=== PATIENT | female | born 1960 | race Caucasian/White ===

== ENCOUNTER → 2019-07-18 08:07 | Outpatient (CLI) | payer OTHER, SELFPAY ==
--- NOTE | 2019-07-18 08:41 | PET_ITS ---
EXAMINATION: FDG PET-CT - Head to Pelvis INDICATIONS: A 59-year-old female with reported history of carcinoma of the breast presenting for initial staging examination. COMPARISON EXAMINATION: None available INDEX LESION SIZE SUV INTERPRETATION Axial skeletal structures, multifocal 8.6 (max) Fulfills quantitative criteria for viable osseous neoplasm Left breast 23.3-mm (frame 175) 1.2 Presumably site of histologically confirmed primary breast malignancy NON-INDEX LESION SIZE SUV INTERPRETATION Left lower hemipelvis soft tissue nodularity 2.2 (max) Associated fatty hilus. Quantitative criteria for viable neoplasm are not fulfilled TECHNIQUE: Following the intravenous administration of 17.5 mCi of F-18 deoxyglucose, multiplanar image acquisitions of the head, neck, chest, abdomen and pelvis to level of mid thigh, obtained at one hour post radiopharmaceutical administration contemporaneously interpreted with the current CT of the head, neck, chest, abdomen and pelvis, to level of mid thigh, dated 07/18/2019 via coregistration reveals: BLOOD GLUCOSE LEVEL:?? 90 mg/dl?HEIGHT:?66 inches?WEIGHT: 184 lbs. FINDINGS: 1. There is a mild increase in glucose metabolism asymmetrically apparent in the left breast generating a calculated maximal standard uptake value of 1.2. The maximal axial diameter of the corresponding metabolic, morphologic abnormality on review of CT of the chest dated 07/18/2019 is 23.3-mm (transverse). 2. Multiple foci of increased FDG distribution are noted in the axial skeletal structures, too many to individually articulate, to include several cervical and thoracic vertebrae, bilateral ribs, right scapula, the left acetabulum and bilateral posterior ischium, left superior pubic ramus rendering a calculated maximal standard uptake value of 8.6. Mixed sclerotic-lytic changes are noted in multiple analogous locations on review of CT of the neck-pelvis dated 07/18/2019. 3. Facilitated tracer concentration is observed in the left lower anterior hemipelvis, in two separate nodular presentations, generating a calculated maximal standard uptake value of 2.2. Corresponding soft tissue densities demonstrate fatty hilus on review of CT of the pelvis dated 07/18/2019. 4. Normal physiologic distribution of the radiopharmaceutical is apparent in the hepatic (3.0) and splenic parenchyma, both renal units, bladder and visualized intestinal tract. Symmetric glucose metabolism is evident in the occipital, frontal, parietal and temporal lobes of the cerebral cortex, as well as normal visualization of the basal ganglia and cerebellar hemispheres. Diffuse radiopharmaceutical concentration is noted in all four quadrants of the abdomen and pelvis. Pertinent CT findings are as follows: CHEST: There are no parenchymal densities-nodules defined in the right and left hemithorax demonstrating discernible quantitatively significant increased FDG concentration. Bilateral axillary soft tissue with fatty hilus is ametabolic. Mediastinal soft tissue densities reveal no evidence of quantitatively significant-discernible increased FDG uptake. ABDOMEN AND PELVIS: Right-left inguinal soft tissue densities with fatty hilus are ametabolic. SKELETAL: Degenerative changes are noted in the cervical, thoracic and lumbar spine. Mixed sclerotic-lytic change manifest in the axial skeletal structures demonstrate varying degrees of quantitatively significant enhanced glucose metabolism previously described. PET/PET/CT Tumor Base -Thigh Init IMPRESSION: 1. ABNORMAL EXAMINATION INDICATIVE OF MALIGNANT-METASTATIC VIABLE NEOPLASM. 2. Increased radiopharmaceutical concentration multifocally apparent in the axial skeletal structures fulfills quantitative criteria for viable osseous neoplasm. (Marnie et al, Clinical Nuclear Medicine, 29:161, 2004). 3. Facilitated radiopharmaceutical concentration observed in the left breast presumably is outside sales representative of the site of the patient?s histologically confirmed primary breast malignancy. 4. Focal increased tracer uptake noted in the left lower hemipelvis corresponding to soft tissue nodularity with fatty hilus do not fulfill quantitative criteria for viable neoplasm. Electronic Signature Destin Mckeon D.O. Electronically Signed: Destin Mckeon DO at 23:30 EDT Tel , Service support ,
== END ==
PROVIDERS: PCP Family Medicine
DX: C50.912 Malignant neoplasm of unspecified site of left female breast (principal)
CPT/HCPCS: 78815; A9552

== ENCOUNTER → 2019-08-01 09:37 | Outpatient (CLI) | payer OTHER, SELFPAY ==
--- NOTE | 2019-08-01 09:38 | NM_ITS ---
CLINICAL: 59-year-old female with reported history of carcinoma of the breast. WHOLE BODY 99m Tc MDP RADIONUCLIDE BONE SCINTIGRAPHY COMPARISON: FDG PET/CT study dated 07/18/2019 FINDINGS: Following the intravenous administration of 27.8 mCi of 99m Tc MDP, whole body bone images reveal: 1. Increased radiopharmaceutical concentration is identified in the right frontal calvarium, left posterior acetabulum and ischium, left posterior lateral seventh, right posterior lateral eighth-ninth ribs, sixth-seventh and 11th thoracic vertebra, left paramedian mandible. 2. Enhanced tracer concentration is observed in the acromioclavicular compartments of both shoulders bilateral knees, right ankle, forefoot bilaterally, midlower cervical spine, fifth lumbar vertebra. 3. The remaining skeletal structures are scintigraphically unremarkable with normal-appearing renal images and urinary bladder activity identified. NM/Bone Scan Whole Body IMPRESSION: 1. Increased radiopharmaceutical concentration observed in the right frontal calvarium, left hemipelvis, bilateral ribs, thoracic spine and the left mandible is most consistent with skeletal metastatic disease. 2. Degenerative arthritis appears expressed in the bilateral knees, right ankle, right-left forefoot, cervical and lumbar spine. Electronically Signed: Destin Mckeon DO at 23:22 EDT Tel , Service support ,
== END ==
PROVIDERS: PCP Family Medicine; Referring Provider Internal Medicine Medical Oncology; Visit Provider Internal Medicine Medical Oncology
DX: C50.912 Malignant neoplasm of unspecified site of left female breast (principal)
CPT/HCPCS: 78306

== ENCOUNTER → 2019-08-05 09:06 | Outpatient (CLI) | payer OTHER, SELFPAY ==
--- NOTE | 2019-08-05 09:07 | MRI_ITS ---
STUDY: BILATERAL BREAST MR WITHOUT AND WITH CONTRAST REASON FOR EXAM: Female, 59 years old. Newly diagnosed left breast cancer status post biopsy. TECHNIQUE: Multi-sequence multi-echo imaging of both breasts was performed with a dedicated breast coil. T1-weighted and T2-weighted images were performed before the administration of contrast. T1-weighted images were also performed after the administration of 17ml Dotarem iv without complications. COMPARISON: Left breast ultrasound dated June 07, 2019 and left breast ultrasound-guided biopsy images dated June 16, 2019. Left mammogram after clip placement dated June 16, 2019. Radionuclide bone scan performed August 01, 2019 and PET/CT study performed July 18, 2019. FINDINGS: RIGHT BREAST: The breast tissue is fatty with minimal background enhancement. There are no abnormal enhancing masses or areas of non-mass enhancement in the right breast. LEFT BREAST: The breast tissue is fatty with minimal background enhancement. Large area of clumped non-mass enhancement in the upper outer quadrant of the left breast measuring 5.2 cm x 2.3 cm x 5.5 cm. Tissue clip marker within the enhancing mass. Second separate irregular enhancing mass posterior to the clumped nonmass enhancement measuring approximately 1.3 cm in diameter corresponding to the irregular mass seen on the mammogram, compatible with a second primary lesion. Enlarged bilateral axillary lymph nodes, right greater than left. The right axillary lymph nodes may represent contralateral axillary metastases. 12 mm in diameter rounded enhancing lesion in the left sternum compatible with osseous metastasis corresponding to the radionuclide bone scan performed August 01, 2019. There are no enlarged or abnormal lymph nodes. There is no abnormality in the visualized regions of the chest or liver. MRI/Breast Bilateral W/O and W IMPRESSION: Large area of clumped non-mass enhancement in the upper outer quadrant of the left breast corresponding to the area of the index lesion. Second separate irregular enhancing mass in the left breast posterior to the index lesion compatible with a second primary breast cancer. 12 mm in diameter rounded enhancing lesion in the left side of the sternum compatible with an osseous metastasis and corresponding to findings noted on the radionuclide bone scan. Enlarged bilateral axillary lymph nodes, right greater than left. The right axillary lymph nodes may represent contralateral axillary metastases, as outlined above. CATEGORY: BIRADS Category 6: Known Biopsy-Proven Malignancy - Appropriate Action Should Be Taken. A letter regarding these results will be sent to the patient by the facility within 30 days. Electronically Signed: Vazquez Quinones MD at 15:58 EDT , Service support ,
== END ==
PROVIDERS: PCP Family Medicine; Referring Provider Surgery; Visit Provider Surgery
DX: C50.912 Malignant neoplasm of unspecified site of left female breast (principal); C79.51 Secondary malignant neoplasm of bone
CPT/HCPCS: 77049; A9575; A4216; C8908

== ENCOUNTER → 2019-08-24 11:15 | Outpatient (CLI) | payer OTHER, SELFPAY ==
[2019-08-10 09:48] VITALS: BMI 29.5
[2019-08-18 13:24] VITALS: BMI 29.6
--- NOTE | 2019-08-24 11:17 | MRI_ITS ---
STUDY: MRI BRAIN WITH AND WITHOUT CONTRAST REASON FOR EXAM: Female, 59 years old. Breast ca, staging TECHNIQUE: Standardized multiplanar fat and water weighted pulse sequences were obtained. 17 mL of IV Dotarem was administered for the contrast portion of the examination. COMPARISON: None. FINDINGS: No restricted diffusion throughout the brain parenchyma. Normal size of the ventricles and extra-axial spaces for the patient''s age. Multiple T2 FLAIR hyperintensity foci in the white matter of both cerebral hemispheres are chronic white matter ischemic changes. No midline shift and no mass effects. Normal bilateral basal ganglia. Normal thalami. There is no extra-axial fluid accumulation. Normal flow voids within the major intracranial circulation suggesting patency by spin echo criteria. Normal venous enhancement. There is no enhancing intra-axial or extra-axial abnormality. Normal sella turcica, pituitary gland, infundibular stalk, optic chiasm and hypothalamus. Normal tectal plate and pineal gland. Normal midbrain, oziel and medulla. Normal cerebellum. Normal basal cisterns. Normal bilateral temporal bones. Normal bilateral internal auditory canals. No demonstrated orbital abnormality, within the constraints of a routine brain study. Benign mucus retention cyst in the right maxillary sinus. Normal calvarium and skull base. Normal visualized soft tissue structures. Normal visualized upper cervical spine. MRI/Brain W/WO Contrast IMPRESSION: 1. No MRI evidence of intracranial metastatic disease. 2. No MRI evidence of acute or subacute ischemic infarct or acute intracranial abnormality. 3. Chronic white matter ischemic changes in both cerebral hemispheres. 4. Prominent benign mucus retention cyst in the right maxillary sinus. Electronically Signed: Johnathan Malone MD at 14:10 EDT , Service support ,
--- NOTE | 2019-08-24 11:31 | US_ITS ---
STUDY: ULTRASOUND OF THE FEMALE PELVIS - COMPLETE REASON FOR EXAM: Female, 59 years old. H/O BREAST MED WITH CRAMPING LMP: Patient is postmenopausal. TECHNIQUE: Transabdominal and Transvaginal TECHNICAL QUALITY: Adequate. COMPARISON: None. FINDINGS: The uterus is anteverted and is in a midline position. The uterus measures 9.9 cm x 6.9 cm x 5.2 cm. There is a Nabothian cyst of the cervix. The endometrium measures 5.0 mm in thickness, and is hyperechoic. There is no demonstrated endometrial mass. There is a 5 cm x 4.4 cm x 5 cm fibroid in the anterior fundal portion of the uterus. I.U.D. - The patient does not have an I.U.D. The right ovary is non-visualized. The left ovary is non-visualized. There is no fluid in the cul-de-sac. The pre void volume of the bladder was 353 ml. Polycystic ovary disease: No. US/Transvaginal Non- IMPRESSION: Fibroid uterus. Electronically Signed: Emory Rivero, at 13:01 EDT , Service support ,
--- NOTE | 2019-08-24 11:31 | US_ITS ---
STUDY: ULTRASOUND OF THE FEMALE PELVIS - COMPLETE REASON FOR EXAM: Female, 59 years old. H/O BREAST MED WITH CRAMPING LMP: Patient is postmenopausal. TECHNIQUE: Transabdominal and Transvaginal TECHNICAL QUALITY: Adequate. COMPARISON: None. FINDINGS: The uterus is anteverted and is in a midline position. The uterus measures 9.9 cm x 6.9 cm x 5.2 cm. There is a Nabothian cyst of the cervix. The endometrium measures 5.0 mm in thickness, and is hyperechoic. There is no demonstrated endometrial mass. There is a 5 cm x 4.4 cm x 5 cm fibroid in the anterior fundal portion of the uterus. I.U.D. - The patient does not have an I.U.D. The right ovary is non-visualized. The left ovary is non-visualized. There is no fluid in the cul-de-sac. The pre void volume of the bladder was 353 ml. Polycystic ovary disease: No. US/Pelvic (Non ) IMPRESSION: Fibroid uterus. Electronically Signed: Emory Rivero, at 13:01 EDT , Service support ,
== END ==
PROVIDERS: PCP Family Medicine; Referring Provider Nurse Practitioner Women's Health; Visit Provider Nurse Practitioner Women's Health
DX: C50.412 Malignant neoplasm of upper-outer quadrant of left female breast (principal); C79.51 Secondary malignant neoplasm of bone; R10.2 Pelvic and perineal pain
CPT/HCPCS: 70553; 76830; 76856; A9575

== ENCOUNTER → 2019-09-23 10:46 | Outpatient (CLI) | payer OTHER, SELFPAY ==
[2019-09-19 11:05] VITALS: BMI 29.0
--- NOTE | 2019-09-23 10:48 | MRI_ITS ---
STUDY: BILATERAL BREAST MR WITHOUT AND WITH CONTRAST REASON FOR EXAM: Female, 59 years old. History of left breast cancer. Left breast pain. TECHNIQUE: Multi-sequence multi-echo imaging of both breasts was performed with a dedicated breast coil. T1-weighted and T2-weighted images were performed before the administration of contrast. T1-weighted images were also performed after the administration of IV Yes without complications. COMPARISON: Left mammogram dated June 16, 2019, left breast ultrasound-guided biopsy images dated June 16, 2019 and prior breast MRI study with contrast agent August 05, 2019. FINDINGS: RIGHT BREAST: The breast tissue is fatty with minimal background enhancement. There are no abnormal enhancing masses or areas of non-mass enhancement in the right breast. LEFT BREAST: The breast tissue is fatty with minimal background enhancement. Stable area of clumped non-mass enhancement in the upper outer quadrant of the left breast now measuring approximately 3.6 cm x 2.4 cm x 3.5 cm. Separate irregular enhancing area posterior and superior to the non-mass enhancement measuring 10 mm x 7 mm x 1.3 mm. Decreased adenopathy in both axillary, right greater than left. Rounded enhancing lesion in the left sternum superiorly. The enhancement has decreased since the prior study. MRI/Breast Bilateral W/O and W IMPRESSION: Decrease in size of non--mass enhancement in the left breast since the prior study. Decrease in size of the separate enhancing lesion posterior to the non-mass enhancement in the left breast since the prior study. Decreased enhancement of the circular lesion in the left sternum since the prior study. No new lesions/abnormalities present. CATEGORY: BIRADS Category 6: Known Biopsy-Proven Malignancy - Appropriate Action Should Be Taken. A letter regarding these results will be sent to the patient by the facility within 30 days. Electronically Signed: Vazquez Quinones MD at 21:05 EDT , Service support ,
== END ==
PROVIDERS: PCP Family Medicine; Referring Provider Nurse Practitioner Family; Visit Provider Nurse Practitioner Family
DX: C50.912 Malignant neoplasm of unspecified site of left female breast (principal)
CPT/HCPCS: 77049; A9575; A4216; C8908

== ENCOUNTER → 2019-11-16 07:53 | Outpatient (CLI) | payer OTHER, SELFPAY ==
[2019-10-12 10:04] VITALS: BMI 29.2
--- NOTE | 2019-11-16 07:54 | NM_ITS ---
CLINICAL: 59-year-old female with reported history of carcinoma of the left breast with current complaint of left hip and chest wall pain. WHOLE BODY 99m Tc MDP RADIONUCLIDE BONE SCINTIGRAPHY COMPARISON: Whole body bone scintigraphy study dated 08/01/2019 FINDINGS: Following the intravenous administration of approximately 25.0 mCi of 99m Tc MDP, whole body bone images reveal: 1. Increased radiopharmaceutical concentration remains apparent in the right frontal calvarium, left posterior acetabulum and patient, the left inferior pubic ramus, left posterior lateral seventh, right posterior lateral eighth and to lesser extent ninth ribs the sixth and seventh thoracic vertebra and newly apparent uptake noted in the left occipital, left frontal and additional focus in the right frontal skull. 2. Facilitated tracer concentration is presently visualized in the mid cervical spine posteriorly on the right and in the midline, bilateral knees, dorsal medial compartment of the right ankle, the right and to lesser extent left forefoot. 3. The remaining skeletal structures are scintigraphically unremarkable with normal-appearing renal images and urinary bladder activity identified. Facilitated uptake remains evident in the midline and left paramedian mandible most consistent with periodontal disease and/or periostitis. NM/Bone Scan Whole Body IMPRESSION: 1. The redefined and newly visualized foci of increased radiopharmaceutical concentration noted in the axial skeletal structures and bilateral hemipelvic calvarium is consistent with osteoblastic turnover attributed to skeletal metastatic disease. 2. Degenerative arthritis appears currently expressed in the cervical spine, right and left knees, the right ankle, right and left forefoot. 3. Overall compared to the previous whole body bone scintigraphy study dated 08/01/2019, is apparent interval progression of defined osteoblastic osseous metastasis. If flare phenomenon is a diagnostic consideration, repeat whole body bone scintigraphy in 3-6 months is recommended. Electronically Signed: Destin Mckeon DO at 22:41 EDT Tel , Service support ,
== END ==
PROVIDERS: PCP Family Medicine; Referring Provider Internal Medicine Medical Oncology; Visit Provider Internal Medicine Medical Oncology
DX: C50.912 Malignant neoplasm of unspecified site of left female breast (principal); C79.51 Secondary malignant neoplasm of bone
CPT/HCPCS: 78306

== ENCOUNTER → 2019-11-18 13:04 | Outpatient (CLI) | payer OTHER, SELFPAY ==
[2019-11-16 09:08] VITALS: BMI 29.2
--- NOTE | 2019-11-18 13:05 | MRI_ITS ---
STUDY: BILATERAL BREAST MR WITHOUT AND WITH CONTRAST REASON FOR EXAM: Female, 59 years old. NEW LEFT breast pain (under and lateral). history of LEFT breast CA with biopsy 2019 TECHNIQUE: Multi-sequence multi-echo imaging of both breasts was performed with a dedicated breast coil. T1-weighted and T2-weighted images were performed before the administration of contrast. T1-weighted images were also performed after the administration of IV Yes without complications. COMPARISON: Breast MRI dated 09/23/2019 and 08/05/2019. The prior mammogram and breast ultrasound are not available for review. FINDINGS: LEFTBREAST: The breast tissue is fatty with minimal background enhancement. There is an area of enhancement in the upper outer quadrant of the left breast measuring 2.7 x 1.5 cm. This has decreased in size when compared to the prior breast MRI. There is an irregularly enhancing mass seen posterior and superior to the the larger mass measuring 1.2 x 0.7 cm. This is stable when compared to the prior exam. RIGHT BREAST: The breast tissue is fatty with minimal background enhancement. There are no abnormal enhancing masses or areas of non-mass enhancement in the left breast. The lymph nodes have decreased slightly in size when compared to the prior examination. The previously seen lesion on the left side of the sternum appears smaller on today''s exam. MRI/Breast Bilateral W/O and W IMPRESSION: There has been a decrease in size of the larger enhancing mass in the left breast and a smaller enhancing mass in the left breast appears similar when compared to the prior breast MRI. The lesion the left sternum appears smaller on today''s study. CATEGORY: BIRADS Category 6: Known Biopsy-Proven Malignancy - Appropriate Action Should Be Taken. A letter regarding these results will be sent to the patient by the facility within 30 days. Electronically Signed: Brandy Harp DO at 21:54 EDT Tel , Service support ,
== END ==
PROVIDERS: PCP Family Medicine; Referring Provider Nurse Practitioner Family; Visit Provider Nurse Practitioner Family
DX: C50.912 Malignant neoplasm of unspecified site of left female breast (principal); N64.4 Mastodynia; Z85.3 Personal history of malignant neoplasm of breast
CPT/HCPCS: 77049; A9575; A4216; C8908

== ENCOUNTER → 2019-12-16 08:12 | Outpatient (CLI) | payer OTHER, SELFPAY ==
[2019-09-14 08:13] VITALS: BMI 29.2
[2019-10-12 10:04] VITALS: BMI 29.2
[2019-12-12 13:51] VITALS: BMI 28.2
--- NOTE | 2019-12-16 08:12 | US_ITS ---
STUDY: ULTRASOUND OF THE FEMALE PELVIS - COMPLETE REASON FOR EXAM: Female, 59 years old. Thickened endo ,hx tamoxifen, breast ca -- previous study 08/21 please compare LMP: The patient is postmenopausal. TECHNIQUE: Transabdominal and Transvaginal TECHNICAL QUALITY: Adequate. COMPARISON: Comparison is made with prior examination dated 08/24/2019. FINDINGS: The uterus is anteverted and is in a midline position. The uterus measures 9.3 cm x 6.6 cm x 4.9 cm. Normal uterine cervix. The endometrium is thickened and measures 10 mm in thickness, and is hyperechoic. There small cystic areas are seen within the thickened endometrium. There is no demonstrated myometrial mass. I.U.D. - The patient does not have an I.U.D. The right ovary is non-visualized. The left ovary is non-visualized. There is no fluid in the cul-de-sac. The pre void volume of the bladder was 437 ml. Polycystic ovary disease: No. US/Pelvic (Non ) IMPRESSION: Thickened heterogeneous endometrial stripe with small cystic areas. Electronically Signed: Emory Rivero, at 11:17 EDT , Service support ,
--- NOTE | 2019-12-16 08:12 | US_ITS ---
STUDY: ULTRASOUND OF THE FEMALE PELVIS - COMPLETE REASON FOR EXAM: Female, 59 years old. Thickened endo ,hx tamoxifen, breast ca -- previous study 08/21 please compare LMP: The patient is postmenopausal. TECHNIQUE: Transabdominal and Transvaginal TECHNICAL QUALITY: Adequate. COMPARISON: Comparison is made with prior examination dated 08/24/2019. FINDINGS: The uterus is anteverted and is in a midline position. The uterus measures 9.3 cm x 6.6 cm x 4.9 cm. Normal uterine cervix. The endometrium is thickened and measures 10 mm in thickness, and is hyperechoic. There small cystic areas are seen within the thickened endometrium. There is no demonstrated myometrial mass. I.U.D. - The patient does not have an I.U.D. The right ovary is non-visualized. The left ovary is non-visualized. There is no fluid in the cul-de-sac. The pre void volume of the bladder was 437 ml. Polycystic ovary disease: No. US/Transvaginal Non- IMPRESSION: Thickened heterogeneous endometrial stripe with small cystic areas. Electronically Signed: Emory Rivero, at 11:17 EDT , Service support ,
== END ==
PROVIDERS: PCP Family Medicine; Referring Provider Nurse Practitioner Women's Health; Visit Provider Nurse Practitioner Women's Health
DX: R93.89 Abnormal findings on diagnostic imaging of other specified body structures (principal); Z79.810 Long term (current) use of selective estrogen receptor modulators (SERMs)
CPT/HCPCS: 76830; 76856

== ENCOUNTER 2020-01-01 06:46 | Emergency (ER) | payer OTHER, SELFPAY ==
[2019-12-12 13:51] VITALS: BMI 28.2
[2020-01-01 06:47] VITALS: BP 119/79; PULSE 64; RESP 11; TEMP 36.6; O2SAT 100; BMI 28.2
--- NOTE | 2020-01-01 07:03 | EKG12_ITS ---
Test Reason : Blood Pressure : / mmHG Vent. Rate : 053 BPM Atrial Rate : 053 BPM P-R Int : 160 ms QRS Dur : 086 ms QT Int : 470 ms P-R-T Axes : 026 005 028 degrees QTc Int : 441 ms Sinus bradycardia Low voltage QRS Borderline ECG Confirmed by ALFREDO MUNGUIA, SHAWN ([id number]), photo editor BECKA JOINER ([id number]) on 01/05/2020 11:34:22 AM Referred By: CL Confirmed By:SHAWN FUENTES MD
--- NOTE | 2020-01-01 07:03 | RAD_ITS ---
STUDY: X-RAY CHEST REASON FOR EXAM: Female, 59 years old. LEFT SIDE CHEST AND UPPER BACK PAIN TECHNIQUE: Single AP portable view of the chest. COMPARISON: 07/21/2019 FINDINGS: The lungs are clear and expanded. There is no demonstrated pleural abnormality. Normal size heart. Normal mediastinum and devora. Normal visualized pulmonary arteries. Normal visualized aortic arch and descending thoracic aorta. Normal visualized thoracic spine. Normal visualized ribs, clavicles, and shoulders. There is no demonstrated abnormality of the visualized soft tissue structures of the upper abdomen. RAD/Chest 1 View (Portable) IMPRESSION: Normal x-ray examination of the chest. Electronically Signed: Destin Benson MD at 7:48 EDT Tel , Service support ,
--- NOTE | 2020-01-01 07:04 | ED.VIS.GEN ---
History of Present Illness Chief Complaint: Other, Pain/Inj Informant: Patient Narrative: 59-year-old female with past medical history of metastatic breast cancer and hypothyroidism presents with concern for left-sided chest pain. States it began approximately 12 hours ago. States is gotten progressively worse. States it is worse with deep inspiration. Does admit to shortness of breath. Denies any fever, chills, cough. Nausea, vomiting, diaphoresis. Patient is currently on oral therapy for her breast cancer and received 3 treatments of radiation last week and is set up for 2 more this week. Patient was diagnosed with her breast cancer 6 months ago. Patient is metastatic to multiple areas including her pelvis. Past Medical History - Allergies and Home Meds Allergies/Adverse Reactions: Allergies No Known Allergies Allergy (Verified 01/01/20 06:50) Primary Care Physician: Yoel Urbina MD [Primary Care Provider] - Past Medical History: - - breast cancer and hypothyroidism Surgical History: - - c section x 3 Lives: Spouse/ Significant Other Smoking Status: Former smoker Alcohol: None Drugs: None Review of Systems General: Denies: Chills, Fever, Sweats Eyes: Denies: Visual changes - bilaterally, Diplopia ENT: Denies: Rhinorrhea, Sore throat Cardiovascular: Reports: Chest pain. Denies: Palpitations Respiratory: Reports: Dyspnea. Denies: Cough, Dyspnea on exertion Gastrointestinal: Denies: Abdominal pain, Nausea, Vomiting, Diarrhea, Melena, Hematochezia Genitourinary: Denies: Dysuria, Hematuria, Frequency Musculoskeletal: Denies: Back pain, Extremity Pain Skin: Denies: Rash, Wounds Neurological: Denies: Headache, Weakness, Numbness Physical Exam Vital Signs/Narrative: Vital Signs Temp Pulse Resp BP Pulse Ox 01/01/20 06:47 97.9 F 64 11 L 119/79 100 Inital Vital Signs reviewed: Yes General: Well nourished, Well developed, No Acute Distress Head: Normocephalic, Atraumatic Eyes: Perrl, EOMI ENT: Moist mucous membranes, No rhinorrhea Neck: Supple, Nontender Cardiovascular: Regular rate, Regular rhythm, No murmurs Respiratory: No distress, CTA bilaterally, - - TTP along the left chest into the left scapular area. Abdomen: Soft, Nontender, Nondistended, Normal bowel sounds Back: Nontender, Normal Inspection Extremities: Nontender, No edema Skin: Normal color, No rash Neurological: Alert, Oriented x3, Cranial nerves II-XII grossly intact, Normal Strength, Normal Sensation Psychological: Normal affect, Normal Mood Diagnostic/Tx/Re-eval Chest X-Ray - ED: 1 View, Normal Clinical Impression(s) from Imaging Studies Chest X-Ray 01/01/20 07:03 IMPRESSION: Normal x-ray examination of the chest. Electronically Signed: Destin Benson MD at 7:48 EDT Tel , Service support , Chest CTA 01/01/20 07:52 IMPRESSION: CTA chest examination, without a demonstrated pulmonary embolism or arterial dissection. Pericardial effusion. Lower lung interstitial edema. Electronically Signed: Bunny Recinos MD at 9:27 EDT , Service support , Laboratory Data 01/01/20 01/01/20 07:15 07:15 WBC 5.6 RBC 4.04 L Hgb 11.7 L Hct 37.0 MCV 91.6 MCH 29.0 MCHC 31.6 L RDW Std Deviation 43.5 RDW Coeff of David 13.1 Plt Count 300 MPV 10.2 Immature Gran % (Auto) 0.400 Neut % (Auto) 55.4 Lymph % (Auto) 33.5 Spalding % (Auto) 3.7 Eos % (Auto) 6.1 H Baso % (Auto) 0.9 Absolute Neuts (auto) 3.1 Absolute Lymphs (auto) 1.88 Nucleated RBC % 0 Differential Comment SCANNED Reactive Lymphocytes 1+ Sodium 144 Potassium 3.9 Chloride 115 H Carbon Dioxide 24.0 Anion Gap 5 BUN 14 Creatinine 0.89 Estim Creat Clear Calc 64.50 Est GFR (MDRD) Af Amer 83 Est GFR (MDRD) Non-Af 69 BUN/Creatinine Ratio 15.7 Glucose 86 Calcium 8.3 L Troponin I < 0.015 - Rhythm Strip Rhythm Strip: Sinus bradycardia Rate: 53 Ectopy: None - EKG Initial EKG Interpretation: Sinus Bradycardia - Sinus bradycardia 53 bpm. [place] interval 160 ms. QTC of 441 ms. No evidence of ST elevation or depression at this time. - Medical Decision Making Patient appears well and nontoxic. Was given morphine, Zofran, small fluid bolus. Chest x-ray and lab work within normal limits. CTA was done given her history of breast cancer. No evidence of pulmonary embolism. Patient is feeling improved following morphine. Patient refusing narcotic pain medication for home. Advised to increase her Naprosyn to 500 mg twice a day for the next 5 days. Also advised to use Tylenol. Asked to follow-up with her oncologist as well as her primary care provider. Asked to return for new or worsening symptoms. Patient agreeable and discharged home in stable condition. ED Disposition - Plan for ED Patient: Disposition: Home or Assisted Living Diagnosis: Cancer-related pain Instructions: ED Chronic Pain Referrals: Yoel Urbina MD [Primary Care Provider] - Additional Instructions: Please use 500 mg of naproxen twice a day for the next 5 days. May add Tylenol to this regimen as well with 1000 mg up to 3 times a day.
[2020-01-01] MEDS: Ondansetron 4 MG/2 ML Vial IV (07:19)
[2020-01-01] MEDS: Morphine 4 MG/ML Syringe IV (07:19)
[2020-01-01 07:27] LABS: Absolute Lymphocyte Count 1.88 X10^3/uL (0.83-4.51); Absolute Neutrophil Count 3.1 X10^3/uL (2.0-7.7); Basophil# 0.05 X10^3/uL; Basophil% 0.9 % (0-1); Eosinophil# 0.34 X10^3/uL; Eosinophils% 6.1 % (0-5); Hemoglobin 11.7 g/dL (12.0-15.0); Lymphocyte # 1.88 X10^3/ul (4.0); Lymphocyte % 33.5 % (19-41); Mean Corp Hgb Conc 31.6 g/dL (32-36); Mean Corpuscular Volume 91.6 fL (81-99); Mean Platelet Vol. 10.2 fl (6.2-12.0); Monocyte# 0.21 X10^3/uL; Monocyte% 3.7 % (0-10); NRBC Flagged by Analyzer 0 % (0-5); Neutrophil # 3.11 X10^3/uL (2.7-7.7); Neutrophil % 55.4 % (47-70); POSITIVE MORPHOLOGY YES; Platelet Count 300 K/mm3 (150-450); RBC Distribution Width CV 13.1 % (11.6-14.6); RBC Distribution Width SD 43.5 fl (35.1-43.9); Red Blood Count 4.04 M/mm3 (4.2-5.4); White Blood Count 5.6 K/mm3 (4.4-11.0)
[2020-01-01 07:32] LABS: Differential Indicated SCAN CRITERIA MET
[2020-01-01 07:42] LABS: Anion Gap 5 (5-15); BUN 14 mg/dL (7-18); BUN/Creat Ratio 15.7 RATIO (10-20); Calcium,Total 8.3 mg/dL (8.5-10.1); Chloride 115 mmol/L (98-107); Creatinine, Serum 0.89 mg/dL (0.55-1.02); EST Glomerular Filtration Rate 69 mL/min (>60); Est Glom Filt Rate - Afr Amer 83 mL/min (>60); Glucose 86 mg/dL (74-106); Potassium 3.9 mmol/L (3.5-5.1); Sodium Level 144 mmol/L (136-145)
[2020-01-01 07:47] VITALS: BP 120/80; PULSE 52; RESP 14; O2SAT 100
--- NOTE | 2020-01-01 07:52 | CT_ITS ---
STUDY: CTA CHEST REASON FOR EXAM: Female, 59 years old. LT SIDED CP, DYSPNEA, SUBSTERNAL PAIN RADIATING TO FLANK, HX-BREAST CA WITH BONE METS RADIATION DOSAGE (If Supplied By Facility): CTDIvol = ( 14.83 ) mGy, DLP = ( 409.88 ) mGycm TECHNIQUE: The examination was performed with the intravenous administration of IV 100mL Isovue-370. Post-processing of the angiographic images was performed, with multiplanar reformation and 3D reconstruction. Individualized dose optimization techniques were used for this CT. COMPARISON: Chest x-ray FINDINGS: Normal enhancement of the main pulmonary artery and right and left pulmonary arteries. Normal enhancement of the bilateral peripheral pulmonary arteries. There is no demonstrated pulmonary embolism. Normal thoracic aorta and visualized great vessels. There is no demonstrated aortic dissection. There is a small pericardial effusion. Normal mediastinum. Normal hilar regions. Normal visualized trachea and bronchi. The lungs are well expanded. There is interstitial septal thickening of the lower lungs. Normal pleura. Normal chest wall structures. There are degenerative changes of thoracic spine. There are lucent lesions consistent with osseous metastatic disease including of mid and lower thoracic vertebra. There is enlarged left adrenal gland. CT/CTA Chest W/WO Contrast IMPRESSION: CTA chest examination, without a demonstrated pulmonary embolism or arterial dissection. Pericardial effusion. Lower lung interstitial edema. Electronically Signed: Bunny Recinos MD at 9:27 EDT , Service support ,
[2020-01-01 07:54] LABS: Differential Comment SCANNED; Reactive Lymphocyte 1+
[2020-01-01 09:00] VITALS: BP 105/86; PULSE 52; RESP 15; O2SAT 99
[2020-01-01 10:04] VITALS: BP 128/83; PULSE 80; RESP 15
== END 2020-01-01 10:05 | disposition home or self-care (01) ==
PROVIDERS: Emergency Provider Emergency Medicine; PCP Family Medicine
DX: G89.3 Neoplasm related pain (acute) (chronic) (principal); C50.919 Malignant neoplasm of unspecified site of unspecified female breast; E03.9 Hypothyroidism, unspecified; Z87.891 Personal history of nicotine dependence
CPT/HCPCS: 71045; 71275; 80048; 84484; 85025; 93005; 96374; 96375; 99284; Q9967; A4216; J2405

== ENCOUNTER 2020-04-25 16:56 | Emergency (ER) | payer OTHER, SELFPAY ==
[2020-04-17 10:34] VITALS: BMI 28.8
[2020-04-25 16:57] VITALS: BP 141/93; PULSE 78; RESP 16; TEMP 36.3; O2SAT 99; BMI 29.2
--- NOTE | 2020-04-25 17:25 | CT_ITS ---
STUDY: CT BRAIN WITHOUT CONTRAST REASON FOR EXAM: Female, 59 years old. RIGHT SIDED NUMBNESS X 3 DAYS. HISTORY OF BREAST CA RADIATION DOSAGE (If Supplied By Facility): CTDIvol = ( 60.81 ) mGy, DLP = ( 1044.28 ) mGycm TECHNIQUE: Transaxial CT imaging of the brain was performed without administration of intravenous contrast material. Individualized dose optimization techniques were used for this CT. COMPARISON: MRI August 24, 2019 FINDINGS: Normal soft tissue structures. Normal calvarium. Normal size ventricles and extra-axial spaces for the patient''s age. There are areas of decreased attenuation within the white matter tracts of the supratentorial brain, consistent with microvascular disease changes. There are small punctate calcifications of the basal ganglia which are seen in the aging brain as a normal variant. Normal brainstem. Normal cerebellum. There is no intracranial hemorrhage. There are no findings of an acute ischemic infarction. Mucosal thickening of the right maxillary sinus. CT/Brain/Head without Contrast IMPRESSION: Chronic involutional changes of the brain. Electronically Signed: Bunny Recinos MD at 18:53 EST , Service support ,
--- NOTE | 2020-04-25 17:38 | ED.DCSUM_ITS ---
- ER Visit Summary Date of Service: 04/25/20 Chief Complaint: Facial paresthesias and tinnitus History of Present Illness: The patient is a 59 F who presents with facial paresthesias and tinnitus that has been intermittent over the last 3 days. Patient states she gets some numbness and tingling in her right periorbital area and right cheek. Patient states this last approximately 15 minutes then resolves. Patient admits to some ringing in her ears when this happens. Patient also admits to some intermittent watering of her right eye. Patient denies any other visual changes. Patient states she has pain in the right temporal area. Physical Examination: Vital signs are stable. Patient is afebrile. Patient is in no acute distress. Cranial nerves II through XII are intact. Strength is 5/5 bilateral in the upper and lower extremities. There are no sensory deficits noted. Pupils are equal, round, and reactive to light bilaterally. Extraocular muscles are intact. Neck is supple. Trachea is midline. There is no JVD or lymphadenopathy. Heart was regular rate and rhythm. Lungs are clear and equal bilaterally. Abdomen is soft and nontender. Extremities are intact. There is no calf tenderness or edema. Test Results: CBC and comprehensive metabolic profile were obtained and were essentially within normal limits. CT scan of the brain was obtained. There is no acute intracranial abnormality noted. There are chronic changes. This was interpreted by the radiologist and reviewed by myself. Emergency Department Course and Treatment: Patient is feeling better on reevaluation. Patient has had no further episodes of paresthesias. Patient was instructed to follow-up with her primary care physician in 5 to 7 days. Patient understood and was agreeable with the plan. All questions were answered. Disposition: Discharge home Impression: 1. Facial paresthesias This note was generated with [employer] software. It may contain incorrect words, spelling, and punctuation that were not noted in review of the chart prior to signing ED Disposition - Plan for ED Patient: Disposition: Home or Assisted Living Diagnosis: Facial paresthesia Instructions: ED Paraesthesias Referrals: Yoel Urbina MD [Primary Care Provider] - 5-7 Days
[2020-04-25 17:42] VITALS: BMI 29.2
[2020-04-25 17:51] LABS: Absolute Lymphocyte Count 1.43 X10^3/uL (0.83-4.51); Basophil# 0.08 X10^3/uL; Basophil% 2.2 % (0-1); Eosinophil# 0.06 X10^3/uL; Eosinophils% 1.6 % (0-5); Hematocrit 35.1 % (37-47); Lymphocyte # 1.43 X10^3/ul (4.0); Lymphocyte % 39.1 % (19-41); Mean Corp Hgb Conc 34.2 g/dL (32-36); Mean Corpuscular Hgb 35.3 pg (27.0-32.0); Mean Corpuscular Volume 103.2 fL (81-99); Mean Platelet Vol. 9.8 fl (6.2-12.0); Monocyte# 0.13 X10^3/uL; Monocyte% 3.6 % (0-10); NRBC Flagged by Analyzer 0 % (0-5); Neutrophil # 1.95 X10^3/uL (2.7-7.7); Neutrophil % 53.2 % (47-70); POSITIVE MORPHOLOGY YES; Platelet Count 322 K/mm3 (150-450); RBC Distribution Width CV 16.3 % (11.6-14.6); RBC Distribution Width SD 62.6 fl (35.1-43.9); White Blood Count 3.7 K/mm3 (4.4-11.0)
[2020-04-25 18:04] LABS: AST(SGOT) 14 U/L (15-37); Alanine Aminotransfer ALT/SGPT 26 U/L (13-56); Albumin, Serum 3.6 g/dL (3.2-5.0); Alkaline Phosphatase 92 U/L (45-117); Anion Gap 6 (5-15); BUN 19 mg/dL (7-18); BUN/Creat Ratio 20.9 RATIO (10-20); Calcium,Total 8.9 mg/dL (8.5-10.1); Chloride 111 mmol/L (98-107); Creatinine, Serum 0.91 mg/dL (0.55-1.02); EST Glomerular Filtration Rate 67 mL/min (>60); Est Glom Filt Rate - Afr Amer 82 mL/min (>60); Estimated Creatinine Clearance 63.08 ml/min; Globulin 3.5 g/dL (2.2-4.2); Glucose 88 mg/dL (74-106); Potassium 4.1 mmol/L (3.5-5.1); Protein, Total 7.1 g/dL (6.4-8.2); Sodium Level 143 mmol/L (136-145)
[2020-04-25 18:20] LABS: Differential Indicated SCAN CRITERIA MET
[2020-04-25 18:49] LABS: Differential Comment SCANNED; Erythrocyte Sedimentation Rate 12 mm/hr (0-30)
[2020-04-25 20:25] VITALS: BP 130/81; PULSE 70; RESP 16; O2SAT 98
== END 2020-04-25 20:30 | disposition home or self-care (01) ==
PROVIDERS: Emergency Provider Emergency Medicine; PCP Family Medicine; Referring Provider Family Medicine
DX: R20.2 Paresthesia of skin (principal); H93.13 Tinnitus, bilateral; Z79.899 Other long term (current) drug therapy; Z85.3 Personal history of malignant neoplasm of breast
CPT/HCPCS: 70450; 80053; 85025; 85652; 99284

== ENCOUNTER → 2020-05-16 17:20 | Outpatient (CLI) | payer OTHER, SELFPAY ==
[2020-05-15 10:25] VITALS: BMI 29.6
== END ==
PROVIDERS: PCP Family Medicine; Visit Provider Nurse Practitioner Family
DX: U07.1 COVID-19 (principal); R09.81 Nasal congestion
CPT/HCPCS: 87635; C9803; U0005; U0003

== ENCOUNTER → 2020-06-06 08:54 | Outpatient (CLI) | payer OTHER, SELFPAY ==
[2020-05-15 10:25] VITALS: BMI 29.6
--- NOTE | 2020-06-06 08:55 | NM_ITS ---
CLINICAL: 59-year-old female with reported history of carcinoma of the breast metastatic to bone. WHOLE BODY 99m Tc MDP RADIONUCLIDE BONE SCINTIGRAPHY COMPARISON: Previous whole body bone scintigraphy study dated 11/16/2019 FINDINGS: Following the intravenous administration of 26.0 mCi of 99m Tc MDP, whole body bone images reveal: 1. Redefined and newly apparent foci of increased tracer uptake are visualized in the right proximal humeral metaphysis, left anterior first, right anterolateral ninth ribs, distal left clavicle, right-left calvarium, the bilateral hemipelvis, multiple cervical, thoracic and lumbar vertebra, bilateral ribs, the proximal and distal sternum, bilateral proximal femurs posteriorly. 2. Facilitated uptake is observed in the acromioclavicular compartments of both shoulders, knees bilaterally, the right ankle, right-left forefoot. 3. The remaining skeletal structures are scintigraphically unremarkable with normal-appearing renal images and urinary bladder activity identified. NM/Bone Scan Whole Body IMPRESSION: 1. The multifocal increase in radiopharmaceutical concentration both persistently and currently visualized in the appendicular and axial skeletal structures, bilateral hemipelvic calvarium is commensurate with skeletal metastatic disease. 2. Degenerative arthritis appears expressed in the bilateral shoulders, both knees, the right ankle, forefoot bilaterally. 3. Overall compared to the previous whole body bone scintigraphy study dated 11/16/2019, there is interval progression of expressed osteoblastic skeletal metastatic disease. Electronically Signed: Destin Mckeon DO at 22:01 EST Tel , Service support ,
== END ==
PROVIDERS: PCP Family Medicine; Referring Provider Internal Medicine Medical Oncology; Visit Provider Internal Medicine Medical Oncology
DX: C50.912 Malignant neoplasm of unspecified site of left female breast (principal); C79.51 Secondary malignant neoplasm of bone
CPT/HCPCS: 78306

== ENCOUNTER → 2020-07-13 10:41 | Outpatient (CLI) | payer OTHER, SELFPAY ==
[2020-07-09 11:05] VITALS: BMI 30.8
--- NOTE | 2020-07-13 10:42 | MRI_ITS ---
STUDY: BILATERAL BREAST MR WITHOUT AND WITH CONTRAST REASON FOR EXAM: Female, 60 years old. History of breast cancer. Follow-up after chemotherapy. Left breast swelling. TECHNIQUE: Multi-sequence multi-echo imaging of both breasts was performed with a dedicated breast coil. T1-weighted and T2-weighted images were performed before the administration of contrast. T1-weighted images were also performed after the administration of IV Yes without complications. COMPARISON: Prior breast MRI with contrast dated 11/18/2019, 09/23/2019 and 08/05/2019. FINDINGS: RIGHT BREAST: The breast tissue is heterogeneously dense with minimal background enhancement. There are no abnormal enhancing masses or areas of non-mass enhancement in the right breast. LEFT BREAST: The breast tissue is heterogeneously dense with minimal background enhancement. Vague stippled enhancement in the left breast in the region of the prior lesion measuring approximately 2.5 cm x 1.2 cm x 3.9 cm. There is no definable mass enhancement. This area of enhancement is substantially decreased since the most recent breast MRI study of 11/18/2019. The sternal enhancing lesion shows little change with a diameter of approximately 1.1 cm. There are no enlarged or abnormal lymph nodes. There is no abnormality in the visualized regions of the chest or liver. MRI/Breast Unilateral W/O and W IMPRESSION: No abnormality in the right breast. Vague stippled enhancement in the region of the prior lesion in the left breast as described. No definable mass enhancement. Substantial decrease in enhancement in the left breast since the prior MRI study. Stable sternal enhancing lesion. CATEGORY: BIRADS Category 6: Known Biopsy-Proven Malignancy - Appropriate Action Should Be Taken. A letter regarding these results will be sent to the patient by the facility within 30 days. Electronically Signed: Vazquez Quinones MD at 17:01 EST , Service support ,
== END ==
PROVIDERS: PCP Family Medicine; Referring Provider Internal Medicine Medical Oncology; Visit Provider Internal Medicine Medical Oncology
DX: C50.412 Malignant neoplasm of upper-outer quadrant of left female breast (principal); N63.0 Unspecified lump in unspecified breast
CPT/HCPCS: 77048; A9575; A4216; C8905

== ENCOUNTER → 2020-09-04 10:45 | Outpatient (CLI) | payer OTHER, SELFPAY ==
[2020-09-04 09:05] VITALS: BMI 30.1
--- NOTE | 2020-09-04 10:50 | RAD_ITS ---
STUDY: X-RAY - CERVICAL SPINE REASON FOR EXAM: Female, 60 years old. Numbness and tingling of the left hand. History of metastatic breast cancer. TECHNIQUE: 5 view(s) of the cervical spine were obtained. COMPARISON: None FINDINGS: Normal anterior atlantoaxial articulation. Normal odontoid process. Normal cervical lordosis. There is mild sclerosis of the third through sixth vertebral on the lateral view. These however appear overall normal on the Normal disc space heights. There is minimal narrowing of the bilateral C5-6 and C6-7 neural foramina. There is no evidence of acute fracture or loss of vertebral axial height. There is maintenance of normal alignment. The soft tissue structures are unremarkable. RAD/Cerv Spine 4 or 5 Views IMPRESSION: 1. Degenerative changes of the cervical spine. Scleroses of the C3-C6 vertebra. Question bone metastases. Electronically Signed: Yovani Tang DO at 16:53 EDT Tel [phone], Service support ,
--- NOTE | 2020-09-04 10:50 | RAD_ITS ---
STUDY: X-RAY - THORACIC SPINE REASON FOR EXAM: Female, 60 years old. Numbness in the left hand. History of bone metastases. TECHNIQUE: 3 view(s) of the thoracic spine were obtained. COMPARISON: None. FINDINGS: Normal kyphosis of the thoracic spine. There is a very minimal levoscoliosis of the thoracic spine. There is demineralization of the thoracic spine with endplate spondylosis. There is multilevel disc space narrowing of the thoracic spine. There is no evidence of acute fracture or loss of vertebral axial height. No distinct evidence of metastatic disease. The soft tissue structures are unremarkable. RAD/Thoracic Spine 3 Views IMPRESSION: Degenerative changes of the thoracic spine. Electronically Signed: Yovani Tang DO at 16:55 EDT Tel [phone], Service support ,
== END ==
PROVIDERS: PCP Family Medicine; Referring Provider Nurse Practitioner Family; Visit Provider Nurse Practitioner Family
DX: R20.0 Anesthesia of skin (principal); R20.2 Paresthesia of skin
CPT/HCPCS: 72050; 72072

== ENCOUNTER → 2020-09-14 07:38 | Outpatient (CLI) | payer OTHER, SELFPAY ==
[2020-09-10 10:27] VITALS: BMI 30.1
--- NOTE | 2020-09-14 07:41 | CT_ITS ---
STUDY: CT CHEST, ABDOMEN T PELVIS WITH CONTRAST REASON FOR EXAM: Female, 60 years old. Rising tumor marker, assess response to treatment. History of breast cancer. History of bone metastasis. RADIATION DOSAGE (If Supplied By Facility): CTDIvol = ( 16.12 ) mGy, DLP = ( 1149.80 ) mGycm TECHNIQUE: Transaxial imaging was performed following intravenous administration of IV 100mL Isovue-300. Individualized dose optimization techniques were used for this CT. COMPARISON: Comparison is made with prior CT scan of the thorax dated 01/01/2020. FINDINGS: A right-sided portacatheter is seen with the tip in the superior vena cava. CHEST There is diffuse thickening of the skin of the right breast. This may be related to post radiation changes. The lungs are normal. There is no demonstrated pleural abnormality. Minimal thickening of the anterior aspect of the pericardium. Normal mediastinum. Normal hilar regions. Normal unenhanced pulmonary arteries. Normal aorta arch and descending thoracic aorta. There are multi-level degenerative changes of the thoracic spine. Once again, there is evidence of a sclerotic metastasis involving the thoracic vertebrae. A lucency is once again seen in the lower dorsal vertebrae. Stable 1.9 cm rounded nodular density in the crux of the left adrenal gland. ABDOMEN The visualized lung bases are unremarkable. The visualized portions of the heart are within normal limits. Normal liver. Normal gallbladder and extrahepatic biliary system. Normal spleen. Normal pancreas. Stable 1.9 cm hypodense nodule in the crux of the left adrenal gland. Normal right kidney. Normal left kidney. Normal visualized stomach. Normal small intestine. There are colonic diverticula consistent with diverticulosis. The appendix is visualized and appears normal. Normal abdominal aorta. Normal inferior vena cava. Normal retroperitoneum. Normal abdominal wall. Once again, there is evidence of diffuse bony metastasis involving the lumbar vertebrae as well as the pelvic bones. PELVIS Normal urinary bladder. Heterogeneous enlargement of the uterus suggestive of fibroid uterus. Normal visualized small intestine. There are colonic diverticula of the sigmoid colon consistent with chronic diverticulosis. There is no pelvic fluid. There is no pelvic lymphadenopathy or mass lesion. CT/CT Chest, Abd, Pel w/Contrast IMPRESSION: Stable diffuse bony metastasis. Stable 1.9 cm rounded nodule in the crux of the left adrenal gland. Heterogeneous enlargement of the uterus suggestive of fibroid uterus. Electronically Signed: Emory Rivero MD at 13:10 EDT , Service support ,
== END ==
PROVIDERS: PCP Family Medicine; Referring Provider Nurse Practitioner Family; Visit Provider Nurse Practitioner Family
DX: C50.412 Malignant neoplasm of upper-outer quadrant of left female breast (principal); Z17.0 Estrogen receptor positive status [ER+]
CPT/HCPCS: 71260; 74177; Q9967

== ENCOUNTER → 2020-09-17 12:12 | Outpatient (CLI) | payer OTHER, SELFPAY ==
[2020-09-10 10:27] VITALS: BMI 30.1
--- NOTE | 2020-09-17 12:13 | MRI_ITS ---
STUDY: MRI BRAIN WITH AND WITHOUT CONTRAST REASON FOR EXAM: Female, 60 years old. Left hand numbness/tingling, metastatic breast ca TECHNIQUE: Standardized multiplanar fat and water weighted pulse sequences were obtained. 17ml Dotarem via IV was administered for the contrast portion of the examination. COMPARISON: 08/24/2019 FINDINGS: Normal size of the ventricles and extra-axial spaces for the patient''s age. There are multiple white matter hyperintensities, distributed throughout the deep white matter tracts of the cerebral hemispheres, consistent with moderate chronic white matter ischemic changes. There is no evidence for recent intracranial ischemia or other cause of cytotoxic edema on diffusion weighted imaging (DWI). Normal T2* images of the brain without demonstrated susceptibility artifact. There is no demonstrated hemosiderin stain. Normal bilateral basal ganglia. Normal thalami. There is no extra-axial fluid accumulation. Normal flow voids within the major intracranial circulation suggesting patency by spin echo criteria. Normal venous enhancement. There is no enhancing intra-axial or extra-axial abnormality. Normal sella turcica, pituitary gland, infundibular stalk, optic chiasm and hypothalamus. Normal tectal plate and pineal gland. Normal midbrain, oziel and medulla. Normal cerebellum. Normal basal cisterns. Normal bilateral temporal bones. Normal bilateral internal auditory canals. No demonstrated orbital abnormality, within the constraints of a routine brain study. Mucous retention cyst in the right x-ray sinus consistent with chronic sinusitis. Normal calvarium and skull base. Normal visualized soft tissue structures. Normal visualized upper cervical spine. MRI/Brain W/WO Contrast IMPRESSION: Involutional changes of the brain, as described above. No MR evidence metastatic disease. Electronically Signed: Destin Benson MD at 16:20 EDT Tel , Service support ,
--- NOTE | 2020-09-17 12:13 | MRI_ITS ---
STUDY: MRI CERVICAL SPINE WITH AND WITHOUT CONTRAST REASON FOR EXAM: Female, 60 years old. Left hand tingling, skeletal metastatic disease TECHNIQUE: Standardized fat and water weighted pulse sequences were obtained in the sagittal and axial following administration of IV 17ml Dotarem. COMPARISON: None FINDINGS: Normal foramen magnum and brainstem-cervical cord junction. Normal craniovertebral junction. Normal anterior atlantoaxial articulation. Normal odontoid process. Normal cervical lordosis. Sclerotic bone metastases involving C3, C4, C5, C6, C7, T1 and T2 vertebral bodies. Sclerotic bone metastases is also present in both of C3 articular pillars. C2-3: Normal endplates. Normal disc height, signal and morphology. Normal central canal and intervertebral neural foramina. C3-4: Normal endplates. Normal disc height, signal and morphology. Normal central canal and intervertebral neural foramina. C4-5: Normal endplates. Normal disc height, signal and morphology. Normal central canal and intervertebral neural foramina. C5-6: Normal endplates. Normal disc height, signal and morphology. Normal central canal and intervertebral neural foramina. C6-7: Normal endplates. Normal disc height, signal and morphology. Normal central canal and intervertebral neural foramina. C7-T1: Normal endplates. Normal disc height, signal and morphology. Normal central canal and intervertebral neural foramina. Normal cervical cord. Normal included upper thoracic spinal cord. Normal visualized soft tissue structures. MRI/Spine Cervical W/WO Contrast IMPRESSION: 1. Sclerotic bone metastases involving C3, C4, C5, C6, C7, T1 and T2. 2. No MRI evidence of cervical extruded disc fragment or spinal stenosis. 3. No MRI evidence of any suspicious enhancing intradural or extradural metastatic mass lesions. 4. Normal cervical spinal cord and the included upper thoracic spinal cord. Electronically Signed: Johnathan Malone MD at 15:44 EDT , Service support ,
--- NOTE | 2020-09-17 12:13 | MRI_ITS ---
STUDY: MRI THORACIC SPINE WITH AND WITHOUT CONTRAST REASON FOR EXAM: Female, 60 years old. left hand tingling, skeletal metastatic disease TECHNIQUE: 17ml DOtarem via IV was administered for the contrast portion of the examination. COMPARISON: None. FINDINGS: Normal kyphosis of the thoracic spine. There is no substantial scoliosis. There are innumerable T1 and T2 hypointense enhancing lesions throughout the vertebral bodies of the thoracic spine consistent with blastic metastases. No pathologic compression fracture. T1-2, T2-3, T3-4, T4-5, T5-6, T6-7, T7-8, T8-9, T9-10, T10-11, T11-12: At T7/T8 there is a mild broad disc protrusion which produces mild spinal stenosis but no cord compression. At T8/T9 there is a mild bilobed disc protrusion which produces mild spinal stenosis but no neural foraminal stenosis. At T9/T10 there is a small central disc protrusion which produces mild spinal stenosis but no cord compression. Normal visualized thoracic cord. Normal conus medullaris that terminates at the . The soft tissue structures are unremarkable. There is no enhancing abnormality. MRI/Spine Thoracic W/WO Contrast IMPRESSION: Widespread blastic metastases but no pathologic compression fracture. No cord compression. Electronically Signed: Destin Benson MD at 16:25 EDT Tel , Service support ,
== END ==
PROVIDERS: PCP Family Medicine; Referring Provider Nurse Practitioner Family; Visit Provider Nurse Practitioner Family
DX: C50.412 Malignant neoplasm of upper-outer quadrant of left female breast (principal); C79.51 Secondary malignant neoplasm of bone; Z17.0 Estrogen receptor positive status [ER+]; R20.0 Anesthesia of skin; R20.2 Paresthesia of skin
CPT/HCPCS: 70553; 72156; 72157; A9575

== ENCOUNTER → 2020-09-26 08:14 | Outpatient (CLI) | payer OTHER, SELFPAY ==
--- NOTE | 2020-09-26 08:14 | NM_ITS ---
CLINICAL: 60-year-old female with reported history of carcinoma of the breast. WHOLE BODY 99m Tc MDP RADIONUCLIDE BONE SCINTIGRAPHY COMPARISON: Previous whole body bone scintigraphy study dated 06/06/2020 FINDINGS: Following the intravenous administration of 26.0 mCi of 99m Tc MDP, whole body bone images reveal: 1. Multiple foci of increased radiopharmaceutical concentration remain evident in the visualized bilateral donavan-calvarium, appendicular and axial skeletal structures with no significant change in the overall number of defined scintigraphic abnormalities. 2. Enhanced radiotracer distribution remains visualized in the bilateral shoulders and knees, right ankle, forefoot bilaterally, right hand. 3. The remaining skeletal structures are scintigraphically unremarkable with normal-appearing renal images and urinary bladder activity identified. NM/Bone Scan Whole Body IMPRESSION: 1. Facilitated tracer concentration revisualized in the appendicular and axial skeletal structures, right-left calvarium remains consistent with osteoblastic turnover attributed to skeletal metastasis. 2. There is continued demonstration of degenerative arthritis involving the bilateral shoulders and knees, right ankle, right-left forefoot and right hand.. 3. Overall compared to the previous whole body bone scintigraphy study dated 06/06/2020, there is continued demonstration of diffuse osseous metastatic disease with no significant interval change. Electronically Signed: Destin Mckeon DO at 21:45 EDT Tel , Service support ,
== END ==
PROVIDERS: PCP Family Medicine; Referring Provider Internal Medicine Medical Oncology; Visit Provider Internal Medicine Medical Oncology
DX: C50.919 Malignant neoplasm of unspecified site of unspecified female breast (principal); C79.51 Secondary malignant neoplasm of bone; R93.7 Abnormal findings on diagnostic imaging of other parts of musculoskeletal system
CPT/HCPCS: 78306; A9503

== ENCOUNTER 2020-12-14 09:36 | Day surgery (SDC) | payer OTHER, SELFPAY ==
[2020-12-10 07:59] VITALS: BMI 29.0
[2020-12-14] VITALS (9 sets, daily range): BP systolic 129–153; BP diastolic 80–90; PULSE 56–65; RESP 16–18; TEMP 2.8–37.1; O2SAT 95–100; BMI 29.0
[2020-12-14] MEDS: Lactated Ringers 1,000 ML 100 ML IV (09:50)
--- NOTE | 2020-12-14 10:13 | HP.PCM_ITS ---
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 Is patient in pain?: No Allergies No Known Allergies Allergy (Verified 12/10/20 08:01) Medications calcium carbonate-vitamin D3 1 each PO BID 08/18/19 [History Confirmed 12/10/20] levothyroxine 137 mcg PO DAILY 01/01/20 [History Confirmed 12/10/20] denosumab 1 injectable SC Q3M 02/07/20 [History Confirmed 12/10/20] ondansetron 4 mg PO Q8H PRN PRN 10 Days #30 tablet 04/18/20 [Rx Confirmed 12/10/20] biotin 10,000 mcg capsule See Rx Instructions PO .COMPLEX 10/30/20 [History C onfirmed 12/10/20] exemestane 25 mg tablet 25 mg PO DAILY #30 tab 12/05/20 [Rx Confirmed 12/10/20] lidocaine-prilocaine 2.5 %-2.5 % topical cream 1 applic TOPICAL ONCE PRN 30 Days #30 g 12/05/20 [Rx Confirmed 12/10/20] Is last menstrual period known: No Post menopausal: Yes Patient : No PFSH Medical History Bone metastasis Ductal carcinoma GERD (gastroesophageal reflux disease) Hypothyroid Insect bite Metastatic breast cancer Numbness and tingling of left hand Surgical History History of breast biopsy History of delivery Family History Unknown Breast cancer Grandfather Cancer Social History household members: spouse housing: house Smoking Status: Former smoker Tobacco: How many years used: 20 second hand exposure: No alcohol intake: current details: social substance use type: does not use what type of physical activity do you participate in: walking seatbelt use: always do you feel safe at home: Yes additional social history: [employer] work Patient works at [employer] in [place] HPI HPI HPI: DULCE MCKEON, is a 60 F who presents to the office today for port placement. The patient has metastatic breast cancer and requires port for treatment. ROS General General: Yes fatigue and breast cancer; No weight change, appetite, colon cancer or weakness HEENT HEENT: No difficulty swallowing, eye injury, eye surgery, swollen glands or hoarseness Endo Endocrine: Yes thyroid disease; No diabetes mellitus, thyroid cancer, Hair loss, heat intolerance or cold intolerance Musc Musculoskeletal: Yes arthritis; No back problems, rheumatoid arthritis, gout or joint pain Cardio Cardiovascular: No murmur, pacemaker, heart disease, atrial fibrillation, high blood pressure, heart attack, heart stent, palpitations, shortness of breat with exertion or chest pain Psych Psychiatric: No depression, anxiety or hearing voices Resp Respiratory: No shortness of breath, No sleep apnea, No cough, No COPD, No asthma, No emphysema and No wheezing Gastro Gastrointestinal: No abdominal pain, No nausea or vomiting, No diarrhea, No constipation, No blood in stool, No acid reflux, Yes hemorrhoids, No ulcers, No gallbladder problem and No black,tarry stools Tommy Hematologic: No blood thinners, No blood disorders, No bleeding, No anemia and No blood clots Neuro Neurologic: No weakness Exam Const General: cooperative Orientation: alert and oriented x3 HENMT Head: normal to inspection Neck Neck: normal visual inspection and full ROM Chest Chest palpation & inspection: normal inspection of the chest Resp Effort & Inspection: normal respiratory effort Auscultation: clear to auscultation bilaterally Cardio Rate: regular rate Rhythm: regular rhythm GI Inspection: non-distended Palpation: soft and nontender Skin General: no rashes or lesions noted Neuro General: patient alert and patient oriented x3 Extrem General: full ROM Psych Appearance: grossly normal Mental Status: mental status grossly normal Assessment and Plan Assessment and Plan (1) Cancer, metastatic to bone: Status: Acute (2) Encounter for insertion of venous access port: Status: Acute Plan - Dr. Adair Coombs MD: Patient needs vascular access port for chemotherapy treatment of her metastatic breast disease. I discussed port placement with her. I discussed the risks of the procedure including not limited to bleeding, infection, pneumothorax or line infection or DVT. The patient understands risks and is willing to proceed. Adair Coombs MD Pager: [facility] [address] [place] [address] [address] [place] [address] Office: I have re-examined the patient. There are no clinical changes since date of exam.
[2020-12-14] MEDS: Cefazolin 2 GM in 0.9% Normal Saline 100 ML IV (11:37)
[2020-12-14] MEDS: Bupivacaine 0.5% PF 10 ML VIAL (11:52)
--- NOTE | 2020-12-14 12:14 | OP.PCM_ITS ---
Problems Associated Problem List Diagnoses (1) Breast cancer, left: (2) Encounter for insertion of venous access port: Report of Operation Date of Procedure: 12/14/20 Pre-Operative Diagnosis: Need for vascular access for chemotherapy Post-Operative Diagnosis: Same Surgery/Procedure Performed:: Ultrasound and fluoroscopy guided right chest port placement utilizing right IJ Description of Procedure: After obtaining informed consent patient was brought back to the operating room MAC anesthesia was induced and the right chest and neck were prepped in normal sterile fashion. Ultrasound was used to evaluate both IJs and the right IJ was selected. Next, using a needle, the right IJ was accessed and a guidewire was passed on into the superior vena cava under fluoroscopy guidance. A small incision was made over the puncture site and the dilator introducer was placed over the guidewire. Next this was capped and the pocket was made for the port. 1% lidocaine with epinephrine was injected in the proposed port site. An incision was made with scalpel. Electrocautery was used to make a pocket under the skin and subcutaneous tissue. Hemostasis was obtained. Next, the catheter was tunneled up to the neck incision site and placed through the introducer. The peel-away introducer was removed and the position of the catheter was confirmed on fluoroscopy. Next, the catheter was trimmed and attached to the port with the locking device. Interrupted 2-0 Vicryl sutures were used to anchor the port to the chest wall and then the port was placed inside the pocket. The pocket was then flushed with saline and the port irrigated with saline. There was good blood return and the port flushed easily. Next, heparin was injected into the port. The skin was closed with subcutaneous interrupted 3-0 Vicryl sutures. A single 3-0 Vicryl sutures placed under the skin at the neck incision site. Steri-Strips were placed as well as op sites. Patient tolerated procedure well, was taken to PACU in stable condition. Chest x-ray will be obtained. Grafts/Implants Used: 8 [place] PowerPort Admit VTE Documentation VTE Mechan Device Prophylaxis: SCD's
--- NOTE | 2020-12-14 12:16 | EX.PCM.DISCH ---
Discharge Instructions Procedure Port-A-Cath Diet Discharge Diet: Light diet - advance as tolerated (Pain medication may cause nausea. You should typically eat light foods as you take your pain medication.) Activity Discharge Activity: Return to Normal Activity and May Shower (with your bandage in place in 1-2 days after surgery. DO NOT SHOWER WHEN YOUR PORT IS ACCESSED.) Dressing / Incision Call your doctor if your incision/area has: Continuous Slow Oozing, Sudden Increased Bleeding, Increased Pain/ Swelling and Increased Redness Call your doctor if you observe: Fever of 101 or Higher Additional Dressing/Incision Instructions:: Remove dressing before port use. Remove Steri-Strips in 7 to 10 days. Follow Up Care Please Follow Up With: Adair Coombs MD When: As needed Test Results: Test results from this visit will be discussed in further detail at your follow-up appointment, if applicable. Discharge Plan Admission Attending Provider: Adair Coombs Primary Care Provider: Yoel Urbina Discharge Orders/Prescriptions Prescriptions: No Action calcium carbonate-vitamin D3 1 EACH tablet 1 each PO BID RF: 0 denosumab 120 MG/1.7 ML solution 1 injectable SC QMONTH RF: 0 ondansetron 4 MG tablet 4 mg PO Q8H PRN PRN (Reason: Nausea) 10 Days Qty: 30 RF: 3 levothyroxine 137 MCG tablet 137 mcg PO MOTUWETHFRSA RF: 0 lidocaine-prilocaine 2.5-2.5 % cream 1 applic topical ONCE PRN (Reason: port access) 30 Days Qty: 30 RF: 2 exemestane [Aromasin] 25 mg tablet 25 mg PO DAILY Qty: 30 RF: 2 Referrals / Follow Up: Yoel Urbina MD [Primary Care Provider] - Disposition Disposition (needs filled in before D/C Order can be placed): Home, Self Care
--- NOTE | 2020-12-14 12:30 | RAD_ITS ---
STUDY: X-RAY CHEST REASON FOR EXAM: Female, 60 years old. Line placement -- in pacu TECHNIQUE: Single AP portable view of the chest. COMPARISON: Comparison is made with prior study dated 01/01/2020. FINDINGS: A right-sided portacatheter has been placed with the tip in the proximal portion of the superior vena cava. Hyperinflation. The lungs are clear. There is no demonstrated pleural abnormality. Normal size heart. Normal mediastinum and devora. Normal visualized pulmonary arteries. Normal visualized aortic arch and descending thoracic aorta. There are diffuse degenerative changes of the visualized thoracic spine. Healed bilateral rib fractures. There is no demonstrated abnormality of the visualized soft tissue structures of the upper abdomen. RAD/CXR for Line Placement IMPRESSION: The tip of the right portacatheter is in the proximal portion of the superior vena cava. Electronically Signed: Emory Rivero MD at 13:24 EDT , Service support ,
--- NOTE | 2020-12-14 13:34 | SUR.PHASEII ---
Patient X-RAY not read after 1 hour of being taken. Dr. Coombs read x-ray report himself and stated x-ray looked good. Dr. Coombs stated patient may be discharged home.
== END 2020-12-14 13:37 | disposition home or self-care (01) ==
LOC: SDC 09:37 → AC 09:40
PROVIDERS: PCP Family Medicine; Referring Provider Surgery; Visit Provider Surgery
PROC: (CPT 36561; principal; 2020-12-14 11:15)
DX: Z45.2 Encounter for adjustment and management of vascular access device (principal); C50.412 Malignant neoplasm of upper-outer quadrant of left female breast; Z17.0 Estrogen receptor positive status [ER+]; C79.51 Secondary malignant neoplasm of bone; E03.9 Hypothyroidism, unspecified; M19.90 Unspecified osteoarthritis, unspecified site; K21.9 Gastro-esophageal reflux disease without esophagitis; Z79.890 Hormone replacement therapy; Z79.899 Other long term (current) drug therapy; Z78.0 Asymptomatic menopausal state; Z87.891 Personal history of nicotine dependence
CPT/HCPCS: 00532; 36561; 76937; 71045; 77001; 87426; C9803; J7120; C1788

== ENCOUNTER 2021-02-18 20:39 | Emergency (ER) | payer OTHER, SELFPAY ==
[2021-02-18 20:40] VITALS: BP 132/95; PULSE 98; RESP 16; TEMP 36.2; O2SAT 92; BMI 30.2
[2021-02-18 21:10] VITALS: TEMP 37
--- NOTE | 2021-02-18 22:04 | RAD_ITS ---
STUDY: X-RAY CHEST REASON FOR EXAM: Female, 60 years old. Neutropenic Fever TECHNIQUE: PA and lateral COMPARISON: 01/01/2020 FINDINGS: There is a right Port-A-Cath the tip tracking into the SVC. The lungs are clear and expanded. There is no demonstrated pleural abnormality. Normal size heart. Normal mediastinum and devora. Normal visualized pulmonary arteries. Normal visualized aortic arch and descending thoracic aorta. Normal visualized thoracic spine. There are bilateral old rib fractures. There is no demonstrated abnormality of the visualized soft tissue structures of the upper abdomen. RAD/Chest PA and Lateral IMPRESSION: Negative x-ray examination of the chest. No focal lung consolidative changes. Electronically Signed: Teo Fournier MD at 0:01 EDT Tel , Service support ,
[2021-02-18 22:21] LABS: Bacteria 0 SEEN /hpf (None Seen); Mucous, Urine 0 SEEN /hpf (<or=2+); White Blood Cells 0 SEEN /hpf (0-5)
[2021-02-18 22:31] LABS: Color, Urine Yellow (Yellow); Glucose, Dipstick Normal (Normal); Ketone-Dipstick Negative (Negative); Leukocyte Esterase-Dipstick Negative /ul (Negative); Nitrite-Dipstick Negative (Negative); Occult Blood-Urine 10 /ul (Negative); Protein-Dipstick Negative (Negative); Specific Gravity, Urine 1.015 (1.002-1.030); Urine Bilirubin Dipstick Negative (Negative); Urine Clarity Sl. Cloudy (Clear); Urine Urobilinogen Normal (Normal)
[2021-02-18 22:37] LABS: Red Blood Cells-Urine 0-5 SEEN /hpf (0-5); Squamous Epithelial Cells - UA 0-5 SEEN /hpf (5-10)
--- NOTE | 2021-02-18 22:37 | EX.ED.DYSGE1 ---
HPI History of Present Illness Chief Complaint: Fever Narrative Narrative: 60-year-old female presenting with fever from home. She said it was 101 at home. She took no Tylenol or ibuprofen and she does not have a fever in the emergency room. Patient states that she is on chemotherapy for breast cancer. She states it is also metastatic. She sees Dr. Ovalle and actually saw him earlier today. She is scheduled for mammogram tomorrow. Patient states that she did not have a fever earlier in the day. She states she is currently on amoxicillin 250 3 times daily for a dental infection. She states she had the tooth pulled today and she is on her antibiotics. She saw Dr. Deutsch today and they determined to hold her chemotherapy given her dental infection. She does not have any drainage from the site. She states it is mildly tender. She does not have any difficulty breathing or swallowing. She currently feels well. She has no nausea, vomiting, diarrhea. She denies chest pain, palpitations, shortness of breath. She denies abdominal pain. She denies any rashes. She denies any headache, visual complaints. [facility] Medical History Alcohol use Arthritis Bone metastasis Cancer Ductal carcinoma Encounter for chemotherapy management Former smoker Hypothyroid Insect bite Metastatic breast cancer Numbness and tingling of left hand Thyroid disease Wears glasses Wears partial dentures Home Medications calcium carbonate-vitamin D3 1 each PO BID 08/18/19 [History Last Taken Unknown] levothyroxine 137 mcg PO MOTUWETHFRSA 01/01/20 [History Last Taken 12/14/20] denosumab 1 injectable SC QMONTH 02/07/20 [History Last Taken Unknown] ondansetron 4 mg PO Q8H PRN PRN 10 Days #30 tablet 04/18/20 [Rx Last Taken Unknown] exemestane 25 mg tablet 25 mg PO DAILY #30 tab 12/05/20 [Rx Last Taken Unknown] lidocaine-prilocaine 2.5 %-2.5 % topical cream 1 applic TOPICAL ONCE PRN 30 Days #30 g 12/05/20 [Rx Last Taken Unknown] amoxicillin 250 mg capsule 250 mg PO BID 02/18/21 [History Last Taken Unknown] Allergy/AdvReac Type Severity Reaction Status Date / Time No Known Allergies Allergy Verified 02/18/21 08:20 Family History Unknown Breast cancer Grandfather Cancer Surgical History History of breast biopsy History of delivery Hx of wisdom tooth extraction Social History household members: spouse housing: house Smoking Status: Former smoker Tobacco: How many years used: 20 second hand exposure: No alcohol intake: current details: social substance use type: does not use what type of physical activity do you participate in: walking seatbelt use: always do you feel safe at home: Yes additional social history: [employer] work Patient works at [employer] ED Constitutional Constitutional ED: Reports fever(s); Denies chills or subjective Eyes Eyes: Denies blurry vision or diplopia ENT ENT ED: Denies rhinorrhea or sore throat Cardiovascular Cardiovascular: Denies chest pain or palpitations Respiratory/Chest Respiratory/Chest: Denies cough, dyspnea or sputum Gastrointestinal Gastrointestinal: Denies abdominal pain, constipation, diarrhea, nausea or vomiting Genitourinary Genitourinary ED: Denies dysuria, hematuria or urinary frequency Musculoskeletal Musculoskeletal: Denies arthralgias, myalgias or neck pain Integumentary Denies Abrasions or rash Neurologic Neurologic: Denies headache(s) or paresthesias EXAM Physical Exam Const Vital Signs: 02/18/21 20:40 02/18/21 21:10 02/18/21 22:51 Temperature 97.2 F L 98.6 F Temperature Source Temporal Oral Pulse Rate 98 Respiratory Rate 16 Blood Pressure 132/95 H Blood Pressure Mean 107 Pulse Ox 92 Oxygen Delivery Method Room Air Room Air 02/18/21 22:53 02/18/21 23:55 Temperature 98.6 F 98.2 F Temperature Source Oral Oral Pulse Rate 82 77 Respiratory Rate 16 16 Blood Pressure 129/93 H 141/89 H Blood Pressure Mean 105 106 Pulse Ox 96 98 Oxygen Delivery Method Room Air Room Air Positive well nourished General Appearance ED: NAD; Negative for pallor HEENT Reports moist mucous membranes HEENT Narrative: Dental extraction site is not edematous. There is mild tenderness to palpation. No drainage. The tongue is normal. No sublingual edema. Airway patent without stridor. Patient tolerating her own secretions. No facial swelling. Negative for trauma Eyes PERRL and EOMs intact bilaterally Neck no lymphadenopathy and supple Chest Wall inspection of chest normal Resp normal respiratory effort and clear to auscultation bilaterally Cardio regular rate and regular rhythm Extremity normal to inspection General Extremety ED: Negative for edema or tenderness General Extremity: Negative for edema Neuro oriented x3, CN's II-XII intact bilaterally and no sensory deficits noted Sensorium / Orientation: alert Motor Exam: strength 5/5 throughout Psych mental status grossly normal Skin no rashes or lesions noted General Skin Exam: Negative for jaundice or pallor MDM MDM MDM Narrative Medical decision making narrative: Patient presenting with resolved fever. She is currently holding chemotherapy because she has a dental infection and the tube has been removed. Is unclear whether she had a fever but has not had one here in the emergency room. She had blood work drawn outpatient today and her blood work has not changed significantly since that time. Her vital signs are stable she is afebrile. She has no symptoms. Urinalysis is negative for infection and was sent for culture. Blood cultures were drawn. Coagulation studies are normal chest x-ray on my interpretation shows no acute cardiopulmonary process and the radiologist does agree. Rapid Covid is negative. Discussed with Dr. Deutsch who felt she is safe for discharge home. He will follow up with her outpatient. Impression: 1. History of fever Lab Data Attestation: I reviewed the patient's lab results. Labs: Laboratory Results - last 24 hr 02/18/21 02/18/21 02/18/21 22:12 22:44 22:44 WBC 4.7 RBC 3.40 L Hgb 11.4 L Hct 33.7 L MCV 99.1 H MCH 33.5 H MCHC 33.8 RDW Std Deviation 50.4 H RDW Coeff of David 13.9 Plt Count 233 MPV 10.0 Immature Gran % (Auto) 0.600 Neut % (Auto) 62.9 Lymph % (Auto) 22.9 [place] % (Auto) 10.0 Eos % (Auto) 3.0 Baso % (Auto) 0.6 Absolute Neuts (auto) 3.0 Absolute Lymphs (auto) 1.08 Nucleated RBC % 0 PT 12.6 INR 1.0 APTT 28.1 Sodium Potassium Chloride Carbon Dioxide Anion Gap BUN Creatinine Estim Creat Clear Calc Est GFR (MDRD) Af Amer Est GFR (MDRD) Non-Af BUN/Creatinine Ratio Glucose Lactic Acid Calcium Total Bilirubin AST ALT Alkaline Phosphatase Total Protein Albumin Globulin Albumin/Globulin Ratio Urine Color Yellow Urine Clarity Sl. Cloudy Urine pH 6.0 Ur Specific [place] 1.015 Urine Protein Negative Urine Glucose (UA) Normal Urine Ketones Negative Urine Occult Blood 10 H Urine Nitrite Negative Urine Bilirubin Negative Urine Urobilinogen Normal Ur Leukocyte Esterase Negative Urine RBC 0-5 SEEN Urine WBC 0 SEEN Ur Squamous Epith Cells 0-5 SEEN Urine Bacteria 0 SEEN Urine Mucus 0 SEEN 02/18/21 02/18/21 22:44 22:44 WBC RBC Hgb Hct MCV MCH MCHC RDW Std Deviation RDW Coeff of David Plt Count MPV Immature Gran % (Auto) Neut % (Auto) Lymph % (Auto) [place] % (Auto) Eos % (Auto) Baso % (Auto) Absolute Neuts (auto) Absolute Lymphs (auto) Nucleated RBC % PT INR APTT Sodium 141 Potassium 3.9 Chloride 114 H Carbon Dioxide 22.0 Anion Gap 5 BUN 14 Creatinine 0.75 Estim Creat Clear Calc 75.61 Est GFR (MDRD) Af Amer 102 Est GFR (MDRD) Non-Af 84 BUN/Creatinine Ratio 18.7 Glucose 96 Lactic Acid 0.5 Calcium 8.3 L Total Bilirubin 0.20 AST 28 ALT 30 Alkaline Phosphatase 88 Total Protein 6.7 Albumin 3.1 L Globulin 3.6 Albumin/Globulin Ratio 0.9 Urine Color Urine Clarity Urine pH Ur Specific [place] Urine Protein Urine Glucose (UA) Urine Ketones Urine Occult Blood Urine Nitrite Urine Bilirubin Urine Urobilinogen Ur Leukocyte Esterase Urine RBC Urine WBC Ur Squamous Epith Cells Urine Bacteria Urine Mucus Radiography Diagnostic Testing: Clinical Impression(s) from Imaging Studies Chest X-Ray 02/18/21 22:04 IMPRESSION: Negative x-ray examination of the chest. No focal lung consolidative changes. Electronically Signed: Teo Fournier MD at 0:01 EDT Tel , Service support , Discharge Plan Triage Chief Complaint: Fever ED Provider: Kal Ortega Dx/Rx/DC Orders Instructions: ED Fever Control (Adult) Prescriptions: No Action amoxicillin 250 mg capsule 250 mg PO BID RF: 0 calcium carbonate-vitamin D3 1 EACH tablet 1 each PO BID RF: 0 denosumab 120 MG/1.7 ML solution 1 injectable SC QMONTH RF: 0 ondansetron 4 MG tablet 4 mg PO Q8H PRN PRN (Reason: Nausea) 10 Days Qty: 30 RF: 3 levothyroxine 137 MCG tablet 137 mcg PO MOTUWETHFRSA RF: 0 lidocaine-prilocaine 2.5-2.5 % cream 1 applic topical ONCE PRN (Reason: port access) 30 Days Qty: 30 RF: 2 exemestane [Aromasin] 25 mg tablet 25 mg PO DAILY Qty: 30 RF: 2 Primary Care Provider: Yoel Urbina Referrals: Waqar Deutsch MD [NON-STAFF] - As soon as possible Yoel Urbina MD [Primary Care Provider] - Disposition Disposition: Home, Self Care
[2021-02-18 22:53] VITALS: BP 129/93; PULSE 82; RESP 16; TEMP 37; O2SAT 96
[2021-02-18] MEDS: 0.9% Normal Saline 1,000 ML 50 ML IV (22:53)
[2021-02-18 22:57] LABS: Absolute Lymphocyte Count 1.08 X10^3/uL (0.83-4.51); Basophil# 0.03 X10^3/uL; Basophil% 0.6 % (0-1); Eosinophil# 0.14 X10^3/uL; Hematocrit 33.7 % (37-47); Hemoglobin 11.4 g/dL (12.0-15.0); Lymphocyte # 1.08 X10^3/ul (0.83-4.51); Lymphocyte % 22.9 % (19-41); Mean Corp Hgb Conc 33.8 g/dL (32-36); Mean Corpuscular Hgb 33.5 pg (27.0-32.0); Mean Corpuscular Volume 99.1 fL (81-99); Monocyte# 0.47 X10^3/uL; NRBC Flagged by Analyzer 0 % (0-5); Neutrophil # 2.97 X10^3/uL (2.7-7.7); Neutrophil % 62.9 % (47-70); Platelet Count 233 K/mm3 (150-450); RBC Distribution Width CV 13.9 % (11.6-14.6); RBC Distribution Width SD 50.4 fl (35.1-43.9); White Blood Count 4.7 K/mm3 (4.4-11.0)
[2021-02-18 23:09] LABS: Partial Thromboplast Time 28.1 Seconds (24.1-36.2); Prothrombin Time (Protime)PT. 12.6 SECONDS (11.7-14.9)
[2021-02-18 23:14] LABS: ALB/GLOB Ratio 0.9 RATIO (0.9-2.4); AST(SGOT) 28 U/L (15-37); Alanine Aminotransfer ALT/SGPT 30 U/L (13-56); Albumin, Serum 3.1 g/dL (3.2-5.0); Alkaline Phosphatase 88 U/L (45-117); Anion Gap 5 (5-15); BUN 14 mg/dL (7-18); BUN/Creat Ratio 18.7 RATIO (10-20); Calcium,Total 8.3 mg/dL (8.5-10.1); Chloride 114 mmol/L (98-107); Creatinine, Serum 0.75 mg/dL (0.55-1.02); EST Glomerular Filtration Rate 84 mL/min (>60); Est Glom Filt Rate - Afr Amer 102 mL/min (>60); Estimated Creatinine Clearance 75.61 ml/min; Globulin 3.6 g/dL (2.2-4.2); Glucose 96 mg/dL (74-106); Potassium 3.9 mmol/L (3.5-5.1); Protein, Total 6.7 g/dL (6.4-8.2); Sodium Level 141 mmol/L (136-145)
[2021-02-18 23:32] LABS: Lactic Acid 0.5 mmol/L (0.4-1.9)
[2021-02-18 23:55] VITALS: BP 141/89; PULSE 77; RESP 16; TEMP 36.8; O2SAT 98
== END 2021-02-19 00:50 | disposition home or self-care (01) ==
PROVIDERS: Emergency Provider Student in an Organized Health Care Education/Training Program; PCP Family Medicine
DX: R50.9 Fever, unspecified (principal); Z20.822 Contact with and (suspected) exposure to COVID-19; C50.919 Malignant neoplasm of unspecified site of unspecified female breast; C79.51 Secondary malignant neoplasm of bone; K04.7 Periapical abscess without sinus; E03.9 Hypothyroidism, unspecified; M19.90 Unspecified osteoarthritis, unspecified site; Z79.899 Other long term (current) drug therapy; Z87.891 Personal history of nicotine dependence; Z98.818 Other dental procedure status
CPT/HCPCS: 36591; 71046; 80053; 81001; 83605; 85025; 85610; 85730; 87040; 87086; 87426; 99285; J7030; A4216

== ENCOUNTER → 2021-02-19 09:20 | Outpatient (CLI) | payer OTHER, SELFPAY ==
--- NOTE | 2021-02-19 09:22 | BI_ITS ---
MAMMOGRAPHY - UNILATERAL DIAGNOSTIC: LEFT BREAST REASON FOR EXAM: Female, 60 years old. Assessment of left breast mass. PERTINENT HISTORY: Personal history of breast cancer. Grandmother with breast cancer. TECHNIQUE: Digital unilateral breast garrick (3D mammographic acquisition) in the CC and MLO projections. 2-D mediolateral oblique (MLO) and craniocaudad (CC) views of both breasts were obtained. CAD: Full Field Digital Mammography with Computer Added Detection was performed. COMPARISON: Comparison is made with prior outside mammogram dated 06/16/2019. FINDINGS: Breast Composition: The breasts are heterogeneously dense, which may obscure small masses. A tissue clip marker seen in the upper deep lateral aspect of the left breast. Since prior examination, there has been an increase in the tissue of the left breast. The overlying skin is thickened. No definite mass lesion is seen. No other significant abnormalities are identified. BI/DIAG MAMM W/CAD, UNILAT IMPRESSION: No mass lesion is seen. There is evidence of the overlying skin thickening. A tissue clip marker is seen in the upper lateral aspect of the left breast. Since prior examination, there has been increase in the amount of the breast tissue. Correlation with ultrasound is recommended. ASSESSMENT CATEGORY: BIRADS Category 0: Incomplete. Need additional imaging evaluation. A letter regarding these results will be sent to the patient by the facility within 30 days. Approximately 10% of breast cancers are not detected by mammography. A normal mammogram should not delay biopsy of a clinically suspicious abnormality. Electronically Signed: Emory Rivero MD at 12:27 EDT , Service support ,
--- NOTE | 2021-02-19 09:22 | US_ITS ---
STUDY: ULTRASOUND BREAST - LEFT REASON FOR EXAM: Female, 60 years old. Abnormal screening mammogram. TECHNIQUE: Axial and longitudinal images of the LEFT breast were performed with a high resolution ultrasound transducer. # OF IMAGES: 68 COMPARISON: Comparison is made with prior mammogram done earlier today. FINDINGS: LEFT Breast: There is a 1.5 cm x 2.4 cm x 2.8 cm hypoechoic indistinct soft tissue mass at the 2 o''clock position the breast at 5 cm from nipple. Biopsy recommended. US/Breast Limited Unilateral IMPRESSION: There is a 1.5 cm x 2.4 cm x 2.8 cm irregular hypoechoic solid mass at the 2 o''clock position of the breast advised sinus and nipple. Biopsy recommended. ASSESSMENT CATEGORY: BIRADS Category 5: Highly Suggestive of Malignancy - Appropriate Action Should Be Taken. A letter regarding these results will be sent to the patient by the facility within 30 days. Electronically Signed: Emory Rivero MD at 12:28 EDT , Service support ,
== END ==
PROVIDERS: PCP Family Medicine; Referring Provider Internal Medicine Medical Oncology; Visit Provider Internal Medicine Medical Oncology
DX: C50.412 Malignant neoplasm of upper-outer quadrant of left female breast (principal); C79.51 Secondary malignant neoplasm of bone; Z17.0 Estrogen receptor positive status [ER+]
CPT/HCPCS: 76642; 77061; 77065; G0279

== ENCOUNTER → 2021-03-05 07:16 | Outpatient (CLI) | payer OTHER, SELFPAY ==
--- NOTE | 2021-03-05 07:17 | NM_ITS ---
CLINICAL: 60-year-old female with reported history of carcinoma of the breast. WHOLE BODY 99m Tc MDP RADIONUCLIDE BONE SCINTIGRAPHY COMPARISON: Previous whole body bone scintigraphy study dated 09/26/2020 FINDINGS: Following the intravenous administration of 25.0 mCi of 99m Tc MDP, whole body bone images reveal: 1. Multifocal increased radiopharmaceutical concentration is both newly defined and agree visualized throughout the whole body right-left calvarial, appendicular and axial skeletal structures, too many to individually articulate. 2. Facilitated uptake is noted in the bilateral knees, right ankle, forefoot bilaterally, acromioclavicular compartments of both shoulders. 3. The remaining skeletal structures are scintigraphically unremarkable with normal-appearing renal images and urinary bladder activity identified. Prominent uptake is defined in the left anterior chest wall-breast. NM/Bone Scan Whole Body IMPRESSION: 1. The persistent and currently observed appendicular and axial skeletal, bilateral donavan-calvarial foci remain consistent with osteoblastic turnover attributed to disseminated osseous metastatic disease. 2. Degenerative arthritis appears expressed in the bilateral knees, right and left forefoot, right ankle, shoulders bilaterally. 3. Overall compared to the previous whole body bone scintigraphy study dated 09/26/2020, there is an increase in the overall number of defined metastatic foci on the present examination. Electronically Signed: Destin Mckeon DO at 22:26 EDT Tel , Service support ,
== END ==
PROVIDERS: PCP Family Medicine; Referring Provider Internal Medicine Medical Oncology; Visit Provider Internal Medicine Medical Oncology
DX: C50.919 Malignant neoplasm of unspecified site of unspecified female breast (principal); C79.51 Secondary malignant neoplasm of bone
CPT/HCPCS: 78306; A9503

== ENCOUNTER → 2021-03-08 | Outpatient (CLI) | payer OTHER, SELFPAY ==
--- NOTE | 2021-03-07 | BRBX_PTH ---
PATIENT: DULCE MCKEON [facility] U#:[id number] AGE/SX: 60/F ROOM: RE03/08/[address]: Dr. Adair Coombs MD : 1960 BED: DIS: 03/08/2021 SPEC #: [id number] RECD: 03/08/21 11:14 STATUS: DARRELL MCGINNIS #: [id number] PAUL: 03/07/21 00:[address]: Adair Coombs DEPT: SURGICAL PATHOLOGY RECD BY: Britton Branch ENTERED: 03/08/21 11:15 SP TYPE: BREAST BX OTHR DR: Dr. Yoel Urbina MD Tissues: Left breast, NOS Procedures: Surgery Specimen Level IV HEADER OPERATION: Ultrasound-guided needle core biopsy left breast PRE-OP DIAGNOSIS: Left breast cancer TISSUE SUBMITTED: Left breast biopsy ISCHEMIC TIME: 1 minute FIXATION TIME: 58 hours MICROSCOPIC DIAGNOSIS Left breast, ultrasound-guided core biopsy: Invasive ductal carcinoma with the following characteristics: Maximal length ? 6.5 millimeters Nuclear grade - 1 See comment. AM:brett 03/11/2021 COMMENT Immunohistochemistry ([id number]) supports the above diagnosis. ER/KY/Efg1sdc studies are being performed on sections of tumor and the results from this study will be reported separately ([id number]). Case has been reviewed in consultation with Dr. Cosby who concurs with the above diagnosis. IDC:MARCIANO MICROSCOPIC DESCRIPTION Slides are reviewed. GROSS DESCRIPTION Received in fixative is one container labeled with the patient's name and designated left breast. The specimen consists of multiple elongated fragments of gutiérrez-yellow fibroadipose tissue that in aggregate measure 1.5 x 0.5 x 0.1 cm. The entire specimen is submitted in one cassette. / AMRCIANO:brett 03/08/21 TC:0 CPT: 59517 ADDENDUM ADDENDUM ADDENDUM ADDENDUM ADDENDUM ADDENDUM ADDENDUM ADDENDUM ADDENDUM ADDENDUM ADDENDUM ADDENDUM ADDENDUM ADDENDUM ADDENDUM ADDENDUM ADDENDUM ADDENDUM ADDENDUM 03/26/2021 10:28 ADDENDUM 03/26/2021 10:28 ADDENDUM 03/26/2021 10:28 ADDENDUM 03/26/2021 10:28 ADDENDUM 03/26/2021 10:28 [facility] ADVANCED SOLID TUMOR NGS REPORT FROM [employer] RESULT SUMMARY: Variant IMMUNOTHERAPY BIOMARKERS: Tumor Mutation [place]: Low (3.9 Mutations / MB) Microsatellite Instability: MSI Negative PERTINENT NEGATIVE RESULTS: The following genes are NEGATIVE for clinically relevant mutations. Mutational hotspots and surrounding exonic regions were interrogated for DNA level point mutations and indels (fusions not assayed). AKT1, APC, ARID1A, HARJIT, BRAF, BRCA1, BRCA2, CDH1, CDKN2A, CTNNB1, EGFR, EPCAM, ERBB2, ERBB4, FBXW7, FGFR1, FGFR2, FGFR3, GNA11, GNAQ, GNAS, HRAS, IDH1, IDH2, KDR, KIT, KRAS, MEN1, MET, MLH1, MSH2, MSH6, NOTCH1, NRAS, PDGFRA, PIK3CA, PMS2, PTEN, PTPN11, RB1, RET, SMAD4, SMO, STK11, TERT, TP53, TSC1, TSC2, VHL Please see complete report in e-chart or EMR
--- NOTE | 2021-03-07 | IMM_PTH ---
PATIENT: DULCE MCKEON LOC: [facility] U#:[id number] AGE/SX: 60/F ROOM: RE03/08/[address]: Dr. Adair Coombs MD : 1960 BED: DIS: 03/08/2021 SPEC #: [id number] RECD: 03/11/21 14:49 STATUS: DARRELL REQ #: [id number] PAUL: 03/07/21 00:[address]: Adair Coombs DEPT: IMMUNOHISTOCHEMISTRY RECD BY: Shira Balderrama ENTERED: 03/11/21 14:50 SP TYPE: IMMUNO OTHR DR: Dr. Yoel Urbina MD Tissues: Left breast, NOS Procedures: CALPONIN-1 (add) CK5-6 (add) CK8 (add) MAC-2 (add) E-CAD (add) HER2 OSMANY (add) KI-67 (add) P53 (add) AR (add) P40 (add) ER (initial) PHYSICIAN & INSTITUTION [address] [address] SPECIMEN INFORMATION: Tissue Source: Left breast biopsy Clinical Info: Left breast cancer Specimen Number: [id number] CPT code: 13754, 84163 x7, 81395 x3 METHODOLOGY: Deparaffinized sections of prefer/formalin-fixed tissue or PAP/DQ stained slides are incubated with monoclonal/polyclonal antibodies/oligonucleotide probes. Localization is made via biotin free immunoperoxidase method. Appropriate controls are performed and reacted as expected. Results on target cell population are indicated in the following table: RESULTS: ANTIBODY / CLONE RESULT P53 (DO-7) negative Ki-67 (30-9) positive, 10% CK8 ([id number]) positive CK5-6 (D5 & 1684) negative Calponin-1 (FV933W) negative P40 (BC28) negative E-Cad (ECH-6) positive MAC-2 (SP21) positive MORPHOMETRIC ANALYSIS ER (clone 6F11) 85%, strong intensity AR (clone 16/1E2) 0% Her-2Neu (clone CB11) 0 The prognostic test for HER2 is performed on formalin-fixed paraffin embedded tissue. A 3+ (positive) staining pattern is defined as intense, homogeneous, complete, circumferential membranous staining in >10% of contiguous tumor cells. A similar weak (2+) staining pattern is interpreted as equivocal. TORI follow-up testing is recommended for all equivocal cases. Positivity/negativity for ER/AR is reported if > or < 1% of the tumor cells are immuno- reactive, respectively. The ASCO/CAP criteria is used for scoring. Reference: Journal of Clinical Oncology, 2013; 31:9066-0162 & 2010; 16:6737-5746. Duration of fixation: 58 Hrs; Sample Adequate: Yes. These assays have not been validated on decalcified tissues. Results should be interpreted with caution given the likelihood of false negativity on decalcified specimens. These tests were developed and their performance characteristics determined by [facility]. They may not have been cleared or approved by the U.S. Food and Drug Administration. The FDA has determined that such clearance or approval is not necessary. The above immunohistochemical/dualISH markers are ordered and reviewed by the Pathologist. INTERPRETATION: Left breast, ultrasound-guided needle core biopsy: Invasive ductal carcinoma, nuclear grade 1. Positive for estrogen receptors (favorable prognostic indicator). Negative for progesterone receptors (unfavorable prognostic indicator). Negative for overexpression of TOZ8qah. AM:brett 03/12/2021
== END | disposition home or self-care (01) ==
LOC: LABSPEC 10:22
PROVIDERS: PCP Family Medicine; Referring Provider Surgery; Visit Provider Surgery
DX: C50.912 Malignant neoplasm of unspecified site of left female breast (principal)
CPT/HCPCS: 88305; 88341; 88342

== ENCOUNTER 2021-07-29 08:51 | Outpatient (CLI) | payer OTHER, SELFPAY ==
--- NOTE | 2021-07-29 08:54 | NM_ITS ---
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 WHOLE BODY 99m Tc MDP RADIONUCLIDE BONE SCINTIGRAPHY COMPARISON: Previous whole body bone scintigraphy study dated 03/05/2021, FDG PET CT report 11/20/2020 FINDINGS: Following the intravenous administration of 25.0 mCi of 99m Tc MDP, whole body bone images reveal: 1. Multiple foci of increased radiopharmaceutical concentration are persistently demonstrated in the appendicular and axial skeletal structures as well as right-left calvarium. Enhanced tracer uptake is newly apparent in the fourth and fifth lumbar vertebra. 2. Facilitated radiotracer activity is currently visualized in the right ankle, right forefoot, left shoulder. 3. The remaining skeletal structures are scintigraphically unremarkable with normal-appearing renal images and urinary bladder activity identified. NM/Bone Scan Whole Body IMPRESSION: 1. The increase in radiopharmaceutical concentration both persistently visualized and newly apparent in the appendicular and axial skeletal structures is consistent with osseous metastatic disease. 2. Degenerative arthritis is demonstrated in the right ankle, right forefoot and left shoulder articulation. 3. Overall compared to the previous whole body bone scintigraphy study dated 03/05/2021, there is continued demonstration of multifocal skeletal metastatic disease manifesting overall metabolic stability. Electronically Signed: Destin Mckeon DO at 23:01 EDT ,
== END 2021-07-29 23:59 | disposition home or self-care (01) ==
LOC: NM 08:52
PROVIDERS: PCP Family Medicine; Referring Provider Internal Medicine Medical Oncology; Visit Provider Internal Medicine Medical Oncology
DX: C50.919 Malignant neoplasm of unspecified site of unspecified female breast (principal); C79.51 Secondary malignant neoplasm of bone
CPT/HCPCS: 78306; A9503

== ENCOUNTER → 2021-10-28 | Outpatient (CLI) | payer OTHER, SELFPAY ==
--- NOTE | 2021-10-28 07:55 | NM_ITS ---
CLINICAL: Female, 61 years old. BONE METS WHOLE BODY NUCLEAR BONE SCAN TECHNIQUE: Following the IV administration of 25.2 mCi of Tc MDP, whole body bone imaging was performed with a gamma camera following a three hour delay. COMPARISON STUDIES : Comparison is made with prior nuclear medicine bone scan dated 07/29/2021. FINDINGS: 1 segment, there are multiple foci of increased radiopharmaceutical uptake in the appendicular and axial skeletons. Stable uptake in multiple thoracic and lumbar vertebrae as well as the right humeral head. There is also evidence of increased uptake in the calvarium worse on the right side. Increased uptake is also seen in the region of the left iliac bone as well as the right pubic ramus. Persistent uptake in both right and left ribs. NM/Bone Scan Whole Body IMPRESSION: Since prior study, there has been essentially no change in the axial and appendicular skeletal metastasis as described. Electronically Signed: Emory Rivero MD at 11:07 EDT ,
== END | disposition home or self-care (01) ==
LOC: NM 07:54
PROVIDERS: PCP Family Medicine; Referring Provider Internal Medicine Medical Oncology; Visit Provider Internal Medicine Medical Oncology
DX: C79.51 Secondary malignant neoplasm of bone (principal); C80.1 Malignant (primary) neoplasm, unspecified
CPT/HCPCS: 78306; A9503

== ENCOUNTER 2021-12-28 10:39 | Emergency (ER) | payer OTHER, SELFPAY ==
[2021-12-28 10:40] VITALS: BP 108/78; PULSE 80; RESP 14; TEMP 36.2; O2SAT 98; BMI 26.2
--- NOTE | 2021-12-28 10:53 | CT_ITS ---
STUDY: CT SOFT TISSUE NECK WITH CONTRAST REASON FOR EXAM: Female, 61 years old. Throat swelling. History of breast cancer with mets to bone. On new med for pneumonia. RADIATION DOSAGE (If Supplied By Facility): CTDIvol = ( 17.03 ) mGy, DLP = ( 536.06 ) mGycm TECHNIQUE: The patient was scanned in a multi-detector CT scanner. High resolution transaxial imaging was performed following intravenous administration of IV 100mL Isovue-370. Sagittal and coronal images were reconstructed. Individualized dose optimization techniques were used for this CT. COMPARISON: None. FINDINGS: Normal bilateral parotid glands. Normal bilateral [employer] spaces. Normal bilateral parapharyngeal spaces. Normal bilateral carotid spaces. Normal bilateral sublingual and submandibular glands and spaces. Normal visualized nasopharynx. Normal retropharyngeal space. Normal perivertebral space. Normal visualized bilateral faucial tonsils. The visualized tongue, tongue base and oropharynx are normal. The visualized cervical lymph nodes (levels I-) are within normal size limits, and maintain normal morphology. There is no demonstrated solid or cystic mass lesion. There is no abnormal contrast enhancement. The right vallecula is normal. The left vallecula is diminutive in size which could be due to incomplete distention, retained secretions of food material or less likely occult mass. The piriform sinuses are nondistended. The pre-epiglottic and paraglottic adipose spaces are normal. Normal visualized bilateral aryepiglottic folds, vocal cords, and arytenoid-cricoid articulations. Normal subglottic trachea. Normal bilateral lobes of the thyroid gland. Imaged portion of left upper lobe demonstrates moderate alveolar infiltrate and large left pleural effusion. Mediport catheter is seen within the right anterior chest wall. Normal visualized paranasal sinuses. Sclerotic metastases are seen extending from C3 through C7. Posteriorly within T1, and throughout the T3 vertebral body and spinous process of T4. Metastatic disease is seen within the spinous process of T6. CT/Soft Tissue Neck WITH Contrast IMPRESSION: Diffuse metastatic disease to the cervical spine. This is detailed in the body of the report. Nondistention of the left vallecula and both piriform sinuses. This is likely due to nondistention or retained secretions of food material. Occult mass is considered less likely. Mediport catheter right anterior chest wall. Longitudinal pleural effusion with left upper lobe infiltrate. Given the density of the infiltrate in the medial left apex possibility of neoplastic disease at this site cannot be excluded. Correlation advised. Electronically Signed: Mahamed Guerrier MD, CHRISTINE at 11:53 EDT ,
[2021-12-28 11:11] LABS: Absolute Lymphocyte Count 1.13 X10^3/uL (0.83-4.51); Absolute Neutrophil Count 5.3 X10^3/uL (2.0-7.7); Basophil# 0.04 X10^3/uL; Basophil% 0.5 % (0-1); Eosinophil# 0.09 X10^3/uL; Eosinophils% 1.2 % (0-5); Hematocrit 35.5 % (37-47); Lymphocyte # 1.13 X10^3/ul (0.83-4.51); Lymphocyte % 15.5 % (19-41); Mean Corp Hgb Conc 33.8 g/dL (32-36); Mean Corpuscular Hgb 28.9 pg (27.0-32.0); Mean Corpuscular Volume 85.5 fL (81-99); Mean Platelet Vol. 9.1 fl (6.2-12.0); Monocyte# 0.72 X10^3/uL; Monocyte% 9.8 % (0-10); NRBC Flagged by Analyzer 0 % (0-5); Neutrophil # 5.26 X10^3/uL (2.7-7.7); Platelet Count 342 K/mm3 (150-450); RBC Distribution Width CV 15.2 % (11.6-14.6); RBC Distribution Width SD 47.4 fl (35.1-43.9); Red Blood Count 4.15 M/mm3 (4.2-5.4); White Blood Count 7.3 K/mm3 (4.4-11.0)
--- NOTE | 2021-12-28 11:17 | EDS_ITS ---
HPI History of Present Illness Chief Complaint: Allergic Reaction Informant: patient Onset/Context/Timing Onset: Yesterday Context: Gradual Onset Timing: Continuous Quality: Tightness, swelling Location: Throat Worsened by: Laying flat Relieved by: Nothing Narrative Narrative: Patient presents with possible allergic reaction that began yesterday. Patient states she was recently started on Levaquin for a sinus infection. Patient states it feels like there is something stuck in her throat. Patient states she is able to swallow liquids and solids. Patient states it just feels tight in the lower part of her throat. Patient denies any shortness of breath. Patient denies any hives. Patient denies any rashes. Patient states it feels worse whenever she lays down. Patient admits to cough and shortness of breath because of this. Patient denies any fevers or chills. PFSH PFSH Medical History Alcohol use Arthritis Bone metastasis Cancer CINV (chemotherapy-induced nausea and vomiting) Constipation Ductal carcinoma Encounter for chemotherapy management Former smoker Hypothyroid Insect bite Metastatic breast cancer Numbness and tingling of left hand Oral candidiasis Thyroid disease Wears glasses Wears partial dentures Home Medications calcium carbonate 600 mg-vitamin D3 5 mcg (200 unit) tablet 1 each PO BID 08/18/19 [History Last Taken Unknown] levothyroxine 137 mcg tablet 137 mcg PO MOTUWETHFRSA 01/01/20 [History Last Taken 12/14/20] ondansetron 4 mg disintegrating tablet 4 mg PO Q8H PRN PRN Nausea 10 days #30 tabs 04/18/20 [Rx Last Taken Unknown] exemestane 25 mg tablet (Aromasin) 25 mg PO DAILY 30 days #30 tabs 11/27/21 [Rx Last Taken Unknown] albuterol sulfate 90 mcg/actuation aerosol inhaler 1 inh inhalation Q6H PRN Wheezing 12/28/21 [History Last Taken Unknown] levofloxacin 750 mg tablet 750 mg PO DAILY 12/28/21 [History Last Taken Unknown] Allergy/AdvReac Type Severity Reaction Status Date / Time No Known Allergies Allergy Verified 12/28/21 10:40 Family History Unknown Breast cancer Grandfather Cancer Surgical History History of breast biopsy History of delivery Hx of wisdom tooth extraction Social History household members: spouse housing: house Smoking Status: Former smoker Tobacco: How many years used: 20 second hand exposure: No alcohol intake: current details: social substance use type: does not use what type of physical activity do you participate in: walking seatbelt use: always do you feel safe at home: Yes additional social history: [employer] work Patient works at [employer] in [facility] ROS ED Constitutional Constitutional ED: Denies chills or fever(s) Eyes Eyes: Denies blurry vision or change in vision ENT ENT ED: Reports sore throat; Denies rhinorrhea Cardiovascular Cardiovascular: Denies chest pain or palpitations Respiratory/Chest Respiratory/Chest: Reports cough, dyspnea and sputum Gastrointestinal Gastrointestinal: Reports nausea; Denies vomiting Genitourinary Genitourinary ED: Denies dysuria or hematuria Musculoskeletal Musculoskeletal: Reports neck pain; Denies back pain Integumentary Denies abscess or rash Neurologic Neurologic: Denies headache(s) or weakness Allergic/Immunologic Allergic/Immunologic ED: Denies mouth swelling or urticaria EXAM Physical Exam Const Vital Signs: 12/28/21 10:40 12/28/21 10:53 Temperature 97.2 F L Temperature Source Temporal Pulse Rate 80 Respiratory Rate 14 Respiratory Effort Short of Breath Blood Pressure 108/78 Blood Pressure Mean 88 Pulse Ox 98 Oxygen Delivery Method Room Air Positive well nourished and well developed General Appearance ED: well developed and NAD HEENT Reports moist mucous membranes HEENT Narrative: Oropharynx is clear. Airway is patent. There is some mild postnasal drainage. There is no erythema or exudate noted. Neck supple and no JVD Resp normal respiratory effort and clear to auscultation bilaterally Cardio regular rate, regular rhythm and no murmurs GI normal to inspection, nondistended, normoactive bowel sounds and non-tender Palpation: soft Extremity normal to inspection General Extremety ED: Negative for edema or tenderness General Extremity: Negative for edema Neuro oriented x3, CN's II-XII intact bilaterally and no sensory deficits noted Sensorium / Orientation: alert Motor Exam: strength 5/5 throughout Psych mental status grossly normal Skin no rashes or lesions noted MDM MDM MDM Narrative Medical decision making narrative: CBC was within normal limits. Basic metabolic profile showed a mild hyponatremia of [address] and chloride of 94. CT scan of the soft tissue neck was obtained. There is diffuse metastatic disease to the cervical spine. There is nondistention of the left vallecula and both piriform sinuses which is likely due to retained secretions of fluid material or nondistention. There is a left upper lobe infiltrate and pleural effusion noted. This was interpreted by the radiologist and reviewed by myself. Patient was advised of her findings. I do not feel this is a systemic allergic reaction to the Levaquin. I discussed options of changing the patient's antibiotics. She is comfortable taking Levaquin. She states she was told that she should not take any steroids since she just completed a course of this. Because of this, patient will not be prescribed any prednisone. Patient was instructed to drink plenty of fluids. Patient was instructed to follow-up with her primary care physician in 5 to 7 days. Patient understood and was agreeable with the plan. All questions were answered. Lab Data Attestation: I reviewed the patient's lab results. Labs: Laboratory Results - last 24 hr 12/28/21 12/28/21 11:00 11:00 WBC 7.3 RBC 4.15 L Hgb 12.0 Hct 35.5 L MCV 85.5 MCH 28.9 MCHC 33.8 RDW Std Deviation 47.4 H RDW Coeff of David 15.2 H Plt Count 342 MPV 9.1 Immature Gran % (Auto) 1.000 H Neut % (Auto) 72.0 H Lymph % (Auto) 15.5 L Cochran % (Auto) 9.8 Eos % (Auto) 1.2 Baso % (Auto) 0.5 Absolute Neuts (auto) 5.3 Absolute Lymphs (auto) 1.13 Nucleated RBC % 0 Sodium 123 L Potassium 4.4 Chloride 94 L Carbon Dioxide 22.0 Anion Gap 7 BUN 7 Creatinine 0.57 Estim Creat Clear Calc 98.26 Est GFR (MDRD) Af Amer 140 Est GFR (MDRD) Non-Af 116 BUN/Creatinine Ratio 12.3 Glucose 89 Calcium 8.5 Radiography Diagnostic Testing: Clinical Impression(s) from Imaging Studies Soft Tissue Neck CT 12/28/21 10:53 IMPRESSION: Diffuse metastatic disease to the cervical spine. This is detailed in the body of the report. Nondistention of the left vallecula and both piriform sinuses. This is likely due to nondistention or retained secretions of food material. Occult mass is considered less likely. Mediport catheter right anterior chest wall. Longitudinal pleural effusion with left upper lobe infiltrate. Given the density of the infiltrate in the medial left apex possibility of neoplastic disease at this site cannot be excluded. Correlation advised. Electronically Signed: Mahamed Guerrier MD, CHRISTINE at 11:53 EDT , Discharge Plan Triage Chief Complaint: Allergic Reaction ED Provider: Goyo Wharton Dx/Rx/DC Orders Clinical Impression: Dysphagia, Breast cancer metastasized to bone, Pneumonia Instructions: ED Dysphagia (Adult) Prescriptions: No Action calcium carbonate-vitamin D3 1 EACH tablet 1 each PO BID ondansetron 4 MG tablet 4 mg PO Q8H PRN PRN (Reason: Nausea) 10 Days Qty: 30 3RF levothyroxine 137 MCG tablet 137 mcg PO MOTUWETHFRSA levofloxacin 750 mg Tablet 750 mg PO DAILY albuterol sulfate 90 mcg/actuation Hfa Aerosol Inhaler 1 inh INHALATION Q6H PRN (Reason: Wheezing) exemestane [Aromasin] 25 mg tablet 25 mg PO DAILY 30 Days Qty: 30 2RF Rx Instructions: must administer after a meal Primary Care Provider: Yoel Urbina Referrals: Yoel Urbina MD [Primary Care Provider] - 3-5 Days Disposition Disposition: Home, Self Care
[2021-12-28 11:20] LABS: Anion Gap 7 (5-15); BUN 7 mg/dL (7-18); BUN/Creat Ratio 12.3 RATIO (10-20); Calcium,Total 8.5 mg/dL (8.5-10.1); Chloride 94 mmol/L (98-107); Creatinine, Serum 0.57 mg/dL (0.55-1.02); EST Glomerular Filtration Rate 116 mL/min (>60); Est Glom Filt Rate - Afr Amer 140 mL/min (>60); Estimated Creatinine Clearance 98.26 ml/min; Glucose 89 mg/dL (74-106); Potassium 4.4 mmol/L (3.5-5.1); Sodium Level 123 mmol/L (136-145)
[2021-12-28 12:51] VITALS: RESP 16
== END 2021-12-28 12:51 | disposition home or self-care (01) ==
PROVIDERS: Emergency Provider Emergency Medicine; PCP Family Medicine; Visit Provider Emergency Medicine
DX: R13.10 Dysphagia, unspecified (principal); C79.51 Secondary malignant neoplasm of bone; C50.919 Malignant neoplasm of unspecified site of unspecified female breast; J18.9 Pneumonia, unspecified organism; J90 Pleural effusion, not elsewhere classified; E87.1 Hypo-osmolality and hyponatremia; R30.0 Dysuria; M54.2 Cervicalgia; M19.90 Unspecified osteoarthritis, unspecified site; E03.9 Hypothyroidism, unspecified; Z79.890 Hormone replacement therapy; Z79.899 Other long term (current) drug therapy; Z87.891 Personal history of nicotine dependence
CPT/HCPCS: 70491; 80048; 85025; 99283; Q9967; A4216

== ENCOUNTER → 2022-01-03 | Outpatient (CLI) | payer OTHER, SELFPAY ==
--- NOTE | 2022-01-03 | FLU_PTH ---
PATIENT: DULCE MCKEON LOC: [facility]#:[id number] AGE/SX: 61/F ROOM: RE01/03/[address]: Dr. Waqar Deutsch MD : 1960 BED: DIS: 01/03/2022 SPEC #: [id number] RECD: 01/03/22 13:29 STATUS: DARRELL RERadha #: [id number] PAUL: 01/03/22 00:[address]: Waqar Deutsch DEPT: CYTOLOGY RECD BY: Britton Branch ENTERED: 01/07/22 08:40 SP TYPE: Fluid OTHR DR: Dr. Yoel Urbina MD Tissues: THORACIC FLUID Procedures: Special Stain Group II Surgery Specimen Level IV Cytospin Fluid HEADER OPERATION: Ultrasound-guided thoracentesis left PRE-OP DIAGNOSIS: Pleural effusion TISSUE SUBMITTED: Thoracentesis fluid for cytology DIAGNOSIS CYTOLOGY Thoracentesis fluid for cytology (cytospin and cell block): Malignant cells present derived from metastatic adenocarcinoma (ductal carcinoma), consistent with breast primary. See comment. SJ:brett 01/08/2022 COMMENT Immunohistochemistry ([id number]) supports the above diagnosis. Correlation with clinical, radiologic findings and appropriate follow up are necessary. Please make reference to previous specimen ([id number]) left breast, ultrasound-guided core biopsy with diagnosis of ?invasive ductal carcinoma.? Case has been reviewed in consultation with Dr. Hull who concurs with the above diagnosis. IDC:AM CYTOLOGY STUDY Slides are reviewed. CYTOLOGY GROSS Received is 45 ml of yellow cloudy fluid labeled with the patient's name and and designated per the requisition as thoracentesis. Submitted for cytology preparation including cell block. / brett 01/07/2022 TC:0 CPT: 26379, 45780
--- NOTE | 2022-01-03 | IMM_PTH ---
PATIENT: DULCE MCKEON LOC: [facility]#:[id number] AGE/SX: 61/F ROOM: RE01/03/[address]: Dr. Waqar Deutsch MD : 1960 BED: DIS: 01/03/2022 SPEC #: [id number] RECD: 01/08/22 13:13 STATUS: DARRELL REQ #: [id number] PAUL: 01/03/22 00:[address]: Waqar Deutsch DEPT: IMMUNOHISTOCHEMISTRY RECD BY: Shira Balderrama ENTERED: 01/08/22 13:16 SP TYPE: IMMUNO OTHR DR: Dr. Yoel Urbina MD Tissues: THORACIC FLUID Procedures: RCC (add) NAPSIN A (add) CA-125 (add) Dwayne Ret (add) CEA (add) CK20 (add) CK5-6 (add) CK7 (add) CK8 (add) E-CAD (add) HEP PAR (add) HER2 OSMANY (add) MACRO (add) MAMM (add) AR (add) TTF1 (add) Vimentin (add) Pankeratin (add) GATA3 (add) P40 (add) ER (initial) PHYSICIAN & INSTITUTION [place] [address] SPECIMEN INFORMATION: Tissue Source: Thoracentesis fluid Clinical Info: Pleural effusion Specimen Number: [id number] CPT code: 33605, 35060 x20 METHODOLOGY: Deparaffinized sections of prefer/formalin-fixed tissue or PAP/DQ stained slides are incubated with monoclonal/polyclonal antibodies/oligonucleotide probes. Localization is made via biotin free immunoperoxidase method. Appropriate controls are performed and reacted as expected. Results on target cell population are indicated in the following table: RESULTS: ANTIBODY / CLONE RESULT ER (6F11) negative AR (1E2) negative Her-2neu (CB11) negative E-Cad (ECH-6) positive Mammaglobin (31A5) negative GATA3 (L50-823) positive, focal AE1-3 (AE1/AE3/PCK26) positive CK7 (OV-TL12/30) positive CK8 (46ffkdS94) positive CK20 (KS20.8) negative Vimentin (V9) negative Macro (HAM-56) negative TTF-1 (8G7G3/1) negative Napsin A (Rabbit Polyclonal) negative HepPar (OCh1E5) negative RCC (PN-15) negative CALRET (polyclonal) negative CK5-6 (D5 & 1684) negative P40 (BC28) negative CEA (11-7/TF-3HB-1) negative CA125 (OC125) negative (high background staining) These tests were developed and their performance characteristics determined by [facility]. They may not have been cleared or approved by the U.S. Food and Drug Administration. The FDA has determined that such clearance or approval is not necessary. The above immunohistochemical/dualISH markers are ordered and reviewed by the Pathologist. 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 This case has been reviewed in consultation with Dr. Hull who concurs with the above diagnosis. SJ:brett 01/09/2022
--- NOTE | 2022-01-03 12:32 | US_ITS ---
PROCEDURE: ULTRASOUND GUIDED THORACENTESIS. DATE: 01/03/2022. INDICATION: Female, 61 years old. Left pleural effusion. PHYSICIAN: Emory Rivero M.D. PROCEDURE: The risks, benefits, and alternatives to the procedure were explained to the patient. The specific risks of bleeding, infection, and pneumothorax requiring chest tube insertion were discussed and accepted. Written informed consent was obtained. Ultrasonographic evaluation of the left lower pleural space was carried out. An adequate pocket was identified. The patient was placed in the sitting, upright position. The overlying skin was prepped and draped in sterile fashion. 1% lidocaine was administered subcutaneously for local anesthesia. Under ultrasound guidance, a 5 [place]ese thoracentesis needle/catheter system was advanced into the left posterior lower pleural fluid collection. Approximately 700 mL of zoila-colored fluid was drained. The catheter was removed, and a sterile dressing was applied. A specimen was collected and sent to the laboratory for analysis, as requested by the referring clinician. The patient tolerated the procedure well. A chest x-ray was ordered. US/Thoracentesis W US IMPRESSION: Ultrasound-guided left thoracentesis. Electronically Signed: Emory Rivero MD at 13:52 EDT ,
[2022-01-03 13:00] VITALS: BP 115/72; BP 125/77; BP 135/81; BP 94/66; PULSE 78; PULSE 82; PULSE 89; PULSE 93; RESP 20; RESP 22; RESP 24; TEMP 36.4; O2SAT 96; O2SAT 97
[2022-01-03] MEDS: Lidocaine 2% (10 ml mdv) 10 ML Vial INFILT (13:05)
--- NOTE | 2022-01-03 13:12 | RAD_ITS ---
STUDY: X-RAY CHEST REASON FOR EXAM: Female, 61 years old. POST THORA TECHNIQUE: AP inspiration and expiration views. COMPARISON: Comparison is made with prior study 02/18/2021. FINDINGS: The patient is status post left thoracentesis. Minimal residual pleural parenchymal changes at the left lung base. No evidence of pneumothorax. Bony metastasis. Bilateral rib fractures. RAD/Chest Insp/Exp 2 View IMPRESSION: Status post left thoracentesis. No evidence of pneumothorax. Electronically Signed: Emory Rivero MD at 13:30 EDT ,
[2022-01-03 13:28] LABS: Cytology, Body Fluid / CSF SEE PATHOLOGY REPORT
--- NOTE | 2022-01-08 08:00 | PET_ITS ---
EXAMINATION: FDG PET-CT INDICATIONS: A 61-year-old female with history of carcinoma of the breast presenting for restaging examination. COMPARISON EXAMINATION: None available INDEX LESION SIZE SUV INTERPRETATION Osseous skeletal structures, appendicular, axial skeleton 10.6 (max) Fulfills quantitative criteria for viable neoplasm Abdominal-pelvic lymphadenopathy 9.8-mm (largest) 7.6 (max) Fulfills quantitative criteria for viable neoplasm Mediastinum, bilateral thoracic perihilum, infrahilar regions 24.6-mm (largest) 4.4 (max) Fulfills quantitative criteria for viable neoplasm Bilateral hemithorax pulmonary parenchyma 51.9-mm (largest) 5.8 (max) May represent neoplastic infiltration versus an inflammatory process. Histopathologic analysis may be indicated TECHNIQUE: Following the intravenous administration of 12.62 mCi of F-18 deoxyglucose via the right antecubital fossa, multiplanar image acquisitions of the neck, chest, abdomen and pelvis to level of mid thigh, obtained at one hour post radiopharmaceutical administration contemporaneously interpreted with the current CT of the neck, chest, abdomen and pelvis, to level of mid thigh, dated 01/08/22 via coregistration reveals: BLOOD GLUCOSE LEVEL:?? 86 mg/dl?HEIGHT:?66 inches?WEIGHT: 159 lbs. FINDINGS: Head/Neck: There is no evidence of abnormal increased glucose metabolism in the pharyngeal mucosal space, parapharyngeal space, bilateral-lateral and anterior neck, hypopharynx and distribution of the laryngeal structures. The visualized portion of the cerebral cortical-subcortical structures demonstrate symmetric and preserved glucose metabolism. CHEST: There is an increase in FDG uptake defined in the bilateral lung kuhn corresponding to mass formation, consolidation, nodular component. The calculated maximal standard uptake value of 5.8. The maximal axial diameter of the largest metabolic, morphologic abnormality is 51.9-mm. Enhanced FDG uptake is defined in the pre-carinal level mediastinum and bilateral thoracic perihilum and infrahilar regions. The calculated maximal standard uptake value is 4.4. The maximal axial diameter of the largest metabolic abnormality is 24.6-mm. Pertinent chest CT findings are as follows. A left hemithorax pleural effusion is ametabolic. A calcified nodule noted in the left upper posterior lung zone-left upper lobe is non-glucose avid. Paulo-cath placement is noted. There is atherosclerotic calcification defined in the thoracic aorta without evidence of dilatation-aneurysm formation. Abdomen/Pelvis: There is focal increased glucose metabolism identified in the celiac axis, superior and inferior mesenteric, pre-aortic lymph nodes, the left lateral periaortic lymph nodes, the left hemipelvis to include the common iliac lymph nodes, the left external lymph node distribution. The calculated maximal standard uptake value is 7.6 with a maximal axial diameter of 9.8-mm. Normal physiologic distribution of the radiopharmaceutical is apparent in the hepatic and splenic parenchyma, both renal units, bladder and visualized intestinal tract. Pertinent abdomen and pelvis CT findings are as follows. There is atherosclerotic calcification defined in the abdominal aorta without evidence of dilatation-aneurysm formation. Pelvic arterial calcification is observed. Abdominal ascites formation is non-glucose avid. Right and left inguinal soft tissue densities are ametabolic. Skeletal: Innumerable diffuse increased FDG concentration is noted throughout the appendicular and axial skeleton, too many foci to individual articulate. The calculated maximal standard uptake value is 10.6. PET/PET/CT Tumor Base -Thigh Subs IMPRESSION: 1. ABNORMAL EXAMINATION INDICATIVE OF MALIGNANT VIABLE NEOPLASM. 2. Enhanced tracer distribution noted in the bilateral hemithorax pulmonary parenchyma fulfills quantitative criteria for viable neoplasm. Uptake may be secondary to an inflammatory process-pneumonitis. Histopathologic analysis may be indicated to exclude neoplastic disease. 3. Focal increased radiopharmaceutical concentration noted in the mediastinum, the bilateral thoracic perihilum and infrahilar regions fulfill quantitative criteria for viable neoplasm. (Ivana et al, Journal of Clinical Oncology 16:2142, 1998). 4. Abdominal and pelvic lymphadenopathy articulated above fulfills quantitative criteria for viable neoplasm. 5. Disseminated increased uptake noted in the appendicular and axial skeletal structures fulfills quantitative criteria for viable neoplasm. (Marnie, et al, Clinical Nuclear Medicine, 29:161, 2004). Electronic Signature Destin Mckoen D.O. Accurate Quantification of SUVs for this report are calculated using the exclusive [employer]. (U.S. Patent No. 10, [id number] 983). Standardization and correction of the FDG SUV metric via [employer] technology allow for vendor non-specific objective quantitative examination comparison and optimization of the sensitivity and specificity of the FDG PET-CT examination. Electronically Signed: Destin Mckeon, at 22:44 EDT ,
== END | disposition home or self-care (01) ==
PROVIDERS: PCP Family Medicine; Referring Provider Internal Medicine Medical Oncology; Visit Provider Internal Medicine Medical Oncology
DX: C79.51 Secondary malignant neoplasm of bone (principal); C50.412 Malignant neoplasm of upper-outer quadrant of left female breast; J90 Pleural effusion, not elsewhere classified; R91.8 Other nonspecific abnormal finding of lung field
CPT/HCPCS: 32555; 71046; 88108; 88305; 88313; 88341; 88342

== ENCOUNTER 2022-01-14 17:04 | Emergency (ER) | payer OTHER, SELFPAY ==
[2022-01-14 17:05] VITALS: BP 125/82; PULSE 95; RESP 16; TEMP 36.3; O2SAT 99; BMI 26.1
[2022-01-14 17:07] VITALS: BP 125/82; PULSE 95; RESP 16; TEMP 36.3; O2SAT 99
--- NOTE | 2022-01-14 17:20 | ED.RN ---
pt reports she prefers peripheral IV draws instead of using power port.
[2022-01-14 18:08] VITALS: O2SAT 97
--- NOTE | 2022-01-14 18:14 | EKG12_ITS ---
Test Reason : DYSRHYTHMIA Blood Pressure : / mmHG Vent. Rate : 070 BPM Atrial Rate : 070 BPM P-R Int : 164 ms QRS Dur : 080 ms QT Int : 384 ms P-R-T Axes : 043 014 040 degrees QTc Int : 414 ms Normal sinus rhythm Normal ECG Confirmed by LESLY MUNGUIA, DOROTHY ([id number]), publications editor BECKA JOINER ([id number]) on 01/15/2022 2:00:38 PM Referred By: KAREN Confirmed By:DOROTHY GRACE MD
--- NOTE | 2022-01-14 18:15 | EDS_ITS ---
HPI History of Present Illness Chief Complaint: Shortness of Breath Narrative Narrative: 61-year-old female presenting with dyspnea on exertion. She is denying any chest pain. She has a history of metastatic breast cancer. She sees Dr. Deutsch. She has been off of chemotherapy for the last 2 and half months. She states she recently had a PET scan which showed worsening of her cancer. She is supposed to restart her chemotherapy soon. She denies fever or chills. She denies nausea or vomiting. She describes dyspnea with exertion at shorter distances. She has a recurrent left-sided pleural effusion which was drained 10 days ago. She states that she is scheduled to have this drained tomorrow as an outpatient by Dr. Deutsch. She states she does not think she can make this. She states that when she sits at rest she is fine and is not having any shortness of breath. [facility] Medical History Alcohol use Arthritis Bone metastasis Cancer CINV (chemotherapy-induced nausea and vomiting) Constipation Ductal carcinoma Encounter for chemotherapy management Former smoker Hypothyroid Insect bite Metastatic breast cancer Numbness and tingling of left hand Oral candidiasis Thyroid disease Wears glasses Wears partial dentures Home Medications calcium carbonate 600 mg-vitamin D3 5 mcg (200 unit) tablet 1 each PO BID 08/18/19 [History Last Taken Unknown] levothyroxine 137 mcg tablet 137 mcg PO MOTUWETHFRSA 01/01/20 [History Last Taken 12/14/20] ondansetron 4 mg disintegrating tablet 4 mg PO Q8H PRN PRN Nausea 10 days #30 tabs 04/18/20 [Rx Last Taken Unknown] exemestane 25 mg tablet (Aromasin) 25 mg PO DAILY 30 days #30 tabs 11/27/21 [Rx Last Taken Unknown] albuterol sulfate 90 mcg/actuation aerosol inhaler 1 inh inhalation Q6H PRN Wheezing 12/28/21 [History Last Taken Unknown] levofloxacin 750 mg tablet 750 mg PO DAILY 12/28/21 [History Last Taken Unknown] dexamethasone 4 mg tablet tablet PO 01/01/22 [History Last Taken Unknown] spironolactone 50 mg tablet (Aldactone) 50 mg PO DAILY #30 tabs 01/13/22 [Rx Last Taken Unknown] Allergy/AdvReac Type Severity Reaction Status Date / Time No Known Allergies Allergy Verified 01/14/22 17:07 Family History Unknown Breast cancer Grandfather Cancer Surgical History History of breast biopsy History of delivery Hx of wisdom tooth extraction Social History household members: spouse housing: house Smoking Status: Former smoker Tobacco: How many years used: 20 second hand exposure: No alcohol intake: current details: social substance use type: does not use what type of physical activity do you participate in: walking seatbelt use: always do you feel safe at home: Yes additional social history: Folloze work Patient works at [employer] in [facility] ROS ED Constitutional Constitutional ED: Denies chills or fever(s) Eyes Eyes: Denies change in vision ENT ENT ED: Denies rhinorrhea or sore throat Cardiovascular Cardiovascular: Denies chest pain or palpitations Respiratory/Chest Respiratory/Chest: Reports cough and dyspnea on exertion Gastrointestinal Gastrointestinal: Denies abdominal pain, nausea or vomiting Genitourinary Genitourinary ED: Denies dysuria or hematuria Musculoskeletal Musculoskeletal: Denies arthralgias or back pain Integumentary Denies abscess or Abrasions Neurologic Neurologic: Denies headache(s) or paresthesias Psychiatric Psychiatric: Denies anxiety or depression EXAM Physical Exam Const Vital Signs: 01/14/22 17:05 01/14/22 17:07 01/14/22 17:16 Temperature 97.4 F L 97.4 F L Temperature Source Temporal Temporal Pulse Rate 95 95 Respiratory Rate 16 16 Respiratory Effort Normal Non-Labored Respiratory Depth Normal Respiratory Pattern Normal Blood Pressure 125/82 H 125/82 H Blood Pressure Mean 96 96 Pulse Ox 99 99 Oxygen Delivery Method Room Air Room Air 01/14/22 18:08 Temperature Temperature Source Pulse Rate Respiratory Rate Respiratory Effort Respiratory Depth Respiratory Pattern Blood Pressure Blood Pressure Mean Pulse Ox 97 Oxygen Delivery Method Room Air Positive well nourished General Appearance ED: NAD; Negative for pallor HEENT Reports moist mucous membranes atraumatic Eyes PERRL and EOMs intact bilaterally Neck no lymphadenopathy Resp normal respiratory effort Auscultation: diminished lung sounds left lower Cardio regular rate and regular rhythm GI non-tender Neuro oriented x3 and CN's II-XII intact bilaterally Sensorium / Orientation: alert Motor Exam: strength 5/5 throughout Psych mental status grossly normal Skin no wounds and skin turgor normal General Skin Exam: Negative for jaundice or pallor MDM MDM MDM Narrative Medical decision making narrative: Patient with recurrent pleural effusion on the left presenting with shortness of breath. She states that she had this drained about 10 days ago. She states she has a scheduled appointment tomorrow. Because of her dyspnea on exertion I did obtain blood work and her CBC shows no leukocytosis. Hemoglobin hematocrit are stable. Renal function electrolytes within normal limits. LFTs are normal with exception of an alkaline phosphatase of 195. High-sensitivity troponin is 4. EKG interpreted by myself shows a normal sinus rhythm with a ventricular to 70 bpm without sign of ischemic change or dysrhythmia. Chest x-ray on my interpretation shows trace right-sided pleural effusion with a larger left-sided pleural effusion. Patient was ambulated on room air and maintain oxygen saturations between 95 and 97%. I did discuss with the patient that I would likely would not be able to arrange pleurocentesis here at this evening. Since her oxygen sats not dropping I do not believe she needs to be hospitalized. Patient herself states that she does not want to stay in the hospital. She can follow-up with her outpatient appointment to have her pleurocentesis. Return precautions were discussed. Impression: 1. Recurrent left-sided pleural effusion 2. Dyspnea on exertion 3. History of metastatic breast cancer Lab Data Attestation: I reviewed the patient's lab results. Labs: Laboratory Results - last 24 hr 01/14/22 01/14/22 18:40 18:40 WBC 8.0 RBC 4.28 Hgb 12.4 Hct 37.7 MCV 88.1 MCH 29.0 MCHC 32.9 RDW Std Deviation 50.6 H RDW Coeff of David 15.7 H Plt Count 450 MPV 8.8 Immature Gran % (Auto) 1.400 H Neut % (Auto) 72.2 H Lymph % (Auto) 16.3 L Ida % (Auto) 7.3 Eos % (Auto) 2.2 Baso % (Auto) 0.6 Absolute Neuts (auto) 5.8 Absolute Lymphs (auto) 1.31 Nucleated RBC % 0 Sodium 133 L Potassium 4.2 Chloride 100 Carbon Dioxide 26.0 Anion Gap 7 BUN 8 Creatinine 0.65 Estim Creat Clear Calc 86.16 Est GFR (MDRD) Af Amer 119 Est GFR (MDRD) Non-Af 98 BUN/Creatinine Ratio 12.3 Glucose 86 Calcium 8.8 Total Bilirubin 0.20 AST 37 ALT 42 Alkaline Phosphatase 195 H Troponin I High Sens 4 Total Protein 7.0 Albumin 2.5 L Globulin 4.5 H Albumin/Globulin Ratio 0.6 L Radiography Diagnostic Testing: Clinical Impression(s) from Imaging Studies Chest X-Ray 01/14/22 18:23 IMPRESSION: Pulmonary findings appear worse. Electronically Signed: Braden Muniz MD at 18:49 EDT Reading Location ID and State: [facility] / [place] , Service support , Discharge Plan Triage Chief Complaint: Shortness of Breath ED Provider: Kal Ortega Dx/Rx/DC Orders Prescriptions: No Action dexamethasone 4 mg tablet PO spironolactone [Aldactone] 50 mg tablet 50 mg PO DAILY Qty: 30 1RF calcium carbonate-vitamin D3 1 EACH tablet 1 each PO BID ondansetron 4 MG tablet 4 mg PO Q8H PRN PRN (Reason: Nausea) 10 Days Qty: 30 3RF levothyroxine 137 MCG tablet 137 mcg PO MOTUWETHFRSA levofloxacin 750 mg Tablet 750 mg PO DAILY albuterol sulfate 90 mcg/actuation Hfa Aerosol Inhaler 1 inh INHALATION Q6H PRN (Reason: Wheezing) exemestane [Aromasin] 25 mg tablet 25 mg PO DAILY 30 Days Qty: 30 2RF Rx Instructions: must administer after a meal Primary Care Provider: Yoel Urbina Referrals: Yoel Urbina MD [Primary Care Provider] -
--- NOTE | 2022-01-14 18:23 | RAD_ITS ---
STUDY: X-RAY CHEST REASON FOR EXAM: Female, 61 years old. dyspnea TECHNIQUE: XR Chest 2 Views COMPARISON: 9.2 FINDINGS: There are bilateral pleural effusions. There are bilateral infiltrates. There is a right Port-A-Cath and/or mediport in place. The tip is in the superior vena cava. Healed right rib fractures. Healed left rib fractures. Normal size heart. Normal mediastinum and devora. Normal visualized pulmonary arteries. There is atherosclerotic calcification of the aortic arch with tortuosity. There are diffuse degenerative changes of the visualized thoracic spine. There is degenerative osteoarthritis of the bilateral shoulders. There is no demonstrated abnormality of the visualized soft tissue structures of the upper abdomen. RAD/Chest PA and Lateral IMPRESSION: Pulmonary findings appear worse. Electronically Signed: Bradne Muniz MD at 18:49 EDT ,
[2022-01-14 18:34] VITALS: O2SAT 97
[2022-01-14 18:53] LABS: Absolute Lymphocyte Count 1.31 X10^3/uL (0.83-4.51); Absolute Neutrophil Count 5.8 X10^3/uL (2.0-7.7); Basophil# 0.05 X10^3/uL; Basophil% 0.6 % (0-1); Eosinophil# 0.18 X10^3/uL; Eosinophils% 2.2 % (0-5); Hematocrit 37.7 % (37-47); Hemoglobin 12.4 g/dL (12.0-15.0); Lymphocyte # 1.31 X10^3/ul (0.83-4.51); Lymphocyte % 16.3 % (19-41); Mean Corp Hgb Conc 32.9 g/dL (32-36); Mean Corpuscular Volume 88.1 fL (81-99); Mean Platelet Vol. 8.8 fl (6.2-12.0); Monocyte# 0.59 X10^3/uL; Monocyte% 7.3 % (0-10); NRBC Flagged by Analyzer 0 % (0-5); Neutrophil # 5.79 X10^3/uL (2.7-7.7); Neutrophil % 72.2 % (47-70); Platelet Count 450 K/mm3 (150-450); RBC Distribution Width CV 15.7 % (11.6-14.6); RBC Distribution Width SD 50.6 fl (35.1-43.9); Red Blood Count 4.28 M/mm3 (4.2-5.4)
[2022-01-14 19:12] LABS: ALB/GLOB Ratio 0.6 RATIO (0.9-2.4); AST(SGOT) 37 U/L (15-37); Alanine Aminotransfer ALT/SGPT 42 U/L (13-56); Albumin, Serum 2.5 g/dL (3.2-5.0); Alkaline Phosphatase 195 U/L (45-117); Anion Gap 7 (5-15); BUN 8 mg/dL (7-18); BUN/Creat Ratio 12.3 RATIO (10-20); Calcium,Total 8.8 mg/dL (8.5-10.1); Chloride 100 mmol/L (98-107); Creatinine, Serum 0.65 mg/dL (0.55-1.02); EST Glomerular Filtration Rate 98 mL/min (>60); Est Glom Filt Rate - Afr Amer 119 mL/min (>60); Estimated Creatinine Clearance 86.16 ml/min; Globulin 4.5 g/dL (2.2-4.2); Glucose 86 mg/dL (74-106); Potassium 4.2 mmol/L (3.5-5.1); Sodium Level 133 mmol/L (136-145); Troponin-I HS 4 pg/mL (3.0-54.0)
[2022-01-14 19:33] VITALS: BP 119/79; PULSE 77; RESP 12; O2SAT 97
--- NOTE | 2022-01-14 19:53 | ED.RN ---
portable pulse ox given to pt at dc
== END 2022-01-14 19:54 | disposition home or self-care (01) ==
PROVIDERS: Emergency Provider Student in an Organized Health Care Education/Training Program; PCP Family Medicine; Visit Provider Student in an Organized Health Care Education/Training Program
DX: J90 Pleural effusion, not elsewhere classified (principal); C79.51 Secondary malignant neoplasm of bone; C50.919 Malignant neoplasm of unspecified site of unspecified female breast; R06.09 Other forms of dyspnea; E03.9 Hypothyroidism, unspecified; M19.90 Unspecified osteoarthritis, unspecified site; Z79.890 Hormone replacement therapy; Z79.899 Other long term (current) drug therapy; Z87.891 Personal history of nicotine dependence
CPT/HCPCS: 71046; 80053; 84484; 85025; 93005; 99283; A4216

== ENCOUNTER → 2022-01-15 | Outpatient (CLI) | payer OTHER, SELFPAY ==
--- NOTE | 2022-01-15 13:15 | US_ITS ---
PROCEDURE: ULTRASOUND GUIDED THORACENTESIS. DATE: 01/15/2022. INDICATION: Female, 61 years old. Left pleural effusion. PHYSICIAN: Emory Rivero M.D. PROCEDURE: The risks, benefits, and alternatives to the procedure were explained to the patient. The specific risks of bleeding, infection, and pneumothorax requiring chest tube insertion were discussed and accepted. Written informed consent was obtained. Ultrasonographic evaluation of the left lower pleural space was carried out. An adequate pocket was identified. The patient was placed in the sitting, upright position. The overlying skin was prepped and draped in sterile fashion. 1% lidocaine was administered subcutaneously for local anesthesia. Under ultrasound guidance, a 5 Finnish thoracentesis needle/catheter system was advanced into the left posterior lower pleural fluid collection. Approximately 1000 mL of zoila-colored fluid was drained. The catheter was removed, and a sterile dressing was applied. The patient tolerated the procedure well. A chest x-ray was ordered. US/Thoracentesis W US IMPRESSION: Ultrasound-guided left thoracentesis. Electronically Signed: Emory Rivero MD at 14:19 EDT ,
[2022-01-15 13:38] VITALS: BP 112/62; BP 124/74; BP 128/58; BP 133/74; PULSE 80; PULSE 82; PULSE 84; PULSE 85; RESP 16; RESP 18; O2SAT 98
[2022-01-15] MEDS: Lidocaine 2% (10 ml mdv) 10 ML Vial INFILT (13:47)
--- NOTE | 2022-01-15 13:50 | RAD_ITS ---
STUDY: X-RAY CHEST REASON FOR EXAM: Female, 61 years old. Post thoracentesis TECHNIQUE: AP inspiration and expiration views. COMPARISON: Comparison is made with prior study dated 01/14/2022. FINDINGS: The patient is status post left thoracentesis. No evidence of pneumothorax. Mild degree of residual pleural parenchymal changes at the left lung base. Diffuse sclerotic metastasis. Stable examination. Healed left rib fractures. RAD/Chest Insp/Exp 2 View IMPRESSION: No evidence of pneumothorax on the immediate post thoracentesis examination. Electronically Signed: Emory Rivero MD at 14:08 EDT ,
== END | disposition home or self-care (01) ==
LOC: US 13:14
PROVIDERS: PCP Family Medicine; Referring Provider Internal Medicine Medical Oncology; Visit Provider Internal Medicine Medical Oncology
DX: J90 Pleural effusion, not elsewhere classified (principal)
CPT/HCPCS: 32555; 71046

== ENCOUNTER 2022-01-23 13:07 | Outpatient (CLI) | payer OTHER, SELFPAY ==
--- NOTE | 2022-01-23 | IMM_PTH ---
PATIENT: DULCE MCKEON LOC: [facility]#:[id number] AGE/SX: 61/F ROOM: RE01/23/[address]: Dr. Waqar Deutsch MD : 1960 BED: DIS: 01/23/2022 SPEC #: [id number] RECD: 01/27/22 11:51 STATUS: DARRELL REQ #: [id number] PAUL: 01/23/22 00:[address]: Waqar Deutsch DEPT: IMMUNOHISTOCHEMISTRY RECD BY: Shira Balderrama ENTERED: 01/27/22 11:53 SP TYPE: IMMUNO OTHR DR: Dr. Yoel Urbina MD Tissues: THORACIC FLUID Procedures: Dwayne Ret (add) CK20 (add) CK7 (add) CK8 (add) E-CAD (add) HER2 OSMANY (add) MACRO (add) MAMM (add) NH (add) TTF1 (add) Vimentin (add) Pankeratin (add) GATA3 (add) ER (initial) PHYSICIAN & INSTITUTION [address] [address] SPECIMEN INFORMATION: Tissue Source: Thoracentesis fluid Clinical Info: Left pleural effusion Specimen Number: [id number] CPT code: 23383, 54814 x13 METHODOLOGY: Deparaffinized sections of prefer/formalin-fixed tissue or PAP/DQ stained slides are incubated with monoclonal/polyclonal antibodies/oligonucleotide probes. Localization is made via biotin free immunoperoxidase method. Appropriate controls are performed and reacted as expected. Results on target cell population are indicated in the following table: RESULTS: ANTIBODY / CLONE RESULT E-Cad (ECH-6) positive Mammaglobin (31A5) negative GATA3 (L50-823) negative AE1-3 (AE1/AE3/PCK26) positive CK7 (OV-TL12/30) positive CK8 (73elnsB98) positive CK20 (KS20.8) negative Vimentin (V9) negative Macro (HAM-56) negative TTF-1 (8G7G3/1) negative CALRET (polyclonal) negative ER (clone 6F11) negative NH (clone 16/1E2) negative Her-2Neu (clone CB11) negative These tests were developed and their performance characteristics determined by [facility]. They may not have been cleared or approved by the U.S. Food and Drug Administration. The FDA has determined that such clearance or approval is not necessary. The above immunohistochemical/dualISH markers are ordered and reviewed by the Pathologist. INTERPRETATION: Thoracentesis fluid (cell block): Malignant cells present derived from metastatic adenocarcinoma. See comment. Comment: IHC profile is compatible with clinical impression of breast primary (ductal carcinoma). SJ:brett 01/28/2022
--- NOTE | 2022-01-23 13:09 | US_ITS ---
PROCEDURE: ULTRASOUND GUIDED THORACENTESIS. CLINICAL INDICATION: Left pleural effusion.. PHYSICIAN: Micheal Fabian MD MEDICATIONS: 1% lidocaine administered subcutaneously for local anesthesia. ACCESS SITE: Left lower thorax, posterior approach. CATHETER: 5 Kittitian thoracentesis needle/catheter system. FLUID: Approximately 1100 mL of clear left pleural fluid removed. COMPLICATIONS: None immediate. The risks, benefits, and alternatives to the procedure and sedation were explained to the patient. The specific risks of bleeding, infection, and pneumothorax requiring chest tube insertion were discussed and accepted. Written informed consent was obtained. PROCEDURE: Ultrasonographic evaluation of the left lower pleural space was carried out. An adequate pocket was identified. The patient was placed in the sitting, upright position. The overlying skin was prepped and draped in sterile fashion. 1% lidocaine was administered subcutaneously for local anesthesia. Under ultrasound guidance, a 5 [place] thoracentesis needle/catheter system was advanced into the left posterior lower pleural fluid collection. The inner stylet was removed and there was spontaneous flow of pleural fluid. Approximately 1100 mL of fluid was manually aspirated. The catheter was removed. Hemostasis was achieved and a sterile dressing was applied. A specimen was collected and sent to the laboratory for analysis, as requested by the referring clinician. The patient tolerated the procedure well, without immediate complications. A chest x-ray was ordered. US/Thoracentesis W US IMPRESSION: Successful ultrasound-guided left thoracentesis. Electronically Signed: Theo Fabian MD at 14:56 EDT ,
[2022-01-23 13:55] VITALS: BP 103/53; BP 109/69; BP 115/64; BP 122/74; BP 127/94; BP 87/52; BP 90/55; PULSE 80; PULSE 83; PULSE 86; PULSE 89; PULSE 91; PULSE 92; RESP 18; RESP 20; TEMP 36.3; O2SAT 94; O2SAT 95; O2SAT 96; O2SAT 98
[2022-01-23] MEDS: Lidocaine 2% (10 ml mdv) 10 ML Vial INFILT (14:00)
--- NOTE | 2022-01-23 14:15 | RAD_ITS ---
INDICATION: post thora EXAMINATION/TECHNIQUE: X-RAY - XR Chest 2 Views COMPARISON: 01/15/2022. FINDINGS: LINES/DEVICES: Right chest port is seen in position with catheter tip in the SVC. LUNGS: No evidence of pneumothorax or parenchymal contusion. Prominence of the bronchovascular interstitial lung markings is visualized. Peribronchial cuffing bilateral hilar prominence and patchy airspace opacification is visualized in the left lower lung field. Obscuration of the left costophrenic angle is seen. Improved aeration of the left hemithorax is visualized in comparison to the prior study. Biapical prominence suggestive of COPD changes. MEDIASTINUM AND CARDIOVASCULAR STRUCTURES: Cardiac silhouette not enlarged. Central airways and mediastinal contour are unremarkable. BONES AND SOFT TISSUES: Increased sclerosis visualized in the proximal right humerus and in the left upper. RAD/Chest Insp/Exp 2 View IMPRESSION: No evidence of left pneumothorax is seen. Slightly improved aeration of the left hemithorax is seen in comparison to the prior study. Electronically Signed: Theo Fabian MD at 14:38 EDT ,
--- NOTE | 2022-01-23 14:15 | FLU_PTH ---
PATIENT: DULCE MCKEON LOC: [facility]#:[id number] AGE/SX: 61/F ROOM: RE01/23/[address]: Dr. Waqar Deutsch MD : 1960 BED: DIS: 01/23/2022 SPEC #: [id number] RECD: 01/23/22 14:31 STATUS: DARRELL MCGINNIS #: [id number] PAUL: 01/23/22 14:[address]: Waqar Deutsch DEPT: CYTOLOGY RECD BY: Jm Ortiz ENTERED: 01/24/22 07:53 SP TYPE: Fluid OTHR DR: Dr. Yoel Urbina MD Tissues: THORACIC FLUID Procedures: Special Stain Group II Surgery Specimen Level IV Cytospin Fluid HEADER OPERATION: Ultrasound-guided thoracentesis PRE-OP DIAGNOSIS: Left pleural effusion TISSUE SUBMITTED: Thoracentesis fluid for cytology DIAGNOSIS CYTOLOGY Thoracentesis fluid for cytology (cytospin and cell block): Malignant cells present derived from metastatic adenocarcinoma. See comment. 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 Correlation with clinical, radiologic findings and appropriate follow up are necessary. Please make reference to previous specimens ([id number]) left breast, ultrasound-guided core biopsy with diagnosis of ?invasive ductal carcinoma? 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 Case has been reviewed in consultation with Dr. Hull who concurs with the above diagnosis. IDC:AM CYTOLOGY STUDY Slides are reviewed. CYTOLOGY GROSS Received is 70 ml of zoila cloudy fluid labeled with the patient's name and and designated per the requisition as thoracentesis. Submitted for cytology preparation including cell block. / brett 01/24/2022 TC:0 CPT: 50314, 16159
== END 2022-01-23 23:59 | disposition home or self-care (01) ==
LOC: US 13:08
PROVIDERS: PCP Family Medicine; Referring Provider Internal Medicine Medical Oncology; Visit Provider Internal Medicine Medical Oncology
DX: J90 Pleural effusion, not elsewhere classified (principal); R06.02 Shortness of breath
CPT/HCPCS: 32555; 71046; 88108; 88305; 88313; 88341; 88342

== ENCOUNTER → 2022-02-05 | Outpatient (CLI) | payer OTHER, SELFPAY ==
--- NOTE | 2022-02-05 11:15 | RAD_ITS ---
INDICATION: L SIDED RIB PAIN -- E ORDER NOT PULLING THROUGH EXAMINATION/TECHNIQUE: X-RAY - XR Chest 2 Views COMPARISON: 01/21/2022 FINDINGS: Increased interstitial markings. Tortuous and calcified thoracic aorta. The heart is mildly enlarged. right-sided cardiac device. Moderate left pleural effusion. Degenerative changes of the thoracic spine. Diffuse sclerotic metastases with healed bilateral rib fractures. RAD/Chest PA and Lateral IMPRESSION: Increased interstitial markings may represent edema and/or infection. Cardiomegaly with moderate left pleural effusion. Diffuse sclerotic metastases with healed bilateral rib fractures. Electronically Signed: Teo Berry MD at 17:47 EDT ,
== END | disposition home or self-care (01) ==
LOC: RAD 11:05
PROVIDERS: PCP Family Medicine; Referring Provider Nurse Practitioner Family; Visit Provider Nurse Practitioner Family
DX: R07.81 Pleurodynia (principal)
CPT/HCPCS: 71046

== ENCOUNTER → 2022-02-25 | Outpatient (CLI) | payer OTHER, SELFPAY ==
--- NOTE | 2022-02-25 07:41 | CT_ITS ---
STUDY: CT CHEST WITH CONTRAST REASON FOR EXAM: Female, 61 years old. BREAST CA/PLUERAL EFFUSION/CARIOMEGALY RADIATION DOSAGE (If Supplied By Facility): CTDIvol = ( 10.82 ) mGy, DLP = ( 436.43 ) mGycm TECHNIQUE: Transaxial imaging was performed following intravenous administration of IV 100mL Isovue-300. Multiplanar coronal and sagittal images were reformatted. Individualized dose optimization techniques were used for this CT. COMPARISON: Comparison is made with prior study of 09/14/2020. FINDINGS: CHEST A right-sided portacatheter is seen with the tip in the superior vena cava. There is evidence of the skin thickening with increased markings in the left breast. There are increased interstitial markings involving both lungs more prominent in the lower lobes. This may represent lymphangitic spread as compared to prior study. There is a new small to moderate-sized left pleural effusion with a focal area of loculation along the anterior medial aspect of the left upper lobe. There is evidence of volume loss in the left hemithorax. Small pericardial effusion. Normal mediastinum. Normal hilar regions. Normal unenhanced pulmonary arteries. Minimal atherosclerotic calcific plaques of the aortic arch. Sclerotic metastasis as well as lytic metastases are seen throughout the visualized cervical, thoracic and lumbar vertebrae. There is also evidence of metastatic deposits involving the sternum as well as several ribs. There is no demonstrated abnormality of the visualized upper abdomen. CT/Chest WITH Contrast IMPRESSION: New left pleural effusion with left basilar atelectasis and volume loss in the left hemithorax. Increased interstitial markings more prominent in the lower lobes suggestive of possible lymphangitic spread. Diffuse skin thickening and increased density within the left breast. Diffuse bony metastasis. Electronically Signed: Emory Rivero MD at 9:02 EDT ,
--- NOTE | 2022-02-25 08:39 | US_ITS ---
PROCEDURE: ULTRASOUND GUIDED THORACENTESIS. DATE: 02/25/2022. INDICATION: Female, 61 years old. Left pleural effusion. PHYSICIAN: Emory Rivero M.D. PROCEDURE: The risks, benefits, and alternatives to the procedure were explained to the patient. The specific risks of bleeding, infection, and pneumothorax requiring chest tube insertion were discussed and accepted. Written informed consent was obtained. Ultrasonographic evaluation of the left lower pleural space was carried out. An adequate pocket was identified. The patient was placed in the sitting, upright position. The overlying skin was prepped and draped in sterile fashion. 1% lidocaine was administered subcutaneously for local anesthesia. Under ultrasound guidance, a 5 [place] thoracentesis needle/catheter system was advanced into the left posterior lower pleural fluid collection. Approximately 800 mL of zoila-colored fluid was drained. The catheter was removed, and a sterile dressing was applied. The patient tolerated the procedure well. A chest x-ray was ordered. US/Thoracentesis W US IMPRESSION: Ultrasound-guided left thoracentesis. Electronically Signed: Emory Rivero MD at 9:18 EDT ,
[2022-02-25 08:48] VITALS: BP 107/59; BP 116/67; BP 99/66; PULSE 84; PULSE 88; RESP 18; TEMP 36.6; O2SAT 99
--- NOTE | 2022-02-25 09:00 | RAD_ITS ---
STUDY: X-RAY CHEST REASON FOR EXAM: Female, 61 years old. Post thora TECHNIQUE: AP inspiration and expiration views. COMPARISON: Comparison is made with prior examination 02/05/2022. FINDINGS: A right-sided portacatheter is seen with the tip in the proximal portion of the superior vena cava. Status post left thoracentesis. No evidence of pneumothorax. Mild residual left pleural-parenchymal changes persist. Diffuse bony metastasis. RAD/Chest Insp/Exp 2 View IMPRESSION: Status post left thoracentesis. No evidence of pneumothorax. Electronically Signed: Emory Rivero MD at 9:20 EDT ,
== END | disposition home or self-care (01) ==
PROVIDERS: PCP Family Medicine; Referring Provider Internal Medicine Medical Oncology; Visit Provider Internal Medicine Medical Oncology
DX: J90 Pleural effusion, not elsewhere classified (principal); C79.51 Secondary malignant neoplasm of bone; C50.912 Malignant neoplasm of unspecified site of left female breast; I51.7 Cardiomegaly
CPT/HCPCS: 32555; 71046; 71260; Q9967

== ENCOUNTER → 2022-03-14 | Outpatient (CLI) | payer OTHER, SELFPAY ==
--- NOTE | 2022-03-14 | FLU_PTH ---
PATIENT: DULCE MCKEON LOC: [facility]#:[id number] AGE/SX: 61/F ROOM: RE03/14/[address]: Dr. Waqar Deutsch MD : 1960 BED: DIS: 03/14/2022 SPEC #: [id number] RECD: 03/14/22 14:00 STATUS: DARRELL RERadha #: [id number] PAUL: 03/14/22 00:[address]: Waqar Deutsch DEPT: CYTOLOGY RECD BY: Britton Branch ENTERED: 03/17/22 09:30 SP TYPE: Fluid OTHR DR: Dr. Yoel Urbina MD Tissues: THORACIC FLUID Procedures: Special Stain Group II Surgery Specimen Level IV Cytospin Fluid HEADER OPERATION: Ultrasound guided, left thoracentesis PRE-OP DIAGNOSIS: SOB, left pleural effusion TISSUE SUBMITTED: Ultrasound guided, left thoracentesis DIAGNOSIS CYTOLOGY Ultrasound guided, left thoracentesis (cytospin and cell block): A few clusters of atypical cells noted suspicious for metastatic carcinoma. See comment. /SJ 03/19/22 COMMENT Immunohistochemistry ([id number]) supports the above diagnosis. Please make reference to previous cytology [id number] and [id number], thoracentesis fluid for cytology with diagnosis of malignant cells present derived from metastatic carcinoma consistent with breast primary. Correlation with clinical, radiologic findings and appropriate follow up are necessary. CYTOLOGY STUDY Slides are reviewed. CYTOLOGY GROSS Received is 50 ml of yellow cloudy fluid labeled with the patient's name and and designated per the requisition as left thoacentesis. Submitted for cytology preparation including cell block. /LOU:karen 03/17/22 TC:5 CPT: 40661, 52596
--- NOTE | 2022-03-14 | IMM_PTH ---
PATIENT: DULCE MCKEON LOC: [facility]#:[id number] AGE/SX: 61/F ROOM: RE03/14/[address]: Dr. Waqar Deutsch MD : 1960 BED: DIS: 03/14/2022 SPEC #: [id number] RECD: 03/18/22 11:53 STATUS: DARRELL REQ #: [id number] PAUL: 03/14/22 00:[address]: Waqar Deutsch DEPT: IMMUNOHISTOCHEMISTRY RECD BY: Jm Ortiz ENTERED: 03/18/22 11:56 SP TYPE: IMMUNO OTHR DR: Dr. Yoel Urbina MD Tissues: THORACIC FLUID Procedures: Dwayne Ret (add) CK20 (add) CK7 (add) E-CAD (add) HER2 OSMANY (add) MACRO (add) MAMM (add) MN (add) Vimentin (add) GATA3 (add) ER (initial) PHYSICIAN & INSTITUTION [facility] [phone] SPECIMEN INFORMATION: Tissue Source: Ultrasound guided, left thoracentesis Clinical Info: SOB, left pleural effusion Specimen Number: [id number] CPT code: 64711, 06088 x3, 10118 x7 METHODOLOGY: Deparaffinized sections of prefer/formalin-fixed tissue or PAP/DQ stained slides are incubated with monoclonal/polyclonal antibodies/oligonucleotide probes. Localization is made via biotin free immunoperoxidase method. Appropriate controls are performed and reacted as expected. Results on target cell population are indicated in the following table: RESULTS: ANTIBODY / CLONE RESULT ER (6F11) negative MN (1E2) negative Her-2neu (CB11) negative E-Cad (ECH-6) positive Mammaglobin (31A5) negative GATA3 (L50-823) negative CK7 (OV-TL12/30) positive CK20 (KS20.8) negative Vimentin (V9) negative Macro (HAM-56) negative CALRET (polyclonal) negative These tests were developed and their performance characteristics determined by [facility]. They may not have been cleared or approved by the U.S. Food and Drug Administration. The FDA has determined that such clearance or approval is not necessary. The above immunohistochemical/dualISH markers are ordered and reviewed by the Pathologist. INTERPRETATION: Ultrasound guided, left thoracentesis: A few clusters of atypical cells noted, suspicious for metastatic adenocarcinoma /SJ:karen 03/19/2022
--- NOTE | 2022-03-14 13:17 | US_ITS ---
PROCEDURE: ULTRASOUND GUIDED THORACENTESIS. DATE: 03/14/2022. INDICATION: Female, 61 years old. Left pleural effusion. PHYSICIAN: Emory Rivero M.D. PROCEDURE: The risks, benefits, and alternatives to the procedure were explained to the patient. The specific risks of bleeding, infection, and pneumothorax requiring chest tube insertion were discussed and accepted. Written informed consent was obtained. Ultrasonographic evaluation of the left lower pleural space was carried out. An adequate pocket was identified. The patient was placed in the sitting, upright position. The overlying skin was prepped and draped in sterile fashion. 1% lidocaine was administered subcutaneously for local anesthesia. Under ultrasound guidance, a 5 [place] thoracentesis needle/catheter system was advanced into the left posterior lower pleural fluid collection. Approximately 750 mL of zoila-colored fluid was drained. The catheter was removed, and a sterile dressing was applied. A specimen was collected and sent to the laboratory for analysis, as requested by the referring clinician. The patient tolerated the procedure well. A chest x-ray was ordered. US/Thoracentesis W US IMPRESSION: Ultrasound-guided left thoracentesis. Electronically Signed: Emory Rivero MD at 14:46 EST ,
[2022-03-14 13:35] VITALS: BP 88/47; BP 98/68; BP 99/55; PULSE 101; PULSE 95; PULSE 99; RESP 16; RESP 20; RESP 22; TEMP 36.7; O2SAT 100; O2SAT 98
--- NOTE | 2022-03-14 13:49 | RAD_ITS ---
STUDY: X-RAY CHEST REASON FOR EXAM: Female, 61 years old. thora -- lt side TECHNIQUE: AP inspiration and expiration views. COMPARISON: Comparison is made with prior study dated 02/25/2022. FINDINGS: There is no evidence of pneumothorax following the left thoracentesis. Mild degree of residual left pleural-parenchymal changes persist. Osteoblastic metastasis. RAD/Chest Insp/Exp 2 View IMPRESSION: No evidence of pneumothorax following the left thoracentesis. Electronically Signed: Emory Rivero MD at 14:08 EST ,
[2022-03-14] MEDS: Lidocaine 2% (20 ml mdv) 20 ML Vial INFILT (14:02)
== END | disposition home or self-care (01) ==
PROVIDERS: PCP Family Medicine; Referring Provider Internal Medicine Medical Oncology; Visit Provider Internal Medicine Medical Oncology
DX: J90 Pleural effusion, not elsewhere classified (principal)
CPT/HCPCS: 32555; 71046; 88108; 88305; 88313; 88341; 88342

== ENCOUNTER 2022-04-03 11:12 | Emergency (ER) | payer OTHER, SELFPAY ==
[2022-04-03 11:13] VITALS: BP 118/87; PULSE 77; RESP 12; TEMP 36.3; O2SAT 100; BMI 28.5
--- NOTE | 2022-04-03 11:54 | ED.VIS.DYS ---
HPI History of Present Illness Chief Complaint: Shortness of Breath Informant: patient Onset/Context/Timing Onset: Weeks (2) Context: gradual Timing: Continuous and Waxes and wanes Quality: Positive for Dyspnea on exertion Worsened by: Exertion Relieved by: Nothing Associated Symptoms Negative for cough, rhinorrhea, post nasal drip, ear pain, fever, sore throat, chills or sweats Chest Pain: Positive for None Narrative Narrative: Patient presents with shortness of breath that has been getting worse over the past 2 weeks. Patient states that she had lab work drawn a couple days ago which showed a hemoglobin of 8.5. Patient is on chemotherapy for breast cancer. Patient states that her oncologist told her that if her hemoglobin drops below 8 she would need a transfusion. Patient states her breathing has been waxing and waning over the past couple weeks. Patient states it is worse with exertion. Patient states that nothing makes it better. Patient denies any cough, rhinorrhea, ear pain, or sore throat. Patient denies any fevers or chills. Patient denies any chest pain. Patient admits to nausea but denies any vomiting. PE Risk Factors: Positive for Cancer; Negative for Prior DVT or PE, Recent immobilization or Recent surgery [facility] Medical History Alcohol use Anemia Arthritis Bone metastasis Cancer Cancer related pain CINV (chemotherapy-induced nausea and vomiting) Constipation Ductal carcinoma Encounter for chemotherapy management Former smoker Hypothyroid Insect bite Metastatic breast cancer Numbness and tingling of left hand Oral candidiasis Rib pain on left side Thyroid disease Wears glasses Wears partial dentures Home Medications calcium carbonate 600 mg-vitamin D3 5 mcg (200 unit) tablet 1 each PO BID 08/18/19 [History Last Taken Unknown] levothyroxine 137 mcg tablet 137 mcg PO MOTUWETHFRSA 01/01/20 [History Last Taken 12/14/20] ondansetron 4 mg disintegrating tablet 4 mg PO Q8H PRN PRN Nausea 10 days #30 tabs 04/18/20 [Rx Last Taken Unknown] albuterol sulfate 90 mcg/actuation aerosol inhaler 1 inh inhalation Q6H PRN Wheezing 12/28/21 [History Last Taken Unknown] tramadol 100 mg tablet 100 mg PO Q8H PRN severe pain (scale score 7-10) #18 tabs 02/06/22 [Rx Last Taken Unknown] diphenhydramine HCl 25 mg capsule (Benadryl) 25 mg PO QHS PRN Insomnia 02/11/22 [History Last Taken Unknown] exemestane 25 mg tablet (Aromasin) 25 mg PO DAILY 30 days #30 tabs 03/04/22 [Rx Last Taken Unknown] spironolactone 50 mg tablet (Aldactone) 50 mg PO DAILY #30 tabs 03/04/22 [Rx Last Taken Unknown] lidocaine-prilocaine 2.5 %-2.5 % topical cream 1 applic topical ONCE PRN port access 30 days #30 grams 03/25/22 [Rx Last Taken Unknown] prochlorperazine maleate 10 mg tablet 10 mg PO Q6H PRN nausea and vomiting #30 tabs 04/01/22 [Rx Last Taken Unknown] azithromycin 250 mg tablet 250 mg PO DAILY #4 TABLETS 04/03/22 [Rx Last Taken Unknown] Allergy/AdvReac Type Severity Reaction Status Date / Time No Known Allergies Allergy Verified 04/03/22 11:12 Family History Unknown Breast cancer Grandfather Cancer Surgical History History of breast biopsy History of delivery Hx of wisdom tooth extraction Social History household members: spouse housing: house Smoking Status: Former smoker Tobacco: How many years used: 20 second hand exposure: No alcohol intake: current details: social substance use type: does not use what type of physical activity do you participate in: walking seatbelt use: always do you feel safe at home: Yes additional social history: [employer] Proficient work Patient works at [employer] in [place] ROS ROS ED Constitutional Constitutional ED: Denies chills or fever(s) Eyes Eyes: Denies blurry vision or change in vision ENT ENT ED: Denies rhinorrhea or sore throat Cardiovascular Cardiovascular: Denies chest pain or palpitations Respiratory/Chest Respiratory/Chest: Reports dyspnea; Denies cough Gastrointestinal Gastrointestinal: Reports nausea; Denies vomiting Genitourinary Genitourinary ED: Denies dysuria or hematuria Musculoskeletal Musculoskeletal: Denies back pain or neck pain Integumentary Denies abscess or rash Neurologic Neurologic: Denies headache(s) or weakness Allergic/Immunologic Allergic/Immunologic ED: Denies mouth swelling or urticaria EXAM Physical Exam Const Vital Signs: 04/03/22 11:13 04/03/22 11:21 04/03/22 13:12 Temperature 97.4 F L Temperature Source Temporal Pulse Rate 77 78 Respiratory Rate 12 12 Respiratory Effort Short of Breath Respiratory Depth Shallow Respiratory Pattern Normal Blood Pressure 118/87 H 107/75 Blood Pressure Mean 97 85 Pulse Ox 100 100 Oxygen Delivery Method Room Air Room Air Room Air Positive well nourished and well developed General Appearance ED: well developed and NAD HEENT Reports moist mucous membranes Neck supple and no JVD Resp normal respiratory effort and clear to auscultation bilaterally Cardio regular rate and regular rhythm GI non-tender and non-distended Palpation: soft Extremity normal to inspection General Extremety ED: Negative for edema or tenderness General Extremity: Negative for edema Neuro oriented x3, CN's II-XII intact bilaterally and no sensory deficits noted Sensorium / Orientation: alert Speech: speech normal Motor Exam: strength 5/5 throughout Psych mental status grossly normal MDM MDM MDM Narrative Medical decision making narrative: EKG was obtained. On my interpretation, it showed a normal sinus rhythm with a rate of 72. NM interval, QRS interval, and QTc intervals were all normal. [place] was normal. There are no acute ST or T wave changes. CBC shows a hemoglobin of 9.1 and hematocrit 28.3. This was improved compared to previous results. Comprehensive metabolic profile was essentially within normal limits. D-dimer was elevated at 3.62. PA and lateral chest x-ray was obtained. There are 2 views. On my interpretation, lung kuhn show increasing parenchymal changes at the left lung base. There is a left pleural effusion noted. There is normal cardiac silhouette. There are diffuse bony metastasis noted. Radiologist also interpreted the x-ray and agrees. Because of the elevated D-dimer, CTA chest was obtained. I think there is no evidence of pulmonary embolism. There is a moderate-sized left pleural effusion. There is an infiltrate in the left lung base. This was interpreted by the radiologist and reviewed by myself. Patient is feeling better on reevaluation. Patient wants to go home. Patient was given a dose of azithromycin here. Patient was given a prescription for azithromycin. Patient was instructed to follow-up with her primary care physician and oncologist as scheduled. Patient understood and was agreeable with the plan. All questions were answered. Lab Data Attestation: I reviewed the patient's lab results. Labs: Laboratory Results - last 24 hr 04/03/22 04/03/22 04/03/22 11:30 11:30 12:01 WBC 6.4 RBC 2.96 L Hgb 9.1 L Hct 28.3 L MCV 95.6 MCH 30.7 MCHC 32.2 RDW Std Deviation 72.2 H RDW Coeff of David 22.2 H Plt Count 228 MPV 9.3 Immature Gran % (Auto) 0.500 Neut % (Auto) 83.5 H Lymph % (Auto) 11.0 L Emmet % (Auto) 2.0 Eos % (Auto) 2.8 Baso % (Auto) 0.2 Absolute Neuts (auto) 5.3 Absolute Lymphs (auto) 0.70 L Nucleated RBC % 0 Anisocytosis 1+ D-Dimer Quant (PE/DVT) 3.62 H* Sodium 137 Potassium 4.3 Chloride 107 Carbon Dioxide 23.0 Anion Gap 7 BUN 15 Creatinine 0.84 Estim Creat Clear Calc 66.67 Est GFR (MDRD) Af Amer 89 Est GFR (MDRD) Non-Af 73 BUN/Creatinine Ratio 17.9 Glucose 77 Calcium 8.4 L Total Bilirubin 0.30 AST 98 H ALT 120 H Alkaline Phosphatase 177 H Total Protein 6.5 Albumin 2.6 L Globulin 3.9 Albumin/Globulin Ratio 0.7 L Radiography Diagnostic Testing: Clinical Impression(s) from Imaging Studies Chest X-Ray 04/03/22 12:15 IMPRESSION: Increasing pleural-parenchymal changes at the left lung base. Diffuse bony metastasis. Electronically Signed: Emory Rivero MD at 12:43 EST , Chest CTA 04/03/22 12:26 IMPRESSION: No evidence of pulmonary emboli. Moderate sized left pleural effusion with underlying volume loss in the left hemithorax and infiltration at the left lung base. Small right pleural effusion. Pericardial effusion. Diffuse bony metastasis. A left adrenal mass. Diffuse thickening of the left breast. Electronically Signed: Emory Rivero MD at 13:45 EST , EKG Initial EKG: Attestation: I personally reviewed and interpreted this EKG as follows: Interpretation: Sinus Rhythm (72) and No Acute Injury Pattern Prior EKG tracings: available for review Prior: Unchanged (01/14/2022) Discharge Plan Triage Chief Complaint: Shortness of Breath ED Provider: Goyo Wharton Dx/Rx/DC Orders Clinical Impression: Pneumonia, Pleural effusion, left Instructions: ED Pneumonia (Adult) Prescriptions: New azithromycin [azithromycin] 250 mg tablet 250 mg PO DAILY Qty: 4 0RF No Action spironolactone [Aldactone] 50 mg tablet 50 mg PO DAILY Qty: 30 1RF exemestane [Aromasin] 25 mg tablet 25 mg PO DAILY 30 Days Qty: 30 2RF Rx Instructions: must administer after a meal lidocaine-prilocaine 2.5-2.5 % cream 1 applic topical ONCE PRN (Reason: port access) 30 Days Qty: 30 2RF calcium carbonate-vitamin D3 1 EACH tablet 1 each PO BID ondansetron 4 MG tablet 4 mg PO Q8H PRN PRN (Reason: Nausea) 10 Days Qty: 30 3RF diphenhydramine HCl [Benadryl] 25 mg Capsule 25 mg PO QHS PRN (Reason: Insomnia) levothyroxine 137 MCG tablet 137 mcg PO MOTUWETHFRSA albuterol sulfate 90 mcg/actuation Hfa Aerosol Inhaler 1 inh INHALATION Q6H PRN (Reason: Wheezing) tramadol 100 mg tablet 100 mg PO Q8H PRN (Reason: severe pain (scale score 7-10)) Qty: 18 0RF prochlorperazine maleate 10 mg tablet 10 mg PO Q6H PRN (Reason: nausea and vomiting) Qty: 30 2RF Stand Alone Forms: ED Work / School Excuse Primary Care Provider: Yoel Urbina Referrals: Yoel Urbina MD [Primary Care Provider] - 3-5 Days Disposition Disposition: Home, Self Care
[2022-04-03 12:06] LABS: Absolute Neutrophil Count 5.3 X10^3/uL (2.0-7.7); Basophil# 0.01 X10^3/uL; Basophil% 0.2 % (0-1); Eosinophil# 0.18 X10^3/uL; Eosinophils% 2.8 % (0-5); Hematocrit 28.3 % (37-47); Hemoglobin 9.1 g/dL (12.0-15.0); Mean Corp Hgb Conc 32.2 g/dL (32-36); Mean Corpuscular Hgb 30.7 pg (27.0-32.0); Mean Corpuscular Volume 95.6 fL (81-99); Mean Platelet Vol. 9.3 fl (6.2-12.0); Monocyte# 0.13 X10^3/uL; NRBC Flagged by Analyzer 0 % (0-5); Neutrophil # 5.31 X10^3/uL (2.7-7.7); Neutrophil % 83.5 % (47-70); POSITIVE MORPHOLOGY YES; Platelet Count 228 K/mm3 (150-450); RBC Distribution Width CV 22.2 % (11.6-14.6); RBC Distribution Width SD 72.2 fl (35.1-43.9); Red Blood Count 2.96 M/mm3 (4.2-5.4); White Blood Count 6.4 K/mm3 (4.4-11.0)
[2022-04-03 12:08] LABS: Differential Indicated SCAN CRITERIA MET
--- NOTE | 2022-04-03 12:15 | RAD_ITS ---
STUDY: X-RAY CHEST REASON FOR EXAM: Female, 61 years old. Dyspnea TECHNIQUE: PA and lateral views of the chest. COMPARISON: Comparison is made with prior study dated 03/14/2022. FINDINGS: A right-sided mora catheter seen with the tip at the junction of the superior vena cava and right atrium. EKG electrodes are seen. There is a small left pleural effusion with left basilar infiltration and/or atelectasis. This has increased since prior study. Normal size heart. Normal mediastinum and devora. Normal visualized pulmonary arteries. Normal visualized aortic arch and descending thoracic aorta. Diffuse bony metastasis. There is no demonstrated abnormality of the visualized soft tissue structures of the upper abdomen. RAD/Chest PA and Lateral IMPRESSION: Increasing pleural-parenchymal changes at the left lung base. Diffuse bony metastasis. Electronically Signed: Emory Rivero MD at 12:43 EST ,
[2022-04-03 12:18] LABS: ALB/GLOB Ratio 0.7 RATIO (0.9-2.4); AST(SGOT) 98 U/L (15-37); Alanine Aminotransfer ALT/SGPT 120 U/L (13-56); Albumin, Serum 2.6 g/dL (3.2-5.0); Alkaline Phosphatase 177 U/L (45-117); Anion Gap 7 (5-15); BUN 15 mg/dL (7-18); BUN/Creat Ratio 17.9 RATIO (10-20); Calcium,Total 8.4 mg/dL (8.5-10.1); Chloride 107 mmol/L (98-107); Creatinine, Serum 0.84 mg/dL (0.55-1.02); EST Glomerular Filtration Rate 73 mL/min (>60); Est Glom Filt Rate - Afr Amer 89 mL/min (>60); Estimated Creatinine Clearance 66.67 ml/min; Globulin 3.9 g/dL (2.2-4.2); Glucose 77 mg/dL (74-106); Potassium 4.3 mmol/L (3.5-5.1); Protein, Total 6.5 g/dL (6.4-8.2); Sodium Level 137 mmol/L (136-145)
[2022-04-03 12:24] LABS: D-Dimer Quantitative (DVT/PE) 3.62 FEU/ug/m (0.27-0.49)
--- NOTE | 2022-04-03 12:26 | CT_ITS ---
STUDY: CTA CHEST REASON FOR EXAM: Female, 61 years old. Elevated D-dimer. History of metastatic breast carcinoma. RADIATION DOSAGE (If Supplied By Facility): CTDIvol = ( 10.92 ) mGy, DLP = ( 526.83 ) mGycm TECHNIQUE: The examination was performed with the intravenous administration of IV 100mL Isovue-370. Post-processing of the angiographic images was performed, with multiplanar reformation and 3D reconstruction. Individualized dose optimization techniques were used for this CT. COMPARISON: Comparison is made with study dated 02/25/2022. FINDINGS: Diffuse skin thickening of the left breast. Heterogeneous appearance of the left breast tissue. A right-sided Port-A-Cath is seen with the tip in the superior vena cava. Normal enhancement of the main pulmonary artery and right and left pulmonary arteries. Normal enhancement of the bilateral peripheral pulmonary arteries. There is no demonstrated pulmonary embolism. Normal thoracic aorta and visualized great vessels. There is no demonstrated aortic dissection. Small pericardial effusion more prominent along the posterior aspect of the pericardium. Normal mediastinum. Normal hilar regions. Normal visualized trachea and bronchi. Mild loss in the left hemithorax. Moderate left-sided pleural effusion with left basilar infiltration and volume loss. Fluid is also seen in the left major fissure. Mild increased interstitial markings in the right lung. Tiny right pleural effusion. Normal chest wall structures. Diffuse bony metastasis involving the appendicular and axial skeletons. 2 cm x 2.3 cm mass in the left adrenal gland. CT/CTA Chest W/WO Contrast IMPRESSION: No evidence of pulmonary emboli. Moderate sized left pleural effusion with underlying volume loss in the left hemithorax and infiltration at the left lung base. Small right pleural effusion. Pericardial effusion. Diffuse bony metastasis. A left adrenal mass. Diffuse thickening of the left breast. Electronically Signed: Emory Rivero MD at 13:45 EST ,
[2022-04-03 12:30] LABS: Anisocytosis 1+
[2022-04-03 13:12] VITALS: BP 107/75; PULSE 78; RESP 12; O2SAT 100
[2022-04-03 14:50] VITALS: RESP 14
[2022-04-03 15:00] VITALS: BP 100/64
[2022-04-03] MEDS: Azithromycin 250 MG Tablet 500 MG PO (15:01)
== END 2022-04-03 15:06 | disposition home or self-care (01) ==
PROVIDERS: Emergency Provider Emergency Medicine; PCP Family Medicine; Visit Provider Emergency Medicine
DX: J18.9 Pneumonia, unspecified organism (principal); C79.51 Secondary malignant neoplasm of bone; C50.919 Malignant neoplasm of unspecified site of unspecified female breast; R11.0 Nausea; Z87.891 Personal history of nicotine dependence; J90 Pleural effusion, not elsewhere classified
CPT/HCPCS: 71046; 71275; 80053; 85025; 85379; 93005; 99285; Q9967; A4216

== ENCOUNTER → 2022-04-03 | Outpatient (CLI) | payer OTHER, SELFPAY ==
--- NOTE | 2022-04-03 07:37 | NM_ITS ---
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 WHOLE BODY 99m Tc MDP RADIONUCLIDE BONE SCINTIGRAPHY COMPARISON: Whole body bone scintigraphy study dated 10/28/2021 FINDINGS: Following the intravenous administration of 27.7 mCi of 99m Tc MDP, whole body bone images reveal: 1. Redefined and newly apparent foci of increased tracer uptake are noted on review of whole body projections to include the right-left hemicalvarium, the appendicular and axial skeleton. 2. Increased uptake is defined in the acromioclavicular compartments of both shoulders, the right forefoot and right ankle. 3. The remaining skeletal structures are scintigraphically unremarkable with normal-appearing renal images and urinary bladder activity identified. NM/Bone Scan Whole Body IMPRESSION: 1. Both persistent and currently visualized foci of increased radiotracer identified on review of whole body projections is consistent with progressive osteoblastic skeletal metastatic disease. 2. 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 3. Overall compared to the prior whole body bone scan dated 10/28/2021, there is interim progression of defined skeletal metastatic disease. If flare phenomenon is a diagnostic possibility, repeat whole body bone scintigraphy in 9-12 weeks is recommended. Electronically Signed: Destin Mckeon, at 22:12 EST ,
== END | disposition home or self-care (01) ==
LOC: NM 07:37
PROVIDERS: PCP Family Medicine; Visit Provider Nurse Practitioner Family
DX: C50.912 Malignant neoplasm of unspecified site of left female breast (principal); C79.51 Secondary malignant neoplasm of bone
CPT/HCPCS: 78306; A9503

== ENCOUNTER → 2022-04-08 | Outpatient (CLI) | payer OTHER, SELFPAY ==
--- NOTE | 2022-04-08 07:39 | CT_ITS ---
STUDY: CT CHEST T ABDOMEN WITH CONTRAST REASON FOR EXAM: Female, 61 years old. Assess response to treatment. History of left breast cancer with bone metastasis. RADIATION DOSAGE (If Supplied By Facility): CTDIvol = ( 16.67 ) mGy, DLP = ( 1090.26 ) mGycm TECHNIQUE: Transaxial imaging was performed following intravenous administration of IV 100mL Isovue-300. Multiplanar coronal and sagittal images were reformatted. Individualized dose optimization techniques were used for this CT. COMPARISON: Comparison is made with prior examination dated 02/25/2022. FINDINGS: CHEST A right-sided Port-A-Cath is seen with the tip in the superior vena cava. Diffuse skin thickening of the left breast with increased markings within the left breast. There is a small to moderate size left pleural effusion with left basilar atelectasis and/or infiltrate. Stable mild increased markings in the lingular segment of the left upper lobe. A small amount of fluid is also seen in the left major fissure. Small pericardial effusion. Normal mediastinum. Normal hilar regions. Normal unenhanced pulmonary arteries. Normal aorta arch and descending thoracic aorta. Diffuse bony metastasis involving the axial and appendicular skeletons. ABDOMEN Normal liver. Normal gallbladder and extrahepatic biliary system. Normal spleen. Normal pancreas. There is a 2.2 cm x 1.7 cm hypodense mass in the left adrenal gland. Normal right kidney. Normal left kidney. Normal visualized stomach. Normal small intestine. Normal colon. The appendix is visualized and appears normal. Normal abdominal aorta. Normal inferior vena cava. Normal retroperitoneum. Normal abdominal wall. Diffuse bony metastasis involving the appendicular and axial skeletons. CT/CT Chest AND Abd W/ Contrast IMPRESSION: Small to moderate size left pleural effusion with left basilar infiltration and/or atelectasis. Small pericardial effusion. Left adrenal nodule. Diffuse bone metastasis involving the appendicular and axial skeletons. Electronically Signed: Emory Rivero MD at 9:11 EST ,
== END | disposition home or self-care (01) ==
LOC: CT 07:38
PROVIDERS: PCP Family Medicine; Referring Provider Nurse Practitioner Family; Visit Provider Nurse Practitioner Family
DX: C50.912 Malignant neoplasm of unspecified site of left female breast (principal)
CPT/HCPCS: 71260; 74160; Q9967

== ENCOUNTER 2022-05-01 16:05 | Emergency (ER) | payer OTHER, SELFPAY ==
[2022-05-01 16:06] VITALS: BP 109/80; PULSE 99; RESP 20; TEMP 36.7; O2SAT 100; BMI 27.2
--- NOTE | 2022-05-01 16:50 | RAD_ITS ---
INDICATION: SHORTNESS OF BREATH EXAMINATION/TECHNIQUE: X-RAY - XR Chest 1 View COMPARISON: April 03, 2022 FINDINGS: LINES/DEVICES: Mediport catheter noted on the right with tip in distal superior vena cava. LUNGS: Small to moderate sized left pleural effusion and partial collapse left lower lobe.. No pneumothorax. MEDIASTINUM AND CARDIOVASCULAR STRUCTURES: Cardiac silhouette not enlarged. Central airways and mediastinal contour are unremarkable. BONES AND SOFT TISSUES: Old healed bilateral rib fractures. Sclerotic lesions in the shoulders and clavicles consistent with metastatic disease. No significant change since prior exam RAD/Chest 1 View (Portable) IMPRESSION: [id number] sized left pleural effusion and partial collapse of left lower lobe. Electronically Signed: Adonis Noe MD at 17:05 EST ,
[2022-05-01 17:17] LABS: Hematocrit 27.6 % (37-47); Hemoglobin 9.1 g/dL (12.0-15.0); Mean Corpuscular Hgb 33.2 pg (27.0-32.0); Mean Corpuscular Volume 100.7 fL (81-99); Mean Platelet Vol. 9.4 fl (6.2-12.0); POSITIVE COUNT YES; POSITIVE MORPHOLOGY YES; Platelet Count 374 K/mm3 (150-450); RBC Distribution Width CV 19.1 % (11.6-14.6); RBC Distribution Width SD 70.9 fl (35.1-43.9); Red Blood Count 2.74 M/mm3 (4.2-5.4); White Blood Count 11.3 K/mm3 (4.4-11.0)
[2022-05-01 17:27] LABS: Anion Gap 5 (5-15); BUN 24 mg/dL (7-18); BUN/Creat Ratio 24.4 RATIO (10-20); Calcium,Total 9.1 mg/dL (8.5-10.1); Chloride 107 mmol/L (98-107); Creatinine, Serum 0.98 mg/dL (0.55-1.02); EST Glomerular Filtration Rate 61 mL/min (>60); Est Glom Filt Rate - Afr Amer 74 mL/min (>60); Estimated Creatinine Clearance 57.15 ml/min; Glucose 94 mg/dL (74-106); Potassium 4.3 mmol/L (3.5-5.1); Sodium Level 137 mmol/L (136-145)
[2022-05-01 17:33] LABS: Differential Indicated MANUAL DIFF
[2022-05-01 18:05] VITALS: PULSE 99; RESP 15; O2SAT 98
[2022-05-01 18:08] VITALS: RESP 16; O2SAT 100
--- NOTE | 2022-05-01 18:08 | CT_ITS ---
STUDY: CTA CHEST REASON FOR EXAM: Female, 61 years old. PE RADIATION DOSAGE (If Supplied By Facility): CTDIvol = ( 13.49 ) mGy, DLP = ( 536.82 ) mGycm TECHNIQUE: The examination was performed with the intravenous administration of IV 100mL Isovue-370. Post-processing of the angiographic images was performed, with multiplanar reformation and 3D reconstruction. Individualized dose optimization techniques were used for this CT. COMPARISON: April 03, 2022 FINDINGS: Normal enhancement of the main pulmonary artery and right and left pulmonary arteries. Normal enhancement of the bilateral peripheral pulmonary arteries. There is no demonstrated pulmonary embolism. Normal thoracic aorta and visualized great vessels. There is no demonstrated aortic dissection. Normal heart and pericardium. Normal mediastinum. Normal hilar regions. Normal visualized trachea and bronchi. The lungs are well expanded. Moderate sized left pleural effusion with consolidation of the left lower lobe Normal chest wall structures. There are diffuse predominantly blastic metastasis involving the thoracic spine, sternum and multiple ribs. Small left adrenal nodule of uncertain etiology possibly metastatic. MRI would be helpful for more definitive evaluation if indicated CT/CTA Chest W/WO Contrast IMPRESSION: Moderate sized left pleural effusion and consolidation of left lower lobe. No evidence for pulmonary embolus incidental finding of diffuse skeletal metastasis involving sternum and ribs and thoracic spine Electronically Signed: Adonis Noe MD at 19:21 EST ,
--- NOTE | 2022-05-01 18:08 | CT_ITS ---
INDICATION: Headache EXAMINATION: CT BRAIN - CT Head or Brain W/O Contrast Injection TECHNIQUE: Multiple axial images were obtained of the head without intravenous contrast. A radiation dose optimization technique was used for this scan. IV Contrast dosage and agent: None. COMPARISON: April 25, 2020 FINDINGS: Mild calcific plaquing of the cavernous carotids BRAIN PARENCHYMA: No intra- or extra-axial hemorrhage. No evidence of acute infarct. No intracranial mass or mass effect. Mild to moderate periventricular white matter ischemic changes There is preservation of the torres/white matter interface. Posterior fossa structures are unremarkable. Mild prominence of the pituitary for stated age and thickening of the infundibulum of uncertain significance. CSF SPACES: Appropriate for age. No hydrocephalus. Basal cisterns are patent. CALVARIUM, SKULL BASE, PARANASAL SINUSES AND MASTOID AIR CELLS: Mucous retention cyst noted in the right maxillary sinus.. No discrete lytic or blastic abnormalities. ORBITS: Both globes, extraocular muscles, optic nerves and retrobulbar fat appear unremarkable. CT/Brain/Head without Contrast IMPRESSION: Mild periventricular white matter ischemic changes. No evidence for obstructive hydrocephalus mass or acute bleed Incidental finding of enlargement of the pituitary for age and thickening of the infundibulum. MRI of sella turcica would be helpful for further evaluation if clinically warranted Electronically Signed: Adonis Noe MD at 19:08 EST ,
--- NOTE | 2022-05-01 18:09 | EKG12_ITS ---
Test Reason : DYSRHYTHMIA Blood Pressure : / mmHG Vent. Rate : 090 BPM Atrial Rate : 090 BPM P-R Int : 160 ms QRS Dur : 080 ms QT Int : 376 ms P-R-T Axes : 037 018 029 degrees QTc Int : 459 ms Normal sinus rhythm Low voltage QRS Borderline ECG Confirmed by ALFREDO MUNGUIA, SHAWN ([id number]), editor newspaper [employer]ECKA [employer]ER ([id number]) on 05/06/2022 12:59:25 PM Referred By: PL Confirmed By:SHAWN FUENTES MD
--- NOTE | 2022-05-01 18:19 | EX.ED.DYSGE1 ---
HPI History of Present Illness Chief Complaint: Shortness of Breath Informant: patient and spouse/S.O. Narrative Narrative: Patient presents with dyspnea. Patient has had episodes of dyspnea. She has had pleural effusions that have been drained 5 times in the past. They are normally 602,000 cc. Last drainage was 2 months ago. Patient does have breast cancer. She has had this for almost 3 years. She just started a new chemotherapy this Thursday. After that chemotherapy she started with more symptoms. She has headaches, myalgias, worsening dyspnea. She has had nausea without vomiting. She is not really having chest pain. She sees Dr. Deutsch. [facility] Medical History Alcohol use Anemia Arthritis Bone metastasis Cancer Cancer related pain CINV (chemotherapy-induced nausea and vomiting) Constipation Ductal carcinoma Encounter for chemotherapy management Former smoker Hypothyroid Insect bite Metastatic breast cancer Numbness and tingling of left hand Oral candidiasis Rib pain on left side Thyroid disease Wears glasses Wears partial dentures Home Medications calcium carbonate 600 mg-vitamin D3 5 mcg (200 unit) tablet 1 each PO BID 08/18/19 [History Last Taken Unknown] levothyroxine 137 mcg tablet 137 mcg PO MOTUWETHFRSA 01/01/20 [History Last Taken 12/14/20] albuterol sulfate 90 mcg/actuation aerosol inhaler 1 inh inhalation Q6H PRN Wheezing 12/28/21 [History Last Taken Unknown] tramadol 100 mg tablet 100 mg PO Q8H PRN severe pain (scale score 7-10) #18 tabs 02/06/22 [Rx Last Taken Unknown] diphenhydramine HCl 25 mg capsule (Benadryl) 25 mg PO QHS PRN Insomnia 02/11/22 [History Last Taken Unknown] spironolactone 50 mg tablet (Aldactone) 50 mg PO DAILY #30 tabs 03/04/22 [Rx Last Taken Unknown] lidocaine-prilocaine 2.5 %-2.5 % topical cream 1 applic topical ONCE PRN port access 30 days #30 grams 03/25/22 [Rx Last Taken Unknown] azithromycin 250 mg tablet 250 mg PO DAILY #4 TABLETS 04/03/22 [Rx Last Taken Unknown] prochlorperazine maleate 10 mg tablet 10 mg PO Q6H PRN nausea and vomiting #30 tabs 04/04/22 [Rx Last Taken Unknown] ondansetron 4 mg disintegrating tablet 4 mg PO Q8H PRN PRN Nausea 10 days #30 tabs 04/07/22 [Rx Last Taken Unknown] capecitabine 500 mg tablet (Xeloda) 1,500 mg PO BID #84 tabs 04/24/22 [Rx Last Taken Unknown] exemestane 25 mg tablet (Aromasin) 25 mg PO DAILY 30 days #30 tabs 04/29/22 [Rx Last Taken Unknown] Allergy/AdvReac Type Severity Reaction Status Date / Time No Known Allergies Allergy Verified 05/01/22 16:08 Family History Unknown Breast cancer Grandfather Cancer Surgical History History of breast biopsy History of delivery Hx of wisdom tooth extraction Social History household members: spouse housing: house Smoking Status: Former smoker Tobacco: How many years used: 20 second hand exposure: No alcohol intake: current details: social substance use type: does not use what type of physical activity do you participate in: walking seatbelt use: always do you feel safe at home: Yes additional social history: boo-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 Patient works at [employer] in [facility] ROS ED Constitutional Constitutional ED: Denies chills or fever(s) Eyes Eyes: Denies change in vision ENT ENT ED: Reports rhinorrhea; Denies sore throat Cardiovascular Cardiovascular: Denies chest pain Respiratory/Chest Respiratory/Chest: Reports cough and dyspnea Gastrointestinal Gastrointestinal: Reports nausea; Denies vomiting Genitourinary Genitourinary ED: Denies dysuria Musculoskeletal Musculoskeletal: Reports myalgias Integumentary Denies rash Neurologic Neurologic: Reports headache(s); Denies paresthesias or weakness Psychiatric Psychiatric: Denies anxiety Endocrine Endocrinology: Denies polydipsia or polyuria Hematologic/Lymphatic Hematologic/Lymphatic: Denies easy bleeding or easy bruising Allergic/Immunologic Allergic/Immunologic ED: Denies urticaria EXAM Physical Exam Const Vital Signs: 05/01/22 16:06 05/01/22 18:08 05/01/22 18:05 Temperature 98.1 F Temperature Source Temporal Pulse Rate 99 99 Respiratory Rate 20 H 16 15 Respiratory Effort Respiratory Depth Respiratory Pattern Blood Pressure 109/80 Blood Pressure Mean 89 Pulse Ox 100 100 98 Oxygen Delivery Method Room Air Room Air Room Air 05/01/22 18:26 05/01/22 18:26 Temperature Temperature Source Pulse Rate Respiratory Rate Respiratory Effort Normal Non-Labored Respiratory Depth Normal Respiratory Pattern Normal Blood Pressure Blood Pressure Mean Pulse Ox 99 Oxygen Delivery Method Room Air Room Air Positive well nourished and well developed Constitutional Narrative: Patient does look mildly dyspneic. Just sitting in bed she is breathing a little deeper than normal. General Appearance ED: well developed HEENT Reports moist mucous membranes HEENT Narrative: No temporal artery tenderness Neck no JVD Neck Narrative: No JVD or stridor Chest Wall inspection of chest normal Resp Resp Narrative: Respiratory effort is slightly increased. She has decreased breath sounds at the bases. I do not hear wheezes or rhonchi. Auscultation: Negative for rhonchi or wheezes Cardio regular rate and regular rhythm GI normal to inspection, nondistended, normoactive bowel sounds and non-tender Back/Spine no CVA tenderness Neuro oriented x3 Psych mental status grossly normal Skin no rashes or lesions noted MDM MDM MDM Narrative Medical decision making narrative: Imaging shows pleural effusion. Her white count is minimally up. Hemoglobin is slightly higher than the other day. She is not neutropenic. Electrolytes show no marked abnormalities. BNP is okay. Patient was walked she did well and maintain sats at 98%. She is okay with following up and getting a thoracentesis. She has had approximately 5 before. I did call her oncologist, Dr. Deutsch and he will look at her films and work to get her a thoracentesis tomorrow if that is needed. Lab Data Attestation: I reviewed the patient's lab results. Labs: Laboratory Results - last 24 hr 05/01/22 05/01/22 05/01/22 17:05 17:05 17:05 WBC 11.3 H RBC 2.74 L Hgb 9.1 L Hct 27.6 L MCV 100.7 H MCH 33.2 H MCHC 33.0 RDW Std Deviation 70.9 H RDW Coeff of David 19.1 H Plt Count 374 MPV 9.4 Neut % (Auto) Not Reportable Absolute Neuts (auto) 9.9 H Absolute Lymphs (auto) 0.45 L Total Counted 100 Neutrophils % (Manual) 83 H Band Neutrophils % 4 Lymphocytes % (Manual) 4 L Monocytes % (Manual) 1 Metamyelocytes % 7 H Myelocytes % 1 H Diff Path Review May foll Platelet Estimate ADEQUATE RBC Morphology N CHROM Anisocytosis 2+ Macrocytosis 2+ Sodium 137 Potassium 4.3 Chloride 107 Carbon Dioxide 25.0 Anion Gap 5 BUN 24 H Creatinine 0.98 Estim Creat Clear Calc 57.15 Est GFR (MDRD) Af Amer 74 Est GFR (MDRD) Non-Af 61 BUN/Creatinine Ratio 24.4 H Glucose 94 Calcium 9.1 B-Natriuretic Peptide 47.4 Radiography Diagnostic Testing: Clinical Impression(s) from Imaging Studies Chest X-Ray 05/01/22 16:50 IMPRESSION: [id number] sized left pleural effusion and partial collapse of left lower lobe. Electronically Signed: Adonis Noe MD at 17:05 EST , Brain CT 05/01/22 18:08 IMPRESSION: Mild periventricular white matter ischemic changes. No evidence for obstructive hydrocephalus mass or acute bleed Incidental finding of enlargement of the pituitary for age and thickening of the infundibulum. MRI of sella turcica would be helpful for further evaluation if clinically warranted Electronically Signed: Adonis Noe MD at 19:08 EST , Chest CTA 05/01/22 18:08 IMPRESSION: Moderate sized left pleural effusion and consolidation of left lower lobe. No evidence for pulmonary embolus incidental finding of diffuse skeletal metastasis involving sternum and ribs and thoracic spine Electronically Signed: Adonis Noe MD at 19:21 EST , Chest x-ray shows left-sided effusion. CT showed moderate left-sided effusion and consolidation left lower lobe but there is no clinical indication of pneumonia. No evidence of a PE. There are multiple metastasis. CT of the head showed no acute process. Discharge Plan Triage Chief Complaint: Shortness of Breath ED Provider: Jordan Sequeira Dx/Rx/DC Orders Clinical Impression: Pleural effusion on left, Breast cancer metastasized to bone, Dyspnea on exertion Instructions: ED Pleural Effusion Prescriptions: No Action spironolactone [Aldactone] 50 mg tablet 50 mg PO DAILY Qty: 30 1RF lidocaine-prilocaine 2.5-2.5 % cream 1 applic topical ONCE PRN (Reason: port access) 30 Days Qty: 30 2RF capecitabine [Xeloda] 500 mg tablet 1,500 mg PO BID Qty: 84 0RF Rx Instructions: for 14 days per 21-day cycle; must administer with water 30 minutes after a meal exemestane [Aromasin] 25 mg tablet 25 mg PO DAILY 30 Days Qty: 30 2RF Rx Instructions: must administer after a meal calcium carbonate-vitamin D3 1 EACH tablet 1 each PO BID diphenhydramine HCl [Benadryl] 25 mg Capsule 25 mg PO QHS PRN (Reason: Insomnia) levothyroxine 137 MCG tablet 137 mcg PO MOTUWETHFRSA albuterol sulfate 90 mcg/actuation Hfa Aerosol Inhaler 1 inh INHALATION Q6H PRN (Reason: Wheezing) azithromycin [azithromycin] 250 mg tablet 250 mg PO DAILY Qty: 4 0RF tramadol 100 mg tablet 100 mg PO Q8H PRN (Reason: severe pain (scale score 7-10)) Qty: 18 0RF prochlorperazine maleate 10 mg tablet 10 mg PO Q6H PRN (Reason: nausea and vomiting) Qty: 30 2RF ondansetron 4 mg tablet,disintegrating 4 mg PO Q8H PRN PRN (Reason: Nausea) 10 Days Qty: 30 3RF Primary Care Provider: Yoel Urbina Referrals: Waqar Deutsch MD [Med Staff - Active Staff] - 1 Day Yoel Urbina MD [Primary Care Provider] - Activity Restrictions/Additional Instructions: Contact Dr. Deutsch's office in the morning. He is looking at your images and will discuss arranging a thoracentesis with you. Disposition Disposition: Home, Self Care
[2022-05-01 18:26] VITALS: O2SAT 98; O2SAT 99
[2022-05-01 18:29] LABS: Lymphocyte 4 % (19-41); Metamyelocyte 7 % (0-1); Monocyte 1 % (0-10); Myelocyte 1 % (0-0); Neutrophil-Band 4 % (0-5); Neutrophil-Segmented 83 % (47-70); Total Cells Counted 100 (MANUAL DIFF)
[2022-05-01 18:32] LABS: Absolute Neutrophil Count 9.9 X10^3/uL (2.0-7.7)
[2022-05-01 18:33] LABS: Absolute Lymphocyte Count 0.45 X10^3/uL (0.83-4.51)
[2022-05-01 18:34] LABS: Anisocytosis 2+; Macrocytosis 2+; Platelet Estimate ADEQUATE (ADEQ); Red Cell Morphology N CHROM NORMAL (NORM C&C)
[2022-05-01 18:46] LABS: BNP,B-Type NATRIURETIC PEPTIDE 47.4 pg/mL (0-100)
[2022-05-01 19:58] VITALS: O2SAT 98
[2022-05-01 21:31] VITALS: PULSE 87; RESP 17; O2SAT 98
[2022-05-02 11:36] LABS: Pathologist Review Reviewed
== END 2022-05-01 21:47 | disposition home or self-care (01) ==
PROVIDERS: Emergency Provider Emergency Medicine; PCP Family Medicine; Visit Provider Emergency Medicine
DX: J90 Pleural effusion, not elsewhere classified (principal); C79.51 Secondary malignant neoplasm of bone; C50.919 Malignant neoplasm of unspecified site of unspecified female breast; R11.0 Nausea; R51.9 Headache, unspecified; R06.02 Shortness of breath; Z92.21 Personal history of antineoplastic chemotherapy; Z87.891 Personal history of nicotine dependence
CPT/HCPCS: 70450; 71045; 71275; 80048; 83880; 85025; 87428; 93005; 94760; 99284; Q9967; A4216

== ENCOUNTER → 2022-05-02 | Outpatient (CLI) | payer OTHER, SELFPAY ==
--- NOTE | 2022-05-02 | FLU_PTH ---
PATIENT: DULCE MCKEON LOC: [facility]#:[id number] AGE/SX: 61/F ROOM: RE05/02/[address]: Dr. Waqar Deutsch MD : 1960 BED: DIS: 05/02/2022 SPEC #: [id number] RECD: 05/06/22 09:00 STATUS: DARRELL RERadha #: [id number] PAUL: 05/02/22 00:[address]: Waqar Deutsch DEPT: CYTOLOGY RECD BY: Ksenia Zepeda ENTERED: 05/06/22 09:00 SP TYPE: Fluid OTHR DR: Dr. Yoel Urbina MD Tissues: Pleural fluid, NOS Procedures: Special Stain Group II Surgery Specimen Level IV Cytospin Fluid HEADER OPERATION: Ultrasound-guided thoracentesis PRE-OP DIAGNOSIS: Left pleural effusion TISSUE SUBMITTED: Thoracentesis fluid for cytology DIAGNOSIS CYTOLOGY Thoracentesis fluid for cytology (cytospin and cell block): Rare clusters of malignant cells present derived from metastatic adenocarcinoma. See comment. SJ:brett 05/07/2022 COMMENT Immunohistochemistry ([id number]) supports the above diagnosis. Please make reference to previous specimens ([id number]), left breast, ultrasound-guided core biopsy with diagnosis of ?invasive ductal carcinoma? and ([id number], [id number] and [id number]) thoracentesis fluid for cytology with diagnosis of ?malignant cells present derived from metastatic carcinoma. Case has been reviewed in consultation with Dr. Hull who concurs with the above diagnosis. IDC:AM CYTOLOGY STUDY Slides are reviewed. CYTOLOGY GROSS Received is 80 ml of yellow cloudy fluid labeled with the patient's name and and designated per the requisition as thoracentesis. Submitted for cytology preparation including cell block. / brett 05/06/2022 TC:0 CPT: 86368, 80895
--- NOTE | 2022-05-02 | IMM_PTH ---
PATIENT: DULCE MCKEON LOC: [facility]#:[id number] AGE/SX: 61/F ROOM: RE05/02/[address]: Dr. Waqar Deutsch MD : 1960 BED: DIS: 05/02/2022 SPEC #: [id number] RECD: 05/07/22 12:41 STATUS: DARRELL REQ #: [id number] PAUL: 05/02/22 00:[address]: Waqar Deutsch DEPT: IMMUNOHISTOCHEMISTRY RECD BY: Shira Balderrama ENTERED: 05/07/22 12:43 SP TYPE: IMMUNO OTHR DR: Dr. Yoel Urbina MD Tissues: THORACIC FLUID Procedures: RCC (add) Dwayne Ret (add) CK20 (add) CK5-6 (add) CK7 (add) CK8 (add) E-CAD (add) HEP PAR (add) HER2 OSMANY (add) MACRO (add) MAMM (add) IL (add) TTF1 (add) Vimentin (add) Pankeratin (add) GATA3 (add) P40 (add) ER (initial) PHYSICIAN & INSTITUTION [place] [id number] SPECIMEN INFORMATION: Tissue Source: Thoracentesis fluid Clinical Info: Left pleural effusion Specimen Number: [id number] CPT code: 95993, 58289 x17 METHODOLOGY: Deparaffinized sections of prefer/formalin-fixed tissue or PAP/DQ stained slides are incubated with monoclonal/polyclonal antibodies/oligonucleotide probes. Localization is made via biotin free immunoperoxidase method. Appropriate controls are performed and reacted as expected. Results on target cell population are indicated in the following table: RESULTS: ANTIBODY / CLONE RESULT ER (6F11) negative IL (1E2) negative Her-2neu (CB11) negative E-Cad (ECH-6) positive Mammaglobin (31A5) negative GATA3 (L50-823) negative AE1-3 (AE1/AE3/PCK26) positive CK7 (OV-TL12/30) positive CK8 (89gfkpL91) positive CK20 (KS20.8) negative Vimentin (V9) negative Macro (HAM-56) negative TTF-1 (8G7G3/1) negative HepPar (OCh1E5) negative RCC (PN-15) negative CALRET (polyclonal) negative CK5-6 (D5 & 1684) negative P40 (BC28) negative These tests were developed and their performance characteristics determined by [facility]. They may not have been cleared or approved by the U.S. Food and Drug Administration. The FDA has determined that such clearance or approval is not necessary. The above immunohistochemical/dualISH markers are ordered and reviewed by the Pathologist. INTERPRETATION: Thoracentesis fluid (cell block): Rare clusters of malignant cells present, derived from metastatic adenocarcinoma. AM:brett 05/08/2022
--- NOTE | 2022-05-02 13:23 | US_ITS ---
PROCEDURE: ULTRASOUND GUIDED THORACENTESIS. DATE: 05/02/2022. INDICATION: Female, 61 years old. Left pleural effusion. PHYSICIAN: Matthias Blanca DO PROCEDURE: The risks, benefits, and alternatives to the procedure were explained to the patient. The specific risks of bleeding, infection, and pneumothorax requiring chest tube insertion were discussed and accepted. Written informed consent was obtained. Ultrasonographic evaluation of the left lower pleural space was carried out. An adequate pocket was identified. The patient was placed in the sitting, upright position. The overlying skin was prepped and draped in sterile fashion. 1% lidocaine was administered subcutaneously for local anesthesia. Under ultrasound guidance, a 5 Yakut thoracentesis needle/catheter system was advanced into the left posterior lower pleural fluid collection. Approximately 700 mL of clear straw-colored fluid was drained. The catheter was removed, and a sterile dressing was applied. A 100 cc sample was sent to the laboratory for analysis, as requested by the referring clinician. The patient tolerated the procedure well. A chest x-ray was ordered. There was no pneumothorax on the post thoracentesis chest x-ray. The patient was discharged home in stable condition. US/Thoracentesis W US IMPRESSION: Ultrasound-guided diagnostic and therapeutic left thoracentesis. Electronically Signed: Matthias Blanca, at 15:03 EST ,
[2022-05-02] MEDS: Lidocaine 1% (20 ml mdv) 20 ML Vial INFILT (14:07)
--- NOTE | 2022-05-02 14:22 | RAD_ITS ---
INDICATION: post thora EXAMINATION/TECHNIQUE: X-RAY - XR Chest 2 Views COMPARISON: CTA chest and chest radiograph from 05/01/2022. FINDINGS: Support devices: Stable right Mediport catheter terminating in the superior vena cava. Small residual left-sided pleural effusion with overlying atelectasis, mildly improved from prior study. No sizable pneumothorax status post thoracentesis. Aeration of lungs of the remainder the lungs is unchanged. Heart size is stable. Bones and soft tissues are unchanged. RAD/Chest Insp/Exp 2 View IMPRESSION: 1. Small residual left-sided pleural effusion, mildly improved from prior study. 2. No sizable pneumothorax status post thoracentesis. Electronically Signed: Matthias Blanca, at 14:41 EST ,
[2022-05-02 14:57] VITALS: BP 100/64; BP 107/59; BP 91/59; PULSE 107; PULSE 110; PULSE 111; RESP 24; RESP 28; TEMP 37.4; O2SAT 99
== END | disposition home or self-care (01) ==
LOC: US 13:02
PROVIDERS: PCP Family Medicine; Visit Provider Internal Medicine Medical Oncology
DX: J90 Pleural effusion, not elsewhere classified (principal)
CPT/HCPCS: 32555; 71046; 88108; 88305; 88313; 88341; 88342

== ENCOUNTER → 2022-05-13 | Outpatient (CLI) | payer OTHER, SELFPAY ==
--- NOTE | 2022-05-13 14:11 | MRI_ITS ---
EXAM: MR HEAD WITHOUT AND WITH INTRAVENOUS CONTRAST CLINICAL INDICATION: Headache. Enlarged pituitary gland. History of breast carcinoma. TECHNIQUE: Multiplanar and multisequence MR images of the brain were obtained without and with intravenous contrast. This report was created using [employer] report generation technology. CONTRAST: IV 15ml Clariscan COMPARISON: CT head without contrast 05/01/2022. FINDINGS: BRAIN AND EXTRA-AXIAL SPACES: Multiple T2 FLAIR hyperintensity foci in the white matter of both cerebral hemispheres are chronic white matter ischemic changes. Faint T2 FLAIR hyperintensity in both sides of the central pontine tegmentum are chronic white matter ischemic changes. Following IV contrast administration, there are no abnormally enhancing lesions intra-axially and extra-axially. No intra- or extra-axial hemorrhage. No intracranial mass or mass effect. Posterior fossa structures are unremarkable. Ventricles are appropriate for age. No hydrocephalus. Basal cisterns are patent. No diffusion restriction throughout the brain parenchyma. SELLA: . Pituitary gland is normal in size, configuration and signal intensity. AUDITORY SYSTEM: Unremarkable. The internal auditory canals are patent. BONES/JOINTS: Abnormal T1 hypointensity of the C2, C3, upper C4 vertebral body and the right lateral mass of C1 are most likely bone metastases.. SINUSES: Unremarkable as visualized. Clear. MASTOID AIR CELLS: Unremarkable as visualized. Clear. ORBITS: Unremarkable as visualized. Both globes, extraocular muscles, optic nerves and retrobulbar fat appear unremarkable. VASCULATURE: Unremarkable as visualized. Normal flow voids in the major intracranial circulation. MRI/Brain W/WO Contrast IMPRESSION: 1. No acute findings in the head/brain. 2. No MRI evidence of brain metastases. 3. Normal pituitary gland. 4. Sclerotic bone metastases involving C2, C3, the included upper C4 vertebral body and the right lateral mass of C1. Correlation with bone scan will help determine the extent of skeletal metastases. Electronically Signed: Johnathan Malone MD at 13:59 EST ,
== END | disposition home or self-care (01) ==
LOC: MRI 13:58
PROVIDERS: PCP Family Medicine; Visit Provider Nurse Practitioner Family
DX: E23.6 Other disorders of pituitary gland (principal); R51.9 Headache, unspecified
CPT/HCPCS: 70553; A9575

== ENCOUNTER → 2022-06-09 | Outpatient (CLI) | payer OTHER, SELFPAY ==
--- NOTE | 2022-06-09 11:38 | VDUE_ITS ---
Reason For Study: Swelling Left Proximal Left jugular vein is spontaneous, widely patent, phasic, with no intraluminal echogenicity noted. Left subclavian vein is spontaneous, widely patent, phasic, with no intraluminal echogenicity noted. Left Arm Left axillary vein is spontaneous, patent, phasic, competent, compressible and demonstrates augmentation. Left brachial vein is compressible. Left cephalic vein is compressible. Left basilic vein is compressible. Left Lower Arm Left radial vein is compressible. Left ulnar vein is compressible. Patient Safety Preliminary report given to Magy MCMANUS. VL/Venous Duplex US, Unilateral Interpretation Summary No evidence for acute deep venous thrombosis[left] upper extremity with patent and compressible cephalic and basilic veins. Ordering Physician: Geena Orr Referring Physician: Yoel Akins Performed By: Joanne Cartagena RVT ???
== END | disposition home or self-care (01) ==
LOC: CVS 11:37
PROVIDERS: PCP Family Medicine; Visit Provider Nurse Practitioner Family
DX: M79.89 Other specified soft tissue disorders (principal)
CPT/HCPCS: 93971

== ENCOUNTER → 2022-06-16 | Outpatient (CLI) | payer OTHER, SELFPAY ==
--- NOTE | 2022-06-16 08:04 | CT_ITS ---
STUDY: CT CHEST, ABDOMEN T PELVIS WITH CONTRAST REASON FOR EXAM: Female, 62 years old. Assess response to treatment, IV contrast only. History of metastatic breast carcinoma. RADIATION DOSAGE (If Supplied By Facility): CTDIvol = ( 15.09 ) mGy, DLP = ( 1384.58 ) mGycm TECHNIQUE: Transaxial imaging was performed following intravenous administration of IV 100mL Isovue-300. Multiplanar coronal and sagittal images were reformatted. Individualized dose optimization techniques were used for this CT. COMPARISON: Comparison is made with prior study dated 04/08/2022. FINDINGS: CHEST A right-sided Port-A-Cath is seen with the tip in the superior vena cava. Diffuse skin thickening of the left breast with the increased markings in the breast. There is a 7.2 mm nodule in the deep inferior aspect of the left breast. Since prior study, there has been increase in the left pleural effusion with minimal nodularity seen anterior aspect of the pleura as well as the posterior medial aspect of the left lower lobe. The previously seen nodular densities in the posterior segment of the left lower lobe have decreased in size. The larger density measures 2.7 cm x 1.9 cm. Stable tiny pericardial effusion. Normal mediastinum. Normal hilar regions. Normal unenhanced pulmonary arteries. Normal aorta arch and descending thoracic aorta. 179, there is evidence of diffuse bony metastasis involving the appendicular and axial skeletons as well as the right humerus. This bony destruction along the right side at the mid dorsal vertebrae. ABDOMEN Normal liver. Normal gallbladder and extrahepatic biliary system. Normal spleen. Normal pancreas. 2 cm x 1.3 cm hypodense mass in the left adrenal gland. This is unchanged. Normal right kidney. Normal left kidney. Normal visualized stomach. Normal small intestine. Normal colon. The appendix is visualized and appears normal. Normal abdominal aorta. Normal inferior vena cava. Normal retroperitoneum. Normal abdominal wall. Diffuse bony metastasis. PELVIS Normal urinary bladder. Heterogeneous appearance of the uterus. CT/CT Chest, Abd, Pel w/Contrast IMPRESSION: Interval increase in size of the left pleural effusion with interval decrease in size of the previously seen nodular densities at the left lung base. Heterogeneous appearance of the uterus. Stable appearance of the left adrenal gland. Electronically Signed: Emory Rivero MD at 11:12 EST ,
[2022-06-16] MEDS: 0.9% Saline Lock 10 ML Syringe IV (08:35)
== END | disposition home or self-care (01) ==
LOC: CT 08:04
PROVIDERS: PCP Family Medicine; Visit Provider Nurse Practitioner Family
DX: C50.412 Malignant neoplasm of upper-outer quadrant of left female breast (principal); C79.51 Secondary malignant neoplasm of bone; Z17.0 Estrogen receptor positive status [ER+]
CPT/HCPCS: 71260; 74177; Q9967; A4216

== ENCOUNTER → 2022-06-19 | Outpatient (CLI) | payer OTHER, SELFPAY ==
--- NOTE | 2022-06-19 07:37 | NM_ITS ---
CLINICAL: 62-year-old female with history of carcinoma of breast metastatic to bone. WHOLE BODY 99m Tc MDP RADIONUCLIDE BONE SCINTIGRAPHY COMPARISON: Whole body bone scintigraphy study dated 04/02/2022 FINDINGS: Following the intravenous administration of 26.9 mCi of 99m Tc MDP, whole body bone images reveal: 1. Persistent increased radiopharmaceutical concentration is noted throughout the frontal skull, appendicular and axial skeleton with a decrease in overall number of identified scintigraphic abnormalities. In the majority of locations, the intensity of uptake is decreased with the exception of the right proximal humeral metaphysis and right anterior iliac wing. 2. The remaining skeletal structures are scintigraphically unremarkable with normal-appearing renal images and urinary bladder activity identified. NM/Bone Scan Whole Body IMPRESSION: 1. The increase in radiopharmaceutical concentration redefined in the calvarium, appendicular and axial skeleton remains consistent with osseous metastatic disease. A decrease in the overall number of identified foci is noted on the current examination. The majority of locations demonstrate a decrease in uptake relative to the previous examination. 2. Overall compared to the previous whole body bone scintigraphy study dated 04/02/2022, there is a current decrease in overall number of defined scintigraphic abnormalities. There is an increase in the intensity of uptake on the present examination involving the right proximal humeral metaphysis and the anterior iliac wing. Electronically Signed: Destin Mckeon, at 21:46 EST ,
== END | disposition home or self-care (01) ==
LOC: NM 07:36
PROVIDERS: PCP Family Medicine; Visit Provider Nurse Practitioner Family
DX: C50.912 Malignant neoplasm of unspecified site of left female breast (principal); C79.51 Secondary malignant neoplasm of bone
CPT/HCPCS: 78306; A9503

== ENCOUNTER → 2022-07-07 | Outpatient (CLI) | payer OTHER, SELFPAY ==
--- NOTE | 2022-07-07 10:44 | VDUE_ITS ---
Reason For Study: LUE SWELLING Right Proximal Left Proximal Right subclavian vein is spontaneous, widely Left jugular vein is spontaneous, widely patent, phasic, with no intraluminal patent, phasic, with no intraluminal echogenicity noted. echogenicity noted. Left subclavian vein is spontaneous, widely patent, phasic, with no intraluminal echogenicity noted. Left Arm Left axillary vein is spontaneous, patent, phasic, competent, compressible and demonstrates augmentation. Left brachial vein is compressible. Left cephalic vein is compressible. Left basilic vein is compressible. Left Lower Arm Left radial vein is compressible. Left ulnar vein is compressible. VL/Venous Duplex US, Unilateral Interpretation Summary No evidence for acute deep venous thrombosis[left] upper extremity with patent and compressible cephalic and basilic veins. Normal flow patterns right subclavian vein Ordering Physician: Geena Orr Referring Physician: Yoel Urbina Performed By: Cheryl Morales, NABILA, RVT ???
== END | disposition home or self-care (01) ==
LOC: CVS 10:44
PROVIDERS: PCP Family Medicine; Visit Provider Nurse Practitioner Family
DX: M79.89 Other specified soft tissue disorders (principal); C50.412 Malignant neoplasm of upper-outer quadrant of left female breast; Z17.0 Estrogen receptor positive status [ER+]
CPT/HCPCS: 93971

== ENCOUNTER → 2022-07-09 | Outpatient (CLI) | payer OTHER, SELFPAY ==
--- NOTE | 2022-07-09 09:26 | ECHODONC_ITS ---
Reason For Study: Edema, Chemotherapy Procedure This was a 2D Doppler, Color Flow transthoracic echocardiogram. Myocardial strain analysis was performed in this exam to aid in the assessment of cardiac function. The exam was of adequate technical quality. Exam performed in department. Left Ventricle Normal LV size. Left ventricular systolic function is normal. The estimated ejection fraction is 60 %. The global longitudinal strain = -15% (abnormal). No evidence for diastolic dysfunction. No regional wall motion abnormalities noted. Right Ventricle Normal RV size. Normal systolic function. Atria Normal left atrium. Normal right atrium. No doppler evidence for ASD. Mitral Valve There is no mitral annular calcification. Normal mitral valve. Trivial mitral valve insufficiency. Tricuspid Valve Normal tricuspid valve. Trivial tricuspid valve insufficiency. Right ventricular systolic pressure estimated to be 21 mmHg. Aortic Valve Trisinus/trileaflet aortic valve. Normal aortic valve. Pulmonic Valve The pulmonic valve is not well visualized. Trivial pulmonic valve insufficiency. Great Vessels Normal sized aortic root. Pericardium/Pleural Trivial pericardial effusion. There are no echocardiographic indications of cardiac tamponade. Echolucency c/w a pleural effusion. MMode/2D Measurements & Calculations LVIDd: 4.4 cm IVSd: 1.0 cm LVOT diam: 2.0 cm LVIDs: 2.8 cm LVPWd: 0.84 cm LVOT area: 3.1 cm2 RVDd: 3.1 cm FS: 36.7 % Ao root diam: 3.3 cm LAV(MOD-bp): 30.6 ml LVAd ap4: 25.4 cm2 LAV(MOD-bp) Indexed: 16.0 ml/m2 LVLd ap4: 7.2 cm LAV(MOD-sp2): 31.0 ml EDV(MOD-sp4): 74.3 ml LAV(MOD-sp4): 27.9 ml EDV(sp4-el): 76.2 ml LVAs ap4: 12.8 cm2 LVLs ap4: 5.6 cm ESV(MOD-sp4): 24.5 ml ESV(sp4-el): 24.8 ml EF(MOD-sp4): 67.1 % EF(sp4-el): 67.5 % LVAd ap2: 22.4 cm2 SV(MOD-sp4): 49.8 ml SV(MOD-sp2): 37.9 ml LVLd ap2: 7.2 cm EDV(MOD-sp2): 60.7 ml EDV(sp2-el): 59.6 ml LVAs ap2: 12.3 cm2 LVLs ap2: 5.7 cm ESV(MOD-sp2): 22.8 ml ESV(sp2-el): 22.4 ml EF(MOD-sp2): 62.4 % SV(sp4-el): 51.4 ml LA dimension(2D): 3.2 cm LA A4 area: 12.5 cm2 RA A4 area: 10.9 cm2 Time Measurements MV dec time: 0.18 sec Doppler Measurements & Calculations MV E max levi: 68.7 cm/sec Lat Peak E' Levi: 9.1 cm/sec Med Peak E' Levi: 8.5 cm/sec MV A max levi: 79.7 cm/sec E/E' lat: 7.6 E/E' med: 8.1 MV E/A: 0.86 Ao V2 max: 131.1 cm/sec LV V1 max: 98.0 cm/sec MV dec slope: 379.6 cm/sec2 Ao max P.9 mmHg LV V1 max P.8 mmHg Ao V2 mean: 90.5 cm/sec LV V1 mean P.2 mmHg Ao mean P.8 mmHg LV V1 mean: 68.3 cm/sec Ao V2 VTI: 26.3 cm LV V1 VTI: 18.5 cm AV (velocity ratio): 0.70 ZACHARY(I,D): 2.2 cm2 ZACHARY(V,D): 2.3 cm2 SV(LVOT): 58.2 ml PA V2 max: 69.9 cm/sec TR max levi: 210.1 cm/sec PA max PG (full): 0.36 mmHg TR max P.7 mmHg ECHO/ONC Echo Complete Interpretation Summary Left ventricular systolic function is normal. The estimated ejection fraction is 60 %. The global longitudinal strain = -15% (abnormal). Trivial mitral valve insufficiency. Trivial tricuspid valve insufficiency. Trivial pulmonic valve insufficiency. Trivial pericardial effusion. There are no echocardiographic indications of cardiac tamponade. Echolucency c/w a pleural effusion. Right ventricular systolic pressure estimated to be 21 mmHg. No evidence for diastolic dysfunction. Ordering Physician: Geena Orr Referring Physician: MD Yoel Farah Performed By: Paige Russell
== END | disposition home or self-care (01) ==
LOC: CVS 09:24
PROVIDERS: PCP Family Medicine; Visit Provider Nurse Practitioner Family
DX: M79.89 Other specified soft tissue disorders (principal); C50.412 Malignant neoplasm of upper-outer quadrant of left female breast; Z51.81 Encounter for therapeutic drug level monitoring; Z79.899 Other long term (current) drug therapy; Z17.0 Estrogen receptor positive status [ER+]
CPT/HCPCS: 93306; 93356

== ENCOUNTER → 2022-07-23 | Outpatient (CLI) | payer OTHER, SELFPAY ==
--- NOTE | 2022-07-23 06:20 | MRI_ITS ---
STUDY: MRI BRAIN WITH AND WITHOUT CONTRAST REASON FOR EXAM: Female, 62 years old patient with headache, decreased coordination and left upper extremity weakness. TECHNIQUE: Standardized multiplanar fat and water weighted pulse sequences were obtained. 16 ml of IV Clariscan was administered for the contrast portion of the examination. COMPARISON: MRI of the brain dated May 13, 2022. FINDINGS: Normal size of the ventricles and extra-axial spaces for the patient''s age. There are multiple white matter hyperintensities, distributed throughout the deep white matter tracts of the cerebral hemispheres, consistent with moderate chronic white matter ischemic changes. There is no evidence for recent intracranial ischemia or other cause of cytotoxic edema on diffusion weighted imaging (DWI). Normal bilateral basal ganglia. Normal thalami. There is no extra-axial fluid accumulation. Normal flow voids within the major intracranial circulation suggesting patency by spin echo criteria. Normal venous enhancement. There is diffuse enhancement of the thickened dura. No other additional abnormal enhancing lesions are visualized. Normal sella turcica, pituitary gland, infundibular stalk, optic chiasm and hypothalamus. Normal tectal plate and pineal gland. There are chronic white matter ischemic changes of the oziel. The midbrain and medulla are otherwise normal. Normal cerebellum. Normal basal cisterns. Normal bilateral temporal bones. Normal bilateral internal auditory canals. No demonstrated orbital abnormality, within the constraints of a routine brain study. There is right maxillary sinus mucous retention cyst. There is abnormal signal within the calvarium suggesting metastatic disease. Normal visualized soft tissue structures. There is abnormal signal within the odontoid and C2 vertebral body as well as C3 that may be secondary to metastatic disease. MRI/Brain W/WO Contrast IMPRESSION: 1. No MR evidence of acute infarct or mass. 2. Extensive abnormal white matter signal more advanced than expected for patient''s age. This could be secondary to microvascular disease or demyelination as well as sequela of chemotherapy. 3. Apparent metastasis to the cranium as well as the cervical spine. Electronically Signed: Lesia Wilder MD at 7:57 EDT ,
== END | disposition home or self-care (01) ==
LOC: MRI 06:20
PROVIDERS: PCP Family Medicine; Referring Provider Nurse Practitioner Family; Visit Provider Nurse Practitioner Family
DX: R51.9 Headache, unspecified (principal); R27.8 Other lack of coordination; R29.898 Other symptoms and signs involving the musculoskeletal system
CPT/HCPCS: 70553; A9575

== ENCOUNTER → 2022-07-28 | Outpatient (CLI) | payer OTHER, SELFPAY ==
--- NOTE | 2022-07-28 09:59 | MRI_ITS ---
STUDY: BILATERAL BREAST MR WITHOUT AND WITH CONTRAST REASON FOR EXAM: Female, 62 years old. History of left breast cancer metastatic to bone. Left upper extremity edema and weakness. TECHNIQUE: Multi-sequence multi-echo imaging of both breasts was performed with a dedicated breast coil. T1-weighted and T2-weighted images were performed before the administration of contrast. T1-weighted images were also performed after the intravenous administration of 12 mL of Clariscan contrast. COMPARISON: None. FINDINGS: RIGHT BREAST: Scattered fibroglandular densities. There are no abnormal enhancing masses or areas of non-mass enhancement in the right breast. LEFT BREAST: Scattered fibroglandular densities. Marked parenchymal and skin thickening. There are no abnormal enhancing masses or areas of non-mass enhancement in the left breast. No enlarged or abnormal lymph nodes. Bilateral pleural effusions, left greater than right. No abnormality in the visualized regions of the chest or liver. MRI/Breast Bilateral W/O and W IMPRESSION: Diffuse left parenchymal and skin thickening. Bilateral pleural effusions, left greater than right. No abnormal enhancing lesions. CATEGORY: BIRADS Category 2: Benign. A letter regarding these results will be sent to the patient by the facility within 30 days. Electronically Signed: Vazquez Quinones, at 10:29 EDT ,
[2022-07-28] MEDS: 0.9% Saline Lock 10 ML Syringe IV (11:35)
== END | disposition home or self-care (01) ==
LOC: MRI 09:59
PROVIDERS: PCP Family Medicine; Referring Provider Nurse Practitioner Family; Visit Provider Nurse Practitioner Family
DX: C50.912 Malignant neoplasm of unspecified site of left female breast (principal)
CPT/HCPCS: 77049; A9575; A4216; C8908

== ENCOUNTER → 2022-08-04 | Outpatient (CLI) | payer OTHER, SELFPAY ==
--- NOTE | 2022-08-04 11:32 | US_ITS ---
PROCEDURE: Attempted ULTRASOUND GUIDED THORACENTESIS. DATE: August 04, 2022. INDICATION: Female, 62 years old. Left thoracentesis. PHYSICIAN: Emory Rivero M.D. PROCEDURE: The risks, benefits, and alternatives to the procedure were explained to the patient. The specific risks of bleeding, infection, and pneumothorax requiring chest tube insertion were discussed and accepted. Written informed consent was obtained. Ultrasonographic evaluation of the left lower pleural space was carried out. Echogenic fluid was identified. The patient was placed in the sitting, upright position. The overlying skin was prepped and draped in sterile fashion. 1% lidocaine was administered subcutaneously for local anesthesia. Under ultrasound guidance, a 5 Spanish thoracentesis needle/catheter system was advanced into the left posterior lower pleural fluid collection. No fluid was aspirated. The catheter was removed, and a sterile dressing was applied. The patient tolerated the procedure well. A chest x-ray was ordered. US/Thoracentesis W US IMPRESSION: Unsuccessful left thoracentesis. Echogenic fluid is seen. Electronically Signed: Emory Rivero MD at 15:18 EDT ,
[2022-08-04] MEDS: Lidocaine 2% (20 ml mdv) 20 ML Vial INFILT (12:04)
--- NOTE | 2022-08-04 12:15 | RAD_ITS ---
STUDY: X-RAY CHEST REASON FOR EXAM: Female, 62 years old. PRE THORA TECHNIQUE: Single AP portable view of the chest. COMPARISON: Comparison is made with prior study dated May 19, 2022. FINDINGS: A right-sided mora catheter is seen with the tip at the junction of the superior vena cava and right atrium. Pleural-parenchymal changes are seen at the left lung base. Attempted thoracentesis was unsuccessful. The findings at the left lung base most likely secondary to left basilar infiltration and/or atelectasis and small effusion. Normal size heart. Normal mediastinum and devora. Normal visualized pulmonary arteries. Normal visualized aortic arch and descending thoracic aorta. Diffuse bony metastasis involving the appendicular and axial skeletons. There is no demonstrated abnormality of the visualized soft tissue structures of the upper abdomen. RAD/Chest 1 View (Portable) IMPRESSION: Pleural parenchymal changes at the left lung base which have improved as compared to prior study. No evidence of pneumothorax. Electronically Signed: Emory Rivero MD at 12:39 EDT ,
[2022-08-04 12:38] VITALS: BP 84/54; BP 84/68; BP 88/69; BP 90/60; PULSE 69; PULSE 71; PULSE 73; RESP 16; RESP 18; TEMP 36.1; O2SAT 100
== END | disposition home or self-care (01) ==
LOC: US 11:31
PROVIDERS: PCP Family Medicine; Visit Provider Internal Medicine Medical Oncology
DX: J90 Pleural effusion, not elsewhere classified (principal)
CPT/HCPCS: 76604; 32555; 71045

== ENCOUNTER → 2022-08-05 | Outpatient (CLI) | payer OTHER, SELFPAY ==
--- NOTE | 2022-08-05 10:52 | RAD_ITS ---
EXAM: XR CHEST, 3 VIEWS CLINICAL INDICATION: LEFT DECUBITUS VIEW-SOB TECHNIQUE: Frontal, lateral and one additional view of the chest. This report was created using [employer] report generation technology. COMPARISON: August 04 FINDINGS: LUNGS AND PLEURAL SPACES: Moderate to large left pleural effusion is unchanged. Small right pleural effusion demonstrated. Right-sided decubitus view shows partial layering of the left pleural effusion. There may be a component of loculation. No pneumothorax. HEART: Unremarkable. Cardiac silhouette not enlarged. MEDIASTINUM: Central airways and mediastinal contour are unremarkable. BONES/JOINTS: Bones are unchanged. SOFT TISSUES: Unremarkable. TUBES, LINES AND DEVICES: Stable appearance of right-sided chest port. RAD/Chest 3 View IMPRESSION: Right side up decubitus view shows partial layering of the left pleural effusion. There may be a component of loculation. Electronically Signed: Edmund Haas MD at 4:36 EDT ,
== END | disposition home or self-care (01) ==
PROVIDERS: PCP Family Medicine; Visit Provider Internal Medicine Medical Oncology
DX: R06.02 Shortness of breath (principal)
CPT/HCPCS: 71046; 71047

== ENCOUNTER 2022-08-06 10:59 | Emergency (ER) | payer OTHER, SELFPAY ==
[2022-08-06 11:01] VITALS: BP 119/79; PULSE 72; RESP 20; TEMP 35.7; O2SAT 100
[2022-08-06 11:04] VITALS: BMI 27.1
--- NOTE | 2022-08-06 11:21 | CT_ITS ---
STUDY: CTA CHEST REASON FOR EXAM: Female, 62 years old. dyspnea. BREAST CA WITH BONE METS RADIATION DOSAGE (If Supplied By Facility): CTDIvol = ( 11.15 ) mGy, DLP = ( 497.78 ) mGycm TECHNIQUE: The examination was performed with the intravenous administration of IV 100mL Isovue-370. Post-processing of the angiographic images was performed, with multiplanar reformation and 3D reconstruction. Individualized dose optimization techniques were used for this CT. COMPARISON: June 26, 2022 FINDINGS: Normal enhancement of the main pulmonary artery and right and left pulmonary arteries. Normal enhancement of the bilateral peripheral pulmonary arteries. There is no demonstrated pulmonary embolism. Normal thoracic aorta and visualized great vessels. There is no demonstrated aortic dissection. There are calcifications of the coronary arteries. Normal mediastinum. Normal hilar regions. There is a Mediport in place with its tip within the superior vena cava. Normal visualized trachea and bronchi. There are bilateral pleural effusions left greater than right. The left effusion is partially loculated. There is left lower lobe consolidation. There is skin thickening of the visualized left breast. There are diffuse ill-defined sclerotic foci throughout the bones. The limited images of the upper abdomen demonstrate a ill-defined 1.7 cm left adrenal nodule. CT/CTA Chest W/WO Contrast IMPRESSION: No demonstrated pulmonary embolism or arterial dissection. Bilateral pleural effusions, left greater than right, associated with left lower lobe consolidation. Diffuse ill-defined sclerotic foci throughout the bones consistent with bone metastases. Ill-defined 1.7 cm left adrenal nodule which may be secondary to a metastatic focus. Skin thickening of the visualized left breast. Electronically Signed: Iliana Monahan MD at 13:56 EDT ,
--- NOTE | 2022-08-06 11:22 | EDS_ITS ---
HPI History of Present Illness Chief Complaint: Shortness of Breath Detail of Chief Complaint: Shortness of breath Informant: patient Narrative Narrative: Patient presents with shortness of breath that started 4 days ago. Patient has history of pleural effusion that required thoracentesis x6 in the past. Patient states that she was seen 2 days ago by radiology and Dr. Rivero attempted several times to obtain fluid but could not get any fluid out as it was too thick. Patient saw her oncologist yesterday and was told to take Tylenol. Patient apparently had a chest x-ray yesterday and she spoke with somebody in the pulmonology department and was told to come to the ER to get evaluated. Patient denies any chest pain. She denies fever. She has had minimal cough. No history of PE or DVT. She is not anticoagulated. [facility] Medical History Alcohol use Anemia Arthritis Bone metastasis Cancer Cancer related pain CINV (chemotherapy-induced nausea and vomiting) Constipation Coordination abnormal Decreased coordination Ductal carcinoma Elevated BUN Encounter for chemotherapy management Enlarged pituitary gland Former smoker Hand foot syndrome Headache Hypothyroid Insect bite Left arm swelling LUE weakness Metastatic breast cancer Numbness and tingling of left hand Oral candidiasis Rib pain on left side Swelling of left hand Swelling of left upper extremity Thyroid disease Wears glasses Wears partial dentures Home Medications calcium carbonate 600 mg-vitamin D3 5 mcg (200 unit) tablet 1 each PO BID 08/18/19 [History Last Taken Unknown] levothyroxine 137 mcg tablet 137 mcg PO MOTUWETHFRSA 01/01/20 [History Last Taken 12/14/20] albuterol sulfate 90 mcg/actuation aerosol inhaler 1 inh inhalation Q6H PRN Wheezing 12/28/21 [History Last Taken Unknown] tramadol 100 mg tablet 100 mg PO Q8H PRN severe pain (scale score 7-10) #18 tabs 02/06/22 [Rx Last Taken Unknown] diphenhydramine HCl 25 mg capsule (Benadryl) 25 mg PO QHS PRN Insomnia 02/11/22 [History Last Taken Unknown] lidocaine-prilocaine 2.5 %-2.5 % topical cream 1 applic topical ONCE PRN port access 30 days #30 grams 03/25/22 [Rx Last Taken Unknown] prochlorperazine maleate 10 mg tablet 10 mg PO Q6H PRN nausea and vomiting #30 tabs 04/04/22 [Rx Last Taken Unknown] ondansetron 4 mg disintegrating tablet 4 mg PO Q8H PRN PRN Nausea 10 days #30 tabs 04/07/22 [Rx Last Taken Unknown] capecitabine 500 mg tablet (Xeloda) 1,500 mg PO BID #84 tabs 04/24/22 [Rx Last Taken Unknown] spironolactone 50 mg tablet (Aldactone) 50 mg PO DAILY #30 tabs 07/01/22 [Rx Last Taken Unknown] exemestane 25 mg tablet (Aromasin) 25 mg PO DAILY 90 days #90 tabs 08/06/22 [Rx Last Taken Unknown] Allergy/AdvReac Type Severity Reaction Status Date / Time dexamethasone AdvReac Other Verified 08/06/22 11:04 Family History Unknown Breast cancer Grandfather Cancer Surgical History History of breast biopsy History of delivery Hx of wisdom tooth extraction Social History household members: spouse housing: house Smoking Status: Former smoker Tobacco: How many years used: 20 second hand exposure: No alcohol intake: current details: social substance use type: does not use what type of physical activity do you participate in: walking seatbelt use: always do you feel safe at home: Yes additional social history: [employer] work Patient works at [employer] in [place] ROS ROS ED Review of Systems ROS Unobtainable: other Constitutional Constitutional ED: Reports lethargy; Denies chills, fever(s), sweats or weight loss Eyes Eyes: Denies blurry vision, change in vision or diplopia ENT ENT ED: Denies rhinorrhea or sore throat Cardiovascular Cardiovascular: Denies chest pain, orthopnea or racing heartbeat Respiratory/Chest Respiratory/Chest: Reports dyspnea and dyspnea on exertion; Denies cough, orthopnea or sputum Gastrointestinal Gastrointestinal: Denies abdominal pain, diarrhea, nausea or vomiting Genitourinary Genitourinary ED: Denies dysuria, hematuria or urinary frequency Musculoskeletal Musculoskeletal: Denies arthralgias, back pain, myalgias or neck pain Integumentary Denies abscess, Abrasions or rash Neurologic Neurologic: Denies headache(s) or weakness Psychiatric Psychiatric: Denies anxiety, depression or suicidal thoughts Endocrine Endocrinology: Denies polydipsia, polyphagia or polyuria Hematologic/Lymphatic Hematologic/Lymphatic: Denies easy bleeding, easy bruising or lymphadenopathy Allergic/Immunologic Allergic/Immunologic ED: Denies mouth swelling, tongue swelling or urticaria EXAM Physical Exam Const Vital Signs: 08/06/22 11:01 08/06/22 11:15 08/06/22 13:39 Temperature 96.2 F L Temperature Source Temporal Pulse Rate 72 66 Respiratory Rate 20 H 18 Respiratory Effort Short of Breath Respiratory Depth Shallow Respiratory Pattern Tachypnea Blood Pressure 119/79 Blood Pressure Mean 92 Pulse Ox 100 100 Oxygen Delivery Method Room Air Room Air Room Air Positive well nourished and well developed General Appearance ED: well developed and NAD HEENT Reports TM's clear and moist mucous membranes normocephalic and atraumatic; Negative for trauma or tenderness Tympanic Membrane ED: Yes TM's clear Eyes PERRL and EOMs intact bilaterally General Eye ED: Negative for pale conjunctiva or scleral icterus Neck no lymphadenopathy, supple and no JVD General: Negative for tenderness Chest Wall inspection of chest normal and palpation of chest normal Chest: Negative for tenderness Resp normal respiratory effort and clear to auscultation bilaterally Resp Narrative: Mild conversational dyspnea. Decreased breath sounds left lower lobe. No accessory muscle use or retractions. Effort and Inspection: Negative for respiratory distress or pain with movement Auscultation: Negative for rhonchi, wheezes or diminished lung sounds Cardio regular rate, regular rhythm, S1 normal heart sound, S2 normal heart sound and no murmurs Peripheral Pulses: pulses 2+ throughout GI normal to inspection, nondistended, normoactive bowel sounds, soft to palpation, non-tender, non-distended and no masses Back/Spine no CVA tenderness and no thoracic nor lumbar tenderness Extremity normal to inspection General Extremety ED: Negative for edema General Extremity: Negative for edema Neuro oriented x3, CN's II-XII intact bilaterally, no sensory deficits noted and gait normal Sensorium / Orientation: awake, alert, oriented to person, oriented to place and oriented to time Motor Exam: strength 5/5 throughout and strength abnormal Psych mental status grossly normal Skin no rashes or lesions noted and no wounds MDM MDM MDM Narrative Medical decision making narrative: Patient presented with dyspnea that is been ongoing x4 days. She she had attempted thoracentesis 2 days ago unsuccessfully. We obtain basic labs today showed a normal white count of 5.8 with a hemoglobin of 10 hematocrit of 30 with platelet count of 206. Chemistries were unremarkable. Troponin was normal. EKG showed a sinus rhythm with a rate of 65 bpm with no acute ST segment changes. We did do a CTA of the chest which showed no evidence of PE or dissection. She had a left-sided effusion as well as a small right-sided effusion. Case discussed with Dr. Rivero who agreed to attempt ultrasound- guided thoracentesis again. Patient was able to have thoracentesis and over 900 cc of fluid was removed from her left lung. Patient Toller procedure well. Repeat chest x-ray obtained showed no evidence of pneumothorax on my interpretation. Patient clinically is feeling significantly improved. She will be discharged to home with advised to return if increasing shortness of breath or condition should worsen anyway. Lab Data Attestation: I reviewed the patient's lab results. Labs: Laboratory Results - last 24 hr 08/06/22 08/06/22 11:45 11:45 WBC 5.8 RBC 3.04 L Hgb 10.3 L Hct 30.3 L MCV 99.7 H MCH 33.9 H MCHC 34.0 RDW Std Deviation 60.3 H RDW Coeff of David 16.8 H Plt Count 206 MPV 9.2 Neut % (Auto) Not Reportable Absolute Neuts (auto) 3.2 Absolute Lymphs (auto) 1.74 Total Counted 100 Neutrophils % (Manual) 54 Band Neutrophils % 2 Lymphocytes % (Manual) 30 Monocytes % (Manual) 9 Metamyelocytes % 1 Myelocytes % 4 H Diff Path Review May foll Platelet Estimate ADEQUATE RBC Morphology NORM C+C Sodium 138 Potassium 3.8 Chloride 109 H Carbon Dioxide 20.0 L Anion Gap 9 BUN 26 H Creatinine 1.04 H Estim Creat Clear Calc 53.18 Est GFR (MDRD) Af Amer 69 Est GFR (MDRD) Non-Af 57 L BUN/Creatinine Ratio 25.0 H Glucose 87 Calcium 9.1 Troponin I High Sens 5 Radiography Diagnostic Testing: Clinical Impression(s) from Imaging Studies Chest CTA 08/06/22 11:21 IMPRESSION: No demonstrated pulmonary embolism or arterial dissection. Bilateral pleural effusions, left greater than right, associated with left lower lobe consolidation. Diffuse ill-defined sclerotic foci throughout the bones consistent with bone metastases. Ill-defined 1.7 cm left adrenal nodule which may be secondary to a metastatic focus. Skin thickening of the visualized left breast. Electronically Signed: Iliana Monahan MD at 13:56 EDT , Thoracentesis Ultrasound 08/06/22 14:21 IMPRESSION: Ultrasound-guided left thoracentesis. Electronically Signed: Emory Rivero MD at 15:18 EDT , Chest X-Ray 08/06/22 15:00 IMPRESSION: Findings consistent with reduced interstitial edema with smaller left layering effusion. Electronically Signed: Armando Rich DO at 15:31 EDT , 2 view chest x-ray obtained postthoracentesis interpreted by myself as no evidence for pneumothorax. Still had evidence of left-sided effusion. EKG Initial EKG: Attestation: I personally reviewed and interpreted this EKG as follows: Comments: Sinus rhythm with a rate of 65 bpm with no acute ST segment changes Discharge Plan Triage Chief Complaint: Shortness of Breath ED Provider: Katherine Mccormack Dx/Rx/DC Orders Clinical Impression: S/P thoracentesis, Pleural effusion, left, Dyspnea Instructions: ED Dyspnea, ED Pleural Effusion Prescriptions: No Action lidocaine-prilocaine 2.5-2.5 % cream 1 applic topical ONCE PRN (Reason: port access) 30 Days Qty: 30 2RF capecitabine [Xeloda] 500 mg tablet 1,500 mg PO BID Qty: 84 0RF Rx Instructions: for 14 days per 21-day cycle; must administer with water 30 minutes after a meal calcium carbonate-vitamin D3 1 EACH tablet 1 each PO BID diphenhydramine HCl [Benadryl] 25 mg Capsule 25 mg PO QHS PRN (Reason: Insomnia) levothyroxine 137 MCG tablet 137 mcg PO MOTUWETHFRSA albuterol sulfate 90 mcg/actuation Hfa Aerosol Inhaler 1 inh INHALATION Q6H PRN (Reason: Wheezing) tramadol 100 mg tablet 100 mg PO Q8H PRN (Reason: severe pain (scale score 7-10)) Qty: 18 0RF prochlorperazine maleate 10 mg tablet 10 mg PO Q6H PRN (Reason: nausea and vomiting) Qty: 30 2RF ondansetron 4 mg tablet,disintegrating 4 mg PO Q8H PRN PRN (Reason: Nausea) 10 Days Qty: 30 3RF spironolactone [Aldactone] 50 mg tablet 50 mg PO DAILY Qty: 30 1RF exemestane [Aromasin] 25 mg tablet 25 mg PO DAILY 90 Days Qty: 90 1RF Rx Instructions: must administer after a meal Primary Care Provider: Yoel Urbina Referrals: Daniel Villarreal DO [Med Staff - Active Staff] - 3-5 Days Yoel Urbina MD [Primary Care Provider] - Disposition Disposition: Home, Self Care
[2022-08-06 11:59] LABS: Hematocrit 30.3 % (37-47); Hemoglobin 10.3 g/dL (12.0-15.0); Mean Corpuscular Hgb 33.9 pg (27.0-32.0); Mean Corpuscular Volume 99.7 fL (81-99); Mean Platelet Vol. 9.2 fl (6.2-12.0); POSITIVE COUNT YES; POSITIVE MORPHOLOGY YES; Platelet Count 206 K/mm3 (150-450); RBC Distribution Width CV 16.8 % (11.6-14.6); RBC Distribution Width SD 60.3 fl (35.1-43.9); Red Blood Count 3.04 M/mm3 (4.2-5.4); White Blood Count 5.8 K/mm3 (4.4-11.0)
[2022-08-06 12:00] LABS: Differential Indicated MANUAL DIFF
[2022-08-06 12:17] LABS: Anion Gap 9 (5-15); BUN 26 mg/dL (7-18); Calcium,Total 9.1 mg/dL (8.5-10.1); Chloride 109 mmol/L (98-107); Creatinine, Serum 1.04 mg/dL (0.55-1.02); EST Glomerular Filtration Rate 57 mL/min (>60); Est Glom Filt Rate - Afr Amer 69 mL/min (>60); Estimated Creatinine Clearance 53.18 ml/min; Glucose 87 mg/dL (74-106); Potassium 3.8 mmol/L (3.5-5.1); Sodium Level 138 mmol/L (136-145); Troponin-I HS 5 pg/mL (3.0-54.0)
[2022-08-06 12:51] LABS: Lymphocyte 30 % (19-41); Metamyelocyte 1 % (0-1); Monocyte 9 % (0-10); Myelocyte 4 % (0-0); Neutrophil-Band 2 % (0-5); Neutrophil-Segmented 54 % (47-70); Platelet Estimate ADEQUATE (ADEQ); Red Cell Morphology NORM C+C NORMAL (NORM C&C); Total Cells Counted 100 (MANUAL DIFF)
[2022-08-06 12:52] LABS: Absolute Lymphocyte Count 1.74 X10^3/uL (0.83-4.51); Absolute Neutrophil Count 3.2 X10^3/uL (2.0-7.7)
[2022-08-06] MEDS: Ondansetron 4 MG/2 ML Vial IV (13:35)
[2022-08-06] MEDS: Morphine 4 MG/ML Syringe IV (13:36)
[2022-08-06 13:39] VITALS: PULSE 66; RESP 18; O2SAT 100
--- NOTE | 2022-08-06 14:21 | US_ITS ---
PROCEDURE: ULTRASOUND GUIDED THORACENTESIS. DATE: August 06, 2022.. INDICATION: Female, 62 years old. Left thoracentesis. PHYSICIAN: Emory Rivero M.D. PROCEDURE: The risks, benefits, and alternatives to the procedure were explained to the patient. The specific risks of bleeding, infection, and pneumothorax requiring chest tube insertion were discussed and accepted. Written informed consent was obtained. Ultrasonographic evaluation of the left lower pleural space was carried out. An adequate pocket was identified. The patient was placed in the sitting, upright position. The overlying skin was prepped and draped in sterile fashion. 1% lidocaine was administered subcutaneously for local anesthesia. Under ultrasound guidance, a 5 Congolese thoracentesis needle/catheter system was advanced into the left posterior lower pleural fluid collection. Approximately 930 mL of zoila-colored fluid fluid was drained. The catheter was removed, and a sterile dressing was applied. A specimen was collected and sent to the laboratory for analysis, as requested by the referring clinician. The patient tolerated the procedure well. A chest x-ray was ordered. US/Thoracentesis W US IMPRESSION: Ultrasound-guided left thoracentesis. Electronically Signed: Emory Rivero MD at 15:18 EDT ,
[2022-08-06 14:40] VITALS: BP 105/66; BP 109/86; BP 113/72; BP 115/68; BP 117/77; PULSE 62; PULSE 66; PULSE 69; PULSE 73; RESP 16; O2SAT 100
[2022-08-06] MEDS: Lidocaine 2% (20 ml mdv) 20 ML Vial INFILT (14:48)
--- NOTE | 2022-08-06 14:50 | FLU_PTH ---
PATIENT: DULCE MCKEON LOC: ED U#:[id number] AGE/SX: 62/F ROOM: RE08/06/[address]: Dr. Katherine Mccormack DO : 1960 BED: DIS: 08/06/2022 SPEC #: [id number] RECD: 08/06/22 15:10 STATUS: DARRELL REQ #: [id number] PAUL: 08/06/22 14:[address]: Katherine Mccormack DEPT: CYTOLOGY RECD BY: Ksenia Zepeda ENTERED: 08/07/22 07:51 SP TYPE: Fluid OTHR DR: Dr. Yoel Urbina MD Tissues: THORACIC FLUID Procedures: Special Stain Group II Surgery Specimen Level IV Cytospin Fluid HEADER OPERATION: Thoracentesis left chest PRE-OP DIAGNOSIS: Left pleural effusion TISSUE SUBMITTED: Thoracentesis fluid for cytology DIAGNOSIS CYTOLOGY Thoracentesis fluid for cytology (cytospin and cell block): Rare atypical epithelioid cells are present. AM:brett 08/08/2022 COMMENT Case has been reviewed in consultation with Dr. Cosby who concurs with the above diagnosis. IDC:[facility] CYTOLOGY STUDY Slides are reviewed. CYTOLOGY GROSS Received is 100 ml of yellow cloudy fluid labeled with the patient's name and and designated per the requisition as thoracentesis. Submitted for cytology preparation including cell block. / brett 08/07/2022 TC: CPT: 85944, 11608
--- NOTE | 2022-08-06 15:00 | RAD_ITS ---
STUDY: X-RAY CHEST REASON FOR EXAM: Female, 62 years old. pneumothorax -- immediately post thoracentesis TECHNIQUE: Single AP portable view of the chest. COMPARISON: 08/05/2022 FINDINGS: Right port in place. Mild prominent interstitial markings are present and mildly reduced compared to prior. There is a small layering left effusion reduced compared to previous exam. Normal size heart. Normal mediastinum and devora. Normal visualized pulmonary arteries. Normal visualized aortic arch and descending thoracic aorta. Normal visualized thoracic spine. Normal visualized ribs, clavicles, and shoulders. There is no demonstrated abnormality of the visualized soft tissue structures of the upper abdomen. RAD/Chest Insp/Exp 2 View IMPRESSION: Findings consistent with reduced interstitial edema with smaller left layering effusion. Electronically Signed: Armando Rich DO at 15:31 EDT ,
[2022-08-06 15:41] VITALS: BP 117/73; PULSE 59; RESP 16; O2SAT 100
[2022-08-07 13:10] LABS: Pathologist Review Reviewed
== END 2022-08-06 16:02 | disposition home or self-care (01) ==
PROVIDERS: Emergency Provider Emergency Medicine; PCP Family Medicine; Visit Provider Emergency Medicine
DX: J90 Pleural effusion, not elsewhere classified (principal); Z87.891 Personal history of nicotine dependence; R06.00 Dyspnea, unspecified
CPT/HCPCS: 32555; 36591; 71046; 71275; 80048; 84484; 85025; 88108; 88305; 88313; 93005; 96374; 96375; 99282; Q9967; A4216; J2405

== ENCOUNTER 2022-08-25 12:03 | Emergency (ER) | payer OTHER, SELFPAY ==
[2022-08-25 12:05] VITALS: BP 107/67; PULSE 75; RESP 16; TEMP 36.7; O2SAT 100; BMI 27.2
--- NOTE | 2022-08-25 12:56 | MRI_ITS ---
STUDY: MR Brain WO/W Contrast 08/25/2022 5:06 PM REASON FOR EXAM: Female, 62 years old. diplopia, vertigo, hx breast ca COMPARISON: 07.23.22 TECHNIQUE: Standardized multiplanar fat and water weighted pulse sequences were obtained. MR Brain WO/W Contrast clariscan FINDINGS: There is mild cerebral atrophy with widening of the extra-axial spaces and ventricular dilatation. There are a limited number of small white matter hyperintensities, distributed throughout the deep white matter tracts of the cerebral hemispheres, consistent with mild chronic white matter ischemic changes. There is mild prominence of the vermian folia, consistent with atrophy of the vermis. The cerebellar hemispheres are normal. Normal bilateral basal ganglia. Normal thalami. There is no extra-axial fluid accumulation. Normal flow voids within the major intracranial circulation suggesting patency by spin echo criteria. Normal sella turcica, pituitary gland, infundibular stalk, optic chiasm and hypothalamus. Normal tectal plate and pineal gland. Normal midbrain, oziel and medulla. Normal basal cisterns. Normal bilateral temporal bones. Normal bilateral internal auditory canals. No demonstrated orbital abnormality, within the constraints of a routine brain study. Normal visualized paranasal sinuses. Normal calvarium and skull base. Normal visualized soft tissue structures. Normal visualized upper cervical spine. Aspect score 10 MRI/Brain W/WO Contrast IMPRESSION: (NOT LISTED IN ORDER OF SIGNIFICANCE) There are no acute intracranial findings. Electronically Signed: Braden Muniz MD at 17:08 EDT ,
--- NOTE | 2022-08-25 14:25 | EDS_ITS ---
HPI <Dr. Bunny Shepherd MD - Last Filed: 08/25/22 16:34> History of Present Illness Chief Complaint: Dizziness Informant: patient Narrative Narrative: Patient has been having vertiginous symptoms when she turns her head and diplopia when she turns her head as well for the last 10 days. She states it seemed to start a couple days after she was given some IV pain medication in the ER. Symptoms have been occurring ever since but intermittently, only lasting a minute or 2 mostly with movement or position changes of her head. When she remains still she is asymptomatic. When she walks she is ataxic at times but she has not fallen. She has had some occasional nausea with this, but no vomiting. Some mild headaches. When she covers one of her eyes and turns her head, she does not have double vision, stating that vision is normal out of each eye individually even when she turns her head. She is currently getting chemotherapy for breast cancer, hormone-based. She saw her oncologist today about this and states she was sent to the ER for a stat MRI to rule out metastases. Patient states she last had an MRI of her brain a month ago that was negative. She has been diagnosed with metastases to bones previously. PFSH <Dr. Bunny Shepherd MD - Last Filed: 08/25/22 16:34> FOR[facility]LY [facility] Medical History Alcohol use Anemia Arthritis Bone metastasis Cancer Cancer related pain CINV (chemotherapy-induced nausea and vomiting) Constipation Coordination abnormal Decreased coordination Ductal carcinoma Elevated BUN Encounter for chemotherapy management Enlarged pituitary gland Former smoker Hand foot syndrome Headache Hypothyroid Insect bite Left arm swelling LUE weakness Metastatic breast cancer Numbness and tingling of left hand Oral candidiasis Rib pain on left side Swelling of left hand Swelling of left upper extremity Thyroid disease Wears glasses Wears partial dentures Home Medications calcium carbonate 600 mg-vitamin D3 5 mcg (200 unit) tablet 1 each PO BID 08/18/19 [History Last Taken Unknown] levothyroxine 137 mcg tablet 137 mcg PO MOTUWETHFRSA 01/01/20 [History Last Taken 12/14/20] albuterol sulfate 90 mcg/actuation aerosol inhaler 1 inh inhalation Q6H PRN Wheezing 12/28/21 [History Last Taken Unknown] tramadol 100 mg tablet 100 mg PO Q8H PRN severe pain (scale score 7-10) #18 tabs 02/06/22 [Rx Last Taken Unknown] diphenhydramine HCl 25 mg capsule (Benadryl) 25 mg PO QHS PRN Insomnia 02/11/22 [History Last Taken Unknown] lidocaine-prilocaine 2.5 %-2.5 % topical cream 1 applic topical ONCE PRN port access 30 days #30 grams 03/25/22 [Rx Last Taken Unknown] prochlorperazine maleate 10 mg tablet 10 mg PO Q6H PRN nausea and vomiting #30 tabs 04/04/22 [Rx Last Taken Unknown] ondansetron 4 mg disintegrating tablet 4 mg PO Q8H PRN PRN Nausea 10 days #30 tabs 04/07/22 [Rx Last Taken Unknown] capecitabine 500 mg tablet (Xeloda) 1,500 mg PO BID #84 tabs 04/24/22 [Rx Last Taken Unknown] spironolactone 50 mg tablet (Aldactone) 50 mg PO DAILY #30 tabs 07/01/22 [Rx Last Taken Unknown] exemestane 25 mg tablet (Aromasin) 25 mg PO DAILY 90 days #90 tabs 08/06/22 [Rx Last Taken Unknown] hydrocodone-acetaminophen 5-325mg 5mg-325mg 1 tab PO BID PRN 08/25/22 [History Last Taken Unknown] meclizine 25 mg tablet 25 mg PO Q8H PRN PRN Dizziness #20 tabs 08/25/22 [Rx Last Taken Unknown] Allergy/AdvReac Type Severity Reaction Status Date / Time dexamethasone AdvReac Other Verified 08/25/22 09:26 Family History Unknown Breast cancer Grandfather Cancer Surgical History History of breast biopsy History of delivery Hx of wisdom tooth extraction Social History household members: spouse housing: house Smoking Status: Former smoker Tobacco: How many years used: 20 second hand exposure: No alcohol intake: current details: social substance use type: does not use what type of physical activity do you participate in: walking seatbelt use: always do you feel safe at home: Yes 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 Bunny Shepherd MD - Last Filed: 08/25/22 16:34> ROS ED Constitutional Constitutional ED: Denies chills or fever(s) Eyes Eyes: Reports change in vision and diplopia ENT ENT ED: Reports as per HPI, disequillibrium and vertigo; Denies ear pain, hearing loss, loss taste/smell, rhinorrhea, sore throat or tinnitus Cardiovascular Cardiovascular: Denies chest pain or palpitations Respiratory/Chest Respiratory/Chest: Denies cough or dyspnea Gastrointestinal Gastrointestinal: Reports nausea; Denies abdominal pain, diarrhea or vomiting Genitourinary Genitourinary ED: Denies dysuria or hematuria Musculoskeletal Musculoskeletal: Denies back pain or neck pain Integumentary Denies abscess or rash Neurologic Neurologic: Denies headache(s), paresthesias or weakness Psychiatric Psychiatric: Denies anxiety or suicidal thoughts EXAM <Dr. Bunny Shepherd MD - Last Filed: 08/25/22 16:34> Physical Exam Const Vital Signs: 08/25/22 12:05 08/25/22 13:03 Temperature 98.1 F Temperature Source Temporal Pulse Rate 75 Respiratory Rate 16 Respiratory Effort Normal Non-Labored Respiratory Pattern Normal Blood Pressure 107/67 Blood Pressure Mean 80 Pulse Ox 100 Oxygen Delivery Method Room Air Positive well nourished and well developed General Appearance ED: well developed and NAD HEENT Reports TM's clear and moist mucous membranes normocephalic and atraumatic Tympanic Membrane ED: Yes TM's clear Eyes PERRL and EOMs intact bilaterally Eyes Narrative: nml inspection both eyes. visual kuhn intact bilat. no pathologic nystagmus. Neck full ROM and supple Resp normal respiratory effort and clear to auscultation bilaterally Cardio regular rate, regular rhythm and no murmurs GI non-tender and non-distended Auscultation: normoactive bowel sounds Palpation: soft Back/Spine no CVA tenderness General Back: other FROM Extremity normal to inspection General Extremety ED: Negative for edema, pulses abnormal or tenderness General Extremity: Negative for edema or pulses abnormal Neuro oriented x3, CN's II-XII intact bilaterally and no sensory deficits noted Neuro Narrative: Normal dnaugi-rh-nksz and ptvb-ys-yzmn bilaterally Sensorium / Orientation: awake and alert Motor Exam: strength 5/5 throughout Skin no rashes or lesions noted and no wounds <Dr. Amado Jacob MD - Last Filed: 08/25/22 17:47> Physical Exam Const Vital Signs: 08/25/22 12:05 08/25/22 13:03 Temperature 98.1 F Temperature Source Temporal Pulse Rate 75 Respiratory Rate 16 Respiratory Effort Normal Non-Labored Respiratory Pattern Normal Blood Pressure 107/67 Blood Pressure Mean 80 Pulse Ox 100 Oxygen Delivery Method Room Air MDM <Dr. Bunny Shepherd MD - Last Filed: 08/25/22 16:34> MDM MDM Narrative Medical decision making narrative: I discussed with the radiologist who agreed that although it is reasonable to get a stat MRI, it is not emergent enough to bump other scheduled patients. Therefore I discussed with the fire extinguisher technician and we were able to come up with the time today that we can fit this patient in between other patients, so she is being observed in the ER and allowed to eat and drink until she can get her MRI. History & Record Review Additional record(s) reviewed:: Prior outpatient record (MRI brain 07/24/2022: No cerebral mass, but apparent metastasis seen to cranium and cervical spine) Radiography Diagnostic Testing: Clinical Impression(s) from Imaging Studies Brain MRI 08/25/22 12:56 IMPRESSION: (NOT LISTED IN ORDER OF SIGNIFICANCE) There are no acute intracranial findings. Electronically Signed: Braden Muniz MD at 17:08 EDT , Management Discussion w/another healthcare provider: Radiologist (Dr. Rivero) <Dr. Amado Jacob MD - Last Filed: 08/25/22 17:47> MDM Radiography Diagnostic Testing: Clinical Impression(s) from Imaging Studies Brain MRI 08/25/22 12:56 IMPRESSION: (NOT LISTED IN ORDER OF SIGNIFICANCE) There are no acute intracranial findings. Electronically Signed: Braden Muniz MD at 17:08 EDT , MRI interpreted by radiologist as no acute process. Plan is to discharge to home. Patient will be discharged to home Discharge Plan Triage Chief Complaint: Dizziness ED Provider: Bunny Shepherd Dx/Rx/DC Orders Clinical Impression: Episodic peripheral vertigo, Use of tamoxifen (Nolvadex), Malignant neoplasm of breast metastatic to bone Instructions: ED Vertigo, Unspecified Prescriptions: New meclizine [meclizine] 25 mg tablet 25 mg PO Q8H PRN PRN (Reason: Dizziness) Qty: 20 0RF No Action lidocaine-prilocaine 2.5-2.5 % cream 1 applic topical ONCE PRN (Reason: port access) 30 Days Qty: 30 2RF capecitabine [Xeloda] 500 mg tablet 1,500 mg PO BID Qty: 84 0RF Rx Instructions: for 14 days per 21-day cycle; must administer with water 30 minutes after a meal hydrocodone-acetaminophen 5-325 mg tablet 1 tab PO BID PRN calcium carbonate-vitamin D3 1 EACH tablet 1 each PO BID diphenhydramine HCl [Benadryl] 25 mg Capsule 25 mg PO QHS PRN (Reason: Insomnia) levothyroxine 137 MCG tablet 137 mcg PO MOTUWETHFRSA albuterol sulfate 90 mcg/actuation Hfa Aerosol Inhaler 1 inh INHALATION Q6H PRN (Reason: Wheezing) tramadol 100 mg tablet 100 mg PO Q8H PRN (Reason: severe pain (scale score 7-10)) Qty: 18 0RF prochlorperazine maleate 10 mg tablet 10 mg PO Q6H PRN (Reason: nausea and vomiting) Qty: 30 2RF ondansetron 4 mg tablet,disintegrating 4 mg PO Q8H PRN PRN (Reason: Nausea) 10 Days Qty: 30 3RF spironolactone [Aldactone] 50 mg tablet 50 mg PO DAILY Qty: 30 1RF exemestane [Aromasin] 25 mg tablet 25 mg PO DAILY 90 Days Qty: 90 1RF Rx Instructions: must administer after a meal Primary Care Provider: Yoel Urbina Referrals: Waqar Deutsch MD [Med Staff - Active Staff] - (call for follow up directions) Yoel Urbina MD [Primary Care Provider] -
[2022-08-25 17:03] VITALS: BP 112/77; PULSE 85; RESP 16; O2SAT 99
== END 2022-08-25 17:58 | disposition home or self-care (01) ==
LOC: ED 13:50
PROVIDERS: Emergency Provider Emergency Medicine; PCP Family Medicine; Visit Provider Emergency Medicine
DX: H81.399 Other peripheral vertigo, unspecified ear (principal); C79.51 Secondary malignant neoplasm of bone; C50.919 Malignant neoplasm of unspecified site of unspecified female breast; R51.9 Headache, unspecified; Z87.891 Personal history of nicotine dependence; Z79.810 Long term (current) use of selective estrogen receptor modulators (SERMs)
CPT/HCPCS: 70553; 99283; A9575; A4216

== ENCOUNTER → 2022-09-23 | Outpatient (CLI) | payer OTHER, SELFPAY ==
--- NOTE | 2022-09-23 11:42 | US_ITS ---
PROCEDURE: ULTRASOUND GUIDED THORACENTESIS. DATE: 09/23/2022. INDICATION: Female, 62 years old. Left thoracentesis. PHYSICIAN: Matthias Blanca DO PROCEDURE: The risks, benefits, and alternatives to the procedure were explained to the patient. The specific risks of bleeding, infection, and pneumothorax requiring chest tube insertion were discussed and accepted. Written informed consent was obtained. Ultrasonographic evaluation of the left lower pleural space was carried out. An adequate pocket was identified. The patient was placed in the sitting, upright position. The overlying skin was prepped and draped in sterile fashion. 1% lidocaine was administered subcutaneously for local anesthesia. Under ultrasound guidance, a 5 [place] thoracentesis needle/catheter system was advanced into the left posterior lower pleural fluid collection. Approximately 700 mL of clear yellow fluid was drained. The catheter was removed, and a sterile dressing was applied. There were no immediate complications. A chest x-ray was ordered and demonstrated no sizable pneumothorax postthoracentesis. The patient was discharged home in stable condition. US/Thoracentesis W US IMPRESSION: Ultrasound-guided therapeutic left thoracentesis. Electronically Signed: Matthias Blanca MD at 12:57 EDT ,
[2022-09-23 12:05] VITALS: BP 105/70; BP 110/77; BP 118/76; BP 122/80; BP 99/67; PULSE 100; PULSE 101; PULSE 118; PULSE 94; PULSE 95; RESP 18; RESP 20; O2SAT 100; O2SAT 94; O2SAT 98
[2022-09-23] MEDS: Lidocaine 2% (20 ml mdv) 20 ML Vial INFILT (12:05)
--- NOTE | 2022-09-23 12:32 | RAD_ITS ---
INDICATION: post thoracentesis EXAMINATION/TECHNIQUE: X-RAY - XR Chest 2 Views COMPARISON: Chest radiograph from earlier same day and 08/06/2022. Thoracentesis ultrasound from same day. FINDINGS: Support devices: Stable positioning of the right-sided Mediport terminating within the atrial caval junction. Trace residual left pleural effusion and left basilar atelectasis status post thoracentesis. No sizable pneumothorax. Aeration of the right lung is unchanged. Heart size is stable. Bones and soft tissues are unchanged. RAD/Chest Insp/Exp 2 View IMPRESSION: Trace residual left pleural effusion status post thoracentesis. No sizable pneumothorax. No acute cardiopulmonary findings. Electronically Signed: Matthias Blanca MD at 12:49 EDT ,
--- NOTE | 2022-09-23 13:16 | NURSING ---
talked with nurse at the office and they only wanted the fluid removed no lab analysis, per Sera
== END | disposition home or self-care (01) ==
LOC: US 11:03
PROVIDERS: PCP Family Medicine; Referring Provider Internal Medicine Medical Oncology; Visit Provider Internal Medicine Medical Oncology
DX: J90 Pleural effusion, not elsewhere classified (principal); C50.412 Malignant neoplasm of upper-outer quadrant of left female breast; Z17.0 Estrogen receptor positive status [ER+]; Z79.51 Long term (current) use of inhaled steroids; R06.02 Shortness of breath
CPT/HCPCS: 32555; 71046

== ENCOUNTER 2022-10-23 09:30 | Outpatient (RCR) | payer OTHER, SELFPAY ==
--- NOTE | 2022-10-17 11:30 | HP.PTEVAL ---
Patient's Visit Information DULCE MCKEON is a 62 year old F referred to Physical Therapy by Dr. Benton Rausch MD with a diagnosis of dizziness and giddiness, WATKINS,. Date of Evaluation: 10/17/22 Physical Therapist: JESSA Still - Visit Plan Frequency: 1-2x /Week Duration: 2 Months Plan: 1-2X/ week for 8 weeks for VOR exercise progression, test and treat balance accordingly, habituation exercises with HEP. HEP: sitting and standing smooth pursuit horizontal - Subjective Ever since the first week of August she has been dizzy and double vision sometimes. She has been treated for vertigo with meclazene, anti histamine (those did not work). Then she was put on a high dose of prednizone with bad side effects (whole L side of face is numb, skull and and L eye feels like it is swollen). She is dizzy all the time and it never goes away. If she looks straight ahead she feels dizzy and sees different rainbow colors and 1/2 tobias colors. If she moves her eyes everything spins around. She does not feel dizzy while she is sleeping. She does not feel steady on her feet when gets up to go to the bathroom and other nights she feels fine. She does not feel weakness in her legs or arms. There has been times she went to the dentist she stood up out of the chair and the girls had to catch her. When she stands up, she has to stand up really slow. The Dr said that she just needs vestibular therapy. She has had 3 brain MRI's and CT scans and they all came back fine. She has no sinus issues or viral illness around the time this all started. She was work she bent down and things started to spin and never stopped. At that point she felt spinning for a few hours to the point she had to get a ride home from work. Since then no room spinning dizziness but feels very off. She feels things are pulsating here. She went to eye Dr and sees rainbows when she is really dizzy and has WATKINS with them and those can last 10 min to an hour. She has a little ringing in the ears. Stress level is pretty bad due to health issues. No history of migraines. Bright lights will make it worse. She has about 4-5 episodes a day. 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 was going to send CT scan to neurologist but has not heard back yet. Her anxiety level is pretty bad. She is doing Chemo for breast cancer with METS. Thyroid looks good. L eye feels blurry and swollen. - Pain Pressure in L eye Pain Intensity (Out of 10): 7 - Objective Horizontal smooth pursuit... started out with double vision but subsided the longer that we did it.... a little dizzy at 30 seconds. Did it in sitting. Sitting vertical smooth pursuit... sees 2 at eye level but no real dizziness after 30 seconds. Sitting head and eyes together horizontal... a little more dizzy 30 seconds but did not last long. Sitting head and eyes together vertical... no dizziness. Double vision and rainbows are gone at this point. Standing horizontal smooth pursuit...only could tolerate approx 12 seconds and then started to be off balance. After she rested we were able to go about 45 seconds with horizontal smooth pursuit in standing with no LOB. Pt walked out on her crutches due to a leg strain and she felt less dizzy walking out. - Balance/Special Test Scores Dizziness Score: 78 - Goals Goal 1:: I HEP Goal Time Frame: 6-8 Weeks Goal 2:: Decrease severity and freq of dizzy episodes to 1X/day or less Goal Time Frame: 6-8 Weeks Goal 3:: Be able to walk with horizontal head turns with no dizziness and no LOB Goal Time Frame: 6-8 Weeks Goal 4:: Assess pt on the CATSIB when able with leg injury Goal Time Frame: 6-8 Weeks - Anticipated Interventions Patient/Client Instruction: Educate patient on: Condition, Plan of Care For the Purpose of:: To increase ROM, To improve nutrient delivery to tissue, To improve muscle performance and motor function, To improve ability to perform ADL's, To increase tolerance to activity/condition/position, To improve performance and independence with ADL's, To decrease level of supervision to perform tasks, To improve ability of physical actions for home/community/work/leisure, To improve gait and locomotor functions, To increase flexibility/ROM, To improve balance, To improve safety with gait Therapeutic Exercise to Include: Strength training, Balance training, Gait and locomotor training, Neuromotor development, Active ROM For the Purpose of:: To improve muscle performance and motor function, To improve ability to perform ADL's, To increase tolerance to activity/condition/position, To improve performance and independence with ADL's, To decrease level of supervision to perform tasks, To improve gait and locomotor functions, To improve health of tissue, To decrease soft tissue restriction, To increase flexibility/ROM, To improve balance, To improve safety with gait Functional Training to Include: Gait training For the Purpose of:: To improve gait and locomotor functions, To improve safety with gait Thank you for the opportunity to evaluate your patient. For Medicare and Medicare HMO plans, please review the plan of care and approve it. It will need to be FAXED BACK to us at [phone] for Medicare purposes. For Medicare only, by signing this I certify the plan of care. Please let me know if there are questions or concerns regarding this plan of care. Physician Signature: Date:
--- NOTE | 2023-02-03 08:15 | HP.PT.NRP(2) ---
Patient Information Patient Information: DULCE MCKEON was seen in my office for initial evaluation on . The following Plan of Care was established for this patient: Last Seen Last Seen: This patient was last seen in our office . Pertinent comments regarding their Physical therapy will appear below: At this point I will be discontinuing this patient from physical therapy. I would be happy to see this patient again in the future if found appropriate by the physician. Thank you! Bridget Woods, MPT
== END 2022-10-23 19:00 | disposition home or self-care (01) ==
LOC: PT 09:30
PROVIDERS: PCP Family Medicine; Referring Provider Otolaryngology; Visit Provider Otolaryngology
DX: R42 Dizziness and giddiness (principal); R51.9 Headache, unspecified; R60.0 Localized edema; R20.2 Paresthesia of skin
CPT/HCPCS: 97110; 97162

== ENCOUNTER → 2022-10-28 | Outpatient (CLI) | payer OTHER, SELFPAY ==
--- NOTE | 2022-10-28 11:22 | CT_ITS ---
STUDY: CT CHEST, ABDOMEN T PELVIS WITH CONTRAST REASON FOR EXAM: Female, 62 years old. MONITOR METASTATIC breast CA-IV ONLY RADIATION DOSAGE (If Supplied By Facility): CTDIvol = ( 13.63 ) mGy, DLP = ( 1300.20 ) mGycm TECHNIQUE: Transaxial imaging was performed following intravenous administration of IV 100mL Isovue-300. Multiplanar coronal and sagittal images were reformatted. Individualized dose optimization techniques were used for this CT. COMPARISON: Comparison is made with prior study dated June 16, 2022. FINDINGS: CHEST A right-sided portacatheter is seen with the tip in the superior vena cava. Stable small bilateral axillary lymph nodes. The largest lymph node in the right axilla measures 1.2 cm. Stable diffuse thickening of the skin overlying the left breast. Stable 7.2 mm nodule in the inferior aspect of the left breast. Bilateral pleural effusions left greater than right. Focal loculation is seen along the anterior left pleural space. Fluid is also seen in the left major fissure. Stable 2.7 cm x 2 cm nodular density at the left lung base. Normal heart and pericardium. Normal mediastinum. Normal hilar regions. Normal unenhanced pulmonary arteries. Normal aorta arch and descending thoracic aorta. Diffuse bony metastasis involving the appendicular and axial skeleton.. ABDOMEN There now is evidence of multiple hypodense nodules scattered throughout both lobes of the liver in keeping with diffuse metastatic disease. The gallbladder is contracted. Minimal thickening of the gallbladder wall. Normal spleen. Normal pancreas. Stable 1.9 cm x 1.6 cm hypodense mass in the left adrenal gland. Normal right kidney. Mild left hydronephrosis and left hydroureter down to the distal portion of the left ureter although no obstructive uropathy is seen. Normal visualized stomach. Normal small intestine. Normal colon. The appendix is visualized and appears normal. There is scattered atherosclerotic calcification of the abdominal aorta, without a demonstrated aneurysm. Normal inferior vena cava. Normal retroperitoneum. Normal abdominal wall. Diffuse lytic and sclerotic metastasis involving the appendicular and axial skeletons. Since prior study, there has been progression of the metastatic deposits in the left iliac bone with evidence of bony destruction. PELVIS Normal urinary bladder. There is no pelvic fluid. There is no pelvic lymphadenopathy or mass lesion. Normal visualized pelvic arteries. CT/CT Chest, Abd, Pel w/Contrast IMPRESSION: Bilateral pleural effusions worse on the left side as described. Stable nodule in the inferior aspect of the left breast. Stable nodules at the left lung base. Liver metastasis. Stable hypodense mass in the left adrenal gland. Diffuse bony metastasis as described with progression in the left iliac bone. New left hydronephrosis and left hydroureter down to the distal portion of the left ureter. Electronically Signed: Emory Rivero MD at 14:40 EDT ,
== END | disposition home or self-care (01) ==
LOC: CT 11:05
PROVIDERS: PCP Family Medicine; Referring Provider Internal Medicine Medical Oncology; Visit Provider Internal Medicine Medical Oncology
DX: C50.912 Malignant neoplasm of unspecified site of left female breast (principal); C79.51 Secondary malignant neoplasm of bone
CPT/HCPCS: 71260; 74177; Q9967; A4216

== ENCOUNTER → 2022-11-07 | Outpatient (CLI) | payer OTHER, SELFPAY ==
--- NOTE | 2022-11-07 12:54 | US_ITS ---
PROCEDURE: ULTRASOUND GUIDED THORACENTESIS. DATE: November 07, 2022. INDICATION: Female, 62 years old. Left pleural effusion. PHYSICIAN: Emory Rivero M.D. PROCEDURE: The risks, benefits, and alternatives to the procedure were explained to the patient. The specific risks of bleeding, infection, and pneumothorax requiring chest tube insertion were discussed and accepted. Written informed consent was obtained. Ultrasonographic evaluation of the left lower pleural space was carried out. An adequate pocket was identified. The patient was placed in the sitting, upright position. The overlying skin was prepped and draped in sterile fashion. 1% lidocaine was administered subcutaneously for local anesthesia. Under ultrasound guidance, a 5 [place] thoracentesis needle/catheter system was advanced into the left posterior lower pleural fluid collection. Approximately 650 mL of zoila-colored fluid was drained. The catheter was removed, and a sterile dressing was applied. The patient tolerated the procedure well. A chest x-ray was ordered. US/Thoracentesis W US IMPRESSION: Ultrasound-guided left thoracentesis. Electronically Signed: Emory Rivero MD at 14:13 EDT ,
[2022-11-07] MEDS: Lidocaine 2% (20 ml mdv) 20 ML Vial INFILT (13:37)
--- NOTE | 2022-11-07 13:40 | RAD_ITS ---
STUDY: X-RAY CHEST REASON FOR EXAM: Female, 62 years old. Post thora TECHNIQUE: AP inspiration and expiration views. COMPARISON: Comparison is made with prior study dated September 23, 2022. FINDINGS: The patient is status post left thoracentesis. Small residual left pleural effusion with left basilar atelectasis and/or infiltration. Diffuse bony metastasis. RAD/Chest Insp/Exp 2 View IMPRESSION: Small residual left pleural effusion with left basilar infiltration and/or atelectasis. Diffuse bony metastasis. Electronically Signed: Emory Rivero MD at 13:57 EDT ,
[2022-11-07 13:59] VITALS: BP 101/57; BP 103/65; PULSE 94; PULSE 97; RESP 18; TEMP 37.1; O2SAT 100; O2SAT 98
== END | disposition home or self-care (01) ==
LOC: US 12:53
PROVIDERS: PCP Family Medicine; Referring Provider Internal Medicine Medical Oncology; Visit Provider Internal Medicine Medical Oncology
DX: J90 Pleural effusion, not elsewhere classified (principal)
CPT/HCPCS: 32555; 71046

== ENCOUNTER 2022-11-14 19:52 | Emergency (ER) | payer OTHER, SELFPAY ==
[2022-11-14 19:54] VITALS: BP 99/74; PULSE 111; RESP 18; TEMP 36.7; O2SAT 99; BMI 26.4
[2022-11-14 20:14] LABS: Hematocrit 24.4 % (37-47); Hemoglobin 7.6 g/dL (12.0-15.0); Mean Corp Hgb Conc 31.1 g/dL (32-36); Mean Corpuscular Hgb 30.4 pg (27.0-32.0); Mean Corpuscular Volume 97.6 fL (81-99); Mean Platelet Vol. 10.6 fl (6.2-12.0); POSITIVE COUNT YES; POSITIVE MORPHOLOGY YES; Platelet Count 79 K/mm3 (150-450); RBC Distribution Width CV 19.7 % (11.6-14.6); RBC Distribution Width SD 67.2 fl (35.1-43.9)
[2022-11-14 20:16] LABS: Differential Indicated MANUAL DIFF
[2022-11-14 20:25] LABS: Anion Gap 11 (5-15); BUN 14 mg/dL (7-18); BUN/Creat Ratio 7.3 RATIO (10-20); Calcium,Total 9.2 mg/dL (8.5-10.1); Chloride 108 mmol/L (98-107); Creatinine, Serum 1.91 mg/dL (0.55-1.02); EST Glomerular Filtration Rate 28 mL/min (>60); Est Glom Filt Rate - Afr Amer 34 mL/min (>60); Estimated Creatinine Clearance 28.96 ml/min; Glucose 140 mg/dL (74-106); Potassium 3.9 mmol/L (3.5-5.1); Sodium Level 138 mmol/L (136-145)
--- NOTE | 2022-11-14 20:25 | RAD_ITS ---
STUDY: X-RAY CHEST REASON FOR EXAM: Female, 62 years old. sob TECHNIQUE: Single AP portable view of the chest. COMPARISON: 11/07/2022. FINDINGS: Increasing opacification in the lower half of the left hemithorax consisting of moderate pleural effusion and atelectasis or infiltrate. Small right pleural effusion. Stable right Mediport catheter terminating about the level of the right hilum. No evidence of cardiomegaly. Widespread diffuse blastic metastatic disease throughout the bones, stable. RAD/Chest 1 View IMPRESSION: Worsening of pleural effusion and atelectasis or infiltrate in the lower left hemithorax. Electronically Signed: Marquis Fabian MD at 20:45 EDT ,
[2022-11-14 20:34] VITALS: RESP 18; O2SAT 100; O2SAT 99
[2022-11-14 20:47] LABS: Basophil 1 % (0-1); Corrected WBC 11.1 K/mm3 (4.4-11.0); Lymphocyte 16 % (19-41); Metamyelocyte 1 % (0-1); Monocyte 6 % (0-10); Neutrophil-Band 5 % (0-5); Neutrophil-Segmented 71 % (47-70); Nucleated Red Bld Cells,Manual 7 % (0-5); Total Cells Counted 100 (MANUAL DIFF)
[2022-11-14 20:49] LABS: Platelet Estimate MOD DEC (ADEQ); Red Cell Morphology NORM C+C NORMAL (NORM C&C)
[2022-11-14 20:50] LABS: Absolute Lymphocyte Count 1.78 X10^3/uL (0.83-4.51); Absolute Neutrophil Count 8.4 X10^3/uL (2.0-7.7)
--- NOTE | 2022-11-14 21:13 | CT_ITS ---
INDICATION: PE EXAMINATION: - CTA Chest WO/W Contrast Injection A radiation dose optimization technique was used for this scan. COMPARISON: Chest and abdomen CT 10/28/2022. PET CT 11/20/2020. FINDINGS: Contrast enhanced serial CTA axial images through the chest with coronal and sagittal reformatted series. Additional dedicated coronal and sagittal MIP reformatted series provided as well. IV Contrast dosage and agent: IV 75mL Isovue-370 Radiation CTDIvol 24.22 Radiation DLP 516.65 MEDIASTINUM: No acute thoracic aortic abnormality. No pulmonary artery filling defects. Right chest port catheter tip terminates within the superior vena cava. LUNG PARENCHYMA/PLEURA: Again is noted heterogeneous moderate size multiloculated left pleural effusion which contains new dependent heterogeneous material, to include hemorrhage, purulent material, or other proteinaceous loculation. Associated adjacent atelectasis. Small right pleural effusion. No pneumothorax. BONES: Again noted extensive diffuse bilateral bony metastases. UPPER ABDOMEN: 2 cm ovoid left adrenal lesion which measures fat attenuation on previous noncontrast examination consistent with adenoma, stable from 2020. Left hydronephrosis again noted, only partially imaged. CT/CTA Chest W/WO Contrast IMPRESSION: Again is noted heterogeneous moderate size multiloculated left pleural effusion which contains new dependent heterogeneous material, to include hemorrhage, purulent material, or other proteinaceous loculation. Associated adjacent atelectasis. Small right pleural effusion. Left hydronephrosis again noted, only partially imaged. Again noted extensive diffuse bilateral bony metastases. Left adrenal adenoma. No pulmonary embolus or acute aortic abnormality. Electronically Signed: Adair Keys MD at 0:25 EDT ,
--- NOTE | 2022-11-14 21:16 | EX.ED.DYSGE1 ---
HPI History of Present Illness Chief Complaint: Shortness of Breath Informant: patient Narrative Narrative: Patient presents with dyspnea. Patient states for the last couple days she has been a little bit more dyspneic than baseline. She does have a history of recurrent pleural effusions but normally goes about 2 months between thoracentesis. Her last was a week ago. She has a history of breast cancer over the last 3 years. She has been on multiple rounds of chemotherapy. She has never had a PE or DVT. No history of heart disease. She was at work earlier today. She started to get more short of breath diaphoretic and felt like she might pass out. She was able to sit down and the symptoms did pass. She is better now but does still feel little short of breath. She states this does not feel like her typical pleural effusion. She never had chest pain with this. No back pain. No leg pain. She has some chronic left arm swelling for about the last 6 or 7 months but has not changed. She has had echo of the heart that showed no acute process. She is not on blood thinners. She occasionally coughs a little bit in the morning but no significant sputum. [facility] Medical History Alcohol use Anemia Arthritis Bone metastasis Cancer Cancer related pain CINV (chemotherapy-induced nausea and vomiting) Constipation Coordination abnormal Decreased coordination Ductal carcinoma Elevated BUN Elevated serum creatinine Encounter for chemotherapy management Enlarged pituitary gland Former smoker Hand foot syndrome Headache History of recent steroid use Hypotension Hypothyroid Insect bite Left arm swelling LUE weakness Metastatic breast cancer Numbness and tingling of left hand Oral candidiasis Rib pain on left side Swelling of left hand Swelling of left upper extremity Thyroid disease Wears glasses Wears partial dentures Home Medications calcium carbonate 600 mg-vitamin D3 5 mcg (200 unit) tablet 1 each PO BID 08/18/19 [History Last Taken Unknown] levothyroxine 137 mcg tablet 137 mcg PO MOTUWETHFRSA 01/01/20 [History Last Taken 12/14/20] albuterol sulfate 90 mcg/actuation aerosol inhaler 1 inh inhalation Q6H PRN Wheezing 12/28/21 [History Last Taken Unknown] tramadol 100 mg tablet 100 mg PO Q8H PRN severe pain (scale score 7-10) #18 tabs 02/06/22 [Rx Last Taken Unknown] diphenhydramine HCl 25 mg capsule (Benadryl) 25 mg PO QHS PRN Insomnia 02/11/22 [History Last Taken Unknown] lidocaine-prilocaine 2.5 %-2.5 % topical cream 1 applic topical ONCE PRN port access 30 days #30 grams 03/25/22 [Rx Last Taken Unknown] prochlorperazine maleate 10 mg tablet 10 mg PO Q6H PRN nausea and vomiting #30 tabs 04/04/22 [Rx Last Taken Unknown] ondansetron 4 mg disintegrating tablet 4 mg PO Q8H PRN PRN Nausea 10 days #30 tabs 04/07/22 [Rx Last Taken Unknown] capecitabine 500 mg tablet (Xeloda) 1,500 mg (3 x 500 mg) PO BID #84 tabs 04/24/22 [Rx Last Taken Unknown] exemestane 25 mg tablet (Aromasin) 25 mg PO DAILY 90 days #90 tabs 08/06/22 [Rx Last Taken Unknown] meclizine 25 mg tablet 25 mg PO Q8H PRN PRN Dizziness #20 tabs 08/25/22 [Rx Last Taken Unknown] spironolactone 50 mg tablet (Aldactone) 50 mg PO DAILY #30 tabs 09/08/22 [Rx Last Taken Unknown] oxycodone-acetaminophen 5 mg-325 mg tablet 1 tab PO BID PRN Pain 10/06/22 [History Last Taken Unknown] Allergy/AdvReac Type Severity Reaction Status Date / Time dexamethasone AdvReac Other Verified 11/14/22 19:57 Family History Unknown Breast cancer Grandfather Cancer Surgical History History of breast biopsy History of delivery Hx of wisdom tooth extraction Social History household members: spouse housing: house Smoking Status: Former smoker Tobacco: How many years used: 20 second hand exposure: No alcohol intake: current details: social substance use type: does not use what type of physical activity do you participate in: walking seatbelt use: always do you feel safe at home: Yes additional social history: [employer]- [employer] work Patient works at [employer] [facility] ROS ED ROS Narrative A complete review of systems was performed and is negative except as documented in the history of present illness. Some specific details below. Constitutional: No recent fevers or chills. EYE: No discharge, visual complaints, or pain. ENT: No difficulty swallowing. No swelling. No pain. No reflux symptoms. CV: No chest pain at any time. Respiratory: See history of present illness. He is better now but does still feel a little bit dyspneic. GI: No abdominal pain. No nausea vomiting diarrhea. No blood in stool. : No frequency dysuria or hematuria. Musculoskeletal: No recent trauma. No pains. No swelling that is new-swelling of the left arm has been present for about 7 months. Skin: No rash. Nondiaphoretic at this time but she was diaphoretic at work when the event occurred. Neuro: No weakness or numbness. Endocrine: No polyuria or polydipsia. EXAM Physical Exam Narrative Exam Narrative: CONSTITUTIONAL: Patient is nontoxic in appearance. The patient looks comfortable. Work of breathing looks normal. HEENT: No notable trauma. Mucous membranes mildly dry. EYES: No conjunctival injection. No proptosis. Mild pallor. NECK:No JVD. No stridor. CARDIOVASCULAR: Mildly tachycardic rate. Regular rhythm. No notable murmur. No JVD. Peripheral pulses are equal. RESPIRATORY: No respiratory distress. Breathing is unlabored. No wheezes. No rhonchi. No rales. No pain with a deep breath. No chest wall tenderness. She does have some decreased breath sounds toward the left base. GASTROINTESTINAL: Not distended. Bowel sounds are normal. No tenderness. GENITOURINARY: No tenderness over the bladder. No CVA tenderness. MUSCULOSKELETAL: Atraumatic. No peripheral edema in her legs but she does have some mild swelling of her left forearm and hand which is chronic. No cord. No tenderness along the deep venous system. No asymmetry of the legs. No distended veins. NEUROLOGICAL: Patient is alert and appropriate. No focal deficit noted. SKIN: No noted rashes. No diaphoresis at this time. PSYCHIATRIC: Patient is calm. Mood is appropriate. Const Vital Signs: 11/14/22 19:54 11/14/22 20:34 11/14/22 20:34 Temperature 98.0 F Temperature Source Temporal Pulse Rate 111 H Respiratory Rate 18 18 Respiratory Effort Respiratory Depth Respiratory Pattern Blood Pressure 99/74 Blood Pressure Mean 82 Blood Pressure Source Blood Pressure Position Blood Pressure Location Pulse Ox 99 100 Oxygen Delivery Method Room Air Room Air Room Air 11/14/22 20:34 11/14/22 23:57 11/15/22 00:13 Temperature 98.4 F 98.1 F Temperature Source Oral Oral Pulse Rate 84 84 Respiratory Rate 19 H 14 Respiratory Effort Short of Breath Respiratory Depth Deep Respiratory Pattern Normal Blood Pressure 122/88 H 100/80 Blood Pressure Mean 99 86 Blood Pressure Source Monitor Monitor Blood Pressure Position Semi-Fowlers Semi-Fowlers Blood Pressure Location Right Arm Right Arm Pulse Ox 98 98 Oxygen Delivery Method Room Air Room Air Room Air MDM MDM MDM Narrative Medical decision making narrative: CBC shows minimally elevated white count and slightly low hemoglobin and platelets which she has had before. Neutrophils are okay if not a little high. Patient's electrolytes do show elevated creatinine. She has been having problems with dehydration. She is on diuretics to try to keep fluids out of her lungs. Not for congestive heart failure. But she has had problems with dehydration and sometimes feeling ill from it. Her glucose was minimally elevated only. Patient's troponin was normal at 3. Patient's repeat troponin was still normal at 5. Patient's single view AP chest x-ray looked at by me showed effusion on the left not on the right. I looked at the films from a week ago. She had had fluid drained then and they look similar to the post thoracentesis levels. She states they do leave some fluid in because it gets too painful for her when they take out all the fluid. She does not feel like her symptoms are due to increased fluid. My independent interpretation of her CT does show bilateral effusions worse on the left. I do not see any sign of a pulmonary embolus. This was similar to the final reading. But they did note possible increase heterogeneous material in the fluid to include hemorrhage purulent material or proteinaceous loculation. Patient states that she has had very thick fluid that say sometimes cannot get out. She does not have symptoms of ongoing bleeding. She is not anticoagulated. She is not having fevers or chills. Patient is getting blood. She states normally when she gets blood she feels a lot better. I think if she was not dehydrated, her hemoglobin would be even lower. Her doctors want her above 8 because this controls her symptoms better. She would like to go home. As long as she is doing well after the transfusion I think this is reasonable. Lab Data Labs: Laboratory Results - last 24 hr 11/14/22 11/14/22 11/14/22 20:04 21:58 23:55 WBC NURSE MANAGER Corrected WBC 11.1 H RBC 2.50 L Hgb 7.6 L Hct 24.4 L MCV 97.6 MCH 30.4 MCHC 31.1 L RDW Std Deviation 67.2 H RDW Coeff of David 19.7 H Plt Count 79 L MPV 10.6 Neut % (Auto) Not Reportable Absolute Neuts (auto) 8.4 H Absolute Lymphs (auto) 1.78 Total Counted 100 Neutrophils % (Manual) 71 H Band Neutrophils % 5 Lymphocytes % (Manual) 16 L Monocytes % (Manual) 6 Basophils % (Manual) 1 Metamyelocytes % 1 Nucleated RBCs/100 WBC 7 H Diff Path Review May foll Platelet Estimate MOD DEC RBC Morphology NORM C+C Sodium 138 Potassium 3.9 Chloride 108 H Carbon Dioxide 19.0 L Anion Gap 11 BUN 14 Creatinine 1.91 H Estim Creat Clear Calc 28.96 Est GFR (MDRD) Af Amer 34 L Est GFR (MDRD) Non-Af 28 L BUN/Creatinine Ratio 7.3 L Glucose 140 H Calcium 9.2 Troponin I High Sens 3 5 Blood Type O POSITIVE Antibody Screen NEGATIVE Crossmatch See Detail Radiography Diagnostic Testing: Clinical Impression(s) from Imaging Studies Chest X-Ray 11/14/22 20:25 IMPRESSION: Worsening of pleural effusion and atelectasis or infiltrate in the lower left hemithorax. Electronically Signed: Marquis Fabian MD at 20:45 EDT , Chest CTA 11/14/22 21:13 IMPRESSION: Again is noted heterogeneous moderate size multiloculated left pleural effusion which contains new dependent heterogeneous material, to include hemorrhage, purulent material, or other proteinaceous loculation. Associated adjacent atelectasis. Small right pleural effusion. Left hydronephrosis again noted, only partially imaged. Again noted extensive diffuse bilateral bony metastases. Left adrenal adenoma. No pulmonary embolus or acute aortic abnormality. Electronically Signed: Adair Keys MD at 0:25 EDT , Discharge Plan Triage Chief Complaint: Shortness of Breath ED Provider: Jordan Sequeira Dx/Rx/DC Orders Clinical Impression: Dyspnea, Anemia, Breast cancer metastasized to multiple sites, Pleural effusion, H/O transfusion of packed red blood cells Instructions: Anemia, ED Pleural Effusion Prescriptions: No Action lidocaine-prilocaine 2.5-2.5 % cream 1 applic topical ONCE PRN (Reason: port access) 30 Days Qty: 30 2RF capecitabine [Xeloda] 500 mg tablet 1,500 mg PO BID Qty: 84 0RF Rx Instructions: for 14 days per 21-day cycle; must administer with water 30 minutes after a meal oxycodone-acetaminophen 5-325 mg tablet 1 tab PO BID PRN (Reason: Pain) calcium carbonate-vitamin D3 1 EACH tablet 1 each PO BID diphenhydramine HCl [Benadryl] 25 mg Capsule 25 mg PO QHS PRN (Reason: Insomnia) levothyroxine 137 MCG tablet 137 mcg PO MOTUWETHFRSA albuterol sulfate 90 mcg/actuation Hfa Aerosol Inhaler 1 inh INHALATION Q6H PRN (Reason: Wheezing) meclizine [meclizine] 25 mg tablet 25 mg PO Q8H PRN PRN (Reason: Dizziness) Qty: 20 0RF tramadol 100 mg tablet 100 mg PO Q8H PRN (Reason: severe pain (scale score 7-10)) Qty: 18 0RF prochlorperazine maleate 10 mg tablet 10 mg PO Q6H PRN (Reason: nausea and vomiting) Qty: 30 2RF ondansetron 4 mg tablet,disintegrating 4 mg PO Q8H PRN PRN (Reason: Nausea) 10 Days Qty: 30 3RF exemestane [Aromasin] 25 mg tablet 25 mg PO DAILY 90 Days Qty: 90 1RF Rx Instructions: must administer after a meal spironolactone [Aldactone] 50 mg tablet 50 mg PO DAILY Qty: 30 1RF Primary Care Provider: Yoel Urbina Referrals: Yoel Urbina MD [Primary Care Provider] - 3-5 Days Activity Restrictions/Additional Instructions: Follow-up with your oncologist. Disposition Disposition: Home, Self Care
[2022-11-14] MEDS: 0.9% Normal Saline 1,000 ML 999 ML IV (21:59)
[2022-11-14 22:05] LABS: Troponin-I HS 3 pg/mL (3.0-54.0)
[2022-11-14 23:57] VITALS: BP 122/88; PULSE 84; RESP 19; TEMP 36.9; O2SAT 98
[2022-11-15] MEDS: Oxycodone/Apap 5/325 Tablet PO (00:11)
[2022-11-15 00:13] VITALS: BP 100/80; PULSE 84; RESP 14; TEMP 36.7; O2SAT 98
[2022-11-15 00:21] LABS: Troponin-I HS 5 pg/mL (3.0-54.0)
[2022-11-15 01:14] VITALS: BP 122/86; PULSE 78; RESP 12; TEMP 36.8; O2SAT 97
[2022-11-15 01:15] VITALS: BP 122/86; PULSE 77; RESP 15; TEMP 36.8; O2SAT 98
[2022-11-15 02:02] VITALS: BP 122/86; PULSE 74; RESP 14; TEMP 37; O2SAT 98
[2022-11-15 02:04] VITALS: BP 122/86; PULSE 74; RESP 14; O2SAT 98
[2022-11-18 12:15] LABS: Pathologist Review Reviewed
== END 2022-11-15 02:06 | disposition home or self-care (01) ==
PROVIDERS: Emergency Provider Emergency Medicine; PCP Family Medicine; Visit Provider Emergency Medicine
DX: D64.9 Anemia, unspecified (principal); C79.51 Secondary malignant neoplasm of bone; C79.9 Secondary malignant neoplasm of unspecified site; C50.919 Malignant neoplasm of unspecified site of unspecified female breast; J90 Pleural effusion, not elsewhere classified; R73.9 Hyperglycemia, unspecified; E86.0 Dehydration; Z79.890 Hormone replacement therapy; Z79.899 Other long term (current) drug therapy; M79.89 Other specified soft tissue disorders; E03.9 Hypothyroidism, unspecified; Z87.891 Personal history of nicotine dependence
CPT/HCPCS: 36430; 71045; 71275; 80048; 84484; 85025; 86850; 86900; 86901; 86920; 86922; 87811; 94760; 96360; 96361; 99284; J7030; J7040; P9016; Q9967; A4216

== ENCOUNTER → 2022-11-18 | Outpatient (CLI) | payer OTHER, SELFPAY ==
[2022-11-18] MEDS: Lidocaine 2% (20 ml mdv) 20 ML Vial INFILT (13:00)
--- NOTE | 2022-11-18 13:36 | US_ITS ---
PROCEDURE: ULTRASOUND-GUIDED THORACENTESIS REASON FOR EXAM: Female, 62 years old. Recurrent pleural effusion. COMPARISON: CTA chest November 14, 2022; ultrasound-guided left thoracentesis November 07, 2022. CONSENT: The risks, benefits and alternatives to the procedure were explained to the patient, and the patient agreed to the procedure and signed the consent. Time-Out Called: Yes. Consent form signed: Yes. PT-PTT Levels Checked: Yes. SEDATION: None. 1% lidocaine used for local anesthesia. STERILE BARRIER TECHNIQUE: The following sterile barrier precautions were used during the procedure: hand hygiene; use of Betadine aseptic; use of sterile gloves and a large sterile sheet. TECHNIQUE: With the patient in a sitting upright position, real-time sonography demonstrated bilateral small to moderate-sized pleural effusions, larger on the left. A site for access was marked on the left. A timeout was performed. Patient''s left posterior lateral chest wall was prepped and draped using sterile technique. I infiltrated the tissues with 2% lidocaine for local anesthesia. A 5-[place] [employer] centesis needle was advanced through the tissues of the chest wall to the left pleural effusion. At the conclusion of the procedure, the catheter was removed. The site was cleansed and dressed. She tolerated the procedure without complication. Post procedure chest x-ray showed no pneumothorax. FINDINGS: There is posterior enhancement. The findings appear anechoic. There is no loculation. Amount of fluid drained: 640 ml. The fluid had a hemorrhagic consistency. US/Thoracentesis W US IMPRESSION: 1. Bilateral pleural effusions, larger on the left. 2. Successful ultrasound guided left thoracentesis. The fluid today had a hemorrhagic consistency, which reportedly is new. Electronically Signed: Devon Long MD at 16:52 EDT Reading Location ID and State: [id number] / Unknown , Service support ,
[2022-11-18 14:00] VITALS: BP 102/73; BP 94/68; PULSE 103; PULSE 91; RESP 16; TEMP 36.6; O2SAT 96; O2SAT 97
--- NOTE | 2022-11-18 14:10 | RAD_ITS ---
INDICATION: Post Thoracentesis EXAMINATION/TECHNIQUE: X-RAY - portable AP upright XR Chest 2 images COMPARISON: Frontal chest x-ray November 14, 2022 FINDINGS: LINES/DEVICES: Right chest wall MediPort again seen with its tip at the cavoatrial junction. LUNGS: Post thoracentesis, the left pleural effusion is decreased in size. There is persistent density of residual fluid as well as probable partial collapse of the left lung base overlapping the left cardiac silhouette and obscuring the diaphragm. Smaller right pleural effusion and some minor volume loss in the right base are grossly unchanged. No pneumothorax. MEDIASTINUM AND CARDIOVASCULAR STRUCTURES: Cardiac silhouette not enlarged. Central airways and mediastinal contour are unremarkable. BONES AND SOFT TISSUES: Mottled sclerotic densities are seen throughout the visualized skeleton, consistent with osseous metastasis. There are old healed fracture deformities of the posterolateral right seventh and eighth as well as posterolateral left sixth and seventh ribs. Degenerative changes again seen in the mid to lower thoracic spine. RAD/Chest Insp/Exp 2 View IMPRESSION: 1. No pneumothorax post left thoracentesis. 2. Left pleural effusion is mildly decreased in size. 3. Persistent partial volume loss also again seen at the left base. 4. Smaller effusion and probable volume loss at the right base are stable. 5. Findings of diffuse osseous metastatic disease again noted. Electronically Signed: Devon Long MD at 14:25 EDT Reading Location ID and State: [id number] / Unknown , Service support ,
== END | disposition home or self-care (01) ==
LOC: US 13:34
PROVIDERS: PCP Family Medicine; Referring Provider Internal Medicine Medical Oncology; Visit Provider Internal Medicine Medical Oncology
DX: J90 Pleural effusion, not elsewhere classified (principal)
CPT/HCPCS: 32555; 71046

== ENCOUNTER 2022-11-20 13:45 | Outpatient (RCR) | payer OTHER, SELFPAY ==
--- NOTE | 2022-11-21 11:15 | HP.OTEVAL ---
Patient's Visit Information Visit Information Visit Information: DULCE MCKEON is a 62 year old F, referred to Occupational Therapy by KEENAN Stevens, with a diagnosis of left malignant neoplasm / lymphedema. Date of Evaluation: 11/20/22 Occupational Therapist: Mica Bravo, CARL/Gianna, CHT Subjective Subjective: This 62 year old female was seen for OT eval with dx of malignant neoplasm of left breast about three years ago. pt initiated chemo three years ago- pt states she has not had sx. for breast removal or lymph removal pt states goes to chemo 1 a week and two weeks off. pt states left UE started swelling in May. pt states the swelling was initiated by a new chemo drug. (due to side affects she could not stay on that kind of chemo) pt states she was hopeful the swelling would resolve but at this time it has not. pt states forearm feels tight and uncomfortable at times pt states Bone pain from chemo is very uncomfortable. Lymphedema (Circumferential Measure) MCP: right 19.5cm left 20cm Wrist: right 16cm left 18.5cm Lower forearm: right 17.5 cm left 21.5cm Largest forearm: right 24cm left 27.5cm Elbow: right 24cm left 27.5cm Largest humerus: right 25cm left 28cm Axcillary: right 34 left 32 cm Goals Goal: Patient will demonstrate a 20% reduction in edema by discharge: Yes Goal: Patient will demonstrate adequate knowledge of self-bandaging by the end of the first week.: Yes Goal: Patient will demonstrate adequate knowledge of self-massage by the end of the second week.: Yes Goal: Patient will demonstrate adequate knowledge of skin care and precautions by the end of the first week.: Yes Goal: Patient will demonstrate adequate knowledge of therapeutic exercises by discharge.: Yes Goal: Patient will select an appropriate compression garment and demonstrate adequate knowledge of correct donning technique, care and wearing schedule by discharge.: Yes Goal: Patient will voice understanding of need to replace compression garment every four to six months by discharge.: Yes Rehabilitation General Assessment: pt demo with stage 2 lymphedema and in need of skilled OT services 2-3 sessions to provide ed. on life long mt., lymph stimulation exercise and self manual lymph massage and ed. on compression garments. Today therapist ed. pt on use of compression sleeve 20-30 mmHg and glove. during the day. followed by AROM lymph stimulation ex and self manual lymph massage. pt was given handouts. Therapist ed. pt on treatment options and due to transportation/driving with her apts and husbands pt does not want to return to clinic- therapist rec'd compression sleeve and glove during the day - off at night may use light wrap at night to support circulation-(therapist ed. pt on wrap this session) pt stated the compression felt good. Therapy sent order to for sig. for compression sleeve 20-30mmHg, and glove- pt was to call insurance to see if they would cover cost of compression garments. once therapist get order will fax to [facility] as this is where pt requested. pt was given contact info of this therapist to call with questions or concerns. pt agreed. Rehabilitation Potential: Good Anticipated Interventions Anticipated Interventions: Education re Diagnosis, Education re Life-long lymphedema Management, Education re Self-Bandaging Techniques, Education re Skin Care and Precautions, Education re Self Massage Techniques and Education re Correct Donning Tech,Care&Wearing Sched Comp Garments Visit Plan Frequency: 1x/Week Duration: 4 Weeks TEXT: Thank you for the opportunity to evaluate your patient. For Medicare and Medicare HMO plans, please review the plan of care and approve it. It will need to be FAXED BACK to us at [phone] for Medicare purposes. Please let me know if there are questions or concerns regarding this plan of care. Physician Signature: Date:
== END 2022-11-20 19:00 | disposition home or self-care (01) ==
LOC: OT 13:45
PROVIDERS: PCP Family Medicine; Referring Provider Nurse Practitioner Family; Visit Provider Nurse Practitioner Family
DX: C50.912 Malignant neoplasm of unspecified site of left female breast (principal)
CPT/HCPCS: 97166; 97530

== ENCOUNTER 2022-11-21 19:22 | Emergency (ER) | payer OTHER, SELFPAY ==
[2022-11-21 19:23] VITALS: BP 112/76; PULSE 115; RESP 24; TEMP 36.8; O2SAT 99; BMI 25.7
--- NOTE | 2022-11-21 20:15 | RAD_ITS ---
INDICATION: Neutropenic Fever EXAMINATION/TECHNIQUE: X-RAY - XR Chest 2 Views COMPARISON: 11/18/2022 chest radiograph. Findings: Frontal and lateral views of the chest. Right chest port catheter tip overlies cavoatrial junction. LUNG PARENCHYMA/PLEURA: Left greater than right small to moderate pleural effusions with likely adjacent atelectasis versus other airspace disease, little unchanged from 3 days ago. No pneumothorax. HEART/GREAT VESSELS: Cardiomediastinal silhouette is partially obscured. BONES: Diffuse heterogeneity of peripheral osseous structures suggesting metabolic bone disease versus metastases. RAD/Chest PA and Lateral IMPRESSION: Stable bilateral pleural effusions with likely adjacent atelectasis versus other airspace disease from 3 days ago. Electronically Signed: Adair Keys MD at 20:48 EDT ,
[2022-11-21 21:22] VITALS: BP 106/76; PULSE 90; RESP 19; TEMP 36.6
[2022-11-21 21:26] VITALS: BP 106/76; PULSE 88; RESP 16
--- NOTE | 2022-11-21 21:39 | ED.VIS.DYS ---
HPI History of Present Illness Chief Complaint: Shortness of Breath Informant: patient Onset/Context/Timing Onset: Days Context: gradual Quality: Positive for Orthopnea Current Severity: Mild Maximum Severity: Mild Worsened by: Lying flat Relieved by: Oxygen Associated Symptoms cough Chest Pain: Positive for None Narrative Narrative: 62-year-old female known history of breast cancer with metastases to her bone. Complaining of shortness of breath. Recurrent pleural effusions. Last drained on Thursday 3 days ago. They removed 650 cc of fluid. She denies any chest pain. No hemoptysis. PE Risk Factors: Positive for Cancer; Negative for OCP + Smoking + > 35, Prior DVT or PE, Recent immobilization or Recent surgery Prior similar symptoms: Yes Recent Illness/Hospitalization: No PFSH PFSH Medical History Alcohol use Anemia Arthritis Bone metastasis Cancer Cancer related pain CINV (chemotherapy-induced nausea and vomiting) Constipation Coordination abnormal Decreased coordination Ductal carcinoma Elevated BUN Elevated serum creatinine Encounter for chemotherapy management Enlarged pituitary gland Former smoker Hand foot syndrome Headache History of recent steroid use Hypotension Hypothyroid Insect bite Left arm swelling LUE weakness Metastatic breast cancer Numbness and tingling of left hand Oral candidiasis Rib pain on left side Swelling of left hand Swelling of left upper extremity Thyroid disease Wears glasses Wears partial dentures Home Medications calcium carbonate 600 mg-vitamin D3 5 mcg (200 unit) tablet 1 each PO BID 08/18/19 [History Last Taken Unknown] levothyroxine 137 mcg tablet 137 mcg PO MOTUWETHFRSA 01/01/20 [History Last Taken 12/14/20] albuterol sulfate 90 mcg/actuation aerosol inhaler 1 inh inhalation Q6H PRN Wheezing 12/28/21 [History Last Taken Unknown] ondansetron 4 mg disintegrating tablet 4 mg PO Q8H PRN PRN Nausea 10 days #30 tabs 04/07/22 [Rx Last Taken Unknown] exemestane 25 mg tablet (Aromasin) 25 mg PO DAILY 90 days #90 tabs 08/06/22 [Rx Last Taken Unknown] spironolactone 50 mg tablet (Aldactone) 50 mg PO DAILY #30 tabs 09/08/22 [Rx Last Taken Unknown] oxycodone-acetaminophen 5 mg-325 mg tablet 1 tab PO BID PRN Pain 10/06/22 [History Last Taken Unknown] Allergy/AdvReac Type Severity Reaction Status Date / Time dexamethasone AdvReac Other Verified 11/21/22 19:23 Family History Unknown Breast cancer Grandfather Cancer Surgical History History of breast biopsy History of delivery Hx of wisdom tooth extraction Social History household members: spouse housing: house Smoking Status: Former smoker Tobacco: How many years used: 20 second hand exposure: No alcohol intake: current details: social substance use type: does not use what type of physical activity do you participate in: walking seatbelt use: always do you feel safe at home: Yes additional social history: [employer] work Patient works at [employer] in [place] ROS ROS ED ROS Narrative Shortness of breath. Review of Systems ROS Unobtainable: Denies due to encephalopathy Constitutional Constitutional ED: Denies chills Eyes Eyes: Denies blurry vision ENT ENT ED: Denies ear pain Cardiovascular Cardiovascular: Denies chest pain Respiratory/Chest Respiratory/Chest: Reports cough and dyspnea Gastrointestinal Gastrointestinal: Denies abdominal pain Genitourinary Genitourinary ED: Denies dysuria or hematuria Musculoskeletal Musculoskeletal: Denies arthralgias Integumentary Denies abscess Neurologic Neurologic: Denies headache(s) Psychiatric Psychiatric: Denies anxiety Endocrine Endocrinology: Denies cold intolerance Hematologic/Lymphatic Hematologic/Lymphatic: Denies easy bleeding Allergic/Immunologic Allergic/Immunologic ED: Denies mouth swelling EXAM Physical Exam Narrative Exam Narrative: 62-year-old female no acute distress. Vital signs are stable though she is tachycardic at 115. Pulse ox is 99% on room air. No signs hypoxia. HEENT exam unremarkable. Neck nontender no JVD. Lungs clear to auscultation bilaterally. Slightly diminished in the left base. Heart regular rhythm rate about 90 no murmur. Chest wall nontender. Abdomen soft nontender. Moving all 4 extremities. Calves are nontender without edema or cords. Neurologically she is awake and alert. No focal motor deficits Const Vital Signs: 11/21/22 19:23 11/21/22 20:48 11/21/22 21:22 Temperature 98.2 F 98 F Temperature Source Temporal Oral Pulse Rate 115 H 90 Respiratory Rate 24 H 19 H Respiratory Effort Short of Breath Respiratory Depth Deep Respiratory Pattern Tachypnea Blood Pressure 112/76 106/76 Blood Pressure Mean 88 86 Pulse Ox 99 Oxygen Delivery Method Room Air Room Air 11/21/22 21:22 11/21/22 21:26 11/21/22 22:00 Temperature 97.8 F Temperature Source Temporal Pulse Rate 88 86 Respiratory Rate 16 8 L Respiratory Effort Respiratory Depth Respiratory Pattern Blood Pressure 106/76 111/76 Blood Pressure Mean 86 87 Pulse Ox 99 Oxygen Delivery Method Room Air Room Air Positive well nourished and well developed; Negative for cachectic, contractures or unkempt General Appearance ED: well developed, NAD and pallor; Negative for unkempt, cachectic or contractures Nutritional Appearance: Negative for cachectic HEENT Reports moist mucous membranes; Denies dry mucous membranes atraumatic; Negative for trauma or tenderness Mouth ED: No dry mucous membranes Mouth: No dry mucous membranes Eyes PERRL and EOMs intact bilaterally General Eye ED: Negative for pale conjunctiva, scleral icterus or other Neck no lymphadenopathy, supple, no meningeal signs and no JVD General: Negative for tenderness Lymph Lymphatic: Negative for other Chest Wall Chest: Negative for other Resp normal respiratory effort and clear to auscultation bilaterally Effort and Inspection: Negative for pain with movement Auscultation: diminished lung sounds left lower; Negative for rales, rhonchi or wheezes Cardio regular rate, regular rhythm, S1 normal heart sound, S2 normal heart sound and no murmurs Rate: Negative for bradycardia or tachycardic Rhythm: Negative for abnormal rhythm GI non-tender, non-distended and no masses Inspection: Negative for other Auscultation: normoactive bowel sounds Palpation: soft; Negative for tender or guarding Bladder / Kidney Exam: No other Back/Spine no CVA tenderness and normal to inspection General Back: Negative for CVA tenderness or tenderness Extremity normal to inspection General Extremety ED: Negative for edema, tenderness or other findings General Extremity: Negative for edema or other findings Neuro oriented x3 and CN's II-XII intact bilaterally Sensorium / Orientation: alert, oriented to person, oriented to place and oriented to time; Negative for orientation impaired, confused, lethargic or stuporous Speech: speech normal Motor Exam: strength 5/5 throughout Psych Appearance: Negative for unkempt Attitude: No agitated Mood & Affect: Negative for depressed, anxious or tearful Thought Process: No normal thought process Skin no wounds and skin turgor normal General Skin Exam: pallor; Negative for jaundice Lesions: no lesions Rashes: no rashes Trauma: Negative for abrasion MDM MDM MDM Narrative Medical decision making narrative: See 2-year-old short of breath with known recurrent pleural effusions. History of breast CA with bony mets. 7 days ago had a CT of the chest which showed no PE. He has not had recent drainage of the pleural effusions. Repeat exam patient is doing well at 11:20 PM. Her pulse ox 100% on room air she is resting comfortably in bed. We went over all of her labs and chest x-ray. There is really no significant change. She has a recurrent left pleural effusion that is basically her baseline. It does not need emergently drained. She has appointment on Thursday to be reevaluated for another thoracentesis. She knows to return if worse. Her and her are comfortable with her being discharged home. She takes pain pills and will be given a dose here prior to discharge. History & Record Review Discussion w/independent historian: Patient and Family Lab Data Attestation: I reviewed the patient's lab results. Lab results narrative: CBC shows a white count of 7. H&H 8.6 and 26. Platelet count is 56. She has a chronic anemia and thrombocytopenia. Chemistries show sodium 133. Gap of 10. BUN and creatinine are 27 and 1.4. Liver enzymes alk phos is 1038 consistent with her bone mets. Chest x-ray shows bilateral pleural effusions. But no worse than prior. She has a chronic anemia and thrombocytopenia. Is her baseline's. Labs: Laboratory Results - last 24 hr 11/21/22 21:20 WBC 7.4 RBC 2.77 L Hgb 8.6 L Hct 26.0 L MCV 93.9 MCH 31.0 MCHC 33.1 D RDW Std Deviation 62.1 H RDW Coeff of David 18.1 H Plt Count 56 L MPV 9.0 Neut % (Auto) Not Reportable Absolute Neuts (auto) 5.2 Absolute Lymphs (auto) 1.40 Total Counted 100 Neutrophils % (Manual) 66 Band Neutrophils % 5 Lymphocytes % (Manual) 19 Monocytes % (Manual) 6 Basophils % (Manual) 2 H Metamyelocytes % 1 Myelocytes % 1 H Diff Path Review May foll Sodium 133 L Potassium 4.3 Chloride 103 Carbon Dioxide 20.0 L Anion Gap 10 BUN 27 H Creatinine 1.40 H Estim Creat Clear Calc 39.50 Est GFR (MDRD) Af Amer 49 L Est GFR (MDRD) Non-Af 41 L BUN/Creatinine Ratio 19.3 Glucose 92 Calcium 8.4 L Total Bilirubin 0.30 AST 370 H ALT 27 Alkaline Phosphatase 1038 H Total Protein 6.5 Albumin 2.2 L Globulin 4.3 H Albumin/Globulin Ratio 0.5 L Radiography Chest X-Ray - ED: 1 View, Read by ED Physician, Read by Radiologist, Mediastinum, Chronic Changes, Right Effusion and Left Effusion Diagnostic Testing: Clinical Impression(s) from Imaging Studies Chest X-Ray 11/21/22 20:15 IMPRESSION: Stable bilateral pleural effusions with likely adjacent atelectasis versus other airspace disease from 3 days ago. Electronically Signed: Adair Keys MD at 20:48 EDT , Chest x-ray, portable, single view, read both by the radiologist myself shows bilateral pleural effusions worse on the left than the right. Stable from most recent chest x-ray. The pleural effusion on the right is much smaller today. She has a med port on the right. There is significant bony mets. Discharge Plan Triage Chief Complaint: Shortness of Breath ED Provider: Surjit Horne Dx/Rx/DC Orders Clinical Impression: History of breast cancer, Recurrent left pleural effusion, Acute dyspnea, Chronic anemia Instructions: ED Pleural Effusion Prescriptions: No Action oxycodone-acetaminophen 5-325 mg tablet 1 tab PO BID PRN (Reason: Pain) calcium carbonate-vitamin D3 1 EACH tablet 1 each PO BID levothyroxine 137 MCG tablet 137 mcg PO MOTUWETHFRSA albuterol sulfate 90 mcg/actuation Hfa Aerosol Inhaler 1 inh INHALATION Q6H PRN (Reason: Wheezing) ondansetron 4 mg tablet,disintegrating 4 mg PO Q8H PRN PRN (Reason: Nausea) 10 Days Qty: 30 3RF exemestane [Aromasin] 25 mg tablet 25 mg PO DAILY 90 Days Qty: 90 1RF Rx Instructions: must administer after a meal spironolactone [Aldactone] 50 mg tablet 50 mg PO DAILY Qty: 30 1RF Primary Care Provider: Yoel Urbina Referrals: Yoel Urbina MD [Primary Care Provider] - Activity Restrictions/Additional Instructions: Follow-up with radiology on Thursday to see about thoracentesis. Return if you are feeling worse. You may use your pain medication every 4 hours as needed. Disposition Disposition: Home, Self Care
[2022-11-21 21:42] LABS: Hemoglobin 8.6 g/dL (12.0-15.0); Mean Corp Hgb Conc 33.1 g/dL (32-36); Mean Corpuscular Volume 93.9 fL (81-99); POSITIVE COUNT YES; POSITIVE MORPHOLOGY YES; Platelet Count 56 K/mm3 (150-450); RBC Distribution Width CV 18.1 % (11.6-14.6); RBC Distribution Width SD 62.1 fl (35.1-43.9); Red Blood Count 2.77 M/mm3 (4.2-5.4); White Blood Count 7.4 K/mm3 (4.4-11.0)
[2022-11-21 21:48] LABS: Differential Indicated MANUAL DIFF
[2022-11-21 22:00] VITALS: BP 111/76; PULSE 86; RESP 8; TEMP 36.6; O2SAT 99
[2022-11-21 22:18] LABS: Basophil 2 % (0-1); Lymphocyte 19 % (19-41); Metamyelocyte 1 % (0-1); Monocyte 6 % (0-10); Myelocyte 1 % (0-0); Neutrophil-Band 5 % (0-5); Neutrophil-Segmented 66 % (47-70); Total Cells Counted 100 (MANUAL DIFF)
[2022-11-21 22:19] LABS: Absolute Neutrophil Count 5.2 X10^3/uL (2.0-7.7)
[2022-11-21 22:27] LABS: ALB/GLOB Ratio 0.5 RATIO (0.9-2.4); AST(SGOT) 370 U/L (15-37); Alanine Aminotransfer ALT/SGPT 27 U/L (13-56); Albumin, Serum 2.2 g/dL (3.2-5.0); Alkaline Phosphatase 1038 U/L (45-117); Anion Gap 10 (5-15); BUN 27 mg/dL (7-18); BUN/Creat Ratio 19.3 RATIO (10-20); Calcium,Total 8.4 mg/dL (8.5-10.1); Chloride 103 mmol/L (98-107); EST Glomerular Filtration Rate 41 mL/min (>60); Est Glom Filt Rate - Afr Amer 49 mL/min (>60); Globulin 4.3 g/dL (2.2-4.2); Glucose 92 mg/dL (74-106); Potassium 4.3 mmol/L (3.5-5.1); Protein, Total 6.5 g/dL (6.4-8.2); Sodium Level 133 mmol/L (136-145)
[2022-11-21 23:35] VITALS: BP 107/65; RESP 18; O2SAT 98
[2022-11-21] MEDS: oxyCODONE 5 MG Tablet 10 MG PO (23:46)
[2022-11-25 09:48] LABS: Pathologist Review Reviewed
== END 2022-11-21 23:55 | disposition home or self-care (01) ==
PROVIDERS: Emergency Provider Emergency Medicine; PCP Family Medicine; Visit Provider Emergency Medicine
DX: R06.00 Dyspnea, unspecified (principal); C79.51 Secondary malignant neoplasm of bone; C50.919 Malignant neoplasm of unspecified site of unspecified female breast; J90 Pleural effusion, not elsewhere classified; D64.9 Anemia, unspecified; E03.9 Hypothyroidism, unspecified; Z79.890 Hormone replacement therapy; Z79.899 Other long term (current) drug therapy; Z87.891 Personal history of nicotine dependence
CPT/HCPCS: 71046; 80053; 85025; 93005; 99284; A4216

== ENCOUNTER → 2022-12-01 | Outpatient (CLI) | payer OTHER, SELFPAY ==
--- NOTE | 2022-12-01 12:36 | US_ITS ---
STUDY: RENAL ULTRASOUND - COMPLETE REASON FOR EXAM: Female, 62 years old. Hydronephrosis. TECHNIQUE: Ultrasound evaluation of the kidneys was performed with real-time and static barrios-scale imaging. COMPARISON: None. FINDINGS: RIGHT KIDNEY: Normal location of the right kidney, which is normal in size. The right kidney measures 10.8 cm x 4.6 cm x 3.5 cm. There is a normal cortex of the right kidney. The renal cortex measures 1.0 cm. There is no right renal mass or cyst. There are no right renal calculi. There is no right hydronephrosis. DISTAL RIGHT URETER: There is non-visualization of the distal right ureter. There is no demonstrated right ureterovesical junction calculus. There is no demonstrated right ureteral jet. LEFT KIDNEY: Normal location of the left kidney, which is normal in size. The left kidney measures 10.9 cm x 5.5 cm x 5.7 cm. There is a normal cortex of the left kidney. The renal cortex measures 1.2 cm. There is no left renal mass or cyst. There are no left renal calculi. There is no left hydronephrosis. DISTAL LEFT URETER: There is non-visualization of the distal left ureter. There is no demonstrated left ureterovesical junction calculus. There is no demonstrated left ureteral jet. BLADDER: The distended urinary bladder has a volume of 76.3 ml. The bladder is not adequately distended for further evaluation. US/Kidney and Bladder IMPRESSION: Normal ultrasound of the kidneys. Electronically Signed: Emory Rivero MD at 13:40 EDT ,
--- NOTE | 2022-12-01 14:00 | US_ITS ---
PROCEDURE: ULTRASOUND GUIDED THORACENTESIS. DATE: December 01, 2022.. INDICATION: Female, 62 years old. Left pleural effusion. PHYSICIAN: Emory Rivero M.D. PROCEDURE: The risks, benefits, and alternatives to the procedure were explained to the patient. The specific risks of bleeding, infection, and pneumothorax requiring chest tube insertion were discussed and accepted. Written informed consent was obtained. Ultrasonographic evaluation of the left lower pleural space was carried out. An adequate pocket was identified. The patient was placed in the sitting, upright position. The overlying skin was prepped and draped in sterile fashion. 1% lidocaine was administered subcutaneously for local anesthesia. Under ultrasound guidance, a 5 Australian thoracentesis needle/catheter system was advanced into the left posterior lower pleural fluid collection. Approximately 610 mL of bloody fluid was drained. The catheter was removed, and a sterile dressing was applied. The patient tolerated the procedure well. A chest x-ray was ordered. US/Thoracentesis W US IMPRESSION: Ultrasound-guided left thoracentesis. Electronically Signed: Emory Rivero MD at 15:13 EDT ,
[2022-12-01] MEDS: Lidocaine 2% (20 ml mdv) 20 ML Vial INFILT (14:30)
--- NOTE | 2022-12-01 14:37 | RAD_ITS ---
STUDY: X-RAY CHEST REASON FOR EXAM: Female, 62 years old. Post thoracentesis TECHNIQUE: AP inspiration and expiration views. COMPARISON: Comparison is made with prior study dated November 21, 2022. FINDINGS: The patient is status post left thoracentesis. Residual pleural-parenchymal changes are seen at the left lung base. No evidence of pneumothorax. A right-sided Port-A-Cath is seen and this is unchanged. Diffuse bilateral bony metastasis. RAD/Chest Insp/Exp 2 View IMPRESSION: Status post left thoracentesis. No evidence of pneumothorax. Residual pleural parenchymal changes at the left lung base. Electronically Signed: Emory Rivero MD at 15:12 EDT ,
[2022-12-01 14:56] VITALS: BP 100/61; BP 98/57; PULSE 117; PULSE 120; RESP 20; TEMP 37.3; O2SAT 100; O2SAT 98
== END | disposition home or self-care (01) ==
PROVIDERS: PCP Family Medicine; Referring Provider Internal Medicine Medical Oncology; Visit Provider Internal Medicine Medical Oncology
DX: J90 Pleural effusion, not elsewhere classified (principal); C50.912 Malignant neoplasm of unspecified site of left female breast; N13.30 Unspecified hydronephrosis; D64.9 Anemia, unspecified; R06.02 Shortness of breath
CPT/HCPCS: 32555; 71046; 76770

== ENCOUNTER → 2022-12-15 | Outpatient (CLI) | payer OTHER, SELFPAY ==
--- NOTE | 2022-12-15 12:48 | US_ITS ---
PROCEDURE: ULTRASOUND GUIDED THORACENTESIS. DATE: December 15, 2022. INDICATION: Female, 62 years old. Left pleural effusion. PHYSICIAN: Emory Rivero M.D. PROCEDURE: The risks, benefits, and alternatives to the procedure were explained to the patient. The specific risks of bleeding, infection, and pneumothorax requiring chest tube insertion were discussed and accepted. Written informed consent was obtained. Ultrasonographic evaluation of the left lower pleural space was carried out. An adequate pocket was identified. The patient was placed in the sitting, upright position. The overlying skin was prepped and draped in sterile fashion. 1% lidocaine was administered subcutaneously for local anesthesia. Under ultrasound guidance, a 5 Barbadian thoracentesis needle/catheter system was advanced into the left posterior lower pleural fluid collection. Approximately 10 mL of bloody fluid was drained. The catheter was removed, and a sterile dressing was applied. There is loculation of the left pleural effusion. The patient tolerated the procedure well. A chest x-ray was ordered. US/Thoracentesis W US IMPRESSION: Ultrasound-guided left thoracentesis. Electronically Signed: Emory Rivero MD at 13:48 EDT ,
[2022-12-15 13:00] VITALS: BP 101/65; BP 103/74; BP 94/60; BP 97/60; PULSE 106; PULSE 108; PULSE 110; PULSE 115; RESP 18; RESP 20; O2SAT 100; O2SAT 99
--- NOTE | 2022-12-15 13:15 | RAD_ITS ---
STUDY: X-RAY CHEST REASON FOR EXAM: Female, 62 years old. Immediately post thoracentesis TECHNIQUE: AP inspiration and expiration views. COMPARISON: Comparison is made with prior study dated December 01, 2022. FINDINGS: Persistent left pleural-parenchymal changes. No evidence of pneumothorax. Stable diffuse sclerotic metastasis involving the axial and appendicular skeletons. RAD/Chest Insp/Exp 2 View IMPRESSION: No evidence of pneumothorax following the left thoracentesis. Electronically Signed: Emory Rivero MD at 13:28 EDT ,
== END | disposition home or self-care (01) ==
LOC: US 12:47
PROVIDERS: PCP Family Medicine; Referring Provider Internal Medicine Critical Care Medicine; Visit Provider Internal Medicine Critical Care Medicine
DX: J90 Pleural effusion, not elsewhere classified (principal)
CPT/HCPCS: 32555; 71046

== ENCOUNTER → 2022-12-17 | Outpatient (CLI) | payer OTHER, SELFPAY ==
--- NOTE | 2022-12-17 10:45 | RAD_ITS ---
STUDY: X-RAY CHEST REASON FOR EXAM: Female, 62 years old. Shortness of breath TECHNIQUE: PA and lateral views of the chest. COMPARISON: Comparison is made with prior study December 15, 2022. FINDINGS: A right-sided mora catheter seen with the tip at the junction of the superior vena cava and right atrium. Mild increased pleural parenchymal changes at the left lung base. Stable blunting of the right cusp and ankle. Normal size heart. Normal mediastinum and devora. Normal visualized pulmonary arteries. Normal visualized aortic arch and descending thoracic aorta. Diffuse sclerotic bone metastasis involving the appendicular and axial skeletons. There is no demonstrated abnormality of the visualized soft tissue structures of the upper abdomen. RAD/Chest PA and Lateral IMPRESSION: Mild increase in the left pleural-parenchymal changes. Electronically Signed: Emory Rivero MD at 11:01 EDT ,
--- NOTE | 2022-12-17 11:54 | US_ITS ---
PROCEDURE: ULTRASOUND GUIDED THORACENTESIS. DATE: December 17, 2022. INDICATION: Female, 62 years old. Left pleural effusion. PHYSICIAN: Emory Rivero M.D. PROCEDURE: The risks, benefits, and alternatives to the procedure were explained to the patient. The specific risks of bleeding, infection, and pneumothorax requiring chest tube insertion were discussed and accepted. Written informed consent was obtained. Ultrasonographic evaluation of the left lower pleural space was carried out. An adequate pocket was identified. The patient was placed in the sitting, upright position. The overlying skin was prepped and draped in sterile fashion. 1% lidocaine was administered subcutaneously for local anesthesia. Under ultrasound guidance, a 5 Swiss thoracentesis needle/catheter system was advanced into the left posterior lower pleural fluid collection. Approximately 300 mL of bloody fluid was drained. The catheter was removed, and a sterile dressing was applied. A specimen was collected and sent to the laboratory for analysis, as requested by the referring clinician. The patient tolerated the procedure well. A chest x-ray was ordered. US/Thoracentesis W US IMPRESSION: Ultrasound-guided left thoracentesis. Electronically Signed: Emory Rivero MD at 13:01 EDT ,
[2022-12-17] MEDS: Lidocaine 2% (20 ml mdv) 20 ML Vial INFILT (12:13)
--- NOTE | 2022-12-17 12:14 | FLU_PTH ---
PATIENT: DULCE MCKEON LOC: RAD U#:[id number] AGE/SX: 62/F ROOM: RE12/17/[address]: KEENAN Rosario : 1960 BED: DIS: 12/17/2022 SPEC #: [id number] RECD: 12/17/22 13:34 STATUS: DARRELL RERadha #: [id number] PAUL: 12/17/22 12:[address]: Ramya Amos NP DEPT: CYTOLOGY RECD BY: Ksenia Zepeda ENTERED: 12/17/22 13:35 SP TYPE: Fluid OTHR DR: MD Dr. Yoel Silva MD Tissues: Pleural fluid, NOS Procedures: Special Stain Group II Surgery Specimen Level IV Cytospin Fluid HEADER OPERATION: Ultrasound-guided thoracentesis PRE-OP DIAGNOSIS: Left pleural effusion TISSUE SUBMITTED: Thoracentesis fluid for cytology DIAGNOSIS CYTOLOGY Thoracentesis fluid for cytology (cytospin and cell block): Negative for malignant cells. AM:brett 12/18/2022 CYTOLOGY STUDY Slides are reviewed. CYTOLOGY GROSS Received is 80 ml of dark red cloudy fluid labeled with the patient's name and and designated per the requisition as thoracentesis. Submitted for cytology preparation including cell block. / brett 12/17/2022 TC:5 CPT: 41278, 34344
--- NOTE | 2022-12-17 12:30 | RAD_ITS ---
STUDY: X-RAY CHEST REASON FOR EXAM: Female, 62 years old. Post thora TECHNIQUE: AP and inspiration and expiration views. COMPARISON: Comparison is made with prior study done earlier today. FINDINGS: A right-sided portacatheter is seen. The patient is status post left thoracentesis. No evidence of a pneumothorax. Residual pleural parenchymal changes at the left lung base. RAD/Chest Insp/Exp 2 View IMPRESSION: Status post left thoracentesis. No evidence of pneumothorax. Residual pleural parenchymal changes are seen in the left lung base Electronically Signed: Emory Rivero MD at 12:57 EDT ,
[2022-12-17 12:45] VITALS: BP 104/71; BP 112/65; PULSE 109; PULSE 113; RESP 18; TEMP 36.8; O2SAT 100; O2SAT 98
[2022-12-17 12:50] LABS: Cytology, Body Fluid / CSF SEE PATHOLOGY REPORT
[2022-12-17 13:39] LABS: LDH,Body Fluid 1137 Units/L (Not Establ.); Protein, Body Fluid 3.5 g/dL (Not Establ.)
[2022-12-17 14:51] LABS: Lymphocytes 24 %; Macrophages 59 %; Monocytes 3 %; Neutrophil (Segs) 14 %
[2022-12-17 14:52] LABS: Auto B Fluid Analyzer BKGD Ct COUNTS W/IN LIMITS (W/IN LIMITS)
[2022-12-17 14:53] LABS: Appearance/Body Fluid CLOUDY; Color/Body Fluid RED; Source- Body Fluid THORACENTESIS
[2022-12-17 14:54] LABS: Red Cell Count/Body Fluid 29280 /mm3
[2022-12-17 14:55] LABS: Body Fluid QC Type(s) BF1Q; White Blood Count/Body Fluid 150 /mm3
[2022-12-18 13:01] LABS: Pathologist Comment/Body Fluid Reviewed
== END | disposition home or self-care (01) ==
LOC: PSN 10:37 → RAD 10:39
PROVIDERS: PCP Family Medicine; Referring Provider Nurse Practitioner Acute Care; Visit Provider Nurse Practitioner Acute Care
DX: J90 Pleural effusion, not elsewhere classified (principal)
CPT/HCPCS: 32555; 71046; 83615; 84157; 87070; 87075; 87205; 88108; 88305; 88313; 89050

== ENCOUNTER → 2022-12-23 | Outpatient (CLI) | payer OTHER, SELFPAY ==
--- NOTE | 2022-12-23 09:39 | RAD_ITS ---
STUDY: X-RAY CHEST REASON FOR EXAM: Female, 62 years old. Acute on chronic shortness of breath after thoracentesis. TECHNIQUE: Frontal and lateral views of the chest on 4 images. COMPARISON: Chest dated December 17, 2022. FINDINGS: Right internal jugular catheter unchanged with tip projected over the mid-SVC. Stable cardiomegaly, aortic tortuosity, mild diffuse interstitial pattern in the bases and bilateral pleural effusions, left greater than right. No change is noted in the chest. Again noted are diffuse sclerotic lesions in the visualized skeleton compatible with osseous metastatic disease. No abnormality of the visualized soft tissue structures of the upper abdomen. RAD/Chest PA and Lateral IMPRESSION: Stable chest with no acute superimposed findings since the prior study. Electronically Signed: Vazquez Quinones MD at 10:49 EDT ,
== END | disposition home or self-care (01) ==
LOC: PSN 09:31 → RAD 09:41
PROVIDERS: PCP Family Medicine; Referring Provider Internal Medicine Critical Care Medicine; Visit Provider Internal Medicine Critical Care Medicine
DX: C50.912 Malignant neoplasm of unspecified site of left female breast (principal); J90 Pleural effusion, not elsewhere classified
CPT/HCPCS: 71046

== ENCOUNTER → 2022-12-25 | Outpatient (CLI) | payer OTHER, SELFPAY ==
--- NOTE | 2022-12-29 07:42 | PFT ---
INTRODUCTION: The patient is a 62-year-old female who presents for pulmonary function studies secondary to a diagnosis of pleural effusion. Respiratory therapy reported that the patient was unable to complete proper maneuvers for plethysmography and DLCO. Bronchodilators were used during testing. INTERPRETATION: Forced expiration spirometry demonstrates the presence of a severe large airways obstructive ventilatory defect. There was a partial, although technically nonsignificant, response to aerosolized bronchodilators. IMPRESSION: Irreversible severe large airways obstructive ventilatory impairment. There was a partial, although technically nonsignificant, response to aerosolized bronchodilators. Plethysmography and DLCO were unable to be obtained.
== END | disposition home or self-care (01) ==
LOC: PSN 07:25
PROVIDERS: PCP Family Medicine; Referring Provider Internal Medicine Critical Care Medicine; Visit Provider Internal Medicine Critical Care Medicine
DX: J90 Pleural effusion, not elsewhere classified (principal)
CPT/HCPCS: 94060

== ENCOUNTER → 2022-12-29 | Outpatient (CLI) | payer OTHER, SELFPAY ==
[2022-12-29 13:31] VITALS: PULSE 116; PULSE 117; PULSE 118; PULSE 126; PULSE 127; PULSE 128; PULSE 130; O2SAT 93; O2SAT 94; O2SAT 95; O2SAT 96; O2SAT 98
--- NOTE | 2022-12-29 13:32 | CPS ---
Patient wears 2 lpm O2 at home. Patient did not wear oxygen at all for testing. At the 5th minute, patient needed to sit down and could no longer walk for the rest of testing due to shortness of breath and dizziness.
--- NOTE | 2022-12-30 14:41 | PCM.PSN.6M ---
PSN 6 Minute Walk Test 6 Minute Walk Test 6 Minute Walk Test: 6 Minute Walk Test PSN:6-Minute Walk Test Start: 12/29/22 13:30 Freq: Status: Active Protocol: [id number].6MINW Document 12/29/22 13:31 ANGELICALAURI (Rec: 12/29/22 13:34 REJI [id number]) 6 Minute Walk Test Date Performed 12/29/22 Time Performed 12:30 Height 5 ft 6 in Weight: 68.492 kg Weight in Pounds 151.[address]: Jose Alfredo Stark Assistive device used: None Pre-test Oxygen Delivery Method Room Air Pulse Ox 96 Pulse Rate (60-100) 117 H Dyspnea Kailyn Scale (0-10) 3 Exertion Kailyn Scale (6-20) 6 1st minute Oxygen Delivery Method Room Air Pulse Ox 94 Pulse Rate (60-100) 118 H Number of Rests Taken 1 2nd minute Oxygen Delivery Method Room Air Pulse Ox 96 Pulse Rate (60-100) 127 H 3rd minute Oxygen Delivery Method Room Air Pulse Ox 95 Pulse Rate (60-100) 130 H Number of Rests Taken 1 4th minute Oxygen Delivery Method Room Air Pulse Ox 93 Pulse Rate (60-100) 126 H 5th minute Oxygen Delivery Method Room Air Pulse Ox 95 Pulse Rate (60-100) 128 H Number of Rests Taken 1 Post-test Oxygen Delivery Method Room Air Pulse Ox 98 Pulse Rate (60-100) 116 H Full Laps Walked 2 Partial Lap, Number of Tiles Walked 35 Total Distance Walked (ft) 153 12/29/22 13:32 Cardiopulmonary Services by Karly Palomino Patient wears 2 lpm O2 at home. Patient did not wear oxygen at all for testing. At the 5th minute, patient needed to sit down and could no longer walk for the rest of testing due to shortness of breath and dizziness. Initialized on 12/29/22 13:32 - END OF NOTE Interpretation Interpretation: The patient was able to ambulate only 153 feet over the course of 6 minutes with no assistive devices and 3 breaks. The patient had an oxygen rajiv of 93%, but persistent tachycardia with a peak heart rate of 130 bpm. These findings are consistent with a cardiovascular limitation exercise tolerance. Recommendations Recommendations: No supplemental oxygen is even indicated at this time. Patient may benefit from a cardiovascular evaluation given tachycardia on testing
== END | disposition home or self-care (01) ==
LOC: PSN 12:30
PROVIDERS: PCP Family Medicine; Referring Provider Internal Medicine Critical Care Medicine; Visit Provider Internal Medicine Critical Care Medicine
DX: R06.00 Dyspnea, unspecified (principal)
CPT/HCPCS: 94618

== ENCOUNTER 2023-01-06 04:53 | Inpatient (IN) | payer OTHER, SELFPAY ==
[2023-01-06] VITALS (15 sets, daily range): BP systolic 96–125; BP diastolic 65–97; PULSE 69–96; RESP 14–22; TEMP 36.2–36.8; O2SAT 97–100; BMI 25.3
[2023-01-06] MEDS: Morphine 4 MG/ML Syringe IV ×3 (03:57→22:14)
--- NOTE | 2023-01-06 04:42 | HP.PCM_ITS ---
HPI - General General Date of Admission: 01/06/23 Date of Service: 01/06/23 Chief Complaint: Shortness of breath HPI Narrative DULCE MCKEON, is a 62 F who presented initially to the [facility] emergency room with chief complaint of shortness of breath. Patient has significant past medical history of breast cancer with metastatic disease to both bone and lung. Her initial respiration rate was 22-24 with a heart rate in the 150s and was given Lasix and BiPAP therapy there. It was reported to me by ER physician that she wished to remain full code despite her poor prognosis. She improved to a heart rate of 100 and was able to maintain her pulse oxygenation within normal ranges after BiPAP therapy and was more comfortable but still wished to be transferred to [facility] for her treatment. Her chest x-ray did reveal a pleural effusion for which she might require thoracentesis. Currently she complains of significant pain in her thighs legs and head that is chronic and severe due to her cancer. She was immediately given morphine to control this pain and she felt more comfortable during my interview with her. She currently denies any fevers or chills and her shortness of breath has improved since arrival and now currently she is on a nonrebreather mask. [facility] Medical History Alcohol use Anemia Arthritis Bone metastasis Cancer Cancer related pain CINV (chemotherapy-induced nausea and vomiting) Constipation Coordination abnormal Decreased coordination Ductal carcinoma Elevated BUN Elevated serum creatinine Encounter for chemotherapy management Enlarged pituitary gland Former smoker Hand foot syndrome Headache History of recent steroid use Hypotension Hypothyroid Insect bite Left arm swelling LUE weakness Metastatic breast cancer Numbness and tingling of left hand Oral candidiasis Rib pain on left side Swelling of left hand Swelling of left upper extremity Thyroid disease Wears glasses Wears partial dentures Home Medications calcium carbonate 600 mg-vitamin D3 5 mcg (200 unit) tablet 1 each PO BID 08/18/19 [History Last Taken Unknown] levothyroxine 137 mcg tablet 137 mcg PO MOTUWETHFRSA 01/01/20 [History Last Taken 12/14/20] albuterol sulfate 90 mcg/actuation aerosol inhaler 1 inh inhalation Q6H PRN Wheezing 12/28/21 [History Last Taken Unknown] ondansetron 4 mg disintegrating tablet 4 mg PO Q8H PRN PRN Nausea 10 days #30 tabs 04/07/22 [Rx Last Taken Unknown] exemestane 25 mg tablet (Aromasin) 25 mg PO DAILY 90 days #90 tabs 08/06/22 [Rx Last Taken Unknown] oxycodone-acetaminophen 5 mg-325 mg tablet 1 tab PO BID PRN Pain 10/06/22 [History Last Taken Unknown] albuterol sulfate 2.5 mg/3 mL (0.083 %) solution for nebulization 2.5 mg (3 mL) inhalation Q4H PRN shortness of breath or wheezing #180 mL 12/11/22 [Rx Last Taken Unknown] spironolactone 50 mg tablet (Aldactone) 50 mg PO DAILY #30 tabs 12/18/22 [Rx Last Taken Unknown] Allergy/AdvReac Type Severity Reaction Status Date / Time dexamethasone AdvReac Other Verified 12/23/22 08:16 Family History Unknown Breast cancer Grandfather Cancer Surgical History History of breast biopsy History of delivery Hx of wisdom tooth extraction Social History household members: spouse housing: house Smoking Status: Former smoker Tobacco: How many years used: 20 second hand exposure: No alcohol intake: current details: social substance use type: does not use what type of physical activity do you participate in: walking seatbelt use: always do you feel safe at home: Yes additional social history: [employer] work Patient works at [employer] in [place] ROS Constitutional Constitutional: Reports fatigue; Denies chills or fever(s) Eyes Eyes: Denies change in vision ENT HEENT: Denies abnormal hearing Cardiovascular Cardiovascular: Denies chest pain Respiratory/Chest Respiratory/Chest: Reports shortness of breath at rest; Denies wheezing Gastrointestinal Gastrointestinal: Denies abdominal pain Genitourinary Genitourinary: Denies dysuria Musculoskeletal Musculoskeletal: Reports back pain, extremity pain, joint pain and joint stiffness Integumentary Integumentary: Denies dry skin Neurologic Neurologic: Reports headache(s) Psychiatric Psychiatric: Reports anxiety Hematologic/Lymphatic Hematologic/Lymphatic: Denies anemia Vital Signs Vital Signs Vital Signs: 01/06/23 02:58 01/06/23 03:00 01/06/23 03:30 Temperature 98.2 F 98.2 F 98.2 F Temperature Source Oral Oral Oral Pulse Rate 96 91 91 Respiratory Rate 22 H 20 H 20 H Blood Pressure 109/83 H Blood Pressure [BP] 109/83 H 106/79 Blood Pressure Mean 91 Blood Pressure Mean [BP] 91 88 Blood Pressure Source Monitor Blood Pressure Source [BP] Monitor Monitor Blood Pressure Position Semi-Fowlers Blood Pressure Position [BP] Semi-Fowlers Semi-Fowlers Blood Pressure Location Right Arm Blood Pressure Location [BP] Right Arm Right Arm Pulse Ox 100 100 100 Oxygen Delivery Method Non-Rebreather Non-Rebreather Non-Rebreather Oxygen Flow Rate (L/min) 12 15 14 01/06/23 03:15 Temperature Temperature Source Pulse Rate Respiratory Rate Blood Pressure Blood Pressure [BP] Blood Pressure Mean Blood Pressure Mean [BP] Blood Pressure Source Blood Pressure Source [BP] Blood Pressure Position Blood Pressure Position [BP] Blood Pressure Location Blood Pressure Location [BP] Pulse Ox 100 Oxygen Delivery Method Non-Rebreather Oxygen Flow Rate (L/min) 15 Weight Weight: 156 lb 15.506 oz Body Mass Index (BMI) 25.3 Assessment & Plan Assessment/Plan (1) SOB (shortness of breath): (2) Breast cancer, left: QUALIFIERS: Breast location: upper outer quadrant of breast Estrogen receptor status: positive Patient sex: female Qualified Code(s): C50.412 - Malignant neoplasm of upper-outer quadrant of left female breast; Z17.0 - Estrogen receptor positive status [ER+] (3) Pleural effusion, left: (4) Left hip pain: (5) Cancer related pain: PLAN: Plan 1 shortness of breath secondary to malignant pleural effusion?admit patient to ICU stepdown continue oxygen support may restart BiPAP if necessary. Consult cotton opener for ICU management and consideration for thoracentesis?repeat CBC BMP, INR, PT and chest x-ray 2. Left hip/leg pain\cancer related pain?continue IV morphine 4 mg every 3 hours as needed pain 3. DVT prophylaxis?low molecular weight heparin 4. We will continue routine home medications at this time as patient has stabilized her heart rate and respiratory status. 5. CODE STATUS?patient wishes to remain full code this was discussed with patient's spouse and also confirmed by ER physician had the same discussion earlier in the evening Charges/Coding Visit Charges Inpatient E&M: 65511 Init Hosp L2
[2023-01-06 05:46] LABS: Hematocrit 25.1 % (37-47); Hemoglobin 7.4 g/dL (12.0-15.0); Mean Corp Hgb Conc 29.5 g/dL (32-36); Mean Corpuscular Hgb 29.2 pg (27.0-32.0); Mean Corpuscular Volume 99.2 fL (81-99); Mean Platelet Vol. 10.6 fl (6.2-12.0); POSITIVE COUNT YES; POSITIVE MORPHOLOGY YES; Platelet Count 108 K/mm3 (150-450); RBC Distribution Width CV 19.1 % (11.6-14.6); RBC Distribution Width SD 68.5 fl (35.1-43.9); Red Blood Count 2.53 M/mm3 (4.2-5.4); White Blood Count 4.6 K/mm3 (4.4-11.0)
[2023-01-06 05:52] LABS: Differential Indicated MANUAL DIFF
[2023-01-06 05:57] LABS: ALB/GLOB Ratio 0.5 RATIO (0.9-2.4); AST(SGOT) 549 U/L (15-37); Alanine Aminotransfer ALT/SGPT 56 U/L (13-56); Albumin, Serum 1.7 g/dL (3.2-5.0); Alkaline Phosphatase 856 U/L (45-117); Anion Gap 7 (5-15); BUN 19 mg/dL (7-18); BUN/Creat Ratio 15.8 RATIO (10-20); Calcium,Total 7.8 mg/dL (8.5-10.1); Chloride 112 mmol/L (98-107); EST Glomerular Filtration Rate 49 mL/min (>60); Est Glom Filt Rate - Afr Amer 59 mL/min (>60); Estimated Creatinine Clearance 46.09 ml/min; Globulin 3.7 g/dL (2.2-4.2); Glucose 107 mg/dL (74-106); Potassium 4.5 mmol/L (3.5-5.1); Protein, Total 5.4 g/dL (6.4-8.2); Sodium Level 141 mmol/L (136-145)
[2023-01-06 06:00] LABS: Lactic Acid 1.4 mmol/L (0.4-1.9)
[2023-01-06 06:10] LABS: Anisocytosis 2+; Platelet Estimate SLT DEC (ADEQ)
[2023-01-06 06:15] LABS: Absolute Neutrophil Count 2.4 X10^3/uL (2.0-7.7)
[2023-01-06 06:16] LABS: Absolute Lymphocyte Count 1.29 X10^3/uL (0.83-4.51); Basophil 1 % (0-1); Lymphocyte 28 % (19-41); Metamyelocyte 4 % (0-1); Monocyte 8 % (0-10); Myelocyte 5 % (0-0); Neutrophil-Band 13 % (0-5); Neutrophil-Segmented 39 % (47-70); Promyelocyte 2 % (0-0); Total Cells Counted 100 (MANUAL DIFF)
[2023-01-06 06:17] LABS: Nucleated Red Bld Cells,Manual 2 % (0-5)
--- NOTE | 2023-01-06 08:22 | EX.PCM.CONCC ---
Assessment & Plan Assessment/Plan (1) Acute and chronic respiratory failure: (2) Malignant pleural effusion: PLAN: Plan RECOMMENDATIONS: 1. Wean supplemental oxygen to maintain saturations at or above 90%. 2. Obtain chest x-ray. 3. Start scheduled bronchodilator therapy. 4. Pain control per hospitalist. 5. The patient is medically stable for transfer out of the intensive care unit. IMPRESSIONS: 1. Acute on chronic hypoxemic respiratory failure Unclear precipitating etiology for the patient's acute decompensation. Her recent PFTs demonstrated evidence of obstructive lung disease and she does have a baseline oxygen requirement of 2 to 3 L/min. She has a known malignant effusion, which may have increased in size since her last thoracentesis in mid December 2022. Therefore, recommend follow-up chest imaging today. The patient was initially managed with Lasix and BiPAP therapy, with subsequent improvement in symptoms. It is also certainly plausible that her presenting symptoms may be secondary to her COPD, given that she is not currently on any long-acting bronchodilators. Plan at this time to wean supplemental oxygen as tolerated to maintain saturations at or above 90%. If the patient's chest imaging demonstrates an increasing effusion, thoracentesis can be considered. Otherwise, I would plan to continue the patient on scheduled bronchodilators. She will require close interval outpatient pulmonary follow-up. 2. Anemia/thrombocytopenia The patient does have baseline anemia and thrombocytopenia. Recommend continuing to monitor blood counts daily. Plan to transfuse if hemoglobin drops below 7 g/dL. 3. Chronic kidney disease Continue to monitor urine output. No current indication for renal replacement therapy. 4. History of metastatic breast CA According to documentation, the patient's December 2022 tumor markers indicate a progressive disease. She was initiated on palliative chemotherapy in December 2022. Pleural fluid analysis in the past has demonstrated malignancy. This note was generated with [employer] dictation software. It may contain incorrect words, spelling, and punctuation that were not noted in checking the note before signing. HPI Consult Data Date of Consult: 01/06/23 HPI Narrative Reason for Consultation: Acute on chronic hypoxemic respiratory failure HPI Narrative: The patient is a 62-year-old female, with a history as outlined below, who presented as a transfer of care from [facility] emergency department with worsening shortness of breath. The patient has a known history of metastatic breast CA with pleural fluid involvement. She was recently initiated on palliative chemotherapy in December 2022. The patient recently established care with Dr. Stark of pulmonary medicine. Recent pulmonary function studies demonstrated a severe large airways obstructive ventilatory impairment. The patient reported that she typically utilizes 2 to 3 L/min of supplemental oxygen at her baseline. The patient last underwent an ultrasound-guided thoracentesis on December 17 with 300 mL of bloody fluid removed. According to documentation, the patient was initially provided with Lasix and BiPAP therapy at the outside facility, prior to her transfer. The patient is currently afebrile hemodynamically stable. She is maintaining oxygen saturations of 100% on 4 L/min. The patient has chronic cancer related pain and anxiety. She was previously referred to palliative care medicine by oncology. [facility] Medical History Alcohol use Anemia Arthritis Bone metastasis Cancer Cancer related pain CINV (chemotherapy-induced nausea and vomiting) Constipation Coordination abnormal Decreased coordination Ductal carcinoma Elevated BUN Elevated serum creatinine Encounter for chemotherapy management Enlarged pituitary gland Former smoker Hand foot syndrome Headache History of recent steroid use Hypotension Hypothyroid Insect bite Left arm swelling LUE weakness Metastatic breast cancer Numbness and tingling of left hand Oral candidiasis Rib pain on left side Swelling of left hand Swelling of left upper extremity Thyroid disease Wears glasses Wears partial dentures Home Medications calcium carbonate 600 mg-vitamin D3 5 mcg (200 unit) tablet 1 each PO BID 08/18/19 [History Last Taken Unknown] levothyroxine 137 mcg tablet 137 mcg PO MOTUWETHFRSA 01/01/20 [History Last Taken 12/14/20] albuterol sulfate 90 mcg/actuation aerosol inhaler 1 inh inhalation Q6H PRN Wheezing 12/28/21 [History Last Taken Unknown] ondansetron 4 mg disintegrating tablet 4 mg PO Q8H PRN PRN Nausea 10 days #30 tabs 04/07/22 [Rx Last Taken Unknown] exemestane 25 mg tablet (Aromasin) 25 mg PO DAILY 90 days #90 tabs 08/06/22 [Rx Last Taken Unknown] oxycodone-acetaminophen 5 mg-325 mg tablet 1 tab PO BID PRN Pain 10/06/22 [History Last Taken Unknown] albuterol sulfate 2.5 mg/3 mL (0.083 %) solution for nebulization 2.5 mg (3 mL) inhalation Q4H PRN shortness of breath or wheezing #180 mL 12/11/22 [Rx Last Taken Unknown] spironolactone 50 mg tablet (Aldactone) 50 mg PO DAILY #30 tabs 12/18/22 [Rx Last Taken Unknown] Allergy/AdvReac Type Severity Reaction Status Date / Time dexamethasone AdvReac Other Verified 12/23/22 08:16 Family History Unknown Breast cancer Grandfather Cancer Surgical History History of breast biopsy History of delivery Hx of wisdom tooth extraction Social History household members: spouse housing: house Smoking Status: Former smoker Tobacco: How many years used: 20 second hand exposure: No alcohol intake: current details: social substance use type: does not use what type of physical activity do you participate in: walking seatbelt use: always do you feel safe at home: Yes additional social history: [employer] work Patient works at [employer] [place] [employer] were reviewed with pertinent positives as noted in the HPI above. Physical Exam Const alert and no apparent distress General Appearance: cooperative HEENT normocephalic and head/scalp atraumatic Eyes PERRL, EOMs intact bilaterally and conjunctivae normal Neck supple General: trachea midline Chest inspection of chest normal Resp normal respiratory effort Auscultation: rales and diminished lung sounds Cardio regular rate and regular rhythm GI normal to inspection, nondistended, normoactive bowel sounds Extremity no clubbing, cyanosis or edema Skin no rashes or lesions noted Neuro CN's II-XII intact bilaterally and no focal motor deficits Psych Mood & Affect: flat affect Lab / Micro Data 01/06/23 05:20 01/06/23 05:20 Labs: Laboratory Results - last 24 hr 01/06/23 05:20: WBC 4.6, RBC 2.53 L, Hgb 7.4 L, Hct 25.1 L, MCV 99.2 H, MCH 29.2, MCHC 29.5 L, RDW Std Deviation 68.5 H, RDW Coeff of David 19.1 H, Plt Count 108 L, MPV 10.6, Neut % (Auto) Not Reportable, Absolute Neuts (auto) 2.4, Absolute Lymphs (auto) 1.29, Total Counted 100, Neutrophils % (Manual) 39 L, Band Neutrophils % 13 H, Lymphocytes % (Manual) 28, Monocytes % (Manual) 8, Basophils % (Manual) 1, Metamyelocytes % 4 H, Myelocytes % 5 H, Promyelocytes % 2 H, Nucleated RBCs/100 WBC 2, Diff Path Review September, Platelet Estimate SLT DEC, Anisocytosis 2+, Sodium 141, Potassium 4.5, Chloride 112 H, Carbon Dioxide 22.0, Anion Gap 7, BUN 19 H, Creatinine 1.20 H, Estim Creat Clear Calc 46.09, Est GFR (MDRD) Af Amer 59 L, Est GFR (MDRD) Non-Af 49 L, BUN/Creatinine Ratio 15.8, Glucose 107 H, Lactic Acid 1.4, Calcium 7.8 L, Total Bilirubin 0.30, AST 549 H, ALT 56, Alkaline Phosphatase 856 H, Total Protein 5.4 L, Albumin 1.7 L, Globulin 3.7, Albumin/Globulin Ratio 0.5 L Charges/Coding Visit Charges Inpatient E&M: 32286 Init Hosp L3
[2023-01-06 08:28] LABS: International Normalized Ratio 1.5; Prothrombin Time (Protime)PT. 17.8 SECONDS (11.7-14.9)
[2023-01-06] MEDS: Oxycodone/Apap 5/325 Tablet PO (09:09)
[2023-01-06] MEDS: 0.9% Saline Lock 10 ML Syringe IV (09:11)
[2023-01-06] MEDS: Spironolactone 50 MG Tablet PO (09:45)
--- NOTE | 2023-01-06 10:45 | RAD_ITS ---
INDICATION: Pleural Effusion EXAMINATION/TECHNIQUE: X-RAY - XR Chest 1 View COMPARISON: Prior studies dated: December 17, [address] dated November 14, 2022 FINDINGS: LINES/DEVICES: There is a right sided central venous catheter in place terminating within the expected region of the superior vena cava.. LUNGS: There are bilateral pleural effusions. No pneumothorax. MEDIASTINUM AND CARDIOVASCULAR STRUCTURES: Cardiac silhouette not enlarged. Central airways and mediastinal contour are unremarkable. BONES AND SOFT TISSUES: There are diffuse sclerotic foci throughout the bones consistent with osseous metastatic disease. RAD/Chest 1 View (Portable) IMPRESSION: Bilateral pleural effusions, cannot associate associated bibasilar consolidation. Electronically Signed: Iliana Monahan MD at 11:01 EDT ,
--- NOTE | 2023-01-06 12:48 | CHAPLAIN ---
Type of Pastoral Visit _x__ Initial Visit ___ Follow-up Visit ___ On-call Visit ___ General Patient Visit ___ Spiritual Assessment ___ Family Conference ___ Bereavement ___ Rapid Response ___ Code Blue ___ Other (describe below) Pastoral Care Referral From _x__ Patient ___ Family ___ Nurse ___ Physician ___ Sheeter Waxer Operator ___ Wall Covering Installer ___ Other (describe below) Sacrament/Intervention _x__ Active listening ___ Anointing ___ Islam ___ Bereavement ___ Communion ___ [place] exploration ___ ___ Life review ___ Prayer ___ Reconciliation ___ Sacrament of Sick _x__ Supportive presence ___ Wedding ___ Other (describe below) Pastoral Comments patient was welcoming but also admitted she just got pain meds and I am getting sleepy; initial supportive presence and explanation of spiritual care given; affirmation that she will receive timely and empathetic support; will return for another visit when pt is more alert
--- NOTE | 2023-01-06 13:58 | CASEMGMT ---
YONATHAN KAPLAN Assessment: Face to Face with pt for initial transition planning/care coordination assessment. YONATHAN KAPLAN introduced self and role at [facility], pt voices understanding and consents to assessment. Pt is A/O x4 and answers all questions appropriately at this time. Pt present in room. Care providers, pharmacy, and demographics verified/updated. Admitting Dx: shortness of breath secondary to malignant pleural effusions PCP:[facility] Specialists:[place], onc; audi Stark Preferred Pharmacy: [facility] Insurance: [employer] Prescription Benefit: yes LNOK: Carlin Luis, ; Eneida Obrien, dtr Living Arrangements: Pt lives with in a single story home with 2 steps to enter. Pt reports she was I in ADL's and denies concerns at home. Transportation: Pt reports she has not been driving. Her transports her to medical appts. DME/HHC/SNF: Pt has crutches, pox and oxygen through [employer] Will call to confirm rx. Pt has portable oxygen tanks that can be brought in prior to dc. Pt denies hx of HHC or SNF stays. Pt states no concerns with going home at time of dc. She hopes to dc home without the need for any therapy. Pt is using FWW and does not have at home. Pt states no further concerns/needs. CM to follow. Advised pt to ask CM if any further question/concerns/needs arise, voices understanding. Pt Goal: Home Plan: Home, follow for increased oxygen needs and need for AD.
[2023-01-06] MEDS: Sertraline 50 MG Tablet PO (16:27)
[2023-01-06] MEDS: Ipratropium/Albuterol Sulfate 3 ML AMPUL.NEB INHALATION (19:49)
[2023-01-06] MEDS: Acetaminophen 325 MG Tablet 650 MG PO (22:15)
[2023-01-06] MEDS: Albuterol 2.5 MG/3 ML VIAL.NEB. INHALATION (23:34)
[2023-01-07] VITALS (9 sets, daily range): BP systolic 109–132; BP diastolic 71–88; PULSE 71–80; RESP 15–22; TEMP 36.7–37.1; O2SAT 96–98; BMI 25.4
[2023-01-07] MEDS: Ondansetron 4 MG/2 ML Vial IV ×2 (03:56→19:48)
[2023-01-07] MEDS: Morphine 4 MG/ML Syringe IV ×2 (03:56→08:16)
[2023-01-07] MEDS: Acetaminophen 325 MG Tablet 650 MG PO ×3 (04:00→15:28)
[2023-01-07] MEDS: Levothyroxine 137 MCG Tablet PO (04:06)
[2023-01-07] MEDS: Oxycodone/Apap 5/325 Tablet PO ×2 (06:56→19:39)
[2023-01-07] MEDS: Ipratropium/Albuterol Sulfate 3 ML AMPUL.NEB INHALATION ×2 (07:10→19:00)
[2023-01-07] MEDS: 0.9% Saline Lock 10 ML Syringe IV ×2 (08:16→19:48)
--- NOTE | 2023-01-07 08:55 | PCM.PN.HOSP ---
Subjective Subjective Much improved and respiratory status without any significant intervention. Still significantly anxious Objective Data Objective Data Vital Signs: Vital Signs Temp Pulse Resp BP Pulse Ox O2 Del Method O2 Flow Rate 98.0 F 73 16 132/88 H 96 Nasal Cannula 2 01/07/23 03:30 01/07/23 03:30 01/07/23 03:30 01/07/23 03:30 01/07/23 03:30 01/07/23 08:08 01/07/23 08:08 Oxygen Flow Rate (L/min) 2 Oxygen Delivery Method Nasal Cannula Weight: 157 lb 10.088 oz Body Mass Index (BMI) 25.4 Intake & Output: Intake and Output for Last 24 Hours 01/06/23 01/07/23 01/08/23 03:59 03:59 03:59 Intake Total 0 / 0 1230 / 1230 Output Total 0 / 0 300 / 300 Balance 0 / 0 930 / 930 Lab / Micro Data 01/06/23 05:20 01/06/23 05:20 Labs: Laboratory Results - last 24 hr 01/06/23 11:38: Blood Type O POSITIVE, Antibody Screen NEGATIVE Radiography Diagnostic Testing: Radiology Impression Chest X-Ray 01/06/23 10:45 IMPRESSION: Bilateral pleural effusions, cannot associate associated bibasilar consolidation. Electronically Signed: Iliana Monahan MD at 11:01 EDT , Physical Exam Narrative General: Alert, Oriented x3, Cooperative, No apparent distress HEENT: Atraumatic, PERRLA, EOMI, Normocephalic Oral: Moist Mucosa Neck: Supple, No JVD Lungs: Diminished, Normal air movement, No rhonchi, No wheeze, rales Cardiovascular: Regular rate, Regular Rhythm, Normal S1, Normal S2, No murmurs Abdomen: Soft, Non Tender, Non-Distended, No Hepato-splenomegaly Extremities: No edema, Capillary Refill Less than 3 Seconds Skin: No rashes, No breakdown Musculoskeletal: No Tenderness to Palpation of Joints or Extremities Neurological: Motor Exam 5/5 strength throughout, Sensory exam intact to light touch and pain Psych/Mental Status: Anxious and restless Assessment & Plan Assessment/Plan (1) SOB (shortness of breath): (2) Breast cancer, left: QUALIFIERS: Breast location: upper outer quadrant of breast Estrogen receptor status: positive Patient sex: female Qualified Code(s): C50.412 - Malignant neoplasm of upper-outer quadrant of left female breast; Z17.0 - Estrogen receptor positive status [ER+] (3) Pleural effusion, left: (4) Left hip pain: (5) Cancer related pain: PLAN: Plan 1. Shortness of breath secondary to malignant pleural effusion from stage IV breast cancer/cancer pain ? She has had thoracentesis in the past however she is improved from being on a nonrebreather to 2 L nasal cannula without any significant intervention and she does wear chronic oxygen now for about the last week according to her 2 L nasal cannula ? After time with her I do think that there is a significant component of this that is due to anxiety given her diagnosis and the sensations of the shortness of breath. We will start her on Zoloft as well as a as needed Xanax ? Appreciate pulmonology assistance ? If she does get worse will repeat another thoracentesis ? We will continue with her home Percocets and adjust her pain medications as necessary ?Had an 18-minute conversation advance care planning discussing hospice versus palliative care DVT: Heparin Charges/Coding Visit Charges Inpatient E&M: 91633 Subs Hosp L2 Procedures Hospitalists Procedures: 51259 Advncd Care Plan 30 Min
[2023-01-07] MEDS: Enoxaparin 40 MG/0.4 ML Syringe SC (10:55)
[2023-01-07] MEDS: Spironolactone 50 MG Tablet PO (10:55)
[2023-01-07] MEDS: Sertraline 50 MG Tablet PO (10:55)
[2023-01-07 13:10] LABS: Pathologist Review Reviewed
[2023-01-07] MEDS: Ondansetron ODT 4 MG Tablet PO (14:05)
[2023-01-07] MEDS: ALPRAZolam 0.5 MG Tablet PO ×2 (15:30→22:37)
[2023-01-08] VITALS (9 sets, daily range): BP systolic 111–128; BP diastolic 74–87; PULSE 87–110; RESP 16–18; TEMP 36.7–37.2; O2SAT 96–97; BMI 24.8
[2023-01-08] MEDS: Morphine 4 MG/ML Syringe IV ×4 (00:10→17:29)
--- NOTE | 2023-01-08 00:13 | PCM.HOSP.N ---
Hospitalist Note Patient with minimal effect of xanax per discussion with staff. Still very anxious and tearful, asking for something additional. Will give low dose 0.5 mg Klonopin x1 and pending response may consider altering regimen.
[2023-01-08] MEDS: clonazePAM 0.5 MG Tablet PO (00:25)
[2023-01-08] MEDS: 0.9% Saline Lock 10 ML Syringe IV ×4 (04:47→17:29)
[2023-01-08 04:59] LABS: Color, Urine Yellow (Yellow); Glucose, Dipstick Normal (Normal); Ketone-Dipstick 5 mg/dl (Negative); Leukocyte Esterase-Dipstick 500 /ul (Negative); Nitrite-Dipstick Negative (Negative); Occult Blood-Urine 10 /ul (Negative); Protein-Dipstick 30 mg/dl (Negative); Urine Bilirubin Dipstick Negative (Negative); Urine Clarity Clear (Clear); Urine Urobilinogen Normal (Normal)
[2023-01-08 05:09] LABS: Amorphous Sediment 1+; Bacteria 2+ /hpf (None Seen); Mucous, Urine 1+ /hpf (<or=2+); Red Blood Cells-Urine 0-5 SEEN /hpf (0-5); Renal Epithelial Cells 0-5 SEEN /hpf (0-5); Squamous Epithelial Cells - UA 0-5 SEEN /hpf (5-10); White Blood Cells 10-25 SEEN /hpf (0-5)
[2023-01-08] MEDS: Levothyroxine 137 MCG Tablet PO (05:25)
[2023-01-08 05:38] LABS: Hematocrit 28.1 % (37-47); Hemoglobin 8.3 g/dL (12.0-15.0); Mean Corp Hgb Conc 29.5 g/dL (32-36); Mean Corpuscular Hgb 29.4 pg (27.0-32.0); Mean Corpuscular Volume 99.6 fL (81-99); Mean Platelet Vol. 10.1 fl (6.2-12.0); POSITIVE COUNT YES; POSITIVE MORPHOLOGY YES; Platelet Count 93 K/mm3 (150-450); RBC Distribution Width CV 19.4 % (11.6-14.6); RBC Distribution Width SD 69.8 fl (35.1-43.9); Red Blood Count 2.82 M/mm3 (4.2-5.4); White Blood Count 7.7 K/mm3 (4.4-11.0)
[2023-01-08 05:44] LABS: Differential Indicated MANUAL DIFF
[2023-01-08 05:51] LABS: Anion Gap 8 (5-15); BUN 18 mg/dL (7-18); BUN/Creat Ratio 16.2 RATIO (10-20); Calcium,Total 8.1 mg/dL (8.5-10.1); Chloride 110 mmol/L (98-107); Creatinine, Serum 1.11 mg/dL (0.55-1.02); EST Glomerular Filtration Rate 53 mL/min (>60); Est Glom Filt Rate - Afr Amer 64 mL/min (>60); Estimated Creatinine Clearance 49.82 ml/min; Glucose 73 mg/dL (74-106); Potassium 4.1 mmol/L (3.5-5.1); Sodium Level 141 mmol/L (136-145)
[2023-01-08 06:24] LABS: Anisocytosis 2+; Macrocytosis RARE; Platelet Estimate MOD DEC (ADEQ)
[2023-01-08 06:27] LABS: Absolute Lymphocyte Count 1.69 X10^3/uL (0.83-4.51); Absolute Neutrophil Count 4.2 X10^3/uL (2.0-7.7)
[2023-01-08 06:28] LABS: Lymphocyte 22 % (19-41); Metamyelocyte 1 % (0-1); Monocyte 8 % (0-10); Myelocyte 9 % (0-0); Neutrophil-Band 7 % (0-5); Neutrophil-Segmented 48 % (47-70); Nucleated Red Bld Cells,Manual 2 % (0-5); Promyelocyte 5 % (0-0); Total Cells Counted 102 (MANUAL DIFF)
[2023-01-08] MEDS: Ipratropium/Albuterol Sulfate 3 ML AMPUL.NEB INHALATION ×3 (07:38→19:31)
--- NOTE | 2023-01-08 08:55 | PCM.PN.HOSP ---
Subjective Subjective Confusion and disoriented this morning, overnight she had to be transferred closer to the nurses station secondary to continue to try to get out of bed and being restless Objective Data Objective Data Vital Signs: Vital Signs Temp Pulse Resp BP Pulse Ox O2 Del Method O2 Flow Rate 98.7 F 87 16 128/87 H 96 Nasal Cannula 2 01/08/23 03:20 01/08/23 03:20 01/08/23 03:20 01/08/23 03:20 01/08/23 03:20 01/08/23 03:20 01/08/23 03:20 Oxygen Flow Rate (L/min) 2 Oxygen Delivery Method Nasal Cannula Weight: 153 lb 14.122 oz Body Mass Index (BMI) 24.8 Intake & Output: Intake and Output for Last 24 Hours 01/07/23 01/08/23 01/09/23 03:59 03:59 03:59 Intake Total 1230 / 1230 940 / 940 240 / 240 Output Total 300 / 300 100 / 100 Balance 930 / 930 840 / 840 240 / 240 Lab / Micro Data 01/08/23 05:30 01/08/23 05:30 Labs: Laboratory Results - last 24 hr 01/06/23 05:20: Diff Path Review Reviewed 01/08/23 04:40: Urine Color Yellow, Urine Clarity Clear, Urine pH 5.0, Ur Specific Sapello 1.020, Urine Protein 30 H, Urine Glucose (UA) Normal, Urine Ketones 5 H, Urine Occult Blood 10 H, Urine Nitrite Negative, Urine Bilirubin Negative, Urine Urobilinogen Normal, Ur Leukocyte Esterase 500 H, Urine RBC 0-5 SEEN, Urine WBC 10-25 SEEN, Ur Squamous Epith Cells 0-5 SEEN, Ur Renal Epithelial Cell 0-5 SEEN, Amorphous Sediment 1+, Urine Bacteria 2+, Urine Mucus 1+ 01/08/23 05:30: WBC 7.7, RBC 2.82 L, Hgb 8.3 L, Hct 28.1 L, MCV 99.6 H, MCH 29.4, MCHC 29.5 L, RDW Std Deviation 69.8 H, RDW Coeff of David 19.4 H, Plt Count 93 L, MPV 10.1, Neut % (Auto) Not Reportable, Absolute Neuts (auto) 4.2, Absolute Lymphs (auto) 1.69, Total Counted 102, Neutrophils % (Manual) 48, Band Neutrophils % 7 H, Lymphocytes % (Manual) 22, Monocytes % (Manual) 8, Metamyelocytes % 1, Myelocytes % 9 H, Promyelocytes % 5 H, Nucleated RBCs/100 WBC 2, Diff Path Review May foll, Platelet Estimate MOD DEC, Anisocytosis 2+, Macrocytosis RARE, Sodium 141, Potassium 4.1, Chloride 110 H, Carbon Dioxide 23.0, Anion Gap 8, BUN 18, Creatinine 1.11 H, Estim Creat Clear Calc 49.82, Est GFR (MDRD) Af Amer 64, Est GFR (MDRD) Non-Af 53 L, BUN/Creatinine Ratio 16.2, Glucose 73 L, Calcium 8.1 L Physical Exam Narrative General: Drowsy, disoriented, Cooperative, No apparent distress HEENT: Atraumatic, PERRLA, EOMI, Normocephalic Oral: Moist Mucosa Neck: Supple, No JVD Lungs: Diminished, Normal air movement, No rhonchi, No wheeze, rales Cardiovascular: Regular rate, Regular Rhythm, Normal S1, Normal S2, No murmurs Abdomen: Soft, Non Tender, Non-Distended, No Hepato-splenomegaly Extremities: No edema, Capillary Refill Less than 3 Seconds Skin: No rashes, No breakdown Musculoskeletal: No Tenderness to Palpation of Joints or Extremities Neurological: Motor Exam 5/5 strength throughout, Sensory exam intact to light touch and pain Psych/Mental Status: Anxious and restless Assessment & Plan Assessment/Plan (1) SOB (shortness of breath): (2) Breast cancer, left: QUALIFIERS: Breast location: upper outer quadrant of breast Estrogen receptor status: positive Patient sex: female Qualified Code(s): C50.412 - Malignant neoplasm of upper-outer quadrant of left female breast; Z17.0 - Estrogen receptor positive status [ER+] (3) Pleural effusion, left: (4) Left hip pain: (5) Cancer related pain: PLAN: Plan 1. Shortness of breath secondary to malignant pleural effusion from stage IV breast cancer/cancer pain ? She has had thoracentesis in the past however she is improved from being on a nonrebreather to 2 L nasal cannula without any significant intervention and she does wear chronic oxygen now for about the last week according to her 2 L nasal cannula ? After time with her I do think that there is a significant component of this that is due to anxiety given her diagnosis and the sensations of the shortness of breath. We will start her on Zoloft as well as a as needed Xanax ? Appreciate pulmonology assistance ? If she does get worse will repeat another thoracentesis ? We will continue with her home Percocets and adjust her pain medications as necessary ? LFTs are elevated secondary to liver metastasis 2. Acute metabolic encephalopathy secondary to UTI ? UA overnight was obtained secondary to her restlessness and altered mental status it did show 500 leukocyte esterase as well has 2+ urine bacteria ? We will obtain a urine culture and start her on Rocephin ? If her encephalopathy does not improve would proceed with an MRI with contrast to rule out mets to the brain DVT: Heparin Charges/Coding Visit Charges Inpatient E&M: 13265 Subs Hosp L2
[2023-01-08] MEDS: Sertraline 50 MG Tablet PO (10:28)
[2023-01-08] MEDS: Ensure Plus High Protein 120 ML LIQUID PO ×3 (10:34→17:28)
[2023-01-08] MEDS: Spironolactone 50 MG Tablet PO (10:35)
[2023-01-08] MEDS: Oxycodone/Apap 5/325 Tablet PO ×2 (10:35→22:21)
--- NOTE | 2023-01-08 10:36 | CASEMGMT ---
YONATHAN KAPLAN notified by hospitalist requesting palliative consult. Order received and screening tool completed. YONATHAN KAPLAN sent referral to [facility].
[2023-01-08] MEDS: Ceftriaxone 1 GM/50 ML BAG IV (10:41)
--- NOTE | 2023-01-08 12:18 | CHAPLAIN ---
Type of Pastoral Visit ___ Initial Visit _x__ Follow-up Visit ___ On-call Visit ___ General Patient Visit ___ Spiritual Assessment ___ Family Conference ___ Bereavement ___ Rapid Response ___ Code Blue ___ Other (describe below) Pastoral Care Referral From _x__ Patient ___ Family ___ Nurse ___ Physician ___ City Auditor ___ Flute Polisher ___ Other (describe below) Sacrament/Intervention _x__ Active listening ___ Anointing ___ Christianity ___ Bereavement ___ Communion ___ [place] exploration ___ ___ Life review _x__ Prayer ___ Reconciliation ___ Sacrament of Sick _x__ Supportive presence ___ Wedding ___ Other (describe below) Pastoral Comments patient did not remember visit from this eastern philosophy professor of two days ago in the ICU; pt indicates that she has pain and they can't give me anything yet and they can't help me; pt is tearful; offer of prayer is welcomed and pt is quiet for a minute or two following; pain returns and pt is tearful again; asked questions about pt's life with hopes of diverting attention from pain; attempt is not successful but assurances given to patient that staff will be helpful and attentive
[2023-01-08 13:23] LABS: Pathologist Review Reviewed
[2023-01-09] VITALS (9 sets, daily range): BP systolic 108–128; BP diastolic 70–91; PULSE 78–100; RESP 16–20; TEMP 36.7–37; O2SAT 92–99; BMI 24.7
[2023-01-09] MEDS: Morphine 4 MG/ML Syringe IV ×2 (04:00→14:58)
[2023-01-09] MEDS: 0.9% Saline Lock 10 ML Syringe IV ×3 (04:01→14:58)
[2023-01-09] MEDS: Ondansetron ODT 4 MG Tablet PO (04:06)
[2023-01-09] MEDS: Acetaminophen 325 MG Tablet 650 MG PO ×3 (05:53→20:21)
[2023-01-09] MEDS: Levothyroxine 137 MCG Tablet PO (05:53)
[2023-01-09 06:05] LABS: Hematocrit 27.3 % (37-47); Hemoglobin 8.1 g/dL (12.0-15.0); Mean Corp Hgb Conc 29.7 g/dL (32-36); Mean Corpuscular Hgb 29.5 pg (27.0-32.0); Mean Corpuscular Volume 99.3 fL (81-99); Mean Platelet Vol. 10.3 fl (6.2-12.0); POSITIVE COUNT YES; POSITIVE MORPHOLOGY YES; Platelet Count 79 K/mm3 (150-450); RBC Distribution Width CV 19.4 % (11.6-14.6); RBC Distribution Width SD 69.7 fl (35.1-43.9); Red Blood Count 2.75 M/mm3 (4.2-5.4); White Blood Count 8.9 K/mm3 (4.4-11.0)
[2023-01-09 06:09] LABS: Differential Indicated MANUAL DIFF
[2023-01-09 06:48] LABS: ALB/GLOB Ratio 0.4 RATIO (0.9-2.4); AST(SGOT) 504 U/L (15-37); Alanine Aminotransfer ALT/SGPT 65 U/L (13-56); Albumin, Serum 1.6 g/dL (3.2-5.0); Alkaline Phosphatase 928 U/L (45-117); Anion Gap 7 (5-15); BUN 17 mg/dL (7-18); BUN/Creat Ratio 16.5 RATIO (10-20); Calcium,Total 8.3 mg/dL (8.5-10.1); Chloride 109 mmol/L (98-107); Creatinine, Serum 1.03 mg/dL (0.55-1.02); EST Glomerular Filtration Rate 58 mL/min (>60); Est Glom Filt Rate - Afr Amer 70 mL/min (>60); Estimated Creatinine Clearance 53.69 ml/min; Globulin 3.9 g/dL (2.2-4.2); Glucose 73 mg/dL (74-106); Potassium 4.3 mmol/L (3.5-5.1); Protein, Total 5.5 g/dL (6.4-8.2); Sodium Level 139 mmol/L (136-145)
[2023-01-09 06:56] LABS: Total Cells Counted 100 (MANUAL DIFF)
[2023-01-09 06:57] LABS: Lymphocyte 11 % (19-41); Metamyelocyte 3 % (0-1); Neutrophil-Band 14 % (0-5); Neutrophil-Segmented 50 % (47-70)
[2023-01-09 06:58] LABS: Monocyte 8 % (0-10); Myelocyte 12 % (0-0); Promyelocyte 2 % (0-0)
[2023-01-09 07:01] LABS: Nucleated Red Bld Cells,Manual 3 % (0-5)
[2023-01-09 07:02] LABS: Basophilic Stippling RARE; Differential Comment SCANNED; Hypochromasia 2+; Platelet Estimate MOD DEC (ADEQ)
[2023-01-09 07:03] LABS: Anisocytosis 1+
[2023-01-09 07:09] LABS: Absolute Lymphocyte Count 0.97 X10^3/uL (0.83-4.51); Absolute Neutrophil Count 5.7 X10^3/uL (2.0-7.7)
[2023-01-09] MEDS: Ipratropium/Albuterol Sulfate 3 ML AMPUL.NEB INHALATION ×3 (07:37→20:45)
[2023-01-09] MEDS: Ensure Plus High Protein 120 ML LIQUID PO ×2 (08:24→17:39)
[2023-01-09] MEDS: Spironolactone 50 MG Tablet PO (08:29)
[2023-01-09] MEDS: Sertraline 50 MG Tablet PO (08:29)
[2023-01-09] MEDS: Oxycodone/Apap 5/325 Tablet PO ×2 (08:29→22:19)
[2023-01-09] MEDS: ALPRAZolam 0.5 MG Tablet PO ×2 (09:22→22:19)
[2023-01-09] MEDS: Ceftriaxone 1 GM/50 ML BAG IV (09:25)
--- NOTE | 2023-01-09 11:45 | CASEMGMT ---
Social Work Pt has LW/POA but has not had it notarized, unable to bring in the documents. Pt declined wanting further information on advance directives at this time. SADI Conner
[2023-01-09 13:30] LABS: Pathologist Review Reviewed
--- NOTE | 2023-01-09 15:43 | PCM.PROGNOTE ---
Subjective Subjective Patient seen and examined. was by her bedside. She had no complaints and had an uneventful night. Review of systems was otherwise negative. She was on 2L of oxygen at time of review. Objective Data Objective Data Vital Signs: Vital Signs Temp Pulse Resp BP Pulse Ox O2 Del Method O2 Flow Rate 98.2 F 78 18 125/70 H 94 Nasal Cannula 2 01/09/23 14:53 01/09/23 14:53 01/09/23 14:53 01/09/23 14:53 01/09/23 14:53 01/09/23 14:53 01/09/23 14:53 Oxygen Flow Rate (L/min) 2 Oxygen Delivery Method Nasal Cannula Weight: 153 lb 10.595 oz Body Mass Index (BMI) 24.7 Intake & Output: Intake and Output for Last 24 Hours 01/07/23 01/08/23 01/09/23 23:59 23:59 23:59 Intake Total 1490 / 1490 462 / 462 734.75 / 734.75 Output Total 100 / 100 200 / 200 0 / 0 Balance 1390 / 1390 262 / 262 734.75 / 734.75 Lab / Micro Data 01/09/23 05:40 01/09/23 05:40 Labs: Laboratory Results - last 24 hr 01/09/23 05:40: WBC 8.9, RBC 2.75 L, Hgb 8.1 L, Hct 27.3 L, MCV 99.3 H, MCH 29.5, MCHC 29.7 L, RDW Std Deviation 69.7 H, RDW Coeff of David 19.4 H, Plt Count 79 L, MPV 10.3, Neut % (Auto) Not Reportable, Absolute Neuts (auto) 5.7, Absolute Lymphs (auto) 0.97, Total Counted 100, Neutrophils % (Manual) 50, Band Neutrophils % 14 H, Lymphocytes % (Manual) 11 L, Monocytes % (Manual) 8, Metamyelocytes % 3 H, Myelocytes % 12 H, Promyelocytes % 2 H, Nucleated RBCs/100 WBC 3, Differential Comment SCANNED, Diff Path Review Reviewed, Platelet Estimate MOD DEC, Hypochromasia 2+, Basophilic Stippling RARE, Anisocytosis 1+, Sodium 139, Potassium 4.3, Chloride 109 H, Carbon Dioxide 23.0, Anion Gap 7, BUN 17, Creatinine 1.03 H, Estim Creat Clear Calc 53.69, Est GFR (MDRD) Af Amer 70, Est GFR (MDRD) Non-Af 58 L, BUN/Creatinine Ratio 16.5, Glucose 73 L, Calcium 8.3 L, Total Bilirubin 0.50, AST 504 H, ALT 65 H, Alkaline Phosphatase 928 H, Total Protein 5.5 L, Albumin 1.6 L, Globulin 3.9, Albumin/Globulin Ratio 0.4 L Physical Exam Const alert, oriented x3 and no apparent distress Constitutional Narrative: frail HEENT normocephalic, head/scalp atraumatic, moist oral mucous membranes and oropharynx normal Eyes PERRL and EOMs intact bilaterally Neck no lymphadenopathy Lymph Lymphatic: no lymphadenopathy noted and no lymphedema noted Resp Resp Narrative: diminished breath sounds bibasally, few crackles. On 2L of oxygen. Cardio regular rate, regular rhythm, S1 normal heart sound, S2 normal heart sound and no murmurs GI normal to inspection, nondistended, normoactive bowel sounds, soft to palpation, non-tender and non-distended Extremity normal capillary refill, no clubbing, cyanosis or edema and no calf tenderness Skin General Skin Exam: no breakdown Neuro CN's II-XII intact bilaterally, no focal motor deficits, no sensory deficits noted and deep tendon reflexes 2+ bilaterally Motor Exam: strength 5/5 throughout Psych thought process normal, cooperative and affect normal Appearance: appropriate Assessment & Plan Assessment/Plan (1) Malignant pleural effusion: (2) Acute and chronic respiratory failure: (3) Breast cancer, left: QUALIFIERS: Breast location: upper outer quadrant of breast Estrogen receptor status: positive Patient sex: female Qualified Code(s): C50.412 - Malignant neoplasm of upper-outer quadrant of left female breast; Z17.0 - Estrogen receptor positive status [ER+] PLAN: Plan #Hypoxia due to malignant pleural effusion in the setting of stage IV breast cancer Now down to 2 L of oxygen. Has had thoracentesis in the past but has not required that during this admission. Titrate oxygen to maintain saturation above 90%. Breathing treatments bronchodilators. Pulmonology on board. #Stage IV breast cancer: On Percocet for pain. Has metastasis to the liver with elevated liver enzymes. Will monitor. #UTI Was restless and confused so urinalysis was done showed 2+ bacteria. On IV Rocephin. Urine cultures pending. #Anemia: This is chronic and likely due to cancer. Hemoglobin is 8.1. #Thrombocytopenia: Platelets are down to 79. Were 93 yesterday. Thrombocytopenia is chronic. Will monitor. DVT prophylaxis: SCDs. Will dc lovenox due to thrombocytopenia and place on SCDs Disposition: Anticipate discharge over the next 1 to 2 days once urine cultures are back and antibiotics can be narrowed down. Charges/Coding Visit Charges Inpatient E&M: 57659 Subs Hosp L2
--- NOTE | 2023-01-09 17:16 | CASEMGMT ---
YONATHAN CM in to discuss discharge planning with patient and . Patient resting. interested in HHC. A list of HHC providers including quality and resource use data and consistent with the patient?s preferred geographical region, medical needs, and insurance network were provided from the [facility] Guide. to review HHC and provide preferences. YONATHAN KAPLAN informed of palliative consult, voiced understanding. CM will continue to follow this patient and plan for a safe discharge.
[2023-01-10] VITALS (7 sets, daily range): BP systolic 118–146; BP diastolic 61–81; PULSE 74–115; RESP 18–20; TEMP 36.3–36.8; O2SAT 95–99; BMI 25.3
[2023-01-10] MEDS: 0.9% Saline Lock 10 ML Syringe IV ×2 (02:19→18:44)
[2023-01-10] MEDS: Morphine 4 MG/ML Syringe IV ×2 (02:19→18:44)
[2023-01-10] MEDS: Levothyroxine 137 MCG Tablet PO (05:23)
[2023-01-10 06:49] LABS: Hematocrit 28.2 % (37-47); Hemoglobin 8.2 g/dL (12.0-15.0); Mean Corp Hgb Conc 29.1 g/dL (32-36); Mean Corpuscular Hgb 29.1 pg (27.0-32.0); Mean Platelet Vol. 11.2 fl (6.2-12.0); POSITIVE COUNT YES; POSITIVE MORPHOLOGY YES; Platelet Count 60 K/mm3 (150-450); RBC Distribution Width CV 19.5 % (11.6-14.6); RBC Distribution Width SD 70.3 fl (35.1-43.9); Red Blood Count 2.82 M/mm3 (4.2-5.4)
[2023-01-10 06:54] LABS: Differential Indicated MANUAL DIFF
[2023-01-10 07:06] LABS: Anion Gap 6 (5-15); BUN 17 mg/dL (7-18); BUN/Creat Ratio 18.2 RATIO (10-20); Calcium,Total 8.2 mg/dL (8.5-10.1); Chloride 109 mmol/L (98-107); Creatinine, Serum 0.93 mg/dL (0.55-1.02); EST Glomerular Filtration Rate 65 mL/min (>60); Est Glom Filt Rate - Afr Amer 79 mL/min (>60); Estimated Creatinine Clearance 59.47 ml/min; Glucose 63 mg/dL (74-106); Potassium 4.5 mmol/L (3.5-5.1); Sodium Level 138 mmol/L (136-145)
[2023-01-10] MEDS: Ipratropium/Albuterol Sulfate 3 ML AMPUL.NEB INHALATION ×2 (07:47→21:19)
[2023-01-10 08:16] LABS: Metamyelocyte 9 % (0-1); Neutrophil-Band 5 % (0-5); Neutrophil-Segmented 68 % (47-70); Total Cells Counted 100 (MANUAL DIFF)
[2023-01-10 08:17] LABS: Blast 1 % (0-0); Corrected WBC 9.8 K/mm3 (4.4-11.0); Lymphocyte 9 % (19-41); Myelocyte 6 % (0-0); Nucleated Red Bld Cells,Manual 12 % (0-5); Promyelocyte 2 % (0-0)
[2023-01-10 08:18] LABS: Anisocytosis 1+; Platelet Estimate MKD DEC (ADEQ); Polychromasia 2+
[2023-01-10 08:19] LABS: Absolute Lymphocyte Count 0.88 X10^3/uL (0.83-4.51); Absolute Neutrophil Count 7.2 X10^3/uL (2.0-7.7); Lymphocyte # 0.88 X10^3/ul (0.83-4.51); Neutrophil # 7.15 X10^3/uL (2.7-7.7)
--- NOTE | 2023-01-10 08:25 | PN.HOSP_ITS ---
Reason for Visit Reason for Visit: Diagnoses Malignant neoplasm of upper-outer quadrant of left female breast (01/06/23) Neoplasm related pain (acute) (chronic) (01/06/23) Pleural effusion, not elsewhere classified (01/06/23) Malignant pleural effusion (01/06/23) Acute and chronic respiratory failure, unspecified whether with hypoxia or hypercapnia (01/06/23) Pain in left hip (01/06/23) Shortness of breath (01/06/23) Estrogen receptor positive status [ER+] (01/06/23) Subjective Subjective Patient is a 62-year-old lady with history of stage IV breast CA admitted with shortness of breath Objective Data Objective Data Vital Signs: Vital Signs Temp Pulse Resp BP Pulse Ox O2 Del Method O2 Flow Rate 97.4 F L 103 H 18 118/81 H 97 Nasal Cannula 2 01/10/23 08:21 01/10/23 08:21 01/10/23 08:21 01/10/23 08:21 01/10/23 08:21 01/10/23 08:21 01/10/23 08:21 Oxygen Flow Rate (L/min) 2 Oxygen Delivery Method Nasal Cannula Weight: 71.2 kg Body Mass Index (BMI) 25.3 Intake & Output: Intake and Output for Last 24 Hours 01/08/23 01/09/23 01/10/23 23:59 23:59 23:59 Intake Total 462 / 462 1294.75 / 1294.75 Output Total 200 / 200 0 / 0 Balance 262 / 262 1294.75 / 1294.75 Lab / Micro Data 01/10/23 06:40 01/10/23 06:40 Labs: Laboratory Results - last 24 hr 01/09/23 05:40: Diff Path Review Reviewed 01/10/23 06:40: WBC KAYAK MAKER, Corrected WBC 9.8, RBC 2.82 L, Hgb 8.2 L, Hct 28.2 L, MCV 100.0 H, MCH 29.1, MCHC 29.1 L, RDW Std Deviation 70.3 H, RDW Coeff of David 19.5 H, Plt Count 60 L, MPV 11.2, Neut % (Auto) Not Reportable, Absolute Neuts (auto) 7.2, Absolute Lymphs (auto) 0.88, Total Counted 100, Neutrophils % (Manual) 68, Band Neutrophils % 5, Lymphocytes % (Manual) 9 L, Metamyelocytes % 9 H, Myelocytes % 6 H, Promyelocytes % 2 H, Blast Cells % 1 H*, Nucleated RBCs/100 WBC 12 H, Diff Path Review May foll, Platelet Estimate MKD DEC, Polychromasia 2+, Anisocytosis 1+, Sodium 138, Potassium 4.5, Chloride 109 H, Carbon Dioxide 23.0, Anion Gap 6, BUN 17, Creatinine 0.93, Estim Creat Clear Calc 59.47, Est GFR (MDRD) Af Amer 79, Est GFR (MDRD) Non-Af 65, BUN/Creatinine Ratio 18.2, Glucose 63 L, Calcium 8.2 L Physical Exam Narrative GENERAL: cooperative HEENT: Atraumatic; normocephalic EYES; Anicteric, Normal Conjunctiva NECK; supple, normal thyroid, RESPIRATORY: Diminished to auscultation CARDIOVASCULAR: Regular S1 S2, GI: soft, normoactive bowel sounds, : No Renal angle tenderness; EXTREMITIES: No edema, no clubbing, MUSCULOSKELETAL: no muscle wasting NEURO: Awake; no lateralizing signs. SKIN: No Rash PSYCH; Flat affect Assessment & Plan Assessment/Plan (1) Malignant pleural effusion: (2) Acute and chronic respiratory failure: (3) Breast cancer, left: QUALIFIERS: Breast location: upper outer quadrant of breast Estrogen receptor status: positive Patient sex: female Qualified Code(s): C50.412 - Malignant neoplasm of upper-outer quadrant of left female breast; Z17.0 - Estrogen receptor positive status [ER+] PLAN: Plan Patient is a 62-year-old lady with history of stage IV breast CA admitted with shortness of breath 1. Acute acute hypoxic respiratory failure (present on admission) ? Secondary to malignant pleural effusion as a result of stage IV breast cancer. Mated initially to the intensive care unit managed on noninvasive ventilation with BiPAP as well as Lasix with consultation placed to pulmonary medicine. Patient has since been weaned off BiPAP currently on supplemental oxygen 2. Acute metabolic encephalopathy ? Secondary to hypoxia as well as acute cystitis 3. Acute cystitis ? Patient was managed with Rocephin cultures came back negative 4. Stage IV breast cancer ? With mets to the liver as well as malignant pleural effusion. Patient is currently on palliative chemotherapy with [place] which was initiated on 12/09/2022. Managed by oncology as outpatient 5. Anemia - Secondary to chronic disorder/anemia secondary to malignancy monitoring H&H and transfuse if patient becomes symptomatic or hemoglobin falls below 7 6. Thrombocytopenia ? Chronic probably related to patient's chemo 7. Hypothyroidism - Patient is on levothyroxine home dose continued 8. DVT prophylaxis ? Bilateral SCDs Time spent in the patient's overall evaluation,decision-making process, review of diagnostic data, adjustment of management, discussion with other providers, nursing nursing and ancillary staff involved in patient's care documentation, 55 Minutes Charges/Coding Visit Charges Inpatient E&M: 50641 [facility] Hosp L3
[2023-01-10] MEDS: Ensure Plus High Protein 120 ML LIQUID PO ×3 (08:28→16:41)
[2023-01-10] MEDS: ALPRAZolam 0.5 MG Tablet PO (08:29)
[2023-01-10] MEDS: Ceftriaxone 1 GM/50 ML BAG IV (10:14)
[2023-01-10 12:24] LABS: Bedside Glucose 68 mg/dL (74-106)
[2023-01-10] MEDS: Acetaminophen 325 MG Tablet 650 MG PO (12:45)
[2023-01-10] MEDS: Oxycodone/Apap 5/325 Tablet PO (12:45)
--- NOTE | 2023-01-10 14:54 | CASEMGMT ---
YONATHAN KAPLAN NOTE: YONATHAN KAPLAN to room to f/u with pt's who is at bedside, re: HHC preference. He initially stated he did not want HHC as he thought it was for someone to stay w/pt and he states he does not need someone to stay w/her. YONATHAN KAPLAN explained to him HHC would be for SN and therapy and questions answered. agreeable to HH for SN and PT/OT but does not want an aide to assist w/bathing/dressing. Order placed. initially stated [facility] would be his first choice. Ptt lives ~ 40 min away and he was made aware pt's location is out of service area for [facility]. He states he has no other preference and states whoever will be able to accept her in their area would be okay with him. had voiced to YONATHAN KAPLAN he feels pt would do better being at home and that he was hoping to take pt home either today or tomorrow. Dr Leger made aware and in to talk w/. YONATHAN KAPLAN back into room to talk w/ afterwards. Emotional support provided for , as he voices concern w/'s increase in confusion. Questions answered. No HHC referral placed at this time, as pt with increased confusion and anticipate pt will not be ready to discharge home over the weekend. CM to f/u on Thursday. Luz PARK RN, CM
--- NOTE | 2023-01-10 16:39 | NURSING ---
This RN called and updated the patient's daughters- Eneida and Maxine.
[2023-01-10] MEDS: Sertraline 50 MG Tablet PO (16:41)
[2023-01-10] MEDS: Spironolactone 50 MG Tablet PO (16:41)
[2023-01-11] VITALS (12 sets, daily range): BP systolic 91–129; BP diastolic 73–98; PULSE 93–144; RESP 18–27; TEMP 36.2–37.8; O2SAT 94–100; BMI 24.9
[2023-01-11] MEDS: Oxycodone/Apap 5/325 Tablet PO ×2 (00:49→16:07)
[2023-01-11] MEDS: Acetaminophen 325 MG Tablet 650 MG PO ×2 (05:04→16:08)
[2023-01-11] MEDS: Morphine 4 MG/ML Syringe IV ×3 (06:09→20:57)
[2023-01-11] MEDS: 0.9% Saline Lock 10 ML Syringe IV (06:10)
[2023-01-11 07:22] LABS: Hematocrit 28.2 % (37-47); Hemoglobin 8.2 g/dL (12.0-15.0); Mean Corp Hgb Conc 29.1 g/dL (32-36); Mean Corpuscular Hgb 29.1 pg (27.0-32.0); Mean Platelet Vol. 9.8 fl (6.2-12.0); POSITIVE COUNT YES; POSITIVE MORPHOLOGY YES; Platelet Count 46 K/mm3 (150-450); RBC Distribution Width SD 72.1 fl (35.1-43.9); Red Blood Count 2.82 M/mm3 (4.2-5.4)
[2023-01-11] MEDS: Ipratropium/Albuterol Sulfate 3 ML AMPUL.NEB INHALATION ×2 (07:26→12:23)
[2023-01-11] MEDS: Ensure Plus High Protein 120 ML LIQUID PO ×2 (07:30→11:05)
[2023-01-11 07:47] LABS: Differential Indicated MANUAL DIFF
[2023-01-11 07:54] LABS: Corrected WBC 10.9 K/mm3 (4.4-11.0); Lymphocyte 14 % (19-41); Metamyelocyte 9 % (0-1); Monocyte 2 % (0-10); Myelocyte 2 % (0-0); Neutrophil-Band 9 % (0-5); Neutrophil-Segmented 64 % (47-70); Nucleated Red Bld Cells,Manual 9 % (0-5); Total Cells Counted 100 (MANUAL DIFF)
[2023-01-11 07:55] LABS: Hypochromasia 1+; Platelet Estimate MKD DEC (ADEQ); Red Cell Morphology N CYTIC NORMAL (NORM C&C)
[2023-01-11 07:56] LABS: Polychromasia RARE
[2023-01-11 07:57] LABS: Absolute Lymphocyte Count 1.52 X10^3/uL (0.83-4.51)
[2023-01-11 08:20] LABS: AST(SGOT) 1022 U/L (15-37); Alanine Aminotransfer ALT/SGPT 102 U/L (13-56); Albumin, Serum 1.5 g/dL (3.2-5.0); Alkaline Phosphatase 965 U/L (45-117); Anion Gap 8 (5-15); BUN 15 mg/dL (7-18); BUN/Creat Ratio 17.1 RATIO (10-20); Bilirubin, Direct 0.51 mg/dL (0.00-0.30); Calcium,Total 8.3 mg/dL (8.5-10.1); Chloride 109 mmol/L (98-107); Creatinine, Serum 0.88 mg/dL (0.55-1.02); EST Glomerular Filtration Rate 70 mL/min (>60); Est Glom Filt Rate - Afr Amer 84 mL/min (>60); Estimated Creatinine Clearance 62.85 ml/min; Globulin 3.9 g/dL (2.2-4.2); Glucose 63 mg/dL (74-106); Magnesium 2.5 mg/dL (1.6-2.6); Potassium 4.5 mmol/L (3.5-5.1); Protein, Total 5.4 g/dL (6.4-8.2); Sodium Level 139 mmol/L (136-145)
--- NOTE | 2023-01-11 08:44 | CT_ITS ---
STUDY: CT BRAIN WITHOUT CONTRAST REASON FOR EXAM: Female, 62 years old. Altered mental status. BREAST CANCER PATIENT WITH METS TO BONE AND LUNGS RADIATION DOSAGE (If Supplied By Facility): CTDIvol = ( 44.99 ) mGy, DLP = ( 812.98 ) mGycm TECHNIQUE: Transaxial CT imaging of the brain was performed without administration of intravenous contrast material. Individualized dose optimization techniques were used for this CT. COMPARISON: 05/01/2022 FINDINGS: Normal soft tissue structures. There are multiple lytic lesions of the skull worrisome for lytic metastases in this patient with the breast cancer.. There is mild cerebral atrophy with widening of the extra-axial spaces and ventricular dilatation. There are areas of decreased attenuation within the white matter tracts of the supratentorial brain, consistent with microvascular disease changes. There are multiple focal areas of decreased attenuation particularly in the left temporal lobe and the anterior left parietal lobe which may represent masses with surrounding vasogenic edema. Correlation with MRI with contrast is recommended to exclude metastatic disease.. Normal basal ganglia and thalami. Normal brainstem. Normal cerebellum. There is no intracranial hemorrhage. There are no findings of an acute ischemic infarction. Normal visualized paranasal sinuses. CT/Brain/Head without Contrast IMPRESSION: Suspect metastatic disease and correlation with MRI with contrast is recommended. 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 Electronically Signed: Destin Benson MD at 10:15 EDT ,
--- NOTE | 2023-01-11 08:46 | PCM.PN.HOSP ---
Reason for Visit Reason for Visit: Diagnoses Malignant neoplasm of upper-outer quadrant of left female breast (01/06/23) Neoplasm related pain (acute) (chronic) (01/06/23) Pleural effusion, not elsewhere classified (01/06/23) Malignant pleural effusion (01/06/23) Acute and chronic respiratory failure, unspecified whether with hypoxia or hypercapnia (01/06/23) Pain in left hip (01/06/23) Shortness of breath (01/06/23) Estrogen receptor positive status [ER+] (01/06/23) Subjective Subjective Seen complaining of headache. Ordered CT of the head which did not show suspected metastatic disease for which MRI was recommended subsequently ordered Objective Data Objective Data Vital Signs: Vital Signs Temp Pulse Resp BP Pulse Ox O2 Del Method O2 Flow Rate 97.2 F L 93 18 118/92 H 96 Nasal Cannula 2 01/11/23 03:48 01/11/23 03:48 01/11/23 03:48 01/11/23 03:48 01/11/23 03:48 01/11/23 08:36 01/11/23 08:36 Oxygen Flow Rate (L/min) 2 Oxygen Delivery Method Nasal Cannula Weight: 70.1 kg Body Mass Index (BMI) 24.9 Intake & Output: Intake and Output for Last 24 Hours 01/09/23 01/10/23 01/11/23 23:59 23:59 23:59 Intake Total 1294.75 / 1294.75 480 / 480 Output Total 0 / 0 0 / 0 Balance 1294.75 / 1294.75 480 / 480 Lab / Micro Data 01/11/23 06:50 01/11/23 06:50 Labs: Laboratory Results - last 24 hr 01/10/23 12:03: POC Glucose 68 L 01/11/23 06:50: WBC ARTIST COLOR SEPARATION, Corrected WBC 10.9, RBC 2.82 L, Hgb 8.2 L, Hct 28.2 L, MCV 100.0 H, MCH 29.1, MCHC 29.1 L, RDW Std Deviation 72.1 H, RDW Coeff of David 20.0 H, Plt Count 46 L*, MPV 9.8, Neut % (Auto) Not Reportable, Absolute Neuts (auto) 8.0 H, Absolute Lymphs (auto) 1.52, Total Counted 100, Neutrophils % (Manual) 64, Band Neutrophils % 9 H, Lymphocytes % (Manual) 14 L, Monocytes % (Manual) 2, Metamyelocytes % 9 H, Myelocytes % 2 H, Nucleated RBCs/100 WBC 9 H, Diff Path Review May foll, Platelet Estimate MKD DEC, RBC Morphology N CYTIC, Polychromasia RARE, Hypochromasia 1+, Sodium 139, Potassium 4.5, Chloride 109 H, Carbon Dioxide 22.0, Anion Gap 8, BUN 15, Creatinine 0.88, Estim Creat Clear Calc 62.85, Est GFR (MDRD) Af Amer 84, Est GFR (MDRD) Non-Af 70, BUN/Creatinine Ratio 17.1, Glucose 63 L, Calcium 8.3 L, Phosphorus 2.0 L, Magnesium 2.5, Total Bilirubin 0.90, Direct Bilirubin 0.51 H, AST 1022 H, ALT 102 H, Alkaline Phosphatase 965 H, Total Protein 5.4 L, Albumin 1.5 L, Globulin 3.9 Micro: Microbiology 01/09/23 04:00 Urine, Clean Catch Urine Culture - Preliminary Culture exhibits no growth. Physical Exam Narrative GENERAL: cooperative HEENT: Atraumatic; normocephalic EYES; Anicteric, Normal Conjunctiva NECK; supple, normal thyroid, RESPIRATORY: Diminished to auscultation CARDIOVASCULAR: Regular S1 S2, GI: soft, normoactive bowel sounds, : No Renal angle tenderness; EXTREMITIES: No edema, no clubbing, MUSCULOSKELETAL: no muscle wasting NEURO: Awake; no lateralizing signs. SKIN: No Rash PSYCH; Flat affect Assessment & Plan Assessment/Plan (1) Malignant pleural effusion: (2) Acute and chronic respiratory failure: QUALIFIERS: Respiratory failure complication: hypoxia Qualified Code(s): J96.21 - Acute and chronic respiratory failure with hypoxia (3) Breast cancer, left: QUALIFIERS: Breast location: upper outer quadrant of breast Estrogen receptor status: positive Patient sex: female Qualified Code(s): C50.412 - Malignant neoplasm of upper-outer quadrant of left female breast; Z17.0 - Estrogen receptor positive status [ER+] PLAN: Plan Patient is a 62-year-old lady with history of stage IV breast CA admitted with shortness of breath 1. Acute acute hypoxic respiratory failure (present on admission) ? Secondary to malignant pleural effusion as a result of stage IV breast cancer. Mated initially to the intensive care unit managed on noninvasive ventilation with BiPAP as well as Lasix with consultation placed to pulmonary medicine. Patient has since been weaned off BiPAP currently on supplemental oxygen 2. Acute metabolic encephalopathy ? Secondary to hypoxia as well as acute cystitis. ? Encephalopathy may be related to metastatic brain disease. CAT scan ordered did show suspect t metastatic disease and lytic skeletal metastases to the skull.. MRI ordered for subsequent evaluation. Consult placed to heme-onc 3. Acute cystitis ? Patient was managed with Rocephin cultures came back negative 4. Stage IV breast cancer ? With mets to the liver as well as malignant pleural effusion. Patient is currently on palliative chemotherapy with [place] which was initiated on 12/09/2022. Managed by oncology as outpatient 5. Anemia - Secondary to chronic disorder/anemia secondary to malignancy monitoring H&H and transfuse if patient becomes symptomatic or hemoglobin falls below 7 6. Thrombocytopenia ? Chronic probably related to patient's chemo 7. Hypothyroidism - Patient is on levothyroxine home dose continued 8. DVT prophylaxis ? Bilateral SCDs Time spent in the patient's overall evaluation,decision-making process, review of diagnostic data, adjustment of management, discussion with other providers, nursing nursing and ancillary staff involved in patient's care, patient's , documentation, 50 Minutes Charges/Coding Visit Charges Inpatient E&M: 60691 Subs Hosp L3
[2023-01-11] MEDS: Ceftriaxone 1 GM/50 ML BAG IV (10:01)
[2023-01-11] MEDS: Spironolactone 50 MG Tablet PO (10:03)
[2023-01-11] MEDS: Sertraline 50 MG Tablet PO (10:03)
[2023-01-12] VITALS (20 sets, daily range): BP systolic 88–120; BP diastolic 66–96; PULSE 129–137; RESP 17–26; TEMP 36.4–38.2; O2SAT 92–95; BMI 25.2
[2023-01-12] MEDS: Morphine 4 MG/ML Syringe IV ×4 (00:24→17:55)
[2023-01-12] MEDS: 0.9% Saline Lock 10 ML Syringe IV ×4 (00:24→17:54)
--- NOTE | 2023-01-12 00:28 | PCM.HOSP.N ---
Hospitalist Note Patient with recurrent hypoglycemia, poor intake per staff report. Ongoing tachycardia. Will administer small IVF bolus given presentation history and start on low D5NS.
[2023-01-12] MEDS: 0.9% Normal Saline (250mL Bag) 250 ML 999 ML IV (00:42)
[2023-01-12] MEDS: Dextrose 5%/0.9% NaCl 1,000 ML 60 ML IV ×2 (01:04→21:07)
--- NOTE | 2023-01-12 03:30 | NURSING ---
Pt was straight cathed for 600 ml of urine after being bladder scanned for 460 mL. She has been unable to urinate since 0.
[2023-01-12 04:37] LABS: Bedside Glucose 63 mg/dL (74-106)
[2023-01-12 06:36] LABS: Hemoglobin 8.8 g/dL (12.0-15.0); Mean Corp Hgb Conc 29.3 g/dL (32-36); Mean Corpuscular Hgb 29.7 pg (27.0-32.0); Mean Corpuscular Volume 101.4 fL (81-99); POSITIVE COUNT YES; POSITIVE MORPHOLOGY YES; RBC Distribution Width CV 20.7 % (11.6-14.6); RBC Distribution Width SD 75.3 fl (35.1-43.9); Red Blood Count 2.96 M/mm3 (4.2-5.4); White Blood Count 11.2 K/mm3 (4.4-11.0)
[2023-01-12 06:47] LABS: Differential Indicated MANUAL DIFF; Platelet Count 37 K/mm3 (150-450)
[2023-01-12 07:06] LABS: AST(SGOT) 822 U/L (15-37); Alanine Aminotransfer ALT/SGPT 82 U/L (13-56); Albumin, Serum 1.5 g/dL (3.2-5.0); Alkaline Phosphatase 943 U/L (45-117); Anion Gap 9 (5-15); BUN 20 mg/dL (7-18); BUN/Creat Ratio 17.4 RATIO (10-20); Bilirubin, Direct 0.47 mg/dL (0.00-0.30); Calcium,Total 8.1 mg/dL (8.5-10.1); Chloride 112 mmol/L (98-107); Creatinine, Serum 1.15 mg/dL (0.55-1.02); EST Glomerular Filtration Rate 51 mL/min (>60); Est Glom Filt Rate - Afr Amer 62 mL/min (>60); Estimated Creatinine Clearance 48.09 ml/min; Globulin 4.1 g/dL (2.2-4.2); Glucose 71 mg/dL (74-106); Potassium 5.1 mmol/L (3.5-5.1); Protein, Total 5.6 g/dL (6.4-8.2); Sodium Level 141 mmol/L (136-145)
--- NOTE | 2023-01-12 10:18 | MRI_ITS ---
ACR Level 3 findings have been noted. An addendum which confirms receipt of the report will follow. STUDY: MRI BRAIN WITH AND WITHOUT CONTRAST REASON FOR EXAM: Female, 62 years old. brain mets, breast ca, liver mets, h/a, acute metabolic encephalopathy TECHNIQUE: Standardized multiplanar fat and water weighted pulse sequences were obtained. IV 14 ML CLARISCAN was administered for the contrast portion of the examination. COMPARISON: MRI of the brain dated December 25, 2022 FINDINGS: Interval development of significant thickening and lobular masses of the dura at the inferior lateral aspect of the left frontal lobe and left temporal fossa measuring 2.30 cm and 2.62 cm, consistent with dural carcinomatosis. The underlying parenchyma at the floor and lateral aspect of the left frontal lobe and the anterior temporal fossa have new areas of infiltrative and vasogenic edema as well as metastatic disease of the subcortical white matter which is necrotic in this nonenhanced as much is the overlying dura. Interval development of lobularity and thickening and hyperenhancement of the dura at the anterior aspect and floor of the right frontal lobe with underlying vasogenic edema and infiltration of the subcortical white matter in the parasagittal region of the right frontal lobe also due to metastatic disease. Moderate diffuse enhancement of the dura across the frontal lobes and frontoparietal convexities of the brain extending to the apex consistent with dural carcinomatosis. New metastatic disease to the skull is also demonstrated at the superior lateral aspects of the right and left size of the frontal bone and left parietal bone, but most pronounced on the right see image #21/28 series 7. There are severe mucous opacification of the bilateral mastoid air cells consistent with otomastoiditis, left greater than right. There is mild cerebral atrophy with widening of the extra-axial spaces and ventricular dilatation. There are multiple white matter hyperintensities, distributed throughout the deep white matter tracts of the cerebral hemispheres, consistent with moderate chronic white matter ischemic changes. Normal T2* images of the brain without demonstrated susceptibility artifact. There is no demonstrated hemosiderin stain. Normal bilateral basal ganglia. Normal thalami. There is no extra-axial fluid accumulation. Normal flow voids within the major intracranial circulation suggesting patency by spin echo criteria. Normal venous enhancement. Normal sella turcica, pituitary gland, infundibular stalk, optic chiasm and hypothalamus. Normal tectal plate and pineal gland. Normal midbrain, oziel and medulla. Normal cerebellum. Normal basal cisterns. Normal bilateral temporal bones. Normal bilateral internal auditory canals. No demonstrated orbital abnormality, within the constraints of a routine brain study. Normal visualized paranasal sinuses. Normal calvarium and skull base. Normal visualized soft tissue structures. Normal visualized upper cervical spine. MRI/Brain W/WO Contrast IMPRESSION: Interval development of metastatic dural carcinomatosis with infiltration of the underlying parenchyma 1. Interval development of significant thickening and lobular masses of the dura at the inferior lateral aspect of the left frontal lobe and left temporal fossa measuring 2.30 cm and 2.62 cm, consistent with dural carcinomatosis. The underlying parenchyma at the floor and lateral aspect of the left frontal lobe and the anterior temporal fossa have new areas of infiltrative and vasogenic edema as well as metastatic disease of the subcortical white matter which is necrotic in this nonenhanced as much is the overlying dura. Interval development of lobularity and thickening and hyperenhancement of the dura at the anterior aspect and floor of the right frontal lobe with underlying vasogenic edema and infiltration of the subcortical white matter in the parasagittal region of the right frontal lobe also due to metastatic disease. 2. Moderate diffuse enhancement of the dura across the frontal lobes and frontoparietal convexities of the brain extending to the apex consistent with dural carcinomatosis. 3. New metastatic disease to the skull is also demonstrated at the superior lateral aspects of the right and left size of the frontal bone and left parietal bone, but most pronounced on the right see image #21/28 series 7. 4. The postcontrast images are degraded due to motion artifact at some point postcontrast only images should be required and an addendum can be made to determine if there are additional lesions not picked up on the original study or if this would climate change risk assessor and treatment of the patient. Electronically Signed: Michael Jacobo MD at 11:58 EDT ,
[2023-01-12] MEDS: Ceftriaxone 1 GM/50 ML BAG IV (11:59)
[2023-01-12 12:31] LABS: Neutrophil-Band 10 % (0-5); Neutrophil-Segmented 60 % (47-70); Total Cells Counted 100 (MANUAL DIFF)
[2023-01-12 12:32] LABS: Anisocytosis 2+; Lymphocyte 16 % (19-41); Macrocytosis 1+; Metamyelocyte 1 % (0-1); Microcytosis 1+; Monocyte 5 % (0-10); Myelocyte 8 % (0-0); Nucleated Red Bld Cells,Manual 4 % (0-5); Platelet Estimate MKD DEC (ADEQ)
[2023-01-12 12:33] LABS: Absolute Lymphocyte Count 1.79 X10^3/uL (0.83-4.51); Absolute Neutrophil Count 7.8 X10^3/uL (2.0-7.7)
[2023-01-12 12:48] LABS: Pathologist Review Reviewed
[2023-01-12 12:48] LABS: Pathologist Review Reviewed
--- NOTE | 2023-01-12 13:43 | PCM.PN.HOSP ---
Subjective Subjective Very lethargic today. No issues overnight Objective Data Objective Data Vital Signs: Vital Signs Temp Pulse Resp BP Pulse Ox O2 Del Method O2 Flow Rate 97.7 F L 136 H 20 H 89/74 L 94 Nasal Cannula 2 01/12/23 13:00 01/12/23 13:00 01/12/23 13:00 01/12/23 13:00 01/12/23 13:00 01/12/23 13:00 01/12/23 13:00 Oxygen Flow Rate (L/min) 2 Oxygen Delivery Method Nasal Cannula Weight: 156 lb 11.979 oz Body Mass Index (BMI) 25.2 Intake & Output: Intake and Output for Last 24 Hours 01/11/23 01/12/23 01/13/23 03:59 03:59 03:59 Intake Total 480 / 480 900 / 900 556 / 556 Output Total 0 / 0 0 / 0 600 / 600 Balance 480 / 480 900 / 900 -44 / -44 Lab / Micro Data 01/12/23 05:40 01/12/23 05:40 Labs: Laboratory Results - last 24 hr 01/10/23 06:40: Diff Path Review Reviewed 01/11/23 06:50: Diff Path Review Reviewed 01/12/23 00:22: POC Glucose 63 L 01/12/23 05:40: WBC 11.2 H, RBC 2.96 L, Hgb 8.8 L, Hct 30.0 L, MCV 101.4 H, MCH 29.7, MCHC 29.3 L, RDW Std Deviation 75.3 H, RDW Coeff of David 20.7 H, Plt Count 37 L*, MPV TNP, Neut % (Auto) Not Reportable, Absolute Neuts (auto) 7.8 H, Absolute Lymphs (auto) 1.79, Total Counted 100, Neutrophils % (Manual) 60, Band Neutrophils % 10 H, Lymphocytes % (Manual) 16 L, Monocytes % (Manual) 5, Metamyelocytes % 1, Myelocytes % 8 H, Nucleated RBCs/100 WBC 4, Diff Path Review May , Platelet Estimate MKD DEC, Anisocytosis 2+, Microcytosis 1+, Macrocytosis 1+, Sodium 141, Potassium 5.1, Chloride 112 H, Carbon Dioxide 20.0 L, Anion Gap 9, BUN 20 H, Creatinine 1.15 H, Estim Creat Clear Calc 48.09, Est GFR (MDRD) Af Amer 62, Est GFR (MDRD) Non-Af 51 L, BUN/Creatinine Ratio 17.4, Glucose 71 L, Calcium 8.1 L, Total Bilirubin 0.70, Direct Bilirubin 0.47 H, AST 822 H, ALT 82 H, Alkaline Phosphatase 943 H, Total Protein 5.6 L, Albumin 1.5 L, Globulin 4.1 Micro: Microbiology 01/09/23 04:00 Urine, Clean Catch Urine Culture - Final Culture exhibits no growth. Radiography Diagnostic Testing: Radiology Impression Brain MRI 01/12/23 10:18 IMPRESSION: Interval development of metastatic dural carcinomatosis with infiltration of the underlying parenchyma 1. Interval development of significant thickening and lobular masses of the dura at the inferior lateral aspect of the left frontal lobe and left temporal fossa measuring 2.30 cm and 2.62 cm, consistent with dural carcinomatosis. The underlying parenchyma at the floor and lateral aspect of the left frontal lobe and the anterior temporal fossa have new areas of infiltrative and vasogenic edema as well as metastatic disease of the subcortical white matter which is necrotic in this nonenhanced as much is the overlying dura. Interval development of lobularity and thickening and hyperenhancement of the dura at the anterior aspect and floor of the right frontal lobe with underlying vasogenic edema and infiltration of the subcortical white matter in the parasagittal region of the right frontal lobe also due to metastatic disease. 2. Moderate diffuse enhancement of the dura across the frontal lobes and frontoparietal convexities of the brain extending to the apex consistent with dural carcinomatosis. 3. New metastatic disease to the skull is also demonstrated at the superior lateral aspects of the right and left size of the frontal bone and left parietal bone, but most pronounced on the right see image #21/28 series 7. 4. The postcontrast images are degraded due to motion artifact at some point postcontrast only images should be required and an addendum can be made to determine if there are additional lesions not picked up on the original study or if this would foreign exchange trader and treatment of the patient. Electronically Signed: Michael Jacobo MD at 11:58 EDT Reading Location ID and State: [facility] / [place] , Service support , ADDENDUM: 01/12/23 1249 IMPRESSION: Interval development of metastatic dural carcinomatosis with infiltration of the underlying parenchyma 1. Interval development of significant thickening and lobular masses of the dura at the inferior lateral aspect of the left frontal lobe and left temporal fossa measuring 2.30 cm and 2.62 cm, consistent with dural carcinomatosis. The underlying parenchyma at the floor and lateral aspect of the left frontal lobe and the anterior temporal fossa have new areas of infiltrative and vasogenic edema as well as metastatic disease of the subcortical white matter which is necrotic in this nonenhanced as much is the overlying dura. Interval development of lobularity and thickening and hyperenhancement of the dura at the anterior aspect and floor of the right frontal lobe with underlying vasogenic edema and infiltration of the subcortical white matter in the parasagittal region of the right frontal lobe also due to metastatic disease. 2. Moderate diffuse enhancement of the dura across the frontal lobes and frontoparietal convexities of the brain extending to the apex consistent with dural carcinomatosis. 3. New metastatic disease to the skull is also demonstrated at the superior lateral aspects of the right and left size of the frontal bone and left parietal bone, but most pronounced on the right see image #21/28 series 7. 4. The postcontrast images are degraded due to motion artifact at some point postcontrast only images should be required and an addendum can be made to determine if there are additional lesions not picked up on the original study or if this would foreign exchange trader and treatment of the patient. N.B. : Maddie Alonzo RN, confirmed on 01/12/2023 12:42:36 (ET) that the healthcare facility has received the radiology report. Electronically Signed: Michael Jacobo MD at 11:58 EDT Reading Location ID and State: [facility] / [place] , Service support , Physical Exam Narrative General: Lethargic HEENT: Atraumatic, PERRLA, EOMI, Normocephalic Oral: Dry mucosa Neck: Supple, No JVD Lungs: Diminished, Normal air movement, No rhonchi, No wheeze, No rales Cardiovascular: Regular rate, Regular Rhythm, Normal S1, Normal S2, No murmurs Abdomen: Soft, Non Tender, Non-Distended, No Hepato-splenomegaly Extremities: No edema, Capillary Refill Less than 3 Seconds Skin: No rashes, No breakdown Musculoskeletal: No Tenderness to Palpation of Joints or Extremities Neurological: Unable to participate in exam Psych/Mental Status: Lethargic Const alert, oriented x3 and no apparent distress Constitutional Narrative: frail HEENT normocephalic, head/scalp atraumatic, moist oral mucous membranes and oropharynx normal Eyes PERRL and EOMs intact bilaterally Neck no lymphadenopathy Lymph Lymphatic: no lymphadenopathy noted and no lymphedema noted Resp Resp Narrative: diminished breath sounds bibasally, few crackles. On 2L of oxygen. Cardio regular rate, regular rhythm, S1 normal heart sound, S2 normal heart sound and no murmurs GI normal to inspection, nondistended, normoactive bowel sounds, soft to palpation, non-tender and non-distended Extremity normal capillary refill, no clubbing, cyanosis or edema and no calf tenderness Skin General Skin Exam: no breakdown Neuro CN's II-XII intact bilaterally, no focal motor deficits, no sensory deficits noted and deep tendon reflexes 2+ bilaterally Motor Exam: strength 5/5 throughout Psych thought process normal, cooperative and affect normal Appearance: appropriate Assessment & Plan Assessment/Plan (1) Malignant pleural effusion: (2) Acute and chronic respiratory failure: QUALIFIERS: Respiratory failure complication: hypoxia Qualified Code(s): J96.21 - Acute and chronic respiratory failure with hypoxia (3) Breast cancer, left: QUALIFIERS: Breast location: upper outer quadrant of breast Estrogen receptor status: positive Patient sex: female Qualified Code(s): C50.412 - Malignant neoplasm of upper-outer quadrant of left female breast; Z17.0 - Estrogen receptor positive status [ER+] PLAN: Plan 1. Shortness of breath and metabolic encephalopathy secondary to malignant pleural effusion from stage IV breast cancer/cancer pain ? She has had thoracentesis in the past however she is improved from being on a nonrebreather to 2 L nasal cannula without any significant intervention and she does wear chronic oxygen now for about the last week according to her 2 L nasal cannula ? After time with her I do think that there is a significant component of this that is due to anxiety given her diagnosis and the sensations of the shortness of breath. We will start her on Zoloft as well as a as needed Xanax ? We will continue with her home Percocets and adjust her pain medications as necessary ? LFTs are elevated secondary to liver metastasis ? UA was consistent with UTI and she has completed treatment for UTI however urine cultures were unremarkable ? Given her continued lethargy will await MRI ? I did have a 16-minute advance care planning conversation with the depending on the findings of the MRI and how we would proceed going forward this did include discussion between palliative care versus the potential eventuality of hospice care. He states that his 2 daughters are coming from out of town and should be at bedside tomorrow 2. Hypothyroidism ? Stable ? Continue with Synthroid 3. Anxiety/depression ? Continue with Zoloft and Xanax DVT: Heparin Charges/Coding Visit Charges Inpatient E&M: 90860 Subs Hosp L2 Procedures Hospitalists Procedures: 56717 Advncd Care Plan 30 Min
[2023-01-12 20:26] LABS: Bedside Glucose 97 mg/dL (74-106)
--- NOTE | 2023-01-12 22:47 | NURSING ---
bladder scanned for 233ml
[2023-01-13] VITALS (11 sets, daily range): BP systolic 93–110; BP diastolic 70–75; PULSE 126–137; RESP 16–31; TEMP 36.6–38.4; O2SAT 87–95; BMI 25.7
[2023-01-13] MEDS: 0.9% Saline Lock 10 ML Syringe IV ×3 (00:08→14:29)
[2023-01-13] MEDS: Morphine 4 MG/ML Syringe IV ×3 (00:09→14:28)
--- NOTE | 2023-01-13 05:50 | NURSING ---
bladder scanned for 280ml
[2023-01-13] MEDS: Acetaminophen 325 MG Suppository RC (08:19)
--- NOTE | 2023-01-13 13:01 | CASEMGMT ---
Physicians spoke with patient and family. Hospice was recommended and family agreed. SW met with patient's family. Introduced self and role at [facility]. Family confirmed they would like they local Hospice. SW let them know Hospice will be giving them a call to set up a meeting. Family asked that Hospice call patient's [facility]. SW called Hospice regarding referral and also faxed information. Letty Infante [employer]
--- NOTE | 2023-01-13 14:07 | ONC.CONSULT ---
Assessment & Plan Assessment/Plan (1) Breast cancer, left: Status: Chronic Code(s): C50.912 - Malignant neoplasm of unspecified site of left female breast Qualifiers: Breast location: upper outer quadrant of breast Estrogen receptor status: positive Patient sex: female Qualified Code(s): C50.412 - Malignant neoplasm of upper-outer quadrant of left female breast; Z17.0 - Estrogen receptor positive status [ER+] (2) Carcinoma of dura (mater): Status: Acute Code(s): C70.9 - Malignant neoplasm of meninges, unspecified (3) Malignant pleural effusion: Status: Acute Code(s): J91.0 - Malignant pleural effusion (4) Breast cancer metastasized to bone: Status: Chronic Code(s): C50.919 - Malignant neoplasm of unspecified site of unspecified female breast; C79.51 - Secondary malignant neoplasm of bone Qualifiers: Laterality: unspecified laterality Qualified Code(s): C50.919 - Malignant neoplasm of unspecified site of unspecified female breast; C79.51 - Secondary malignant neoplasm of bone (5) Cancer, metastatic to liver: Status: Acute Code(s): C78.7 - Secondary malignant neoplasm of liver and intrahepatic bile duct Plan: Assessment: 62 yr old woman with stage IV breast cancer widely disseminated to bone and liver with malignant pleural effusions bilat, now with dural carcinomatosis evident on MRI brain wwo contrast obtained yesterday, 01/12/23 and transaminitis/liver failure as evidenced by AST > 10 x ULN. Plan: Given the extent of disease present (specifically MANAGING BROKER involvement), limitations of systemic treatment d/t myelosuppression from multiple lines of previous treatment, and rapid functional decline, advise supportive care measures. Results of MRI brain and explanation of poor prognosis was presented to patient and family in tandem with hospitalist. A significant amount of time was allotted for questions. All the family's concerns were addressed to their satisfaction. Total time of discussion approximately 20 minutes. Family collectively elects to pursue inpatient hospice care and agree to a change in code status to DNR CC. HPI Consult Data Date of Service:: 01/13/23 PCP / Referring Provider: Dr. Yoel Urbina MD Attending: Dr. Zane Orozco MD Chief Complaint Chief Complaint: metastatic breast cancer History of Present Illness History of Present Illness: Ms. Luba Scadden is a 62 yr F with a PMH significant for COPD, breast cancer metastatic to liver and bone with malignant pleural effusions bilaterally, presently on 9th line treatment with Halaven. She received cycle 1 day 8 Halaven on 12/23/22- this was delayed by 1 week d/t thrombocytopenia. Interval History Interval History: Upon entering the room, the patient is lying in bed, and 3 adult daughters at the bedside. She does not respond verbally or open her eyes, LUE moves sporadically, occasionally moans quietly. 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-C) Alcohol use Anemia Arthritis Bone metastasis Cancer Cancer related pain Cancer, metastatic to liver Carcinoma of dura (mater) CINV (chemotherapy-induced nausea and vomiting) Constipation Coordination abnormal Decreased coordination Ductal carcinoma Elevated BUN Elevated serum creatinine Encounter for chemotherapy management Enlarged pituitary gland Former smoker Hand foot syndrome Headache History of recent steroid use Hypotension Hypothyroid Insect bite Left arm swelling LUE weakness Metastatic breast cancer Numbness and tingling of left hand Oral candidiasis Rib pain on left side Swelling of left hand Swelling of left upper extremity Thyroid disease Wears glasses Wears partial dentures Home Medications calcium carbonate 600 mg-vitamin D3 5 mcg (200 unit) tablet 1 each PO BID 08/18/19 [History Last Taken Unknown] levothyroxine 137 mcg tablet 137 mcg PO MOTUWETHFRSA 01/01/20 [History Last Taken 12/14/20] albuterol sulfate 90 mcg/actuation aerosol inhaler 1 inh inhalation Q6H PRN Wheezing 12/28/21 [History Last Taken Unknown] ondansetron 4 mg disintegrating tablet 4 mg PO Q8H PRN PRN Nausea 10 days #30 tabs 04/07/22 [Rx Last Taken Unknown] exemestane 25 mg tablet (Aromasin) 25 mg PO DAILY 90 days #90 tabs 08/06/22 [Rx Last Taken Unknown] oxycodone-acetaminophen 5 mg-325 mg tablet 1 tab PO BID PRN Pain 10/06/22 [History Last Taken Unknown] albuterol sulfate 2.5 mg/3 mL (0.083 %) solution for nebulization 2.5 mg (3 mL) inhalation Q4H PRN shortness of breath or wheezing #180 mL 12/11/22 [Rx Last Taken Unknown] spironolactone 50 mg tablet (Aldactone) 50 mg PO DAILY #30 tabs 12/18/22 [Rx Last Taken Unknown] Allergy/AdvReac Type Severity Reaction Status Date / Time dexamethasone AdvReac Other Verified 12/23/22 08:16 Family History Unknown Breast cancer Grandfather Cancer Surgical History History of breast biopsy History of delivery Hx of wisdom tooth extraction Social History household members: spouse housing: house Smoking Status: Former smoker Tobacco: How many years used: 20 second hand exposure: No alcohol intake: current details: social substance use type: does not use what type of physical activity do you participate in: walking seatbelt use: always do you feel safe at home: Yes additional social history: [employer] work Patient works at [employer] in [place] ROS Review of Systems ROS Unobtainable: due to mental status Physical Exam Narrative ECOG 4 Const General Appearance: ill appearing Positive for chronically and frail HEENT normocephalic and head/scalp atraumatic Eyes Eyes Narrative: does not open eyes to the sound of her name Resp no retractions and no use of accessory muscles Extremity Extremity Narrative: LUE edema Neuro Neuro Narrative: unable to participate in exam or discussion Sensorium / Orientation: lethargic Vital Signs Temperature 101 F H 01/13/23 11:43 Temperature Source Axillary 01/13/23 11:43 Pulse Rate 127 H 01/13/23 11:43 Pulse Strength Weak (1+) 01/11/23 22:57 Respiratory Rate 31 H 01/13/23 11:43 Respiratory Effort Normal, Non-Labored 01/13/23 03:27 Respiratory Depth Normal 01/12/23 04:48 Respiratory Pattern Tachypnea 01/13/23 08:23 Blood Pressure 96/73 01/13/23 11:43 Blood Pressure Mean 80 01/13/23 11:43 Blood Pressure Source Monitor 01/13/23 11:43 Blood Pressure Position Semi-Fowlers 01/13/23 11:43 Blood Pressure Location Right Arm 01/13/23 11:43 Pulse Ox 95 01/13/23 11:43 Oxygen Delivery Method Nasal Cannula 01/13/23 11:43 Oxygen Flow Rate (L/min) 3 01/13/23 11:43 Laboratory Results - last 24 hr 01/12/23 20:08: POC Glucose 97 Diagnostic Data Chest X-Ray 01/06/23 10:45 IMPRESSION: Bilateral pleural effusions, cannot associate associated bibasilar consolidation. Electronically Signed: Iliana Monahan MD at 11:01 EDT , Brain CT 01/11/23 08:44 IMPRESSION: Suspect metastatic disease and correlation with MRI with contrast is recommended. 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 Electronically Signed: Destin Benson MD at 10:15 EDT , Brain MRI 01/12/23 10:18 IMPRESSION: Interval development of metastatic dural carcinomatosis with infiltration of the underlying parenchyma 1. Interval development of significant thickening and lobular masses of the dura at the inferior lateral aspect of the left frontal lobe and left temporal fossa measuring 2.30 cm and 2.62 cm, consistent with dural carcinomatosis. The underlying parenchyma at the floor and lateral aspect of the left frontal lobe and the anterior temporal fossa have new areas of infiltrative and vasogenic edema as well as metastatic disease of the subcortical white matter which is necrotic in this nonenhanced as much is the overlying dura. Interval development of lobularity and thickening and hyperenhancement of the dura at the anterior aspect and floor of the right frontal lobe with underlying vasogenic edema and infiltration of the subcortical white matter in the parasagittal region of the right frontal lobe also due to metastatic disease. 2. Moderate diffuse enhancement of the dura across the frontal lobes and frontoparietal convexities of the brain extending to the apex consistent with dural carcinomatosis. 3. New metastatic disease to the skull is also demonstrated at the superior lateral aspects of the right and left size of the frontal bone and left parietal bone, but most pronounced on the right see image #21/28 series 7. 4. The postcontrast images are degraded due to motion artifact at some point postcontrast only images should be required and an addendum can be made to determine if there are additional lesions not picked up on the original study or if this would electronic data interchange specialist and treatment of the patient. Electronically Signed: Michael Jacobo MD at 11:58 EDT Reading Location ID and State: [facility] / [place] , Service support , ADDENDUM: 01/12/23 1249 IMPRESSION: Interval development of metastatic dural carcinomatosis with infiltration of the underlying parenchyma 1. Interval development of significant thickening and lobular masses of the dura at the inferior lateral aspect of the left frontal lobe and left temporal fossa measuring 2.30 cm and 2.62 cm, consistent with dural carcinomatosis. The underlying parenchyma at the floor and lateral aspect of the left frontal lobe and the anterior temporal fossa have new areas of infiltrative and vasogenic edema as well as metastatic disease of the subcortical white matter which is necrotic in this nonenhanced as much is the overlying dura. Interval development of lobularity and thickening and hyperenhancement of the dura at the anterior aspect and floor of the right frontal lobe with underlying vasogenic edema and infiltration of the subcortical white matter in the parasagittal region of the right frontal lobe also due to metastatic disease. 2. Moderate diffuse enhancement of the dura across the frontal lobes and frontoparietal convexities of the brain extending to the apex consistent with dural carcinomatosis. 3. New metastatic disease to the skull is also demonstrated at the superior lateral aspects of the right and left size of the frontal bone and left parietal bone, but most pronounced on the right see image #21/28 series 7. 4. The postcontrast images are degraded due to motion artifact at some point postcontrast only images should be required and an addendum can be made to determine if there are additional lesions not picked up on the original study or if this would electronic data interchange specialist and treatment of the patient. N.B. : Maddie Alonzo RN, confirmed on 01/12/2023 12:42:36 (ET) that the healthcare facility has received the radiology report. Electronically Signed: Michael Jacobo MD at 11:58 EDT , ADDENDUM: 01/13/23 1213 IMPRESSION: undefined
--- NOTE | 2023-01-13 14:28 | PN.HOSP_ITS ---
Subjective Subjective Not interactive today she does move her left arm but she did not open her eyes for me this morning Objective Data Objective Data Vital Signs: Vital Signs Temp Pulse Resp BP Pulse Ox O2 Del Method O2 Flow Rate 101 F H 127 H 31 H 96/73 95 Nasal Cannula 3 01/13/23 11:43 01/13/23 11:43 01/13/23 11:43 01/13/23 11:43 01/13/23 11:43 01/13/23 11:43 01/13/23 11:43 Oxygen Flow Rate (L/min) 3 Oxygen Delivery Method Nasal Cannula Weight: 159 lb 2.78 oz Body Mass Index (BMI) 25.7 Intake & Output: Intake and Output for Last 24 Hours 01/12/23 01/13/23 01/14/23 03:59 03:59 03:59 Intake Total 900 / 900 1027 / 1027 939 / 939 Output Total 0 / 0 600 / 600 0 / 0 Balance 900 / 900 427 / 427 939 / 939 Lab / Micro Data 01/12/23 05:40 01/12/23 05:40 Labs: Laboratory Results - last 24 hr 01/12/23 20:08: POC Glucose 97 Micro: Microbiology 01/09/23 04:00 Urine, Clean Catch Urine Culture - Final Culture exhibits no growth. Radiography Diagnostic Testing: Radiology Impression Brain MRI 01/12/23 10:18 IMPRESSION: Interval development of metastatic dural carcinomatosis with infiltration of the underlying parenchyma 1. Interval development of significant thickening and lobular masses of the dura at the inferior lateral aspect of the left frontal lobe and left temporal fossa measuring 2.30 cm and 2.62 cm, consistent with dural carcinomatosis. The underlying parenchyma at the floor and lateral aspect of the left frontal lobe and the anterior temporal fossa have new areas of infiltrative and vasogenic edema as well as metastatic disease of the subcortical white matter which is necrotic in this nonenhanced as much is the overlying dura. Interval development of lobularity and thickening and hyperenhancement of the dura at the anterior aspect and floor of the right frontal lobe with underlying vasogenic edema and infiltration of the subcortical white matter in the parasagittal region of the right frontal lobe also due to metastatic disease. 2. Moderate diffuse enhancement of the dura across the frontal lobes and frontoparietal convexities of the brain extending to the apex consistent with dural carcinomatosis. 3. New metastatic disease to the skull is also demonstrated at the superior lateral aspects of the right and left size of the frontal bone and left parietal bone, but most pronounced on the right see image #21/28 series 7. 4. The postcontrast images are degraded due to motion artifact at some point postcontrast only images should be required and an addendum can be made to determine if there are additional lesions not picked up on the original study or if this would currency exchange specialist and treatment of the patient. Electronically Signed: Michael Jacobo MD at 11:58 EDT , ADDENDUM: 01/12/23 1249 IMPRESSION: Interval development of metastatic dural carcinomatosis with infiltration of the underlying parenchyma 1. Interval development of significant thickening and lobular masses of the dura at the inferior lateral aspect of the left frontal lobe and left temporal fossa measuring 2.30 cm and 2.62 cm, consistent with dural carcinomatosis. The underlying parenchyma at the floor and lateral aspect of the left frontal lobe and the anterior temporal fossa have new areas of infiltrative and vasogenic edema as well as metastatic disease of the subcortical white matter which is necrotic in this nonenhanced as much is the overlying dura. Interval development of lobularity and thickening and hyperenhancement of the dura at the anterior aspect and floor of the right frontal lobe with underlying vasogenic edema and infiltration of the subcortical white matter in the parasagittal region of the right frontal lobe also due to metastatic disease. 2. Moderate diffuse enhancement of the dura across the frontal lobes and frontoparietal convexities of the brain extending to the apex consistent with dural carcinomatosis. 3. New metastatic disease to the skull is also demonstrated at the superior lateral aspects of the right and left size of the frontal bone and left parietal bone, but most pronounced on the right see image #21/28 series 7. 4. The postcontrast images are degraded due to motion artifact at some point postcontrast only images should be required and an addendum can be made to determine if there are additional lesions not picked up on the original study or if this would currency exchange specialist and treatment of the patient. N.B. : Maddie Alonzo RN, confirmed on 01/12/2023 12:42:36 (ET) that the healthcare facility has received the radiology report. Electronically Signed: Michael Jacobo MD at 11:58 EDT , ADDENDUM: 01/13/23 1213 IMPRESSION: undefined Physical Exam Narrative General: Lethargic HEENT: Atraumatic, PERRLA, Normocephalic Oral: Dry mucosa Neck: Supple, No JVD Lungs: Diminished, Normal air movement, No rhonchi, No wheeze, No rales Cardiovascular: Regular rate, Regular Rhythm, Normal S1, Normal S2, No murmurs Abdomen: Soft, Non Tender, Non-Distended, No Hepato-splenomegaly Extremities: No edema, Capillary Refill Less than 3 Seconds Skin: No rashes, No breakdown Musculoskeletal: No Tenderness to Palpation of Joints or Extremities Neurological: Unable to participate in exam Psych/Mental Status: Lethargic Assessment & Plan Assessment/Plan (1) Malignant pleural effusion: (2) Acute and chronic respiratory failure: QUALIFIERS: Respiratory failure complication: hypoxia Qualified Code(s): J96.21 - Acute and chronic respiratory failure with hypoxia (3) Breast cancer, left: QUALIFIERS: Breast location: upper outer quadrant of breast Estrogen receptor status: positive Patient sex: female Qualified Code(s): C50.412 - Malignant neoplasm of upper-outer quadrant of left female breast; Z17.0 - Estrogen receptor positive status [ER+] PLAN: Plan 1. Shortness of breath and metabolic encephalopathy secondary to malignant pleural effusion from stage IV breast cancer/cancer pain ? She has had thoracentesis in the past however she is improved from being on a nonrebreather to 2 L nasal cannula without any significant intervention and she does wear chronic oxygen now for about the last week according to her 2 L nasal cannula ? After time with her I do think that there is a significant component of this that is due to anxiety given her diagnosis and the sensations of the shortness of breath. We will start her on Zoloft as well as a as needed Xanax ? We will continue with her home Percocets and adjust her pain medications as necessary ? LFTs are elevated secondary to liver metastasis ? UA was consistent with UTI and she has completed treatment for UTI however urine cultures were unremarkable ? Given her continued lethargy will await MRI ? Oncology and I had a 20-minute conversation with the as well as her 3 daughters advance care planning with recommendations for hospice. They agreed and she was made a DNR CC with a consult placed to hospice for hopefully i npatient hospice. 2. Hypothyroidism ? Stable ? Continue with Synthroid 3. Anxiety/depression ? Continue with Zoloft and Xanax Charges/Coding Visit Charges Inpatient E&M: 40699 Subs Hosp L2 Procedures Hospitalists Procedures: 91874 Advncd Care Plan 30 Min
--- NOTE | 2023-01-13 16:05 | CASEMGMT ---
Patient was approved for the inpatient hospice unit. Hospice will transport patient with their mobile unit. Letty GOLDSMITH
--- NOTE | 2023-01-13 16:42 | PCM.DC.SUM ---
Providers Date of Admission: 01/06/23 Primary Care Physician: Dr. Yoel Urbina MD Consultations 01/06/23 07:31 Consult: [employer] Material [employer] / Pulmonary Medicine Routine Consulting Provider: [facility] Reason for Consult: ICU management possible thoracentesis EMERGENT Consult: Yes MD Notified: Yes Date Notified: 01/06/23 Time Notified: 04:56 Method of Notification: Text 01/08/23 08:59 Consult: Hospice / Palliative Care Routine Consulting Provider: [facility] Reason for Consult: Palliative care, discussed with patient yesterday. Confused today EMERGENT Consult: No Notified: Yes Date Notified: 01/08/23 Time Notified: 08:59 Method of Notification: Answering Service 01/11/23 10:31 Consult: Oncology/Hematology Routine Consulting Provider: *[facility] Reason for Consult: Breast CA with metastatic disease EMERGENT Consult: No Notified: Yes Date Notified: 01/11/23 Time Notified: 10:31 Method of Notification: Verbal Reason For Visit: SHORTNESS OF BREATH 2NDARY TO MALIGANT PLEURAL Diagnosis Discharge Diagnosis (1) Breast cancer, left: Status: Chronic Code(s): C50.912 - Malignant neoplasm of unspecified site of left female breast Qualifiers: Breast location: upper outer quadrant of breast Estrogen receptor status: positive Patient sex: female Qualified Code(s): C50.412 - Malignant neoplasm of upper-outer quadrant of left female breast; Z17.0 - Estrogen receptor positive status [ER+] (2) Carcinoma of dura (mater): Status: Acute Code(s): C70.9 - Malignant neoplasm of meninges, unspecified (3) Malignant pleural effusion: Status: Acute Code(s): J91.0 - Malignant pleural effusion (4) Breast cancer metastasized to bone: Status: Chronic Code(s): C50.919 - Malignant neoplasm of unspecified site of unspecified female breast; C79.51 - Secondary malignant neoplasm of bone Qualifiers: Laterality: unspecified laterality Qualified Code(s): C50.919 - Malignant neoplasm of unspecified site of unspecified female breast; C79.51 - Secondary malignant neoplasm of bone (5) Cancer, metastatic to liver: Status: Acute Code(s): C78.7 - Secondary malignant neoplasm of liver and intrahepatic bile duct Medications at Discharge Home Medications calcium carbonate 600 mg-vitamin D3 5 mcg (200 unit) tablet 1 each PO BID 08/18/19 levothyroxine 137 mcg tablet 137 mcg PO MOTUWETHFRSA 01/01/20 albuterol sulfate 90 mcg/actuation aerosol inhaler 1 inh inhalation Q6H PRN Wheezing 12/28/21 ondansetron 4 mg disintegrating tablet 4 mg PO Q8H PRN PRN Nausea 10 days #30 tabs 04/07/22 exemestane 25 mg tablet (Aromasin) 25 mg PO DAILY 90 days #90 tabs 08/06/22 oxycodone-acetaminophen 5 mg-325 mg tablet 1 tab PO BID PRN Pain 10/06/22 albuterol sulfate 2.5 mg/3 mL (0.083 %) solution for nebulization 2.5 mg (3 mL) inhalation Q4H PRN shortness of breath or wheezing #180 mL 12/11/22 spironolactone 50 mg tablet (Aldactone) 50 mg PO DAILY #30 tabs 12/18/22 Hospital Course Operations None Procedures None Summary of Care Provided Minutes Spent on Discharge: 45 Hospital Course: Per HPI: DULCE MCKEON, is a 62 F who presented initially to the [facility] emergency room with chief complaint of shortness of breath. Patient has significant past medical history of breast cancer with metastatic disease to both bone and lung. Her initial respiration rate was 22-24 with a heart rate in the 150s and was given Lasix and BiPAP therapy there. It was reported to me by ER physician that she wished to remain full code despite her poor prognosis. She improved to a heart rate of 100 and was able to maintain her pulse oxygenation within normal ranges after BiPAP therapy and was more comfortable but still wished to be transferred to [facility] for her treatment. Her chest x-ray did reveal a pleural effusion for which she might require thoracentesis. Currently she complains of significant pain in her thighs legs and head that is chronic and severe due to her cancer. She was immediately given morphine to control this pain and she felt more comfortable during my interview with her. She currently denies any fevers or chills and her shortness of breath has improved since arrival and now currently she is on a nonrebreather mask. Hospital Course: 1. Shortness of breath and metabolic encephalopathy secondary to malignant pleural effusion from stage IV breast cancer with new static lesions to the brain?62-year-old female presented to the hospital with acute shortness of breath and initially there was concern that she would need intubated however on arrival her oxygen requirements improved significantly and it was felt that this was mostly due to anxiety. According to the family she has been having a slow decline over the last several months but she had a rapid decline while here in the hospital and her mental status and initially a UA was obtained when this happened that demonstrated a likely UTI so she was started on antibiotics however this did not improve. Over the weekend a CT brain was obtained which was unremarkable however given her continued lethargy an MRI was obtained which showed significant cranial metastases to her dura. Multiple conversations were had with the family yesterday and today about advance care planning and hospice care and they elected to proceed with hospice today. Hospice did come and evaluate and felt that she was inpatient appropriate and she was transferred to inpatient hospice today. Weight / BMI Weight Weight: 159 lb 2.78 oz Body Mass Index (BMI) 25.7 ABG / Lab / Microbiology Data 01/12/23 05:40 01/12/23 05:40 Laboratory: Laboratory Results - last 24 hr 01/12/23 20:08: POC Glucose 97 Microbiology: Microbiology 01/09/23 04:00 Urine, Clean Catch Urine Culture - Final Culture exhibits no growth. Radiography Diagnostic Testing: Radiology Impression Brain MRI 01/12/23 10:18 IMPRESSION: Interval development of metastatic dural carcinomatosis with infiltration of the underlying parenchyma 1. Interval development of significant thickening and lobular masses of the dura at the inferior lateral aspect of the left frontal lobe and left temporal fossa measuring 2.30 cm and 2.62 cm, consistent with dural carcinomatosis. The underlying parenchyma at the floor and lateral aspect of the left frontal lobe and the anterior temporal fossa have new areas of infiltrative and vasogenic edema as well as metastatic disease of the subcortical white matter which is necrotic in this nonenhanced as much is the overlying dura. Interval development of lobularity and thickening and hyperenhancement of the dura at the anterior aspect and floor of the right frontal lobe with underlying vasogenic edema and infiltration of the subcortical white matter in the parasagittal region of the right frontal lobe also due to metastatic disease. 2. Moderate diffuse enhancement of the dura across the frontal lobes and frontoparietal convexities of the brain extending to the apex consistent with dural carcinomatosis. 3. New metastatic disease to the skull is also demonstrated at the superior lateral aspects of the right and left size of the frontal bone and left parietal bone, but most pronounced on the right see image #21/28 series 7. 4. The postcontrast images are degraded due to motion artifact at some point postcontrast only images should be required and an addendum can be made to determine if there are additional lesions not picked up on the original study or if this would private branch exchange service adviser and treatment of the patient. Electronically Signed: Michael Jacobo MD at 11:58 EDT Reading Location ID and State: [facility] / [place] , Service support , ADDENDUM: 01/12/23 1249 IMPRESSION: Interval development of metastatic dural carcinomatosis with infiltration of the underlying parenchyma 1. Interval development of significant thickening and lobular masses of the dura at the inferior lateral aspect of the left frontal lobe and left temporal fossa measuring 2.30 cm and 2.62 cm, consistent with dural carcinomatosis. The underlying parenchyma at the floor and lateral aspect of the left frontal lobe and the anterior temporal fossa have new areas of infiltrative and vasogenic edema as well as metastatic disease of the subcortical white matter which is necrotic in this nonenhanced as much is the overlying dura. Interval development of lobularity and thickening and hyperenhancement of the dura at the anterior aspect and floor of the right frontal lobe with underlying vasogenic edema and infiltration of the subcortical white matter in the parasagittal region of the right frontal lobe also due to metastatic disease. 2. Moderate diffuse enhancement of the dura across the frontal lobes and frontoparietal convexities of the brain extending to the apex consistent with dural carcinomatosis. 3. New metastatic disease to the skull is also demonstrated at the superior lateral aspects of the right and left size of the frontal bone and left parietal bone, but most pronounced on the right see image #21/28 series 7. 4. The postcontrast images are degraded due to motion artifact at some point postcontrast only images should be required and an addendum can be made to determine if there are additional lesions not picked up on the original study or if this would private branch exchange service adviser and treatment of the patient. N.B. : Maddie Alonzo RN, confirmed on 01/12/2023 12:42:36 (ET) that the healthcare facility has received the radiology report. Electronically Signed: Michael Jacobo MD at 11:58 EDT Reading Location ID and State: [facility] / [place] , Service support , ADDENDUM: 01/13/23 1213 IMPRESSION: undefined Meaningful Use Info Meaningful Use Diagnoses (Choose all that apply): None applicable Discharge Plan Admission Admit Date/Time: 01/06/23 04:53 Attending Provider: Zane Orozco Primary Care Provider: Yoel Urbina Consulting Providers: Son Oquendo; Jose Alfredo Stark; Daniel Villarreal; Jack Gross; Von Reed; Ramya Amos NP; Phil Farley; Sadaf Barajas; Barb Black; Madison Camargo VISION TEACHER; Zane Orozco; Alisha Bales; Phil Mchugh; Waqar Deutsch; Sandra Block; William Rudolph; Mati Tomlinson; Pablo Peres; Ming Camacho; Geena Orr NP; Phil Leger; Lauren Santiago Discharge Orders/Prescriptions Prescriptions: No Action oxycodone-acetaminophen 5-325 mg tablet 1 tab PO BID PRN (Reason: Pain) albuterol sulfate 2.5 mg /3 mL (0.083 %) solution for nebulization 2.5 mg inhalation Q4H PRN (Reason: shortness of breath or wheezing) Qty: 180 3RF calcium carbonate-vitamin D3 1 EACH tablet 1 each PO BID levothyroxine 137 MCG tablet 137 mcg PO MOTUWETHFRSA albuterol sulfate 90 mcg/actuation Hfa Aerosol Inhaler 1 inh INHALATION Q6H PRN (Reason: Wheezing) ondansetron 4 mg tablet,disintegrating 4 mg PO Q8H PRN PRN (Reason: Nausea) 10 Days Qty: 30 3RF exemestane [Aromasin] 25 mg tablet 25 mg PO DAILY 90 Days Qty: 90 1RF Rx Instructions: must administer after a meal spironolactone [Aldactone] 50 mg tablet 50 mg PO DAILY Qty: 30 1RF Referrals / Follow Up: Yoel Urbina MD [Primary Care Provider] - Disposition Discharge Orders: Discharge Patient (Routine); Ordered 01/13/23 Ordered By: Dr. Zane Orozco Charges/Coding Visit Charges Inpatient E&M: 41189 Disch Hosp >30min
[2023-01-14 09:52] LABS: Pathologist Review Reviewed
== END 2023-01-13 16:37 | disposition hospice, inpatient (51) | DRG 597 ==
LOC: ICU 09:36 → PCU 16:55
PROVIDERS: Internal Medicine; Student in an Organized Health Care Education/Training Program; Admitting Provider Family Medicine; PCP Family Medicine; Visit Provider Family Medicine
DX: C50.412 Malignant neoplasm of upper-outer quadrant of left female breast (principal); J96.21 Acute and chronic respiratory failure with hypoxia; G93.41 Metabolic encephalopathy; C79.51 Secondary malignant neoplasm of bone; C78.7 Secondary malignant neoplasm of liver and intrahepatic bile duct; C79.31 Secondary malignant neoplasm of brain; J91.0 Malignant pleural effusion; N30.00 Acute cystitis without hematuria; D69.59 Other secondary thrombocytopenia; J44.9 Chronic obstructive pulmonary disease, unspecified; D63.0 Anemia in neoplastic disease; N18.9 Chronic kidney disease, unspecified; E03.9 Hypothyroidism, unspecified; M25.552 Pain in left hip; E16.2 Hypoglycemia, unspecified; F41.9 Anxiety disorder, unspecified; Z17.0 Estrogen receptor positive status [ER+]; G89.3 Neoplasm related pain (acute) (chronic); R00.0 Tachycardia, unspecified; T45.1X5A Adverse effect of antineoplastic and immunosuppressive drugs, initial encounter; Z66 Do not resuscitate; Z79.811 Long term (current) use of aromatase inhibitors; Z99.81 Dependence on supplemental oxygen; Z79.899 Other long term (current) drug therapy; Z87.891 Personal history of nicotine dependence
CPT/HCPCS: 36415; 70450; 70553; 71045; 80048; 80053; 80076; 81001; 82962; 83605; 83735; 84100; 85025; 85610; 86850; 86900; 86901; 87086; 92526; 92610; 94640; 94762; 97110; 97162; 97166; 97530; 97535; 99252; A9575; J7050; A4216; G0463; J2405